=== PATIENT | male | born 1960 | race Two or more races ===

== ENCOUNTER 2017-10-28 15:16 | Inpatient (IN) | payer OTHER ==
[2017-10-28 15:50] VITALS: BMI 38.7
--- NOTE | 2017-10-28 20:39 | HP ---
COWS - Scale Resting Pulse: 2= RI 101-120 Sweatin=Flushed/Facial Moisture Restless Observation: 3= Extraneous Movement Pupil Size: 0= Normal to Room Light Bone or Joint Aches: 4=Acute Joint/Muscle Pain Runny Nose/ Eye Tearin= Nasal Congestion GI Upset > 30mins: 2= Nausea/Diarrhea Tremor Observation: 0= None Yawning Observation: 0= None Anxiety or Irritability: 2=Irritable/Anxious Goose Flesh Skin: 0=Smooth Skin COWS Score: 16 CIWA Score - CIWA Score Nausea/Vomitin-Mild Nausea/No Vomiting Muscle Tremors: None Anxiety: 4-Mod. Anxious/Guarded Agitation: 3 Paroxysmal Sweats: 3 Orientation: 1-Uncertain about Date Tacttile Disturbances: 0-None Auditory Disturbances: 0-None Visual Disturbances: 0-None Headache: 2-Mild CIWA-Ar Total Score: 14 Admission ROS S - HPI Chief Complaint: c/o of withdrawal sx's Allergies/Adverse Reactions: Allergies Allergy/AdvReac Type Severity Reaction Status Date / Time No Known Drug Allergies Allergy Verified 10/28/17 19:40 History of Present Illness: 57 Y.O. MALE WITH LONG HX/O ALCOHOLISM AND OPIOID DEPENDENCE HERE FOR DETOX. CLIENT IS KNOWN TO THIS PROGRAM. LAST HERE 3 YEARS AGO. REFERRED BY OUTREACH. REPORTS LONGEST CLEAN TIME 1 YEAR. DENIES HX/O DT'S, AVH, SEIZXURE D/O. UTOX + BZO AMD MTD. CLIENT STATES HE TAKE STREET METHADONE. REPORTS WAS RECENTLY O THE HOSPITAL A LITTLE OVER A MONTH AGO FOR ASTHMA AND WAS TREATED WITH BENZO'S FOR ALCOHOLISM. CLIENT IS A POOR HISTORIAN WITH HOME MEDICATION. INCONSISTENT REPORTS. CONFLICTING DOSAGES AND RX NOTED WHEN COMPARED TO OUTSIDE PHARMACY REVIEW Exam Limitations: No Limitations - Ebola screening Have you traveled outside of the country in the last 21 days: No (N) Have you had contact with anyone from an Ebola affected area: No Have you been sick,other than usual withdrawal symptoms: No Do you have a fever: No - Review of Systems Constitutional: Chills, Malaise, Night Sweats, Changes in sleep EENT: reports: No Symptoms Reported Respiratory: reports: Other (HX/O ASTHMA) Cardiac: reports: No Symptoms Reported GI: reports: Nausea, Poor Appetite, Abdominal cramping : reports: No Symptoms Reported Musculoskeletal: reports: Joint Pain Integumentary: reports: No Symptoms Reported Neuro: reports: No Symptoms reported Endocrine: reports: Other (HX/O DM) Hematology: reports: No Symptoms Reported Psychiatric: reports: No Sypmtoms Reported Other Systems: Reviewed and Negative Patient History - Patient Medical History Hx Anemia: No Hx Asthma: Yes Hx Chronic Obstructive Pulmonary Disease (COPD): No Hx Cancer: No Hx Cardiac Disorders: No Hx Congestive Heart Failure: No Hx Hypertension: Yes Hx Hypercholesterolemia: No Hx Pacemaker: No HX Cerebrovascular Accident: No Hx Seizures: No Hx Dementia: No Hx Diabetes: Yes Hx Gastrointestinal Disorders: Yes ("gastritis") Hx Liver Disease: No Hx Genitourinary Disorders: No Hx Sexually Transmitted Disorders: No Hx Renal Disease (ESRD): No Hx Thyroid Disease: No Hx Human Immunodeficiency Virus (HIV): No Hx Hepatitis C: No Hx Depression: No Hx Suicide Attempt: No Hx Bipolar Disorder: No Hx Schizophrenia: No Other Medical History: DENIES - Patient Surgical History Past Surgical History: No Hx Neurologic Surgery: No Hx Cataract Extraction: No Hx Cardiac Surgery: No Hx Lung Surgery: No Hx Breast Surgery: No Hx Breast Biopsy: No Hx Abdominal Surgery: No Hx Appendectomy: No Hx Cholecystectomy: No Hx Genitourinary Surgery: No Hx Section: No Hx Orthopedic Surgery: No Anesthesia Reaction: No - PPD History Previous Implant?: Yes Documented Results: Negative w/proof Date: 01/06/14 Results: 0 mm PPD to be Administered?: Yes - Smoking Cessation Smoking history: Never smoked Have you smoked in the past 12 months: No Cigars Per Day: 0 Hx Chewing Tobacco Use: No Initiated information on smoking cessation: No - Substance & Tx. History Hx Alcohol Use: Yes Hx Substance Use: Yes Substance Use Type: Alcohol, Cocaine, Opiates (MTD) Hx Substance Use Treatment: Yes ([facility]) - Substances Abused Alcohol Route: Oral Frequency: Daily Amount used: liquor- 2 pints, beer- 1 six pack Age of first use: 21 Date of Last Use: 10/27/17 Non-Rx Methadone Route: Oral Frequency: Daily Amount used: 40mg Age of first use: 41 Date of Last Use: 10/27/17 COCAINE Route: Inhalation Frequency: 1-2 times per week Amount used: 20 DOLLARS Age of first use: 31 Date of Last Use: 10/21/17 Family Disease History - Family Disease History Family Disease History: Diabetes: Father (ALCOHOLIC), Mother (HTN), Heart Disease: Mother, Other: Father Admission Physical Exam [facility] - Vital Signs Vital Signs: Vital Signs - 24 hr 10/28/17 15:48 Temperature 98.5 F Pulse Rate 101 H Respiratory 20 Rate Blood Pressure 147/78 Cleared for Admission [facility] - Detox or Rehab [facility] Level of Care: Medically Managed Detox Regimen/Protocol: Methadone/Librium Claeared for Rehab Admission: No BHS Breath Alcohol Content Breath Alcohol Content: 0 Urine Drug Screen - Results Drug Screen Negative: No Urine Drug Screen Results: KIMMIE-Cocaine, BZO-Benzodiazepines, MTD-Methadone
[2017-10-28] MEDS ORDERED: LOPERAMIDE HCL 2 MG CAPSULE PO PRN (20:51)
[2017-10-28] MEDS ORDERED: IBUPROFEN 400 MG TABLET (FP) PO PRN (20:51)
[2017-10-28] MEDS ORDERED: MENTHOL/PHENOL 1 EACH UD MM PRN (20:51)
[2017-10-28] MEDS ORDERED: P-EPHED 60MG/TRIPROLIDI 2.5MG TABLET PO PRN (20:51)
[2017-10-28] MEDS ORDERED: chlordiazePOXIDE HCL 25 MG CAPSULE PO PRN (20:51)
[2017-10-28] MEDS ORDERED: ACETAMINOPHEN 325 MG TABLET (FP) PO PRN (20:51)
[2017-10-28] MEDS ORDERED: MAGNESIUM CITRATE 300 ML BOTTLE PO PRN (20:51)
[2017-10-28] MEDS ORDERED: guaiFENesin/D-METHORPHAN HB 10 ML UNIT-DOSE CUPS PO PRN (20:51)
[2017-10-28] MEDS ORDERED: MAGNESIUM HYDROX 2400MG/30ML ORAL SUSPENSION 30 ML CUP PO PRN (20:51)
[2017-10-28] MEDS ORDERED: hydrOXYzine PAMOATE 50 MG CAPSULE (FP) PO PRN (20:51)
[2017-10-28] MEDS ORDERED: MAG HYDROX/AL HYDROX/SIMETH 30 ML UNIT-DOSE CUP PO PRN (20:51)
[2017-10-28] MEDS ORDERED: METHADONE HCL 10 MG TABLET (FOR DETOX USE ONLY) PO ONE ×2 (21:15→23:00)
[2017-10-28] MEDS ORDERED: MELATONIN 5 MG TABLETS PO PRN (22:00)
[2017-10-28] MEDS: chlordiazePOXIDE HCL 25 MG CAPSULE PO SCH (22:38)
[2017-10-28] MEDS: INSULIN (LEVEMIR) 100 UNITS/ML UNITS SQ SCH (22:57)
[2017-10-28] MEDS: THIAMINE HCL 100 MG TABLET (FP) PO SCH (22:57)
[2017-10-29] MEDS: chlordiazePOXIDE HCL 25 MG CAPSULE PO SCH ×4 (05:10→22:09)
[2017-10-29] MEDS ORDERED: ALBUTEROL SO4 8 GM HFA INHALER IH PRN (07:03)
[2017-10-29] MEDS ORDERED: INSULIN (NOVOLOG) ASPART 100 UNITS/ML 10ML VIAL SQ ONE (07:46)
[2017-10-29] MEDS ORDERED: INSULIN (NOVOLOG) ASPART 100 UNITS/ML 10ML VIAL ONE ×3 (07:56→20:53)
[2017-10-29] MEDS: hydrALAZINE HCL 25 MG TABLET (FP) PO SCH ×3 (08:46→22:09)
[2017-10-29 09:45] LABS: HEMATOCRIT 40.4 % (35.4-49); HEMOGLOBIN 13.6 GM/dL (11.7-16.9); MCH 24.9 pg (25.7-33.7); MCHC 33.6 g/dl (32.0-35.9); MEAN PLT VOLUME 9.9 fl (7.5-11.1); PLATELET COUNT 163 K/MM3 (134-434); RBC 5.46 M/mm3 (4.00-5.60); RDW 16.3 % (11.9-15.9); WHITE BLOOD COUNT 6.4 K/mm3 (4.0-10.0)
[2017-10-29 09:54] LABS: ALBUMIN 3.6 g/dl (3.4-5.0); ANION GAP 8 (8-16); BLOOD UREA NITROGEN 42 mg/dL (7-18); CALCIUM 8.2 mg/dL (8.5-10.1); CHLORIDE 99 mmol/L (98-107); CO2 31 mmol/L (21-32); CREATININE 2.4 mg/dL (0.7-1.3); GLUCOSE,RANDOM 175 mg/dL (74-106); POTASSIUM 4.1 mmol/L (3.5-5.1); SGOT/AST 10 U/L (15-37); SGPT/ALT 23 U/L (12-78); SODIUM 138 mmol/L (136-145)
[2017-10-29 09:56] LABS: ALK PHOS 51 U/L (45-117); BILIRUBIN,TOTAL 0.9 mg/dL (0.2-1.0); TOT PROT 7.1 g/dl (6.4-8.2)
[2017-10-29] MEDS ORDERED: NIFEdipine 10 MG CAPSULE (FP) PO SCH (10:00)
[2017-10-29] MEDS ORDERED: METHADONE HCL 10 MG TABLET (FOR DETOX USE ONLY) PO SCH (10:00)
[2017-10-29] MEDS: LISINOPRIL 10 MG TABLET (FP) PO SCH (10:19)
[2017-10-29] MEDS: PRENATAL VITAMINS W/ FOLIC ACID TABLET (FP) PO SCH (10:19)
[2017-10-29] MEDS: BUDESONIDE/FORMETEROL FUMARATE 160/4.5 mcg INHALER IH SCH ×2 (10:19→22:12)
[2017-10-29] MEDS: ASPIRIN 81 MG CHEWABLE TABLETS PO SCH (10:19)
[2017-10-29] MEDS: NIFEdipine E.R. 30 MG TABLET (FP) PO SCH (10:20)
[2017-10-29] MEDS: PANTOPRAZOLE 40 MG TABLET (FP) PO SCH (10:21)
[2017-10-29] MEDS ORDERED: TRIMETHOBENZAMIDE HCL 200MG/2ML INJ IM PRN (11:57)
[2017-10-29] MEDS: INSULIN SLIDING SCALE (NOVOLOG) 1 VIAL SQ SCH ×3 (12:17→22:10)
--- NOTE | 2017-10-29 13:03 | PN ---
S CIWA - CIWA Score Nausea/Vomitin Muscle Tremors: 3 Anxiety: 4-Mod. Anxious/Guarded Agitation: 2 Paroxysmal Sweats: 3 Orientation: 0-Oriented Tacttile Disturbances: 2-Mild Itch/Numbness/Burn Auditory Disturbances: 0-None Visual Disturbances: 0-None Headache: 0-None Present CIWA-Ar Total Score: 19 BHS COWS - Scale Resting Pulse: 1= [place] 81-100 Sweatin= Chills/Flushing Restless Observation: 1= Difficult to Sit Still Pupil Size: 0= Normal to Room Light Bone or Joint Aches: 2= Severe Diffuse Aches Runny Nose/ Eye Tearin= None GI Upset > 30mins: 3= Vomiting/Diarrhea Tremor Observation of Outstretched Hands: 2= Slight Tremor Visible Yawning Observation: 1= 1-2x During Session Anxiety or Irritability: 2=Irritable/Anxious Goose Flesh Skin: 3=Piloerection COWS Score: 16 S Progress Note (SOAP) Subjective: Tremors, Sweating, Interrupted Sleep, Body Aches, Anxious, Vomiting, Diarrhea. Objective: PATIENT A & O X 3, OBSERVED AMBULATING ON UNIT. NO ACUTE DISTRESS. 10/29/17 12:59 Vital Signs Temperature 97.2 F L 10/29/17 09:19 Pulse Rate 100 H 10/29/17 09:19 Respiratory Rate 20 10/29/17 09:19 Blood Pressure 146/86 10/29/17 09:19 O2 Sat by Pulse Oximetry (%) Laboratory Tests 10/28/17 10/28/17 10/29/17 19:36 22:52 05:09 WBC RBC Hgb Hct MCV MCH MCHC RDW Plt Count MPV Sodium Potassium Chloride Carbon Dioxide Anion Gap BUN Creatinine Creat Clearance w eGFR POC Glucometer 287 325 258 Random Glucose Calcium Total Bilirubin AST ALT Alkaline Phosphatase Total Protein Albumin RPR Titer 10/29/17 10/29/17 10/29/17 07:00 07:00 07:00 WBC 6.4 RBC 5.46 Hgb 13.6 Hct 40.4 MCV 74.0 L MCH 24.9 L MCHC 33.6 RDW 16.3 H Plt Count 163 MPV 9.9 Sodium 138 Potassium 4.1 Chloride 99 Carbon Dioxide 31 Anion Gap 8 BUN 42 H Creatinine 2.4 H Creat Clearance w eGFR 28.14 POC Glucometer Random Glucose 175 H D Calcium 8.2 L Total Bilirubin 0.9 AST 10 L D ALT 23 D Alkaline Phosphatase 51 Total Protein 7.1 Albumin 3.6 RPR Titer Nonreactive LABS NOTED. UA RESULTS PENDING. 10/29/17 13:03 Assessment: 10/29/17 12:59 WITHDRAWAL SYMPTOMS. Plan: CONTINUE DETOX. D/C IBUPROFEN AND MAGNESIUM-CONTAINING MEDS. FOR ABNORMAL ADMISSION RENAL LAB VALUES. BASIC METABOLIC PANEL ON 10/31/2017. PRN TIGAN IM FOR NAUSEA/VOMITING. PRN FLEXERIL FOR BODY ACHES/MUSCLE SPASMS.
[2017-10-29 15:09] LABS: URINE APPEARANCE CLEAR; URINE BILIRUBIN NEGATIVE (<2.0 mg/dL); URINE COLOR YELLOW; URINE GLUCOSE (UA) 1+ (NEGATIVE); URINE KETONE NEGATIVE (NEGATIVE); URINE LEUK ESTERASE NEGATIVE (NEGATIVE); URINE NITRITE NEGATIVE (NEGATIVE); URINE PROTEIN NEGATIVE (NEGATIVE); URINE UROBILINOGEN NEGATIVE mg/dL (0.2-1.0)
--- NOTE | 2017-10-29 16:31 | CONSULT ---
[facility] Psychiatric Consult - Data Date of interview: 10/29/17 Admission source: [facility] Identifying data: Patient is a 57 year old singe male, father of one, unemployed , homeless, and supported by public assistance. This is one of multiple admissions for patient. Pt. admitted to for alcohol and cocaine dependence. Substance Abuse History: - Smoking Cessation. Smoking history: Never smoked. Have you smoked in the past 12 months: No. Cigars Per Day: 0. Hx Chewing Tobacco Use: No. Initiated information on smoking cessation: No. - Substance & Tx. History. Hx Alcohol Use: Yes. Hx Substance Use: Yes. Substance Use Type : Alcohol, Cocaine, Opiates (MTD). Hx Substance Use Treatment: Yes ([facility] ). - Substances Abused. Alcohol. Route: Oral. Frequency: Daily. Amount used: liquor- 2 pints, beer- 1 six pack. Age of first use: 21. Date of Last Use: 10/27/17. Non-Rx Methadone. Route: Oral. Frequency: Daily. Amount used: 40mg. Age of first use: 41. Date of Last Use: 10/27/17. COCAINE. Route: Inhalation. Frequency: 1-2 times per week. Amount used: 20 DOLLARS. Age of first use: 31. Date of Last Use: 10/21/17 Medical History: Asthma, hypertension, gastritis, diabetes Psychiatric History: Patient denies h/o psychiatric hospitalization, outpatient care, and suicide attempt. Pt states he receives ambien from his medical doctor. Physical/Sexual Abuse/Trauma History: Denies. Mental Status Exam - Mental Status Exam Alert and Oriented to: Time, Place, Person Cognitive Function: Good Patient Appearance: Well Groomed Mood: Euthymic Affect: Mood Congruent Patient Behavior: Appropriate, Cooperative Speech Pattern: Appropriate Voice Loudness: Normal Thought Process: Intact Thought Disorder: Not Present Hallucinations: Denies Suicidal Ideation: Denies Homicidal Ideation: Denies Insight/Judgement: Poor Sleep: Poorly Appetite: Fair Muscle strength/Tone: Normal Gait/Station: Normal Psychiatric Findings - Problem List ([place] 1, 2,3) (1) Alcohol dependence with uncomplicated withdrawal Current Visit: Yes Status: Acute (2) Diabetes mellitus Current Visit: Yes Status: Acute (3) Opioid dependence with withdrawal Current Visit: Yes Status: Acute (4) Cocaine dependence, uncomplicated Current Visit: Yes Status: Chronic (5) Essential hypertension Current Visit: Yes Status: Chronic (6) Gastroesophageal reflux disease Current Visit: Yes Status: Chronic (7) Insomnia Current Visit: Yes Status: Acute (8) Drug-induced mood disorder Current Visit: Yes Status: Acute - Initial Treatment Plan Initial Treatment Plan: Psychoeducation provided. Detoxification in progress. Ambien 10mg qhs prn ordered. Pt. reports favorable effect from accepting ambien. Benefits and side effects discussed. Pt. made aware of the risk of parasomnia. Verbal consent given.
[2017-10-29] MEDS: ATORVASTATIN CA 80 MG TABLET (FP) PO SCH (22:09)
[2017-10-29] MEDS: THIAMINE HCL 100 MG TABLET (FP) PO SCH (22:09)
[2017-10-29] MEDS: ZOLPIDEM TARTRATE 10 MG TABLET (PARK CARE ONLY) PO PRN (22:09)
[2017-10-29] MEDS: MONTELUKAST NA 10 MG TABLET PO SCH (22:09)
[2017-10-29] MEDS: INSULIN (LEVEMIR) 100 UNITS/ML UNITS SQ SCH (22:09)
[2017-10-29] MEDS: CYCLOBENZAPRINE HCL 10 MG TABLET (FP) PO PRN (22:13)
[2017-10-30] MEDS: chlordiazePOXIDE HCL 25 MG CAPSULE PO SCH ×3 (05:10→17:30)
[2017-10-30] MEDS: hydrALAZINE HCL 25 MG TABLET (FP) PO SCH ×3 (05:10→22:10)
[2017-10-30] MEDS ORDERED: INSULIN (NOVOLOG) ASPART 100 UNITS/ML 10ML VIAL ONE ×3 (07:57→21:27)
[2017-10-30] MEDS: INSULIN SLIDING SCALE (NOVOLOG) 1 VIAL SQ SCH ×4 (08:13→21:28)
[2017-10-30] MEDS: LISINOPRIL 10 MG TABLET (FP) PO SCH (10:09)
[2017-10-30] MEDS: PRENATAL VITAMINS W/ FOLIC ACID TABLET (FP) PO SCH (10:09)
[2017-10-30] MEDS: PANTOPRAZOLE 40 MG TABLET (FP) PO SCH (10:09)
[2017-10-30] MEDS: METHADONE HCL 5 MG TABLET (FOR DETOX USE ONLY) PO SCH (10:10)
[2017-10-30] MEDS: NIFEdipine E.R. 30 MG TABLET (FP) PO SCH (10:10)
[2017-10-30] MEDS: ASPIRIN 81 MG CHEWABLE TABLETS PO SCH (10:10)
[2017-10-30] MEDS: BUDESONIDE/FORMETEROL FUMARATE 160/4.5 mcg INHALER IH SCH ×2 (10:10→22:13)
[2017-10-30] MEDS: CYCLOBENZAPRINE HCL 10 MG TABLET (FP) PO PRN ×2 (10:13→22:10)
[2017-10-30] MEDS: LIDOCAINE 5% TOPICAL PATCH TP SCH (11:55)
--- NOTE | 2017-10-30 12:49 | PN ---
S CIWA - CIWA Score Nausea/Vomitin Muscle Tremors: None Anxiety: 3 Agitation: 2 Paroxysmal Sweats: No Perspiration Orientation: 0-Oriented Tacttile Disturbances: 2-Mild Itch/Numbness/Burn Auditory Disturbances: 0-None Visual Disturbances: 2-Mild Sensitivity Headache: 0-None Present CIWA-Ar Total Score: 12 BHS COWS - Scale Resting Pulse: 4= MO > 121 Sweatin= Chills/Flushing Restless Observation: 1= Difficult to Sit Still Pupil Size: 0= Normal to Room Light Bone or Joint Aches: 2= Severe Diffuse Aches Runny Nose/ Eye Tearin= None GI Upset > 30mins: 2= Nausea/Diarrhea Tremor Observation of Outstretched Hands: 0= None Yawning Observation: 1= 1-2x During Session Anxiety or Irritability: 2=Irritable/Anxious Goose Flesh Skin: 0=Smooth Skin COWS Score: 13 BHS Progress Note (SOAP) Subjective: Interrupted Sleep, Stomach Cramping, Nausea, Body Aches, Constipation. Objective: PATIENT A & O X 3, OBSERVED AMBULATING ON UNIT. NO ACUTE DISTRESS. 10/30/17 12:46 Vital Signs Temperature 98.1 F 10/30/17 10:17 Pulse Rate 121 H 10/30/17 10:17 Respiratory Rate 18 10/30/17 10:17 Blood Pressure 162/92 10/30/17 10:17 O2 Sat by Pulse Oximetry (%) Laboratory Tests 10/28/17 10/28/17 10/29/17 19:36 22:52 05:09 WBC RBC Hgb Hct MCV MCH MCHC RDW Plt Count MPV Sodium Potassium Chloride Carbon Dioxide Anion Gap BUN Creatinine Creat Clearance w eGFR POC Glucometer 287 325 258 Random Glucose Calcium Total Bilirubin AST ALT Alkaline Phosphatase Total Protein Albumin Urine Color Urine Appearance Urine pH Ur Specific [place] Urine Protein Urine Glucose (UA) Urine Ketones Urine Blood Urine Nitrite Urine Bilirubin Urine Urobilinogen Ur Leukocyte Esterase RPR Titer 10/29/17 10/29/17 10/29/17 07:00 07:00 07:00 WBC 6.4 RBC 5.46 Hgb 13.6 Hct 40.4 MCV 74.0 L MCH 24.9 L MCHC 33.6 RDW 16.3 H Plt Count 163 MPV 9.9 Sodium 138 Potassium 4.1 Chloride 99 Carbon Dioxide 31 Anion Gap 8 BUN 42 H Creatinine 2.4 H Creat Clearance w eGFR 28.14 POC Glucometer Random Glucose 175 H D Calcium 8.2 L Total Bilirubin 0.9 AST 10 L D ALT 23 D Alkaline Phosphatase 51 Total Protein 7.1 Albumin 3.6 Urine Color Urine Appearance Urine pH Ur Specific [place] Urine Protein Urine Glucose (UA) Urine Ketones Urine Blood Urine Nitrite Urine Bilirubin Urine Urobilinogen Ur Leukocyte Esterase RPR Titer Nonreactive 10/29/17 10/29/17 10/29/17 09:00 16:13 20:47 WBC RBC Hgb Hct MCV MCH MCHC RDW Plt Count MPV Sodium Potassium Chloride Carbon Dioxide Anion Gap BUN Creatinine Creat Clearance w eGFR POC Glucometer 423 365 Random Glucose Calcium Total Bilirubin AST ALT Alkaline Phosphatase Total Protein Albumin Urine Color Yellow Urine Appearance Clear Urine pH 5.0 Ur Specific [place] 1.018 Urine Protein Negative Urine Glucose (UA) 1+ H Urine Ketones Negative Urine Blood Negative Urine Nitrite Negative Urine Bilirubin Negative Urine Urobilinogen Negative Ur Leukocyte Esterase Negative RPR Titer 10/30/17 10/30/17 05:07 10:48 WBC RBC Hgb Hct MCV MCH MCHC RDW Plt Count MPV Sodium Potassium Chloride Carbon Dioxide Anion Gap BUN Creatinine Creat Clearance w eGFR POC Glucometer 307 423 Random Glucose Calcium Total Bilirubin AST ALT Alkaline Phosphatase Total Protein Albumin Urine Color Urine Appearance Urine pH Ur Specific [place] Urine Protein Urine Glucose (UA) Urine Ketones Urine Blood Urine Nitrite Urine Bilirubin Urine Urobilinogen Ur Leukocyte Esterase RPR Titer LABS NOTED. Assessment: 10/30/17 12:46 WITHDRAWAL SYMPTOMS. Plan: CONTINUE DETOX. INCREASE DAILY PO FLUID INTAKE. PRN TIGAN IM FOR NAUSEA. PRN MOM FOR CONSTIPATION. PRN FLEXERIL FOR BODY ACHES / MUSCLE SPASMS. LIDODERM PATCH FOR LOWER BACK PAIN. BASIC METABOLIC PANEL FOR TOMORROW AM FOR ABNORMAL ADMISSION RENAL LAB VALUES.
--- NOTE | 2017-10-30 14:28 | EKG ---
Test Reason : Blood Pressure : / mmHG Vent. Rate : 100 BPM Atrial Rate : 100 BPM P-R Int : 156 ms QRS Dur : 092 ms QT Int : 376 ms P-R-T Axes : 063 014 055 degrees QTc Int : 485 ms SINUS RHYTHM WITH PREMATURE ATRIAL COMPLEXES POSSIBLE LEFT ATRIAL ENLARGEMENT INFERIOR INFARCT , AGE UNDETERMINED ABNORMAL ECG NO PREVIOUS ECGS AVAILABLE Confirmed by RUSSEL DAVENPORT MD ([id number]) on 10/30/2017 2:28:15 PM Referred By: Confirmed By:RUSSEL DAVENPORT MD
[2017-10-30] MEDS: INSULIN (LEVEMIR) 100 UNITS/ML UNITS SQ SCH (21:30)
[2017-10-30] MEDS: THIAMINE HCL 100 MG TABLET (FP) PO SCH (22:10)
[2017-10-30] MEDS: ATORVASTATIN CA 80 MG TABLET (FP) PO SCH (22:10)
[2017-10-30] MEDS: chlordiazePOXIDE 5 MG CAPSULE PO SCH (22:10)
[2017-10-30] MEDS: MONTELUKAST NA 10 MG TABLET PO SCH (22:10)
[2017-10-30] MEDS: ZOLPIDEM TARTRATE 10 MG TABLET (PARK CARE ONLY) PO PRN (22:10)
[2017-10-30] MEDS: LIDOCAINE PATCH REMOVAL MC SCH (22:11)
[2017-10-31] MEDS: chlordiazePOXIDE 5 MG CAPSULE PO SCH ×3 (05:10→17:05)
[2017-10-31] MEDS: hydrALAZINE HCL 25 MG TABLET (FP) PO SCH ×3 (05:10→22:09)
[2017-10-31] MEDS ORDERED: INSULIN (NOVOLOG) ASPART 100 UNITS/ML 10ML VIAL ONE ×4 (07:28→20:34)
[2017-10-31] MEDS: INSULIN SLIDING SCALE (NOVOLOG) 1 VIAL SQ SCH ×4 (07:50→21:30)
[2017-10-31] MEDS: PANTOPRAZOLE 40 MG TABLET (FP) PO SCH (10:05)
[2017-10-31] MEDS: BUDESONIDE/FORMETEROL FUMARATE 160/4.5 mcg INHALER IH SCH ×2 (10:05→22:10)
[2017-10-31] MEDS: PRENATAL VITAMINS W/ FOLIC ACID TABLET (FP) PO SCH (10:05)
[2017-10-31] MEDS: NIFEdipine E.R. 30 MG TABLET (FP) PO SCH (10:05)
[2017-10-31] MEDS: LISINOPRIL 10 MG TABLET (FP) PO SCH (10:05)
[2017-10-31] MEDS: ASPIRIN 81 MG CHEWABLE TABLETS PO SCH (10:05)
[2017-10-31] MEDS: METHADONE HCL 5 MG TABLET (FOR DETOX USE ONLY) PO SCH (10:06)
[2017-10-31] MEDS: LIDOCAINE 5% TOPICAL PATCH TP SCH (10:06)
[2017-10-31 10:15] LABS: ANION GAP 6 (8-16); BLOOD UREA NITROGEN 29 mg/dL (7-18); CALCIUM 8.4 mg/dL (8.5-10.1); CHLORIDE 104 mmol/L (98-107); CO2 30 mmol/L (21-32); POTASSIUM 4.3 mmol/L (3.5-5.1); SODIUM 140 mmol/L (136-145)
[2017-10-31 10:17] LABS: CREATININE 1.5 mg/dL (0.7-1.3)
[2017-10-31 10:36] LABS: GLUCOSE,RANDOM 326 mg/dL (74-106)
--- NOTE | 2017-10-31 12:40 | PN ---
BHS Progress Note (SOAP) Subjective: Tremors, Stomach Cramping, Nausea, Diarrhea, Sweating. Objective: PATIENT A & O X 3, OBSERVED AMBULATING ON UNIT. NO ACUTE DISTRESS. 10/31/17 12:40 Vital Signs Temperature 98.7 F 10/31/17 09:18 Pulse Rate 100 H 10/31/17 09:18 Respiratory Rate 18 10/31/17 09:18 Blood Pressure 146/87 10/31/17 09:18 O2 Sat by Pulse Oximetry (%) Laboratory Tests 10/28/17 10/28/17 10/29/17 19:36 22:52 05:09 WBC RBC Hgb Hct MCV MCH MCHC RDW Plt Count MPV Sodium Potassium Chloride Carbon Dioxide Anion Gap BUN Creatinine Creat Clearance w eGFR POC Glucometer 287 325 258 Random Glucose Calcium Total Bilirubin AST ALT Alkaline Phosphatase Total Protein Albumin Urine Color Urine Appearance Urine pH Ur Specific [place] Urine Protein Urine Glucose (UA) Urine Ketones Urine Blood Urine Nitrite Urine Bilirubin Urine Urobilinogen Ur Leukocyte Esterase RPR Titer 10/29/17 10/29/17 10/29/17 07:00 07:00 07:00 WBC 6.4 RBC 5.46 Hgb 13.6 Hct 40.4 MCV 74.0 L MCH 24.9 L MCHC 33.6 RDW 16.3 H Plt Count 163 MPV 9.9 Sodium 138 Potassium 4.1 Chloride 99 Carbon Dioxide 31 Anion Gap 8 BUN 42 H Creatinine 2.4 H Creat Clearance w eGFR 28.14 POC Glucometer Random Glucose 175 H D Calcium 8.2 L Total Bilirubin 0.9 AST 10 L D ALT 23 D Alkaline Phosphatase 51 Total Protein 7.1 Albumin 3.6 Urine Color Urine Appearance Urine pH Ur Specific [place] Urine Protein Urine Glucose (UA) Urine Ketones Urine Blood Urine Nitrite Urine Bilirubin Urine Urobilinogen Ur Leukocyte Esterase RPR Titer Nonreactive 10/29/17 10/29/17 10/29/17 09:00 16:13 20:47 WBC RBC Hgb Hct MCV MCH MCHC RDW Plt Count MPV Sodium Potassium Chloride Carbon Dioxide Anion Gap BUN Creatinine Creat Clearance w eGFR POC Glucometer 423 365 Random Glucose Calcium Total Bilirubin AST ALT Alkaline Phosphatase Total Protein Albumin Urine Color Yellow Urine Appearance Clear Urine pH 5.0 Ur Specific [place] 1.018 Urine Protein Negative Urine Glucose (UA) 1+ H Urine Ketones Negative Urine Blood Negative Urine Nitrite Negative Urine Bilirubin Negative Urine Urobilinogen Negative Ur Leukocyte Esterase Negative RPR Titer 10/30/17 10/30/17 10/30/17 05:07 10:48 16:13 WBC RBC Hgb Hct MCV MCH MCHC RDW Plt Count MPV Sodium Potassium Chloride Carbon Dioxide Anion Gap BUN Creatinine Creat Clearance w eGFR POC Glucometer 307 423 281 Random Glucose Calcium Total Bilirubin AST ALT Alkaline Phosphatase Total Protein Albumin Urine Color Urine Appearance Urine pH Ur Specific [place] Urine Protein Urine Glucose (UA) Urine Ketones Urine Blood Urine Nitrite Urine Bilirubin Urine Urobilinogen Ur Leukocyte Esterase RPR Titer 10/30/17 10/31/17 10/31/17 20:59 05:10 07:00 WBC RBC Hgb Hct MCV MCH MCHC RDW Plt Count MPV Sodium 140 Potassium 4.3 Chloride 104 Carbon Dioxide 30 Anion Gap 6 L BUN 29 H Creatinine 1.5 H Creat Clearance w eGFR 48.41 POC Glucometer 317 266 Random Glucose 326 H* D Calcium 8.4 L Total Bilirubin AST ALT Alkaline Phosphatase Total Protein Albumin Urine Color Urine Appearance Urine pH Ur Specific [place] Urine Protein Urine Glucose (UA) Urine Ketones Urine Blood Urine Nitrite Urine Bilirubin Urine Urobilinogen Ur Leukocyte Esterase RPR Titer 10/31/17 11:17 WBC RBC Hgb Hct MCV MCH MCHC RDW Plt Count MPV Sodium Potassium Chloride Carbon Dioxide Anion Gap BUN Creatinine Creat Clearance w eGFR POC Glucometer 480 Random Glucose Calcium Total Bilirubin AST ALT Alkaline Phosphatase Total Protein Albumin Urine Color Urine Appearance Urine pH Ur Specific [place] Urine Protein Urine Glucose (UA) Urine Ketones Urine Blood Urine Nitrite Urine Bilirubin Urine Urobilinogen Ur Leukocyte Esterase RPR Titer LABS NOTED. Assessment: 10/31/17 12:42 WITHDRAWAL SYMPTOMS. Plan: CONTINUE DETOX. INCREASE DAILY PO FLUID INTAKE. PRN FLEXERIL FOR BODY ACHES / MUSCLE SPASMS. PRN TIGAN IM FOR NAUSEA.
[2017-10-31] MEDS: INSULIN (LEVEMIR) 100 UNITS/ML UNITS SQ SCH (21:30)
[2017-10-31] MEDS: chlordiazePOXIDE HCL 10 MG CAPSULE PO SCH (22:09)
[2017-10-31] MEDS: THIAMINE HCL 100 MG TABLET (FP) PO SCH (22:09)
[2017-10-31] MEDS: CYCLOBENZAPRINE HCL 10 MG TABLET (FP) PO PRN (22:09)
[2017-10-31] MEDS: ATORVASTATIN CA 80 MG TABLET (FP) PO SCH (22:09)
[2017-10-31] MEDS: MONTELUKAST NA 10 MG TABLET PO SCH (22:09)
[2017-10-31] MEDS: ZOLPIDEM TARTRATE 10 MG TABLET (PARK CARE ONLY) PO PRN (22:09)
[2017-10-31] MEDS: LIDOCAINE PATCH REMOVAL MC SCH (22:11)
[2017-11-01] MEDS: chlordiazePOXIDE HCL 10 MG CAPSULE PO SCH ×3 (05:10→17:18)
[2017-11-01] MEDS: hydrALAZINE HCL 25 MG TABLET (FP) PO SCH ×3 (05:10→22:20)
[2017-11-01] MEDS ORDERED: INSULIN (NOVOLOG) ASPART 100 UNITS/ML 10ML VIAL ONE ×4 (06:31→21:42)
[2017-11-01] MEDS: INSULIN SLIDING SCALE (NOVOLOG) 1 VIAL SQ SCH ×4 (07:55→22:23)
[2017-11-01] MEDS ORDERED: METHADONE HCL 10 MG TABLET (FOR DETOX USE ONLY) PO SCH (10:00)
[2017-11-01] MEDS: BUDESONIDE/FORMETEROL FUMARATE 160/4.5 mcg INHALER IH SCH ×2 (10:10→22:20)
[2017-11-01] MEDS: ASPIRIN 81 MG CHEWABLE TABLETS PO SCH (10:11)
[2017-11-01] MEDS: NIFEdipine E.R. 30 MG TABLET (FP) PO SCH (10:11)
[2017-11-01] MEDS: PANTOPRAZOLE 40 MG TABLET (FP) PO SCH (10:11)
[2017-11-01] MEDS: LIDOCAINE 5% TOPICAL PATCH TP SCH (10:11)
[2017-11-01] MEDS: PRENATAL VITAMINS W/ FOLIC ACID TABLET (FP) PO SCH (10:11)
[2017-11-01] MEDS: LISINOPRIL 10 MG TABLET (FP) PO SCH (10:11)
[2017-11-01] MEDS: CYCLOBENZAPRINE HCL 10 MG TABLET (FP) PO PRN (11:09)
--- NOTE | 2017-11-01 13:37 | PN ---
BHS Progress Note (SOAP) Subjective: Tremors, Anxious, Body Aches. Objective: PATIENT A & O X 3, OBSERVED AMBULATING ON UNIT. NO ACUTE DISTRESS. 11/01/17 13:33 Vital Signs Temperature 98.4 F 11/01/17 10:45 Pulse Rate 120 H 11/01/17 10:45 Respiratory Rate 18 11/01/17 10:45 Blood Pressure 158/94 11/01/17 10:45 O2 Sat by Pulse Oximetry (%) Laboratory Tests 10/28/17 10/28/17 10/29/17 19:36 22:52 05:09 WBC RBC Hgb Hct MCV MCH MCHC RDW Plt Count MPV Sodium Potassium Chloride Carbon Dioxide Anion Gap BUN Creatinine Creat Clearance w eGFR POC Glucometer 287 325 258 Random Glucose Calcium Total Bilirubin AST ALT Alkaline Phosphatase Total Protein Albumin Urine Color Urine Appearance Urine pH Ur Specific [place] Urine Protein Urine Glucose (UA) Urine Ketones Urine Blood Urine Nitrite Urine Bilirubin Urine Urobilinogen Ur Leukocyte Esterase RPR Titer 10/29/17 10/29/17 10/29/17 07:00 07:00 07:00 WBC 6.4 RBC 5.46 Hgb 13.6 Hct 40.4 MCV 74.0 L MCH 24.9 L MCHC 33.6 RDW 16.3 H Plt Count 163 MPV 9.9 Sodium 138 Potassium 4.1 Chloride 99 Carbon Dioxide 31 Anion Gap 8 BUN 42 H Creatinine 2.4 H Creat Clearance w eGFR 28.14 POC Glucometer Random Glucose 175 H D Calcium 8.2 L Total Bilirubin 0.9 AST 10 L D ALT 23 D Alkaline Phosphatase 51 Total Protein 7.1 Albumin 3.6 Urine Color Urine Appearance Urine pH Ur Specific [place] Urine Protein Urine Glucose (UA) Urine Ketones Urine Blood Urine Nitrite Urine Bilirubin Urine Urobilinogen Ur Leukocyte Esterase RPR Titer Nonreactive 10/29/17 10/29/17 10/29/17 09:00 16:13 20:47 WBC RBC Hgb Hct MCV MCH MCHC RDW Plt Count MPV Sodium Potassium Chloride Carbon Dioxide Anion Gap BUN Creatinine Creat Clearance w eGFR POC Glucometer 423 365 Random Glucose Calcium Total Bilirubin AST ALT Alkaline Phosphatase Total Protein Albumin Urine Color Yellow Urine Appearance Clear Urine pH 5.0 Ur Specific [place] 1.018 Urine Protein Negative Urine Glucose (UA) 1+ H Urine Ketones Negative Urine Blood Negative Urine Nitrite Negative Urine Bilirubin Negative Urine Urobilinogen Negative Ur Leukocyte Esterase Negative RPR Titer 10/30/17 10/30/17 10/30/17 05:07 10:48 16:13 WBC RBC Hgb Hct MCV MCH MCHC RDW Plt Count MPV Sodium Potassium Chloride Carbon Dioxide Anion Gap BUN Creatinine Creat Clearance w eGFR POC Glucometer 307 423 281 Random Glucose Calcium Total Bilirubin AST ALT Alkaline Phosphatase Total Protein Albumin Urine Color Urine Appearance Urine pH Ur Specific [place] Urine Protein Urine Glucose (UA) Urine Ketones Urine Blood Urine Nitrite Urine Bilirubin Urine Urobilinogen Ur Leukocyte Esterase RPR Titer 10/30/17 10/31/17 10/31/17 20:59 05:10 07:00 WBC RBC Hgb Hct MCV MCH MCHC RDW Plt Count MPV Sodium 140 Potassium 4.3 Chloride 104 Carbon Dioxide 30 Anion Gap 6 L BUN 29 H Creatinine 1.5 H Creat Clearance w eGFR 48.41 POC Glucometer 317 266 Random Glucose 326 H* D Calcium 8.4 L Total Bilirubin AST ALT Alkaline Phosphatase Total Protein Albumin Urine Color Urine Appearance Urine pH Ur Specific [place] Urine Protein Urine Glucose (UA) Urine Ketones Urine Blood Urine Nitrite Urine Bilirubin Urine Urobilinogen Ur Leukocyte Esterase RPR Titer 10/31/17 10/31/17 11/01/17 11:17 16:23 05:09 WBC RBC Hgb Hct MCV MCH MCHC RDW Plt Count MPV Sodium Potassium Chloride Carbon Dioxide Anion Gap BUN Creatinine Creat Clearance w eGFR POC Glucometer 480 294 249 Random Glucose Calcium Total Bilirubin AST ALT Alkaline Phosphatase Total Protein Albumin Urine Color Urine Appearance Urine pH Ur Specific [place] Urine Protein Urine Glucose (UA) Urine Ketones Urine Blood Urine Nitrite Urine Bilirubin Urine Urobilinogen Ur Leukocyte Esterase RPR Titer 11/01/17 11:13 WBC RBC Hgb Hct MCV MCH MCHC RDW Plt Count MPV Sodium Potassium Chloride Carbon Dioxide Anion Gap BUN Creatinine Creat Clearance w eGFR POC Glucometer 411 Random Glucose Calcium Total Bilirubin AST ALT Alkaline Phosphatase Total Protein Albumin Urine Color Urine Appearance Urine pH Ur Specific [place] Urine Protein Urine Glucose (UA) Urine Ketones Urine Blood Urine Nitrite Urine Bilirubin Urine Urobilinogen Ur Leukocyte Esterase RPR Titer LABS NOTED. Assessment: 11/01/17 13:34 WITHDRAWAL SYMPTOMS. Plan: CONTINUE DETOX. PATIENT ADVISED TO FOLLOW-UP WITH [employer]INTER [employer] DR. TELLEZ ([place], [place] AFTER DISCHARGE FROM DETOX FOR HISTORY OF DM AND FOR ABNORMAL RENAL LAB VALUES NOTED WHILE ADMITTED FOR DETOX. COPIES OF RESULTS OF ALL LABS DRAWN WHILE ADMITTED FOR DETOX TO BE GIVEN TO PATIENT AT TIME OF DISCHARGE.
[2017-11-01] MEDS: THIAMINE HCL 100 MG TABLET (FP) PO SCH (22:19)
[2017-11-01] MEDS: MONTELUKAST NA 10 MG TABLET PO SCH (22:19)
[2017-11-01] MEDS: ATORVASTATIN CA 80 MG TABLET (FP) PO SCH (22:19)
[2017-11-01] MEDS: INSULIN (LEVEMIR) 100 UNITS/ML UNITS SQ SCH (22:22)
[2017-11-01] MEDS: LIDOCAINE PATCH REMOVAL MC SCH (22:23)
[2017-11-01] MEDS: ZOLPIDEM TARTRATE 10 MG TABLET (PARK CARE ONLY) PO PRN (23:36)
[2017-11-02] MEDS: hydrALAZINE HCL 25 MG TABLET (FP) PO SCH (05:52)
[2017-11-02] MEDS ORDERED: METHADONE HCL 5 MG TABLET (FOR DETOX USE ONLY) PO SCH (06:00)
[2017-11-02 06:33] VITALS: TEMP 98.6
[2017-11-02] MEDS ORDERED: INSULIN (NOVOLOG) ASPART 100 UNITS/ML 10ML VIAL ONE ×2 (07:01→11:32)
[2017-11-02] MEDS: INSULIN SLIDING SCALE (NOVOLOG) 1 VIAL SQ SCH ×2 (07:04→11:29)
[2017-11-02 09:58] VITALS: BP 150/95; PULSE 115
[2017-11-02] MEDS: LIDOCAINE 5% TOPICAL PATCH TP SCH (10:08)
[2017-11-02] MEDS: BUDESONIDE/FORMETEROL FUMARATE 160/4.5 mcg INHALER IH SCH (10:08)
[2017-11-02] MEDS: NIFEdipine E.R. 30 MG TABLET (FP) PO SCH (10:08)
[2017-11-02] MEDS: PANTOPRAZOLE 40 MG TABLET (FP) PO SCH (10:08)
[2017-11-02] MEDS: LISINOPRIL 10 MG TABLET (FP) PO SCH (10:08)
[2017-11-02] MEDS: ASPIRIN 81 MG CHEWABLE TABLETS PO SCH (10:08)
[2017-11-02] MEDS: PRENATAL VITAMINS W/ FOLIC ACID TABLET (FP) PO SCH (10:08)
--- NOTE | 2017-11-02 12:06 | PN ---
S Progress Note (SOAP) Subjective: pt going to rehab today, no complaints Objective: 11/02/17 12:03 Laboratory Tests 10/28/17 10/28/17 10/29/17 19:36 22:52 05:09 WBC RBC Hgb Hct MCV MCH MCHC RDW Plt Count MPV Sodium Potassium Chloride Carbon Dioxide Anion Gap BUN Creatinine Creat Clearance w eGFR POC Glucometer 287 325 258 Random Glucose Calcium Total Bilirubin AST ALT Alkaline Phosphatase Total Protein Albumin Urine Color Urine Appearance Urine pH Ur Specific [place] Urine Protein Urine Glucose (UA) Urine Ketones Urine Blood Urine Nitrite Urine Bilirubin Urine Urobilinogen Ur Leukocyte Esterase RPR Titer 10/29/17 10/29/17 10/29/17 07:00 07:00 07:00 WBC 6.4 RBC 5.46 Hgb 13.6 Hct 40.4 MCV 74.0 L MCH 24.9 L MCHC 33.6 RDW 16.3 H Plt Count 163 MPV 9.9 Sodium 138 Potassium 4.1 Chloride 99 Carbon Dioxide 31 Anion Gap 8 BUN 42 H Creatinine 2.4 H Creat Clearance w eGFR 28.14 POC Glucometer Random Glucose 175 H D Calcium 8.2 L Total Bilirubin 0.9 AST 10 L D ALT 23 D Alkaline Phosphatase 51 Total Protein 7.1 Albumin 3.6 Urine Color Urine Appearance Urine pH Ur Specific [place] Urine Protein Urine Glucose (UA) Urine Ketones Urine Blood Urine Nitrite Urine Bilirubin Urine Urobilinogen Ur Leukocyte Esterase RPR Titer Nonreactive 10/29/17 10/29/17 10/29/17 09:00 16:13 20:47 WBC RBC Hgb Hct MCV MCH MCHC RDW Plt Count MPV Sodium Potassium Chloride Carbon Dioxide Anion Gap BUN Creatinine Creat Clearance w eGFR POC Glucometer 423 365 Random Glucose Calcium Total Bilirubin AST ALT Alkaline Phosphatase Total Protein Albumin Urine Color Yellow Urine Appearance Clear Urine pH 5.0 Ur Specific [place] 1.018 Urine Protein Negative Urine Glucose (UA) 1+ H Urine Ketones Negative Urine Blood Negative Urine Nitrite Negative Urine Bilirubin Negative Urine Urobilinogen Negative Ur Leukocyte Esterase Negative RPR Titer 10/30/17 10/30/17 10/30/17 05:07 10:48 16:13 WBC RBC Hgb Hct MCV MCH MCHC RDW Plt Count MPV Sodium Potassium Chloride Carbon Dioxide Anion Gap BUN Creatinine Creat Clearance w eGFR POC Glucometer 307 423 281 Random Glucose Calcium Total Bilirubin AST ALT Alkaline Phosphatase Total Protein Albumin Urine Color Urine Appearance Urine pH Ur Specific [place] Urine Protein Urine Glucose (UA) Urine Ketones Urine Blood Urine Nitrite Urine Bilirubin Urine Urobilinogen Ur Leukocyte Esterase RPR Titer 10/30/17 10/31/17 10/31/17 20:59 05:10 07:00 WBC RBC Hgb Hct MCV MCH MCHC RDW Plt Count MPV Sodium 140 Potassium 4.3 Chloride 104 Carbon Dioxide 30 Anion Gap 6 L BUN 29 H Creatinine 1.5 H Creat Clearance w eGFR 48.41 POC Glucometer 317 266 Random Glucose 326 H* D Calcium 8.4 L Total Bilirubin AST ALT Alkaline Phosphatase Total Protein Albumin Urine Color Urine Appearance Urine pH Ur Specific [place] Urine Protein Urine Glucose (UA) Urine Ketones Urine Blood Urine Nitrite Urine Bilirubin Urine Urobilinogen Ur Leukocyte Esterase RPR Titer 10/31/17 10/31/17 11/01/17 11:17 16:23 05:09 WBC RBC Hgb Hct MCV MCH MCHC RDW Plt Count MPV Sodium Potassium Chloride Carbon Dioxide Anion Gap BUN Creatinine Creat Clearance w eGFR POC Glucometer 480 294 249 Random Glucose Calcium Total Bilirubin AST ALT Alkaline Phosphatase Total Protein Albumin Urine Color Urine Appearance Urine pH Ur Specific [place] Urine Protein Urine Glucose (UA) Urine Ketones Urine Blood Urine Nitrite Urine Bilirubin Urine Urobilinogen Ur Leukocyte Esterase RPR Titer 11/01/17 11/01/17 11/01/17 11:13 16:15 21:59 WBC RBC Hgb Hct MCV MCH MCHC RDW Plt Count MPV Sodium Potassium Chloride Carbon Dioxide Anion Gap BUN Creatinine Creat Clearance w eGFR POC Glucometer 411 358 338 Random Glucose Calcium Total Bilirubin AST ALT Alkaline Phosphatase Total Protein Albumin Urine Color Urine Appearance Urine pH Ur Specific [place] Urine Protein Urine Glucose (UA) Urine Ketones Urine Blood Urine Nitrite Urine Bilirubin Urine Urobilinogen Ur Leukocyte Esterase RPR Titer 11/02/17 11/02/17 05:51 11:28 WBC RBC Hgb Hct MCV MCH MCHC RDW Plt Count MPV Sodium Potassium Chloride Carbon Dioxide Anion Gap BUN Creatinine Creat Clearance w eGFR POC Glucometer 298 328 Random Glucose Calcium Total Bilirubin AST ALT Alkaline Phosphatase Total Protein Albumin Urine Color Urine Appearance Urine pH Ur Specific [place] Urine Protein Urine Glucose (UA) Urine Ketones Urine Blood Urine Nitrite Urine Bilirubin Urine Urobilinogen Ur Leukocyte Esterase RPR Titer Vital Signs - 24 hr 11/01/17 11/01/17 11/01/17 14:09 17:15 21:38 Temperature 96.2 F L 97.3 F L 98.3 F Pulse Rate 70 102 H 102 H Respiratory 18 20 20 Rate Blood Pressure 110/80 137/90 135/80 11/02/17 11/02/17 11/02/17 00:30 03:30 06:30 Temperature Pulse Rate Respiratory 18 18 18 Rate Blood Pressure 11/02/17 11/02/17 06:31 09:57 Temperature 98.6 F 98.6 F Pulse Rate 96 H 115 H Respiratory 18 18 Rate Blood Pressure 139/82 150/95 pt ambulatory and wishing to go to rehab Assessment: 11/02/17 12:05 Completed detox protocol DM CRI HTN Plan: Continue meds in rehab
--- NOTE | 2017-11-02 12:13 | DS ---
[facility] Detox Discharge Summary Admission Date: 10/28/17 Discharge Date: 11/02/17 - History Present History: Alcohol Dependence, Cocaine Dependence, Opioid Dependence Additional Comments: (1) Alcohol dependence with uncomplicated withdrawal Current Visit: Yes Status: Acute (2) Opioid dependence with withdrawal Current Visit: Yes Status: Acute (3) Asthma Current Visit: Yes Status: Chronic (4) Cocaine dependence, uncomplicated Current Visit: Yes Status: Chronic (5) Essential hypertension Current Visit: Yes Status: Chronic (6) Gastroesophageal reflux disease Current Visit: Yes Status: Chronic (7) DM Diabetes mellitus type 2 CRI - Physical Exam Results Vital Signs: Vital Signs Temperature 98.6 F 11/02/17 09:57 Pulse Rate 115 H 11/02/17 09:57 Respiratory Rate 18 11/02/17 09:57 Blood Pressure 150/95 11/02/17 09:57 O2 Sat by Pulse Oximetry (%) Pertinent Admission Physical Exam Findings: pt did well. no complaints today - Treatment Hospital Course: Detox Protocol Followed, Detoxed Safely, Responded well, Discharged Condition Good, Rehab Referral Accepted - Medication Discharge Medications: Ambulatory Orders Esomeprazole Mag Trihydrate [Nexium] 40 mg PO DAILY #30 capsule.ec 03/18/14 Zolpidem Tartrate [Ambien] 10 mg PO HS #30 tablet 06/08/14 Aspirin [ASA -] 81 mg PO DAILY #30 tab.chew 10/10/14 Lisinopril [Prinivil] 10 mg PO DAILY #30 tablet 10/10/14 Montelukast Na [Singulair -] 10 mg PO HS #30 tablet 10/10/14 Insulin Glargine,Hum.rec.anlog [Lantus Solostar PEN (NF)] 20 units SQ HS Insulin Lispro [Humalog] 30 unit SQ TID 11/11/14 cloNIDine HCL [Catapres -] 0.2 mg PO DAILY 11/11/14 Hydralazine HCl 25 mg PO TID 10/28/17 Mirtazapine [Remeron -] 30 mg PO HS 10/28/17 Nifedipine [Procardia Capsule -] 30 mg PO DAILY 10/28/17 Albuterol Sulfate [Proair Hfa] 1 - 2 puff IH Q4H PRN 10/29/17 Atorvastatin Ca [Lipitor] 80 mg PO HS 10/29/17 Fluticasone/Salmeterol [Advair 250-50 Diskus] 1 puff IH BID 10/29/17 Valsartan 1 tab PO DAILY 10/29/17 - Diagnosis (1) CRI (chronic renal insufficiency) Current Visit: Yes Status: Acute (2) Alcohol dependence with uncomplicated withdrawal Current Visit: Yes Status: Acute (3) Diabetes mellitus Current Visit: Yes Status: Acute (4) Drug-induced mood disorder Current Visit: Yes Status: Acute (5) Insomnia Current Visit: Yes Status: Acute (6) Asthma Current Visit: Yes Status: Chronic (7) Cocaine dependence, uncomplicated Current Visit: Yes Status: Chronic (8) DM Diabetes mellitus type 2 Current Visit: Yes Status: Chronic - AMA Did Patient Leave Against Medical Advice: No
== END 2017-11-02 12:31 | disposition other institution (70) | DRG 773 ==
LOC: YASAS 15:16 → Y3N 20:19
PROVIDERS: ADMIT Surgery; ATTEND Surgery
PROC: HZ2ZZZZ Detoxification Services for Substance Abuse Treatment (ICD-10-PCS; principal; 2017-10-28)
DX: F11.23 Opioid dependence with withdrawal (principal); F10.230 Alcohol dependence with withdrawal, uncomplicated; F14.20 Cocaine dependence, uncomplicated; F19.24 Other psychoactive substance dependence with psychoactive substance-induced mood disorder; G47.00 Insomnia, unspecified; I12.9 Hypertensive chronic kidney disease with stage 1 through stage 4 chronic kidney disease, or unspecified chronic kidney disease; E11.22 Type 2 diabetes mellitus with diabetic chronic kidney disease; N18.2 Chronic kidney disease, stage 2 (mild); Z79.4 Long term (current) use of insulin; K21.9 Gastro-esophageal reflux disease without esophagitis; J45.909 Unspecified asthma, uncomplicated; E66.9 Obesity, unspecified; Z68.36 Body mass index [BMI] 36.0-36.9, adult
CPT/HCPCS: 36415; 80048; 80053; 81003; 82962; 85027; 86593; 93005; 93010

== ENCOUNTER 2018-03-11 11:21 | Inpatient (IN) | payer OTHER ==
[2018-03-11 12:48] VITALS: BMI 38.7
--- NOTE | 2018-03-11 17:47 | HP ---
CIWA Score Nausea/Vomitin-Mild Nausea/No Vomiting Muscle Tremors: 4-Moderate,w/Arms Extend Anxiety: 1-Mildly Anxious Agitation: 1-Slight > Activity Paroxysmal Sweats: 2 Orientation: 2-Disoriented Date<2 days Tacttile Disturbances: 0-None Auditory Disturbances: 0-None Visual Disturbances: 0-None Headache: 2-Mild CIWA-Ar Total Score: 13 - Admission Criteria OASAS Guidelines: Admission for Medically Managed Detox: Requires at least one of the followin. CIWA greater than 12 2. Seizures within the past 24 hours 3. Delirium tremens within the past 24 hours 4. Hallucinations within the past 24 hours 5. Acute intervention needed for co occurring medical disorder 6. Acute intervention needed for co occurring psychiatric disorder 7. Severe withdrawal that cannot be handled at a lower level of care (continued vomiting, continued diarrhea, abnormal vital signs) requiring intravenous medication and/or fluids 8. Patient presents the following: CIWA greater than 12 Admission Criteria Met: Admission criteria met Admission ROS [facility] - [facility] Chief Complaint: Here with alcohol withdrawal. Allergies/Adverse Reactions: Allergies Allergy/AdvReac Type Severity Reaction Status Date / Time No Known Drug Allergies Allergy Verified 03/11/18 13:42 History of Present Illness: Alcohol use since age 22. [address] methadone use since age 55. Xanax use since age 41. Denies recent cocaine use. Denies seizures, blackouts, or overdose. Hx: asthma, HTN, Acid reflux. Hx BCG as a child. Longest length of sobriety 1 year - in 1999-. PDMP - no recent scripts. Exam Limitations: No Limitations - Ebola screening Have you traveled outside of the country in the last 21 days: No Have you had contact with anyone from an Ebola affected area: No Have you been sick,other than usual withdrawal symptoms: No - Review of Systems Constitutional: Diaphoresis, Changes in sleep (Disturbed by frequent urination) EENT: reports: Dental Problems (Missing teeth. No dental pain. Chews and swallows ok.) Respiratory: reports: No Symptoms reported, Other (SOB w/ asthma attacks.) Cardiac: reports: No Symptoms Reported GI: reports: Nausea, Indigestion (Acid reflux) : reports: Frequency (4-5 x / night nocturia. Denies burning, pain, blood) Musculoskeletal: reports: No Symptoms Reported, Back Pain (Chronic LBP - o pain at this time.) Integumentary: reports: No Symptoms Reported Neuro: reports: Headache Endocrine: reports: Increased Urine Hematology: reports: No Symptoms Reported Psychiatric: reports: Judgement Intact, Orientated x3 (Missed date by 2 days.), Agitated, Anxious (Denies thoughts of harming self or others), other Patient History - Patient Medical History Hx Anemia: No Hx Asthma: Yes (No recent exacerbation) Hx Chronic Obstructive Pulmonary Disease (COPD): No Hx Cancer: No Hx Cardiac Disorders: No Hx Congestive Heart Failure: No Hx Hypertension: Yes (On meds) Hx Hypercholesterolemia: No Hx Pacemaker: No HX Cerebrovascular Accident: No Hx Seizures: No Hx Dementia: No Hx Diabetes: Yes (IDDM) Hx Gastrointestinal Disorders: Yes (acid reflux) Hx Liver Disease: No Hx Genitourinary Disorders: No Hx Sexually Transmitted Disorders: No Hx Renal Disease (ESRD): No Hx Thyroid Disease: No Hx Human Immunodeficiency Virus (HIV): No (Neg) Hx Hepatitis C: No Hx Depression: No Hx Suicide Attempt: No Hx Bipolar Disorder: No Hx Schizophrenia: No - Patient Surgical History Past Surgical History: No Hx Neurologic Surgery: No Hx Cataract Extraction: No Hx Cardiac Surgery: No Hx Lung Surgery: No Hx Breast Surgery: No Hx Breast Biopsy: No Hx Abdominal Surgery: No Hx Appendectomy: No Hx Cholecystectomy: No Hx Genitourinary Surgery: No Hx Section: No Hx Orthopedic Surgery: No Anesthesia Reaction: No - PPD History Previous Implant?: Yes Documented Results: Positive w/proof Implanted On Prior [facility] Admission?: Yes Date: 10/30/17 (BCG vaccine as a child) Results: 15 mm PPD to be Administered?: No - Smoking Cessation Smoking history: Never smoked Have you smoked in the past 12 months: No Cigars Per Day: 0 Hx Chewing Tobacco Use: No Initiated information on smoking cessation: No - Substance & Tx. History Hx Alcohol Use: Yes Hx Substance Use: Yes Substance Use Type: Alcohol, Cocaine, Opiates, Tranquilizers Hx Substance Use Treatment: Yes (detox, rehab) - Substances Abused Alcohol-vodka/beer Route: Oral Frequency: Daily Amount used: 1 pt./1-6 pk. Age of first use: 22 Date of Last Use: 03/11/18 Street methadone Route: Oral Frequency: 1-3 times last 30 days Amount used: 20 mg. Age of first use: 55 Date of Last Use: 03/02/18 Alprazolam (Xanax) Route: Oral Frequency: Daily Amount used: 6 mg Age of first use: 41 Date of Last Use: 03/10/18 Family Disease History - Family Disease History Family Disease History: Diabetes: Father (ALCOHOLIC), Mother (HTN), Heart Disease: Mother, Other: Father Admission Physical Exam [facility] - Vital Signs Vital Signs: Vital Signs - 24 hr 03/11/18 12:45 Temperature 97.9 F Pulse Rate 103 H Respiratory 18 Rate Blood Pressure 161/113 H - Physical General Appearance: Yes: Appropriately Dressed, Mild Distress, Tremorous, Sweating, Anxious HEENTM: Yes: EOMI, Hearing grossly Normal, Normocephalic, Normal Voice, MIKE, Pharynx Normal Respiratory: Yes: Chest Non-Tender, Lungs Clear, Normal Breath Sounds, No Respiratory Distress Neck: Yes: No masses,lesions,Nodules, Supple Breast: Yes: Breast Exam Deferred Cardiology: Yes: Regular Rhythm, Regular Rate, S1, S2 Abdominal: Yes: Normal Bowel Sounds, Non Tender, Soft, Protuberent (Increased abdominal adiposity) Genitourinary: Yes: Frequency Back: Yes: Normal Inspection Musculoskeletal: Yes: full range of Motion, Gait Steady Extremities: Yes: Normal Capillary Refill, Normal Range of Motion, Tremors (of arms when arms extended), Other (Edema ankle to below calf - may be r/t tight socks. Pedal pulses (+)) 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: Yes: qa architect II-XII NML intact, Alert, Motor Strength 5/5, Normal Mood /Affect, Normal Response Integumentary: Yes: Normal Color, Dry, Warm, Other (whitish tissue and cracks between toes.) Lymphatic: Yes: Within Normal Limits - Diagnostic (1) Opioid use disorder, mild, in early remission Current Visit: No Status: Chronic (2) Tinea pedis Current Visit: Yes Status: Chronic Qualifiers: Laterality: bilateral Qualified Code(s): B35.3 - Tinea pedis (3) Alcohol dependence with uncomplicated withdrawal Current Visit: Yes Status: Acute (4) Asthma Current Visit: Yes Status: Chronic (5) DM Diabetes mellitus type 2 Current Visit: Yes Status: Chronic Comment: On insulin (6) Essential hypertension Current Visit: Yes Status: Chronic (7) Gastroesophageal reflux disease Current Visit: Yes Status: Chronic (8) LBP (low back pain) Current Visit: Yes Status: Chronic Qualifiers: Chronicity: chronic Back pain laterality: midline Sciatica presence: without sciatica Qualified Code(s): M54.5 - Low back pain; G89.29 - Other chronic pain (9) Obesity Current Visit: Yes Status: Chronic Qualifiers: Obesity type: due to excess calories Obesity classification: adult class 2 (BMI 35 - 39.9) Serious obesity comorbidity presence: unspecified whether serious comorbidity present Body mass index: BMI 38.0-38.9 Qualified Code(s) : E66.09 - Other obesity due to excess calories; Z68.38 - Body mass index (BMI) 38.0-38.9, adult (10) Anxiolytic withdrawal without complication Current Visit: Yes Status: Acute Cleared for Admission S - Detox or Rehab [facility] Level of Care: Medically Managed Detox Regimen/Protocol: Librium S Breath Alcohol Content Breath Alcohol Content: 0 Urine Drug Screen - Results Drug Screen Negative: No Urine Drug Screen Results: BZO-Benzodiazepines
[2018-03-11] MEDS ORDERED: MAGNESIUM CITRATE 300 ML BOTTLE PO PRN (18:18)
[2018-03-11] MEDS ORDERED: MENTHOL/PHENOL 1 EACH UD MM PRN (18:18)
[2018-03-11] MEDS ORDERED: ACETAMINOPHEN 325 MG TABLET (FP) PO PRN (18:18)
[2018-03-11] MEDS ORDERED: MAGNESIUM HYDROX 2400MG/30ML ORAL SUSPENSION 30 ML CUP PO PRN (18:18)
[2018-03-11] MEDS ORDERED: MAG HYDROX/AL HYDROX/SIMETH 30 ML UNIT-DOSE CUP PO PRN (18:18)
[2018-03-11] MEDS ORDERED: LOPERAMIDE HCL 2 MG CAPSULE PO PRN (18:18)
[2018-03-11] MEDS ORDERED: chlordiazePOXIDE HCL 25 MG CAPSULE PO PRN (18:18)
[2018-03-11] MEDS ORDERED: ALBUTEROL SO4 0.083% IH SOL 2.5 MG/3 ML VIAL.NEB. NEB PRN (18:29)
[2018-03-11] MEDS ORDERED: cloNIDine HCL 0.1 MG TABLET PO ONE (19:15)
[2018-03-11] MEDS ORDERED: chlordiazePOXIDE HCL 25 MG CAPSULE PO ONE (19:15)
[2018-03-11] MEDS: INSULIN (LEVEMIR) 100 UNITS/ML UNITS SQ SCH (21:46)
[2018-03-11] MEDS: ATORVASTATIN CA 80 MG TABLET (FP) PO SCH (21:46)
[2018-03-11] MEDS: THIAMINE HCL 100 MG TABLET (FP) PO SCH (21:46)
[2018-03-11] MEDS: MONTELUKAST NA 10 MG TABLET PO SCH (21:46)
[2018-03-11] MEDS: CLOTRIMAZOLE 1% CREAM 15 GM TUBE TP SCH (21:46)
[2018-03-11] MEDS: chlordiazePOXIDE HCL 25 MG CAPSULE PO SCH (22:10)
[2018-03-11 23:17] LABS: URINE APPEARANCE CLEAR; URINE BILIRUBIN NEGATIVE (<2.0 mg/dL); URINE COLOR LTYELLOW; URINE GLUCOSE (UA) 3+ (NEGATIVE); URINE KETONE NEGATIVE (NEGATIVE); URINE LEUK ESTERASE NEGATIVE (NEGATIVE); URINE NITRITE NEGATIVE (NEGATIVE); URINE PROTEIN NEGATIVE (NEGATIVE); URINE UROBILINOGEN NEGATIVE mg/dL (0.2-1.0)
[2018-03-12] MEDS: chlordiazePOXIDE HCL 25 MG CAPSULE PO SCH ×4 (05:39→22:29)
[2018-03-12] MEDS: INSULIN (NOVOLOG) ASPART 100 UNITS/ML 10ML VIAL SQ SCH ×3 (07:00→17:11)
[2018-03-12] MEDS ORDERED: INSULIN SLIDING SCALE (NOVOLOG) 1 VIAL SQ ONE ×3 (07:05→16:53)
[2018-03-12] MEDS: PANTOPRAZOLE 40 MG TABLET (FP) PO SCH (10:11)
[2018-03-12] MEDS: cloNIDine HCL 0.1 MG TABLET PO SCH (10:11)
[2018-03-12] MEDS: CLOTRIMAZOLE 1% CREAM 15 GM TUBE TP SCH ×2 (10:11→23:03)
[2018-03-12] MEDS: NIFEdipine E.R. 30 MG TABLET (FP) PO SCH (10:11)
[2018-03-12] MEDS: VALSARTAN 80 MG TABLET (UD) PO SCH (10:11)
[2018-03-12] MEDS: PRENATAL VITAMINS W/ FOLIC ACID TABLET (FP) PO SCH (10:11)
[2018-03-12] MEDS: ASPIRIN 81 MG CHEWABLE TABLETS PO SCH (10:11)
[2018-03-12 10:35] LABS: HEMATOCRIT 39.7 % (35.4-49); HEMOGLOBIN 12.6 GM/dL (11.7-16.9); MCH 23.9 pg (25.7-33.7); MCHC 31.6 g/dl (32.0-35.9); MEAN CELL VOLUME 75.7 fl (80-96); MEAN PLT VOLUME 10.5 fl (7.5-11.1); PLATELET COUNT 148 K/MM3 (134-434); RBC 5.25 M/mm3 (4.00-5.60); WHITE BLOOD COUNT 6.8 K/mm3 (4.0-10.0)
[2018-03-12] MEDS: IBUPROFEN 400 MG TABLET (FP) PO PRN ×2 (10:38→22:35)
[2018-03-12 11:16] LABS: ALBUMIN 3.1 g/dl (3.4-5.0); ALK PHOS 70 U/L (45-117); ANION GAP 9 MMOL/L (8-16); BILIRUBIN,TOTAL 0.6 mg/dL (0.2-1); BLOOD UREA NITROGEN 19 mg/dL (7-18); CALCIUM 8.4 mg/dL (8.5-10.1); CHLORIDE 102 mmol/L (98-107); CO2 27 mmol/L (21-32); CREATININE 1.6 mg/dL (0.55-1.3); SGOT/AST 7 U/L (15-37); SGPT/ALT 16 U/L (13-61); SODIUM 138 mmol/L (136-145); TOT PROT 6.2 g/dl (6.4-8.2)
[2018-03-12 11:27] LABS: GLUCOSE,RANDOM 317 mg/dL (74-106)
--- NOTE | 2018-03-12 12:10 | PN ---
S CIWA - CIWA Score Nausea/Vomitin Muscle Tremors: 4-Moderate,w/Arms Extend Anxiety: 4-Mod. Anxious/Guarded Agitation: 4-Moderately Restless Paroxysmal Sweats: 3 Orientation: 0-Oriented Tacttile Disturbances: 0-None Auditory Disturbances: 0-None Visual Disturbances: 0-None Headache: 0-None Present CIWA-Ar Total Score: 18 [facility] Progress Note (SOAP) Subjective: Tremor, chills, sweating, diarrhea, interrupted sleep Objective: 03/12/18 12:06 Last Vital Signs Temp Pulse Resp BP Pulse Ox 98.4 F 90 18 152/84 03/12/18 09:34 03/12/18 09:34 03/12/18 09:34 03/12/18 09:34 Elevated b/p noted (has htn) Laboratory Tests 03/11/18 03/11/18 03/11/18 14:10 21:44 22:00 WBC RBC Hgb Hct MCV MCH MCHC RDW Plt Count MPV Sodium Potassium Chloride Carbon Dioxide Anion Gap BUN Creatinine Creat Clearance w eGFR POC Glucometer 372 429 Random Glucose Calcium Total Bilirubin AST ALT Alkaline Phosphatase Total Protein Albumin Urine Color Ltyellow Urine Appearance Clear Urine pH 6.0 Ur Specific [place] 1.015 Urine Protein Negative Urine Glucose (UA) 3+ H Urine Ketones Negative Urine Blood Negative Urine Nitrite Negative Urine Bilirubin Negative Urine Urobilinogen Negative Ur Leukocyte Esterase Negative RPR Titer HIV 1&2 Antibody Screen HIV P24 Antigen 03/12/18 03/12/18 03/12/18 05:38 07:00 07:00 WBC 6.8 RBC 5.25 Hgb 12.6 Hct 39.7 MCV 75.7 L MCH 23.9 L MCHC 31.6 L RDW 17.0 H Plt Count 148 MPV 10.5 Sodium Potassium Chloride Carbon Dioxide Anion Gap BUN Creatinine Creat Clearance w eGFR POC Glucometer 380 Random Glucose Calcium Total Bilirubin AST ALT Alkaline Phosphatase Total Protein Albumin Urine Color Urine Appearance Urine pH Ur Specific [place] Urine Protein Urine Glucose (UA) Urine Ketones Urine Blood Urine Nitrite Urine Bilirubin Urine Urobilinogen Ur Leukocyte Esterase RPR Titer HIV 1&2 Antibody Screen Negative HIV P24 Antigen Negative 03/12/18 03/12/18 07:00 07:00 WBC RBC Hgb Hct MCV MCH MCHC RDW Plt Count MPV Sodium 138 Potassium 4.0 Chloride 102 Carbon Dioxide 27 Anion Gap 9 BUN 19 H Creatinine 1.6 H Creat Clearance w eGFR 44.78 POC Glucometer Random Glucose 317 H* Calcium 8.4 L Total Bilirubin 0.6 AST 7 L ALT 16 Alkaline Phosphatase 70 Total Protein 6.2 L Albumin 3.1 L Urine Color Urine Appearance Urine pH Ur Specific [place] Urine Protein Urine Glucose (UA) Urine Ketones Urine Blood Urine Nitrite Urine Bilirubin Urine Urobilinogen Ur Leukocyte Esterase RPR Titer Nonreactive HIV 1&2 Antibody Screen HIV P24 Antigen Labs reviewed: elevated glucose, serum creatinine 1.6, GFR 44.78, glycosuria Assessment: 03/12/18 12:09 Withdrawal symptoms Noted with DAHLIA, hyperglycemia, glycosuria and HTN Plan: Continue detox DAHLIA: encouraged PO water intake, repeat BMP Hyperglycemia secondary to DMT2: continue present regimen Glycosuria: encouraged to drink more water, repeat UA HTN: continue nifedipine and diovan
[2018-03-12] MEDS: THIAMINE HCL 100 MG TABLET (FP) PO SCH (22:29)
[2018-03-12] MEDS: ATORVASTATIN CA 80 MG TABLET (FP) PO SCH (22:30)
[2018-03-12] MEDS: INSULIN (LEVEMIR) 100 UNITS/ML UNITS SQ SCH (22:30)
[2018-03-12] MEDS ORDERED: cloNIDine HCL 0.1 MG TABLET PO ONE (22:30)
[2018-03-12] MEDS: MONTELUKAST NA 10 MG TABLET PO SCH (22:30)
--- NOTE | 2018-03-12 22:33 | PN ---
[facility] Progress Note Note: Patient's blood pressure was B/P 167 /98. Patient is asymptomatic Vital Signs Temperature 97.9 F 03/12/18 22:10 Pulse Rate 89 03/12/18 22:10 Respiratory Rate 18 03/12/18 22:10 Blood Pressure 167/98 03/12/18 22:10 O2 Sat by Pulse Oximetry (%) Action: Clonidine 0.1mg 1 tablet oral ordered
[2018-03-12] MEDS: MELATONIN 5 MG TABLETS PO PRN (22:34)
[2018-03-13] MEDS: chlordiazePOXIDE HCL 25 MG CAPSULE PO SCH ×3 (05:42→17:16)
[2018-03-13] MEDS ORDERED: INSULIN SLIDING SCALE (NOVOLOG) 1 VIAL SQ ONE ×3 (06:15→17:46)
[2018-03-13] MEDS: INSULIN (NOVOLOG) ASPART 100 UNITS/ML 10ML VIAL SQ SCH ×3 (07:37→17:17)
[2018-03-13] MEDS: CLOTRIMAZOLE 1% CREAM 15 GM TUBE TP SCH ×2 (10:17→22:13)
[2018-03-13] MEDS: PRENATAL VITAMINS W/ FOLIC ACID TABLET (FP) PO SCH (10:18)
[2018-03-13] MEDS: PANTOPRAZOLE 40 MG TABLET (FP) PO SCH (10:18)
[2018-03-13] MEDS: VALSARTAN 80 MG TABLET (UD) PO SCH (10:18)
[2018-03-13] MEDS: cloNIDine HCL 0.1 MG TABLET PO SCH (10:18)
[2018-03-13] MEDS: ASPIRIN 81 MG CHEWABLE TABLETS PO SCH (10:18)
[2018-03-13] MEDS: NIFEdipine E.R. 30 MG TABLET (FP) PO SCH (10:18)
[2018-03-13 11:42] LABS: ANION GAP 12 MMOL/L (8-16); BLOOD UREA NITROGEN 17 mg/dL (7-18); CALCIUM 8.6 mg/dL (8.5-10.1); CHLORIDE 100 mmol/L (98-107); CO2 26 mmol/L (21-32); CREATININE 1.4 mg/dL (0.55-1.3); POTASSIUM 4.1 mmol/L (3.5-5.1); SODIUM 138 mmol/L (136-145)
[2018-03-13 11:51] LABS: GLUCOSE,RANDOM 325 mg/dL (74-106)
--- NOTE | 2018-03-13 15:11 | PN ---
[facility] CIWA - CIWA Score Nausea/Vomitin-Mild Nausea/No Vomiting Muscle Tremors: 3 Anxiety: 3 Agitation: 3 Paroxysmal Sweats: 2 Orientation: 0-Oriented Tacttile Disturbances: 0-None Auditory Disturbances: 0-None Visual Disturbances: 0-None Headache: 0-None Present CIWA-Ar Total Score: 12 [facility] Progress Note (SOAP) Subjective: Tremor, sweating, diarrhea Objective: 03/13/18 15:09 Last Vital Signs Temp Pulse Resp BP Pulse Ox 98.4 F 94 H 20 171/101 H 03/13/18 10:57 03/13/18 10:57 03/13/18 10:57 03/13/18 10:57 Uncontrolled htn Laboratory Tests 03/11/18 03/11/18 03/11/18 14:10 21:44 22:00 WBC RBC Hgb Hct MCV MCH MCHC RDW Plt Count MPV Sodium Potassium Chloride Carbon Dioxide Anion Gap BUN Creatinine Creat Clearance w eGFR POC Glucometer 372 429 Random Glucose Calcium Total Bilirubin AST ALT Alkaline Phosphatase Total Protein Albumin Urine Color Ltyellow Urine Appearance Clear Urine pH 6.0 Ur Specific [place] 1.015 Urine Protein Negative Urine Glucose (UA) 3+ H Urine Ketones Negative Urine Blood Negative Urine Nitrite Negative Urine Bilirubin Negative Urine Urobilinogen Negative Ur Leukocyte Esterase Negative RPR Titer HIV 1&2 Antibody Screen HIV P24 Antigen 03/12/18 03/12/18 03/12/18 05:38 07:00 07:00 WBC 6.8 RBC 5.25 Hgb 12.6 Hct 39.7 MCV 75.7 L MCH 23.9 L MCHC 31.6 L RDW 17.0 H Plt Count 148 MPV 10.5 Sodium Potassium Chloride Carbon Dioxide Anion Gap BUN Creatinine Creat Clearance w eGFR POC Glucometer 380 Random Glucose Calcium Total Bilirubin AST ALT Alkaline Phosphatase Total Protein Albumin Urine Color Urine Appearance Urine pH Ur Specific [place] Urine Protein Urine Glucose (UA) Urine Ketones Urine Blood Urine Nitrite Urine Bilirubin Urine Urobilinogen Ur Leukocyte Esterase RPR Titer HIV 1&2 Antibody Screen Negative HIV P24 Antigen Negative 03/12/18 03/12/18 03/12/18 07:00 07:00 12:06 WBC RBC Hgb Hct MCV MCH MCHC RDW Plt Count MPV Sodium 138 Potassium 4.0 Chloride 102 Carbon Dioxide 27 Anion Gap 9 BUN 19 H Creatinine 1.6 H Creat Clearance w eGFR 44.78 POC Glucometer 380 Random Glucose 317 H* Calcium 8.4 L Total Bilirubin 0.6 AST 7 L ALT 16 Alkaline Phosphatase 70 Total Protein 6.2 L Albumin 3.1 L Urine Color Urine Appearance Urine pH Ur Specific [place] Urine Protein Urine Glucose (UA) Urine Ketones Urine Blood Urine Nitrite Urine Bilirubin Urine Urobilinogen Ur Leukocyte Esterase RPR Titer Nonreactive HIV 1&2 Antibody Screen HIV P24 Antigen 03/12/18 03/12/18 03/13/18 16:21 20:03 05:42 WBC RBC Hgb Hct MCV MCH MCHC RDW Plt Count MPV Sodium Potassium Chloride Carbon Dioxide Anion Gap BUN Creatinine Creat Clearance w eGFR POC Glucometer 300 277 382 Random Glucose Calcium Total Bilirubin AST ALT Alkaline Phosphatase Total Protein Albumin Urine Color Urine Appearance Urine pH Ur Specific [place] Urine Protein Urine Glucose (UA) Urine Ketones Urine Blood Urine Nitrite Urine Bilirubin Urine Urobilinogen Ur Leukocyte Esterase RPR Titer HIV 1&2 Antibody Screen HIV P24 Antigen 03/13/18 07:30 WBC RBC Hgb Hct MCV MCH MCHC RDW Plt Count MPV Sodium 138 Potassium 4.1 Chloride 100 Carbon Dioxide 26 Anion Gap 12 BUN 17 Creatinine 1.4 H Creat Clearance w eGFR 52.24 POC Glucometer Random Glucose 325 H* Calcium 8.6 Total Bilirubin AST ALT Alkaline Phosphatase Total Protein Albumin Urine Color Urine Appearance Urine pH Ur Specific [place] Urine Protein Urine Glucose (UA) Urine Ketones Urine Blood Urine Nitrite Urine Bilirubin Urine Urobilinogen Ur Leukocyte Esterase RPR Titer HIV 1&2 Antibody Screen HIV P24 Antigen Labs reviewed: DAHLIA, improving Assessment: 03/13/18 15:09 Withdrawal symptoms HTN, uncontrolled and DAHLIA noted Plan: Continue detox DAHLIA: improving, encouraged PO water intake HTN, uncontrolled: give diovan 40mg PO x 1 dose, continue present regimen, continue to monitor
[2018-03-13] MEDS ORDERED: VALSARTAN 40 MG TABLET (FP) PO ONE (15:30)
[2018-03-13] MEDS: IBUPROFEN 400 MG TABLET (FP) PO PRN (17:19)
[2018-03-13] MEDS ORDERED: cloNIDine HCL 0.1 MG TABLET PO ONE (21:36)
[2018-03-13] MEDS: INSULIN (LEVEMIR) 100 UNITS/ML UNITS SQ SCH (21:42)
[2018-03-13] MEDS: THIAMINE HCL 100 MG TABLET (FP) PO SCH (22:13)
[2018-03-13] MEDS: MONTELUKAST NA 10 MG TABLET PO SCH (22:13)
[2018-03-13] MEDS: chlordiazePOXIDE 5 MG CAPSULE PO SCH (22:13)
[2018-03-13] MEDS: ATORVASTATIN CA 80 MG TABLET (FP) PO SCH (22:13)
[2018-03-13] MEDS: MELATONIN 5 MG TABLETS PO PRN (22:14)
[2018-03-14] MEDS: chlordiazePOXIDE 5 MG CAPSULE PO SCH ×3 (05:13→17:13)
[2018-03-14] MEDS ORDERED: INSULIN SLIDING SCALE (NOVOLOG) 1 VIAL SQ ONE ×3 (07:35→16:18)
[2018-03-14] MEDS: INSULIN (NOVOLOG) ASPART 100 UNITS/ML 10ML VIAL SQ SCH ×3 (07:35→16:21)
[2018-03-14] MEDS: PANTOPRAZOLE 40 MG TABLET (FP) PO SCH (10:25)
[2018-03-14] MEDS: cloNIDine HCL 0.1 MG TABLET PO SCH (10:25)
[2018-03-14] MEDS: PRENATAL VITAMINS W/ FOLIC ACID TABLET (FP) PO SCH (10:25)
[2018-03-14] MEDS: NIFEdipine E.R. 30 MG TABLET (FP) PO SCH (10:25)
[2018-03-14] MEDS: ASPIRIN 81 MG CHEWABLE TABLETS PO SCH (10:25)
[2018-03-14] MEDS: VALSARTAN 80 MG TABLET (UD) PO SCH (10:26)
[2018-03-14] MEDS: CLOTRIMAZOLE 1% CREAM 15 GM TUBE TP SCH ×2 (10:26→23:05)
[2018-03-14] MEDS: IBUPROFEN 400 MG TABLET (FP) PO PRN ×2 (10:28→22:15)
--- NOTE | 2018-03-14 13:46 | PN ---
[facility] Progress Note (SOAP) Subjective: PT REPORTS DECREASED WITHDRAWAL SX. ALERT O X 3. NAD Objective: 03/14/18 13:45 Vital Signs 03/14/18 03/14/18 06:36 10:01 Temperature 97.0 F L 97.9 F Pulse Rate 80 79 Respiratory 18 18 Rate Blood Pressure 148/89 147/79 Laboratory Tests 03/11/18 03/11/18 03/11/18 14:10 21:44 22:00 WBC RBC Hgb Hct MCV MCH MCHC RDW Plt Count MPV Sodium Potassium Chloride Carbon Dioxide Anion Gap BUN Creatinine Creat Clearance w eGFR POC Glucometer 372 429 Random Glucose Calcium Total Bilirubin AST ALT Alkaline Phosphatase Total Protein Albumin Urine Color Ltyellow Urine Appearance Clear Urine pH 6.0 Ur Specific [place] 1.015 Urine Protein Negative Urine Glucose (UA) 3+ H Urine Ketones Negative Urine Blood Negative Urine Nitrite Negative Urine Bilirubin Negative Urine Urobilinogen Negative Ur Leukocyte Esterase Negative RPR Titer HIV 1&2 Antibody Screen HIV P24 Antigen 03/12/18 03/12/18 03/12/18 05:38 07:00 07:00 WBC 6.8 RBC 5.25 Hgb 12.6 Hct 39.7 MCV 75.7 L MCH 23.9 L MCHC 31.6 L RDW 17.0 H Plt Count 148 MPV 10.5 Sodium Potassium Chloride Carbon Dioxide Anion Gap BUN Creatinine Creat Clearance w eGFR POC Glucometer 380 Random Glucose Calcium Total Bilirubin AST ALT Alkaline Phosphatase Total Protein Albumin Urine Color Urine Appearance Urine pH Ur Specific [place] Urine Protein Urine Glucose (UA) Urine Ketones Urine Blood Urine Nitrite Urine Bilirubin Urine Urobilinogen Ur Leukocyte Esterase RPR Titer HIV 1&2 Antibody Screen Negative HIV P24 Antigen Negative 03/12/18 03/12/18 03/12/18 07:00 07:00 12:06 WBC RBC Hgb Hct MCV MCH MCHC RDW Plt Count MPV Sodium 138 Potassium 4.0 Chloride 102 Carbon Dioxide 27 Anion Gap 9 BUN 19 H Creatinine 1.6 H Creat Clearance w eGFR 44.78 POC Glucometer 380 Random Glucose 317 H* Calcium 8.4 L Total Bilirubin 0.6 AST 7 L ALT 16 Alkaline Phosphatase 70 Total Protein 6.2 L Albumin 3.1 L Urine Color Urine Appearance Urine pH Ur Specific [place] Urine Protein Urine Glucose (UA) Urine Ketones Urine Blood Urine Nitrite Urine Bilirubin Urine Urobilinogen Ur Leukocyte Esterase RPR Titer Nonreactive HIV 1&2 Antibody Screen HIV P24 Antigen 03/12/18 03/12/18 03/13/18 16:21 20:03 05:42 WBC RBC Hgb Hct MCV MCH MCHC RDW Plt Count MPV Sodium Potassium Chloride Carbon Dioxide Anion Gap BUN Creatinine Creat Clearance w eGFR POC Glucometer 300 277 382 Random Glucose Calcium Total Bilirubin AST ALT Alkaline Phosphatase Total Protein Albumin Urine Color Urine Appearance Urine pH Ur Specific [place] Urine Protein Urine Glucose (UA) Urine Ketones Urine Blood Urine Nitrite Urine Bilirubin Urine Urobilinogen Ur Leukocyte Esterase RPR Titer HIV 1&2 Antibody Screen HIV P24 Antigen 03/13/18 03/13/18 03/13/18 07:30 11:57 16:17 WBC RBC Hgb Hct MCV MCH MCHC RDW Plt Count MPV Sodium 138 Potassium 4.1 Chloride 100 Carbon Dioxide 26 Anion Gap 12 BUN 17 Creatinine 1.4 H Creat Clearance w eGFR 52.24 POC Glucometer 327 220 Random Glucose 325 H* Calcium 8.6 Total Bilirubin AST ALT Alkaline Phosphatase Total Protein Albumin Urine Color Urine Appearance Urine pH Ur Specific [place] Urine Protein Urine Glucose (UA) Urine Ketones Urine Blood Urine Nitrite Urine Bilirubin Urine Urobilinogen Ur Leukocyte Esterase RPR Titer HIV 1&2 Antibody Screen HIV P24 Antigen 03/13/18 03/14/18 03/14/18 20:40 05:12 12:04 WBC RBC Hgb Hct MCV MCH MCHC RDW Plt Count MPV Sodium Potassium Chloride Carbon Dioxide Anion Gap BUN Creatinine Creat Clearance w eGFR POC Glucometer 377 381 416 Random Glucose Calcium Total Bilirubin AST ALT Alkaline Phosphatase Total Protein Albumin Urine Color Urine Appearance Urine pH Ur Specific [place] Urine Protein Urine Glucose (UA) Urine Ketones Urine Blood Urine Nitrite Urine Bilirubin Urine Urobilinogen Ur Leukocyte Esterase RPR Titer HIV 1&2 Antibody Screen HIV P24 Antigen Assessment: 03/14/18 13:45 WITHDRAWAL SX Plan: CONTINUE DETOX
[2018-03-14 18:51] LABS: URINE APPEARANCE CLEAR; URINE BILIRUBIN NEGATIVE (<2.0 mg/dL); URINE COLOR LTYELLOW; URINE GLUCOSE (UA) 3+ (NEGATIVE); URINE KETONE NEGATIVE (NEGATIVE); URINE LEUK ESTERASE NEGATIVE (NEGATIVE); URINE NITRITE NEGATIVE (NEGATIVE); URINE PROTEIN NEGATIVE (NEGATIVE); URINE UROBILINOGEN NEGATIVE mg/dL (0.2-1.0)
[2018-03-14] MEDS ORDERED: cloNIDine HCL 0.1 MG TABLET PO ONE (19:54)
[2018-03-14] MEDS: INSULIN (LEVEMIR) 100 UNITS/ML UNITS SQ SCH (21:42)
[2018-03-14] MEDS: ATORVASTATIN CA 80 MG TABLET (FP) PO SCH (22:14)
[2018-03-14] MEDS: THIAMINE HCL 100 MG TABLET (FP) PO SCH (22:14)
[2018-03-14] MEDS: MONTELUKAST NA 10 MG TABLET PO SCH (22:14)
[2018-03-14] MEDS: chlordiazePOXIDE HCL 10 MG CAPSULE PO SCH (22:14)
[2018-03-14] MEDS: MELATONIN 5 MG TABLETS PO PRN (22:16)
[2018-03-15] MEDS: chlordiazePOXIDE HCL 10 MG CAPSULE PO SCH (05:11)
[2018-03-15] MEDS: INSULIN (NOVOLOG) ASPART 100 UNITS/ML 10ML VIAL SQ SCH (06:01)
[2018-03-15] MEDS ORDERED: INSULIN SLIDING SCALE (NOVOLOG) 1 VIAL SQ ONE (06:02)
[2018-03-15 09:28] VITALS: BP 146/89; PULSE 89; TEMP 97.5
[2018-03-15] MEDS: NIFEdipine E.R. 30 MG TABLET (FP) PO SCH (09:39)
[2018-03-15] MEDS: ASPIRIN 81 MG CHEWABLE TABLETS PO SCH (09:39)
[2018-03-15] MEDS: VALSARTAN 80 MG TABLET (UD) PO SCH (09:39)
[2018-03-15] MEDS: cloNIDine HCL 0.1 MG TABLET PO SCH (09:40)
[2018-03-15] MEDS: PANTOPRAZOLE 40 MG TABLET (FP) PO SCH (09:40)
[2018-03-15] MEDS: CLOTRIMAZOLE 1% CREAM 15 GM TUBE TP SCH (09:40)
[2018-03-15] MEDS: PRENATAL VITAMINS W/ FOLIC ACID TABLET (FP) PO SCH (09:41)
--- NOTE | 2018-03-15 11:49 | DS ---
[facility] Detox Discharge Summary Admission Date: 03/11/18 Discharge Date: 03/15/18 - History Present History: Alcohol Dependence, Opioid Dependence, Sedative Dependence Additional Comments: Patient discharged today after completing detox successfully. Patient is A, A, Ox3, in nad, vss, ambulatory. Patient instructed to follow up with his PCP within 1-2 weeks. eRx sent as per patient's request (see ambulatory orders) Pertinent Past History: Alcohol dependence Sedative dependence Asthma HTN GERD Seizure disorder DMT2 with hyperglycemia PPD positive Obesity HLD - Physical Exam Results Vital Signs: Vital Signs Temperature 97.5 F L 03/15/18 09:20 Pulse Rate 89 03/15/18 09:20 Respiratory Rate 18 03/15/18 09:20 Blood Pressure 146/89 03/15/18 09:20 O2 Sat by Pulse Oximetry (%) Pertinent Admission Physical Exam Findings: Withdrawal symptoms Laboratory Tests 03/11/18 03/11/18 03/11/18 14:10 21:44 22:00 WBC RBC Hgb Hct MCV MCH MCHC RDW Plt Count MPV Sodium Potassium Chloride Carbon Dioxide Anion Gap BUN Creatinine Creat Clearance w eGFR POC Glucometer 372 429 Random Glucose Calcium Total Bilirubin AST ALT Alkaline Phosphatase Total Protein Albumin Urine Color Ltyellow Urine Appearance Clear Urine pH 6.0 Ur Specific [place] 1.015 Urine Protein Negative Urine Glucose (UA) 3+ H Urine Ketones Negative Urine Blood Negative Urine Nitrite Negative Urine Bilirubin Negative Urine Urobilinogen Negative Ur Leukocyte Esterase Negative RPR Titer HIV 1&2 Antibody Screen HIV P24 Antigen 03/12/18 03/12/18 03/12/18 05:38 07:00 07:00 WBC 6.8 RBC 5.25 Hgb 12.6 Hct 39.7 MCV 75.7 L MCH 23.9 L MCHC 31.6 L RDW 17.0 H Plt Count 148 MPV 10.5 Sodium Potassium Chloride Carbon Dioxide Anion Gap BUN Creatinine Creat Clearance w eGFR POC Glucometer 380 Random Glucose Calcium Total Bilirubin AST ALT Alkaline Phosphatase Total Protein Albumin Urine Color Urine Appearance Urine pH Ur Specific [place] Urine Protein Urine Glucose (UA) Urine Ketones Urine Blood Urine Nitrite Urine Bilirubin Urine Urobilinogen Ur Leukocyte Esterase RPR Titer HIV 1&2 Antibody Screen Negative HIV P24 Antigen Negative 03/12/18 03/12/18 03/12/18 07:00 07:00 12:06 WBC RBC Hgb Hct MCV MCH MCHC RDW Plt Count MPV Sodium 138 Potassium 4.0 Chloride 102 Carbon Dioxide 27 Anion Gap 9 BUN 19 H Creatinine 1.6 H Creat Clearance w eGFR 44.78 POC Glucometer 380 Random Glucose 317 H* Calcium 8.4 L Total Bilirubin 0.6 AST 7 L ALT 16 Alkaline Phosphatase 70 Total Protein 6.2 L Albumin 3.1 L Urine Color Urine Appearance Urine pH Ur Specific [place] Urine Protein Urine Glucose (UA) Urine Ketones Urine Blood Urine Nitrite Urine Bilirubin Urine Urobilinogen Ur Leukocyte Esterase RPR Titer Nonreactive HIV 1&2 Antibody Screen HIV P24 Antigen 03/12/18 03/12/18 03/13/18 16:21 20:03 05:42 WBC RBC Hgb Hct MCV MCH MCHC RDW Plt Count MPV Sodium Potassium Chloride Carbon Dioxide Anion Gap BUN Creatinine Creat Clearance w eGFR POC Glucometer 300 277 382 Random Glucose Calcium Total Bilirubin AST ALT Alkaline Phosphatase Total Protein Albumin Urine Color Urine Appearance Urine pH Ur Specific [place] Urine Protein Urine Glucose (UA) Urine Ketones Urine Blood Urine Nitrite Urine Bilirubin Urine Urobilinogen Ur Leukocyte Esterase RPR Titer HIV 1&2 Antibody Screen HIV P24 Antigen 03/13/18 03/13/18 03/13/18 07:30 11:57 16:17 WBC RBC Hgb Hct MCV MCH MCHC RDW Plt Count MPV Sodium 138 Potassium 4.1 Chloride 100 Carbon Dioxide 26 Anion Gap 12 BUN 17 Creatinine 1.4 H Creat Clearance w eGFR 52.24 POC Glucometer 327 220 Random Glucose 325 H* Calcium 8.6 Total Bilirubin AST ALT Alkaline Phosphatase Total Protein Albumin Urine Color Urine Appearance Urine pH Ur Specific [place] Urine Protein Urine Glucose (UA) Urine Ketones Urine Blood Urine Nitrite Urine Bilirubin Urine Urobilinogen Ur Leukocyte Esterase RPR Titer HIV 1&2 Antibody Screen HIV P24 Antigen 03/13/18 03/14/18 03/14/18 20:40 05:12 09:37 WBC RBC Hgb Hct MCV MCH MCHC RDW Plt Count MPV Sodium Potassium Chloride Carbon Dioxide Anion Gap BUN Creatinine Creat Clearance w eGFR POC Glucometer 377 381 Random Glucose Calcium Total Bilirubin AST ALT Alkaline Phosphatase Total Protein Albumin Urine Color Ltyellow Urine Appearance Clear Urine pH 6.0 Ur Specific [place] 1.028 Urine Protein Negative Urine Glucose (UA) 3+ H Urine Ketones Negative Urine Blood Negative Urine Nitrite Negative Urine Bilirubin Negative Urine Urobilinogen Negative Ur Leukocyte Esterase Negative RPR Titer HIV 1&2 Antibody Screen HIV P24 Antigen 03/14/18 03/14/18 03/14/18 12:04 16:14 20:13 WBC RBC Hgb Hct MCV MCH MCHC RDW Plt Count MPV Sodium Potassium Chloride Carbon Dioxide Anion Gap BUN Creatinine Creat Clearance w eGFR POC Glucometer 416 332 379 Random Glucose Calcium Total Bilirubin AST ALT Alkaline Phosphatase Total Protein Albumin Urine Color Urine Appearance Urine pH Ur Specific [place] Urine Protein Urine Glucose (UA) Urine Ketones Urine Blood Urine Nitrite Urine Bilirubin Urine Urobilinogen Ur Leukocyte Esterase RPR Titer HIV 1&2 Antibody Screen HIV P24 Antigen 03/15/18 05:10 WBC RBC Hgb Hct MCV MCH MCHC RDW Plt Count MPV Sodium Potassium Chloride Carbon Dioxide Anion Gap BUN Creatinine Creat Clearance w eGFR POC Glucometer 410 Random Glucose Calcium Total Bilirubin AST ALT Alkaline Phosphatase Total Protein Albumin Urine Color Urine Appearance Urine pH Ur Specific [place] Urine Protein Urine Glucose (UA) Urine Ketones Urine Blood Urine Nitrite Urine Bilirubin Urine Urobilinogen Ur Leukocyte Esterase RPR Titer HIV 1&2 Antibody Screen HIV P24 Antigen Labs reviewed: DAHLIA (improved) and glycosuria noted; glycosuria and hyperglycemia due to DM. Encouraged to drink more water; to avoid or decrease sugary intake and to continue medication regimen and see his PCP within 1-2 weeks. - Treatment Hospital Course: Detox Protocol Followed, Detoxed Safely, Responded well, Discharged Condition Good - Medication Discharge Medications: Ambulatory Orders Esomeprazole Mag Trihydrate [Nexium] 40 mg PO DAILY #30 capsule.ec 03/18/14 Aspirin [ASA -] 81 mg PO DAILY #30 tab.chew 10/10/14 Montelukast Na [Singulair -] 10 mg PO HS #30 tablet 10/10/14 Insulin Glargine,Hum.rec.anlog [Lantus Solostar PEN (NF)] 20 units SQ HS Insulin Lispro [Humalog] 0 unit SQ TID PRN 11/11/14 cloNIDine HCL [Catapres -] 0.2 mg PO DAILY 11/11/14 Nifedipine [Procardia Capsule -] 30 mg PO DAILY 10/28/17 Albuterol Sulfate [Proair Hfa] 2 puff IH Q4H PRN 10/29/17 Atorvastatin Ca [Lipitor] 80 mg PO HS 10/29/17 Valsartan 80 mg PO DAILY 10/29/17 Albuterol Sulfate Inhaler - [Ventolin HFA Inhaler -] 2 inh PO Q4H #1 inh Aspirin [Aspirin EC] 81 mg PO DAILY 30 Days #30 tablet. 03/15/18 Atorvastatin Ca [Lipitor] 80 mg PO HS #30 tab 03/15/18 Clonidine HCl 0.2 mg PO DAILY #30 tablet 03/15/18 Insulin Aspart [Novolog] 10 unit SQ TID #1 vial 03/15/18 Insulin Glargine,Hum.rec.anlog [Lantus] 20 unit SQ HS #1 vial 03/15/18 Montelukast Na [Singulair -] 10 mg PO HS #30 tablet 03/15/18 Nifedipine ER [Procardia XL -] 30 mg PO DAILY #30 tab.er.24 03/15/18 Valsartan 80 mg PO DAILY #30 tablet 03/15/18 - Diagnosis (1) DAHLIA (acute kidney injury) Status: Acute (2) Glycosuria Status: Acute (3) Type 2 diabetes mellitus with hyperglycemia Status: Chronic (4) Seizure Status: Chronic (5) PPD positive Status: Chronic (6) HLD (hyperlipidemia) Status: Chronic (7) Alcohol dependence with uncomplicated withdrawal Status: Acute (8) Anxiolytic withdrawal without complication Status: Acute (9) Asthma Status: Chronic (10) Essential hypertension Status: Chronic (11) Gastroesophageal reflux disease Status: Chronic (12) Obesity Status: Chronic Qualifiers: Obesity type: due to excess calories Obesity classification: adult class 2 (BMI 35 - 39.9) Serious obesity comorbidity presence: unspecified whether serious comorbidity present Body mass index: BMI 38.0-38.9 Qualified Code(s) : E66.09 - Other obesity due to excess calories; Z68.38 - Body mass index (BMI) 38.0-38.9, adult (13) Opioid dependence with withdrawal Status: Acute - AMA Did Patient Leave Against Medical Advice: No (F/U with your PCP within 1-2 weeks )
== END 2018-03-15 09:39 | disposition home or self-care (01) | DRG 773 ==
LOC: YASAS 11:21 → Y3N 16:58
PROC: HZ2ZZZZ Detoxification Services for Substance Abuse Treatment (ICD-10-PCS; principal; 2018-03-11)
DX: F11.23 Opioid dependence with withdrawal (principal); F10.230 Alcohol dependence with withdrawal, uncomplicated; F13.230 Sedative, hypnotic or anxiolytic dependence with withdrawal, uncomplicated; I10 Essential (primary) hypertension; N17.9 Acute kidney failure, unspecified; E11.65 Type 2 diabetes mellitus with hyperglycemia; Z79.4 Long term (current) use of insulin; E78.5 Hyperlipidemia, unspecified; G40.909 Epilepsy, unspecified, not intractable, without status epilepticus; B35.3 Tinea pedis; J45.909 Unspecified asthma, uncomplicated; K21.9 Gastro-esophageal reflux disease without esophagitis; R81 Glycosuria; M54.5 Low back pain; G89.29 Other chronic pain; E66.9 Obesity, unspecified; Z68.38 Body mass index [BMI] 38.0-38.9, adult
CPT/HCPCS: 36415; 71046-TC-FY; 80048; 80053; 81003; 82962; 85027; 86593; 87389; J0735

== ENCOUNTER 2018-04-29 15:27 | Inpatient (IN) | payer OTHER ==
[2018-04-29 18:08] VITALS: BMI 33.9
--- NOTE | 2018-04-29 20:29 | HP ---
CIWA Score Nausea/Vomitin-No Nausea/No Vomiting Muscle Tremors: 1-None Visible, but [place] Anxiety: 1-Mildly Anxious Agitation: 3 Paroxysmal Sweats: 1-Minimal Palms Moist Orientation: 0-Oriented Tacttile Disturbances: 0-None Auditory Disturbances: 1-Very Mild Visual Disturbances: 1-Very Mild Sensitivity Headache: 2-Mild CIWA-Ar Total Score: 10 - Admission Criteria OAS Guidelines: Admission for Medically Managed Detox: Requires at least one of the followin. CIWA greater than 12 2. Seizures within the past 24 hours 3. Delirium tremens within the past 24 hours 4. Hallucinations within the past 24 hours 5. Acute intervention needed for co occurring medical disorder 6. Acute intervention needed for co occurring psychiatric disorder 7. Severe withdrawal that cannot be handled at a lower level of care (continued vomiting, continued diarrhea, abnormal vital signs) requiring intravenous medication and/or fluids 8. Patient presents the following: Acute intervention needed for co-occurring med or psych disorder Admission Criteria Met: Admission criteria met Admission ROS [facility] Chief Complaint: C/O WORSENING WITHDRAWAL SX'S. SEEKING DETOX FROM ALCOHOL. Allergies/Adverse Reactions: Allergies Allergy/AdvReac Type Severity Reaction Status Date / Time No Known Drug Allergies Allergy Verified 04/29/18 19:18 History of Present Illness: 58 Y.O. MALE WITH HX/O ALCOHOLISM HERE FOR DETOX. CLIENT IS KNOWN TO THIS PROGRAM, LAST HERE 02/2018. SELF REFERRED. REPORTS LONGEST CLEAN TIME 1 YEAR FROM [id number]. DENIES ANY CLEAN TIME IN THE PAST YEAR. ATTEMPTED SEVERAL DETOXES BUT IMMEDIATELY RELAPSING AFTER DC. DENIES INPATIENT SUBSTANCE TXMENT SINCE LAST ADMISSION HERE. DENIES SI/HI, AVH, SEIZURE D/O. LIVING WITH FAMILY, EMPLOYED, DENIES LEGALS. PMHX- DM, HTN, GERD ASTHMA PSYCH- DENIES MEDS- LEVEMIR, 20 U BID. CLONODINE .2MG BID Exam Limitations: No Limitations - Ebola screening Have you traveled outside of the country in the last 21 days: No Have you had contact with anyone from an Ebola affected area: No Have you been sick,other than usual withdrawal symptoms: No - Review of Systems Constitutional: Chills, Loss of Appetite, Night Sweats, Changes in sleep EENT: reports: Dental Problems (MISSING TEETH), Other (WATERY EYES AND RUNNY NOSE) Respiratory: reports: No Symptoms reported Cardiac: reports: No Symptoms Reported GI: reports: Poor Appetite, Poor Fluid Intake : reports: No Symptoms Reported Musculoskeletal: reports: Back Pain Integumentary: reports: No Symptoms Reported Neuro: reports: Tremors (R/T WITHDRAWAL) Endocrine: reports: Other (HX/O DM) Hematology: reports: No Symptoms Reported Psychiatric: reports: Anxious Other Systems: Reviewed and Negative Patient History - Patient Medical History Hx Anemia: No Hx Asthma: Yes (No recent exacerbation) Hx Chronic Obstructive Pulmonary Disease (COPD): No Hx Cancer: No Hx Cardiac Disorders: No Hx Congestive Heart Failure: No Hx Hypertension: Yes (On meds) Hx Hypercholesterolemia: No Hx Pacemaker: No HX Cerebrovascular Accident: No Hx Seizures: No Hx Dementia: No Hx Diabetes: Yes (IDDM) Hx Gastrointestinal Disorders: Yes (acid reflux) Hx Liver Disease: No Hx Genitourinary Disorders: No Hx Sexually Transmitted Disorders: No Hx Renal Disease (ESRD): No Hx Thyroid Disease: No Hx Human Immunodeficiency Virus (HIV): No (Neg) Hx Hepatitis C: No Hx Depression: No Hx Suicide Attempt: No Hx Bipolar Disorder: No Hx Schizophrenia: No - Patient Surgical History Past Surgical History: No Hx Neurologic Surgery: No Hx Cataract Extraction: No Hx Cardiac Surgery: No Hx Lung Surgery: No Hx Breast Surgery: No Hx Breast Biopsy: No Hx Abdominal Surgery: No Hx Appendectomy: No Hx Cholecystectomy: No Hx Genitourinary Surgery: No Hx Section: No Hx Orthopedic Surgery: No Anesthesia Reaction: No - PPD History Previous Implant?: Yes Documented Results: Positive w/proof Implanted On Prior R Admission?: Yes Date: 10/30/17 (NEG CXR 03/01) Results: 15 mm PPD to be Administered?: No - Smoking Cessation Smoking history: Never smoked Have you smoked in the past 12 months: No Cigars Per Day: 0 Hx Chewing Tobacco Use: No Initiated information on smoking cessation: No - Substances Abused Alcohol Route: Oral Frequency: Daily Amount used: LIQUOR- 2 PINTS, BEER- 1 SIX PACK Age of first use: 22 Date of Last Use: 04/29/18 Family Disease History - Family Disease History Family Disease History: Diabetes: Father (ALCOHOLIC), Mother (HTN), Heart Disease: Mother, Other: Father Admission Physical Exam BHS - Vital Signs Vital Signs: Vital Signs - 24 hr 04/29/18 18:05 Temperature 98.9 F Pulse Rate 89 Respiratory 18 Rate Blood Pressure 100/60 - Physical General Appearance: Yes: Appropriately Dressed, Mild Distress, Obese, Tremorous (FELT), Sweating (MOIST SKIN) HEENTM: Yes: EOMI, Normocephalic, Normal Voice, MIKE, Pharynx Normal, Other ( POOR DENTITION MISSING TEETH TOP DENTURES) Respiratory: Yes: Chest Non-Tender, Lungs Clear, Normal Breath Sounds, No Respiratory Distress, No Accessory Muscle Use Neck: Yes: No masses,lesions,Nodules, Trachea in good position Breast: Yes: Breast Exam Deferred Cardiology: Yes: Regular Rhythm, Regular Rate, S1, S2, Edema (BLE 3+ EDEMA) Abdominal: Yes: Non Tender, Increased Bowel Sounds, Protuberent Genitourinary: Yes: Other (NO C/O OFFERED) Musculoskeletal: Yes: Gait Steady Extremities: Yes: Normal Capillary Refill, Normal Range of Motion, Non-Tender, Tremors (FELT), Pedal Edema (BLE 3+ EDEMA), Swelling (BLE) 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: Yes: Fully Oriented, Alert, Motor Strength 5/5, Depressed Affect Integumentary: Yes: Warm, Moist Lymphatic: Yes: Within Normal Limits - Diagnostic (1) Alcohol dependence with uncomplicated withdrawal Current Visit: Yes Status: Acute (2) Asthma Current Visit: Yes Status: Chronic (3) Cocaine dependence, uncomplicated Current Visit: Yes Status: Chronic (4) DM Diabetes mellitus type 2 Current Visit: Yes Status: Chronic Comment: On insulin (5) Essential hypertension Current Visit: Yes Status: Chronic (6) Gastroesophageal reflux disease Current Visit: Yes Status: Chronic (7) HLD (hyperlipidemia) Current Visit: Yes Status: Chronic Qualifiers: Hyperlipidemia type: unspecified Qualified Code(s): E78.5 - Hyperlipidemia , unspecified (8) Obesity Current Visit: Yes Status: Chronic Qualifiers: Obesity type: due to excess calories Obesity classification: adult class 2 (BMI 35 - 39.9) Serious obesity comorbidity presence: unspecified whether serious comorbidity present Body mass index: BMI 38.0-38.9 Qualified Code(s) : E66.09 - Other obesity due to excess calories; Z68.38 - Body mass index (BMI) 38.0-38.9, adult (9) PPD positive Current Visit: Yes Status: Chronic Cleared for Admission BHS - Detox or Rehab BHS Level of Care: Medically Managed Detox Regimen/Protocol: Librium Claeared for Rehab Admission: No [facility] Breath Alcohol Content Breath Alcohol Content: 0 Urine Drug Screen - Results Drug Screen Negative: No Urine Drug Screen Results: KIMMIE-Cocaine, BZO-Benzodiazepines
[2018-04-29] MEDS ORDERED: chlordiazePOXIDE HCL 25 MG CAPSULE PO PRN (20:36)
[2018-04-29] MEDS ORDERED: LOPERAMIDE HCL 2 MG CAPSULE PO PRN (20:36)
[2018-04-29] MEDS ORDERED: MENTHOL/PHENOL 1 EACH UD MM PRN (20:36)
[2018-04-29] MEDS ORDERED: P-EPHED 60MG/TRIPROLIDI 2.5MG TABLET PO PRN (20:36)
[2018-04-29] MEDS ORDERED: IBUPROFEN 400 MG TABLET (FP) PO PRN (20:36)
[2018-04-29] MEDS ORDERED: MAGNESIUM HYDROX 2400MG/30ML ORAL SUSPENSION 30 ML CUP PO PRN (20:36)
[2018-04-29] MEDS ORDERED: MAGNESIUM CITRATE 300 ML BOTTLE PO PRN (20:36)
[2018-04-29] MEDS ORDERED: MAG HYDROX/AL HYDROX/SIMETH 30 ML UNIT-DOSE CUP PO PRN (20:36)
[2018-04-29] MEDS ORDERED: guaiFENesin/D-METHORPHAN HB 10 ML UNIT-DOSE CUPS PO PRN (20:36)
[2018-04-29] MEDS ORDERED: hydrOXYzine PAMOATE 50 MG CAPSULE (FP) PO PRN (20:36)
[2018-04-29] MEDS: MONTELUKAST NA 10 MG TABLET PO SCH (21:51)
[2018-04-29] MEDS: ATORVASTATIN CA 80 MG TABLET (FP) PO SCH (21:51)
[2018-04-29] MEDS: THIAMINE HCL 100 MG TABLET (FP) PO SCH (21:51)
[2018-04-29] MEDS: INSULIN (LEVEMIR) 100 UNITS/ML UNITS SQ SCH (21:52)
[2018-04-29] MEDS: ALBUTEROL SO4 8 GM HFA INHALER IH SCH (22:00)
[2018-04-29] MEDS: chlordiazePOXIDE HCL 25 MG CAPSULE PO SCH (22:01)
[2018-04-30] MEDS: ALBUTEROL SO4 8 GM HFA INHALER IH SCH ×6 (00:20→21:40)
[2018-04-30] MEDS: chlordiazePOXIDE HCL 25 MG CAPSULE PO SCH ×4 (05:21→22:15)
[2018-04-30] MEDS: ACETAMINOPHEN 325 MG TABLET (FP) PO PRN ×2 (05:24→10:26)
[2018-04-30] MEDS: INSULIN (LEVEMIR) 100 UNITS/ML UNITS SQ SCH ×2 (08:17→22:19)
[2018-04-30] MEDS: INSULIN SLIDING SCALE (NOVOLOG) 1 VIAL SQ SCH ×3 (08:18→17:04)
[2018-04-30 10:16] LABS: HEMATOCRIT 35.5 % (35.4-49); HEMOGLOBIN 12.3 GM/dL (11.7-16.9); MCH 25.7 pg (25.7-33.7); MCHC 34.8 g/dl (32.0-35.9); MEAN CELL VOLUME 73.9 fl (80-96); MEAN PLT VOLUME 9.8 fl (7.5-11.1); PLATELET COUNT 185 K/MM3 (134-434); RDW 16.8 % (11.9-15.9)
[2018-04-30] MEDS: ASPIRIN 81 MG CHEWABLE TABLETS PO SCH (10:19)
[2018-04-30] MEDS: PANTOPRAZOLE 40 MG TABLET (FP) PO SCH (10:19)
[2018-04-30] MEDS: PRENATAL VITAMINS W/ FOLIC ACID TABLET (FP) PO SCH (10:19)
[2018-04-30] MEDS: NIFEdipine E.R. 30 MG TABLET (FP) PO SCH (10:25)
[2018-04-30 10:49] LABS: ALBUMIN 3.1 g/dl (3.4-5.0); ALK PHOS 43 U/L (45-117); ANION GAP 9 MMOL/L (8-16); BILIRUBIN,TOTAL 0.7 mg/dL (0.2-1); BLOOD UREA NITROGEN 28 mg/dL (7-18); CHLORIDE 103 mmol/L (98-107); CO2 27 mmol/L (21-32); CREATININE 2.9 mg/dL (0.55-1.3); GLUCOSE,RANDOM 123 mg/dL (74-106); POTASSIUM 3.9 mmol/L (3.5-5.1); SGOT/AST 12 U/L (15-37); SGPT/ALT 21 U/L (13-61); SODIUM 140 mmol/L (136-145)
[2018-04-30] MEDS: LIDOCAINE 5% TOPICAL PATCH TP SCH (11:53)
[2018-04-30] MEDS: VALSARTAN 80 MG TABLET (UD) PO SCH (11:54)
--- NOTE | 2018-04-30 15:12 | PN ---
S CIWA - CIWA Score Nausea/Vomitin-No Nausea/No Vomiting Muscle Tremors: None Anxiety: 0-No Anxiety, at Ease Agitation: 0-Normal Activity Paroxysmal Sweats: 3 Orientation: 0-Oriented Tacttile Disturbances: 3-Moderate Itch/Numb/Burn Auditory Disturbances: 1-Very Mild Visual Disturbances: 3-Moderate Sensitivity Headache: 2-Mild CIWA-Ar Total Score: 12 [facility] Progress Note (SOAP) Subjective: Interrupted Sleep, Sweating, H/A, Constipation, Body Aches. Objective: PATIENT A & O X 3, OBSERVED AMBULATING ON UNIT. IN NO ACUTE DISTRESS. 04/30/18 15:10 Vital Signs Temperature 97.6 F 04/30/18 14:03 Pulse Rate 68 04/30/18 14:03 Respiratory Rate 18 04/30/18 14:03 Blood Pressure 130/70 04/30/18 14:03 O2 Sat by Pulse Oximetry (%) Laboratory Tests 04/30/18 04/30/18 04/30/18 07:00 07:00 07:00 WBC 8.0 RBC 4.80 Hgb 12.3 Hct 35.5 MCV 73.9 L MCH 25.7 MCHC 34.8 RDW 16.8 H Plt Count 185 D MPV 9.8 Sodium 140 Potassium 3.9 Chloride 103 Carbon Dioxide 27 Anion Gap 9 BUN 28 H Creatinine 2.9 H Creat Clearance w eGFR 22.54 Random Glucose 123 H Calcium 8.0 L Total Bilirubin 0.7 AST 12 L ALT 21 Alkaline Phosphatase 43 L Total Protein 6.0 L Albumin 3.1 L HIV 1&2 Antibody Screen Negative HIV P24 Antigen Negative LABS NOTED. RPR RESULT PENDING. 04/30/18 15:14 Assessment: 04/30/18 15:11 WITHDRAWAL SYMPTOMS. Plan: CONTINUE DETOX. BASIC METABOLIC PANEL ON 05/02/2018 FOR ABNORMAL ADMISSION RENAL LABS VALUES.
--- NOTE | 2018-04-30 16:40 | EKG ---
Test Reason : Blood Pressure : / mmHG Vent. Rate : 099 BPM Atrial Rate : 099 BPM P-R Int : 154 ms QRS Dur : 096 ms QT Int : 368 ms P-R-T Axes : 060 002 041 degrees QTc Int : 472 ms NORMAL SINUS RHYTHM INFERIOR INFARCT (CITED ON OR BEFORE 28-OCT-2017) ABNORMAL ECG WHEN COMPARED WITH ECG OF 28-OCT-2017 21:56, PREMATURE ATRIAL COMPLEXES ARE NO LONGER PRESENT Confirmed by ISSAC KIRKPATRICK, RUSSEL ([id number]) on 04/30/2018 4:40:09 PM Referred By: Confirmed By:RUSSEL DAVENPORT MD
[2018-04-30] MEDS: MONTELUKAST NA 10 MG TABLET PO SCH (22:15)
[2018-04-30] MEDS: CYCLOBENZAPRINE HCL 10 MG TABLET (FP) PO PRN (22:15)
[2018-04-30] MEDS: THIAMINE HCL 100 MG TABLET (FP) PO SCH (22:15)
[2018-04-30] MEDS: LIDOCAINE PATCH REMOVAL MC SCH (22:16)
[2018-04-30] MEDS: ATORVASTATIN CA 80 MG TABLET (FP) PO SCH (22:16)
[2018-04-30] MEDS: MELATONIN 5 MG TABLETS PO PRN (22:18)
[2018-05-01] MEDS: chlordiazePOXIDE HCL 25 MG CAPSULE PO SCH ×3 (05:37→17:06)
[2018-05-01] MEDS: ALBUTEROL SO4 8 GM HFA INHALER IH SCH ×6 (05:38→22:00)
[2018-05-01] MEDS: INSULIN SLIDING SCALE (NOVOLOG) 1 VIAL SQ SCH ×4 (07:36→17:08)
[2018-05-01] MEDS ORDERED: INSULIN SLIDING SCALE (NOVOLOG) 1 VIAL SQ ONE (07:47)
[2018-05-01] MEDS: INSULIN (LEVEMIR) 100 UNITS/ML UNITS SQ SCH ×2 (07:53→22:17)
[2018-05-01] MEDS: PANTOPRAZOLE 40 MG TABLET (FP) PO SCH (10:04)
[2018-05-01] MEDS: ASPIRIN 81 MG CHEWABLE TABLETS PO SCH (10:04)
[2018-05-01] MEDS: LIDOCAINE 5% TOPICAL PATCH TP SCH (10:04)
[2018-05-01] MEDS: PRENATAL VITAMINS W/ FOLIC ACID TABLET (FP) PO SCH (10:04)
[2018-05-01] MEDS: VALSARTAN 80 MG TABLET (UD) PO SCH (10:04)
[2018-05-01] MEDS: NIFEdipine E.R. 30 MG TABLET (FP) PO SCH (10:04)
[2018-05-01] MEDS: CYCLOBENZAPRINE HCL 10 MG TABLET (FP) PO PRN ×2 (10:07→22:17)
[2018-05-01] MEDS: ACETAMINOPHEN 325 MG TABLET (FP) PO PRN (13:07)
[2018-05-01] MEDS ORDERED: PATIENT'S OWN MEDICATION (NON-FORMULARY) (Clonidine Hcl [Clonidine Hcl] 0.2 MG) PO SCH (13:45)
--- NOTE | 2018-05-01 13:46 | PN ---
S CIWA - CIWA Score Nausea/Vomitin-No Nausea/No Vomiting Muscle Tremors: None Anxiety: 4-Mod. Anxious/Guarded Agitation: 2 Paroxysmal Sweats: 3 Orientation: 0-Oriented Tacttile Disturbances: 2-Mild Itch/Numbness/Burn Auditory Disturbances: 0-None Visual Disturbances: 1-Very Mild Sensitivity Headache: 0-None Present CIWA-Ar Total Score: 12 BHS Progress Note (SOAP) Subjective: Body Aches, Sweating, Interrupted Sleep. Objective: PATIENT A & O X 3, OBSERVED AMBULATING ON UNIT. IN NO ACUTE DISTRESS. 05/01/18 13:54 Vital Signs Temperature 99.6 F 05/01/18 13:30 Pulse Rate 110 H 05/01/18 13:30 Respiratory Rate 18 05/01/18 13:30 Blood Pressure 186/104 H 05/01/18 13:30 O2 Sat by Pulse Oximetry (%) Laboratory Tests 04/30/18 04/30/18 04/30/18 07:00 07:00 07:00 WBC 8.0 RBC 4.80 Hgb 12.3 Hct 35.5 MCV 73.9 L MCH 25.7 MCHC 34.8 RDW 16.8 H Plt Count 185 D MPV 9.8 Sodium 140 Potassium 3.9 Chloride 103 Carbon Dioxide 27 Anion Gap 9 BUN 28 H Creatinine 2.9 H Creat Clearance w eGFR 22.54 Random Glucose 123 H Calcium 8.0 L Total Bilirubin 0.7 AST 12 L ALT 21 Alkaline Phosphatase 43 L Total Protein 6.0 L Albumin 3.1 L RPR Titer HIV 1&2 Antibody Screen Negative HIV P24 Antigen Negative 04/30/18 07:00 WBC RBC Hgb Hct MCV MCH MCHC RDW Plt Count MPV Sodium Potassium Chloride Carbon Dioxide Anion Gap BUN Creatinine Creat Clearance w eGFR Random Glucose Calcium Total Bilirubin AST ALT Alkaline Phosphatase Total Protein Albumin RPR Titer Nonreactive HIV 1&2 Antibody Screen HIV P24 Antigen LABS NOTED. Assessment: 05/01/18 13:55 WITHDRAWAL SYMPTOMS. HYPERTENSION. Plan: CONTINUE DETOX. CLONIDINE, 0.2 MG PO BID FOR HYPERTENSION (PATIENT TAKES ON AN OUTPATIENT BASIS , CONFIRMED BY PHARMACIST AT PATIENT'S PHARMACY, [facility] ([place], [place]).
[2018-05-01] MEDS: chlordiazePOXIDE 5 MG CAPSULE PO SCH (22:17)
[2018-05-01] MEDS: cloNIDine HCL 0.1 MG TABLET PO SCH (22:17)
[2018-05-01] MEDS: MONTELUKAST NA 10 MG TABLET PO SCH (22:17)
[2018-05-01] MEDS: ATORVASTATIN CA 80 MG TABLET (FP) PO SCH (22:17)
[2018-05-01] MEDS: THIAMINE HCL 100 MG TABLET (FP) PO SCH (22:17)
[2018-05-01] MEDS: LIDOCAINE PATCH REMOVAL MC SCH (22:18)
[2018-05-01] MEDS: MELATONIN 5 MG TABLETS PO PRN (22:18)
[2018-05-02] MEDS: ALBUTEROL SO4 8 GM HFA INHALER IH SCH ×6 (00:52→22:29)
[2018-05-02] MEDS: chlordiazePOXIDE 5 MG CAPSULE PO SCH ×3 (05:23→16:56)
[2018-05-02] MEDS: INSULIN SLIDING SCALE (NOVOLOG) 1 VIAL SQ SCH ×3 (06:35→16:56)
[2018-05-02] MEDS: INSULIN (LEVEMIR) 100 UNITS/ML UNITS SQ SCH ×2 (06:35→22:29)
[2018-05-02] MEDS: cloNIDine HCL 0.1 MG TABLET PO SCH ×2 (10:07→22:29)
[2018-05-02] MEDS: ASPIRIN 81 MG CHEWABLE TABLETS PO SCH (10:07)
[2018-05-02] MEDS: PANTOPRAZOLE 40 MG TABLET (FP) PO SCH (10:07)
[2018-05-02] MEDS: NIFEdipine E.R. 30 MG TABLET (FP) PO SCH (10:07)
[2018-05-02] MEDS: PRENATAL VITAMINS W/ FOLIC ACID TABLET (FP) PO SCH (10:07)
[2018-05-02] MEDS: CYCLOBENZAPRINE HCL 10 MG TABLET (FP) PO PRN ×2 (10:09→22:28)
[2018-05-02 10:20] LABS: ANION GAP 8 MMOL/L (8-16); BLOOD UREA NITROGEN 14 mg/dL (7-18); CALCIUM 9.1 mg/dL (8.5-10.1); CHLORIDE 101 mmol/L (98-107); CO2 29 mmol/L (21-32); CREATININE 1.4 mg/dL (0.55-1.3); POTASSIUM 4.3 mmol/L (3.5-5.1); SODIUM 138 mmol/L (136-145)
[2018-05-02 10:27] LABS: GLUCOSE,RANDOM 334 mg/dL (74-106)
[2018-05-02] MEDS: LIDOCAINE 5% TOPICAL PATCH TP SCH (11:11)
[2018-05-02] MEDS: VALSARTAN 80 MG TABLET (UD) PO SCH (11:11)
--- NOTE | 2018-05-02 12:50 | PN ---
[facility] Progress Note Note: RECEIVED REPORT FROM Sarbjit JOSEPH OF [facility] DEPARTMENT OF [place] GLUCOSE LEVEL OF 334 NOTED BASIC METABOLIC PANEL DRAWN EARLIER TODAY. Ketty SAENZ RN MADE AWARE. Sarbjit MUNOZ NP
--- NOTE | 2018-05-02 13:43 | PN ---
[facility] Progress Note (SOAP) Subjective: Sweating, Constipation, Anxious, Body Aches, H/A, Tremors. Objective: PATIENT A & O X 3, OBSERVED AMBULATING ON UNIT. IN NO ACUTE DISTRESS. 05/02/18 13:36 Vital Signs Temperature 97.8 F 05/02/18 09:49 Pulse Rate 100 H 05/02/18 09:49 Respiratory Rate 18 05/02/18 09:49 Blood Pressure 157/99 05/02/18 09:49 O2 Sat by Pulse Oximetry (%) Laboratory Tests 04/29/18 04/30/18 04/30/18 21:50 06:39 07:00 WBC RBC Hgb Hct MCV MCH MCHC RDW Plt Count MPV Sodium Potassium Chloride Carbon Dioxide Anion Gap BUN Creatinine Creat Clearance w eGFR POC Glucometer 74 138 Random Glucose Calcium Total Bilirubin AST ALT Alkaline Phosphatase Total Protein Albumin RPR Titer HIV 1&2 Antibody Screen Negative HIV P24 Antigen Negative 04/30/18 04/30/18 04/30/18 07:00 07:00 07:00 WBC 8.0 RBC 4.80 Hgb 12.3 Hct 35.5 MCV 73.9 L MCH 25.7 MCHC 34.8 RDW 16.8 H Plt Count 185 D MPV 9.8 Sodium 140 Potassium 3.9 Chloride 103 Carbon Dioxide 27 Anion Gap 9 BUN 28 H Creatinine 2.9 H Creat Clearance w eGFR 22.54 POC Glucometer Random Glucose 123 H Calcium 8.0 L Total Bilirubin 0.7 AST 12 L ALT 21 Alkaline Phosphatase 43 L Total Protein 6.0 L Albumin 3.1 L RPR Titer Nonreactive HIV 1&2 Antibody Screen HIV P24 Antigen 04/30/18 04/30/18 04/30/18 11:47 15:45 20:25 WBC RBC Hgb Hct MCV MCH MCHC RDW Plt Count MPV Sodium Potassium Chloride Carbon Dioxide Anion Gap BUN Creatinine Creat Clearance w eGFR POC Glucometer 451 319 365 Random Glucose Calcium Total Bilirubin AST ALT Alkaline Phosphatase Total Protein Albumin RPR Titer HIV 1&2 Antibody Screen HIV P24 Antigen 05/01/18 05/01/18 05/01/18 05:36 12:10 16:31 WBC RBC Hgb Hct MCV MCH MCHC RDW Plt Count MPV Sodium Potassium Chloride Carbon Dioxide Anion Gap BUN Creatinine Creat Clearance w eGFR POC Glucometer 280 354 271 Random Glucose Calcium Total Bilirubin AST ALT Alkaline Phosphatase Total Protein Albumin RPR Titer HIV 1&2 Antibody Screen HIV P24 Antigen 05/01/18 05/02/18 05/02/18 20:40 05:21 07:15 WBC RBC Hgb Hct MCV MCH MCHC RDW Plt Count MPV Sodium 138 Potassium 4.3 Chloride 101 Carbon Dioxide 29 Anion Gap 8 BUN 14 Creatinine 1.4 H Creat Clearance w eGFR 52.24 POC Glucometer 242 272 Random Glucose 334 H* Calcium 9.1 Total Bilirubin AST ALT Alkaline Phosphatase Total Protein Albumin RPR Titer HIV 1&2 Antibody Screen HIV P24 Antigen 05/02/18 11:12 WBC RBC Hgb Hct MCV MCH MCHC RDW Plt Count MPV Sodium Potassium Chloride Carbon Dioxide Anion Gap BUN Creatinine Creat Clearance w eGFR POC Glucometer 570 Random Glucose Calcium Total Bilirubin AST ALT Alkaline Phosphatase Total Protein Albumin RPR Titer HIV 1&2 Antibody Screen HIV P24 Antigen LABS NOTED. IMPROVEMENT NOTED IN RENAL LABS FROM BASIC METABOLIC PANEL DRAWN EARLIER TODAY ( IN COMPARISON TO ADMISSION RENAL LAB VALUES). 05/02/18 13:38 Assessment: 05/02/18 13:39 WITHDRAWAL SYMPTOMS. HYPERTENSION. HYPERGLYCEMIA. Plan: CONTINUE DETOX. PATIENT ADVISED TO FOLLOW-UP WITH EMR ANALYST DR. HERBERT ([place], [place]) AFTER DISCHARGE FROM DETOX UNIT FOR FURTHER EVALUATION OF ELEVATED BGM'S WHILE ADMITTED FOR DETOX (HISTORY OF DM) AND FOR ABNORMAL RENAL LAB VALUES NOTED WHILE ADMITTED FOR DETOX. PATIENT VERBALIZED UNDERSTANDING OF RECOMMENDATIONS. COPIES OF ALL LABS DRAWN WHILE ADMITTED FOR DETOX (INCLUDING ADMISSION COMPLETE METABOLIC PANEL) AND LATER BASIC METABOLIC PANEL GIVEN TO PATIENT TO TAKE WITH HIM FOR FOLLOW-UP WITH DR. HERBERT AFTER DISCHARGE FROM DETOX UNIT.
[2018-05-02] MEDS: MONTELUKAST NA 10 MG TABLET PO SCH (22:28)
[2018-05-02] MEDS: chlordiazePOXIDE HCL 10 MG CAPSULE PO SCH (22:28)
[2018-05-02] MEDS: ATORVASTATIN CA 80 MG TABLET (FP) PO SCH (22:29)
[2018-05-02] MEDS: THIAMINE HCL 100 MG TABLET (FP) PO SCH (22:29)
[2018-05-02] MEDS: MELATONIN 5 MG TABLETS PO PRN (22:31)
[2018-05-02] MEDS: LIDOCAINE PATCH REMOVAL MC SCH (22:33)
[2018-05-03] MEDS: ALBUTEROL SO4 8 GM HFA INHALER IH SCH ×2 (01:13→05:14)
[2018-05-03] MEDS: chlordiazePOXIDE HCL 10 MG CAPSULE PO SCH (05:13)
[2018-05-03 06:05] VITALS: BP 150/90; PULSE 78; TEMP 97.8
[2018-05-03] MEDS: INSULIN (LEVEMIR) 100 UNITS/ML UNITS SQ SCH (06:23)
[2018-05-03] MEDS: INSULIN SLIDING SCALE (NOVOLOG) 1 VIAL SQ SCH (06:24)
--- NOTE | 2018-05-03 13:07 | DS ---
[facility] Detox Discharge Summary Admission Date: 04/29/18 Discharge Date: 05/03/18 - History Present History: Alcohol Dependence Additional Comments: Patient is A/A/Ox3, in nad, ambulatory. Patient instructed to follow up with his PCP within 1 week. Pertinent Past History: DM Asthma HTN HLD GERD - Physical Exam Results Vital Signs: Vital Signs Temperature 97.8 F 05/03/18 06:05 Pulse Rate 78 05/03/18 06:05 Respiratory Rate 18 05/03/18 06:05 Blood Pressure 150/90 05/03/18 06:05 O2 Sat by Pulse Oximetry (%) Pertinent Admission Physical Exam Findings: Withdrawal symptoms Laboratory Tests 04/29/18 04/30/18 04/30/18 21:50 06:39 07:00 WBC RBC Hgb Hct MCV MCH MCHC RDW Plt Count MPV Sodium Potassium Chloride Carbon Dioxide Anion Gap BUN Creatinine Creat Clearance w eGFR POC Glucometer 74 138 Random Glucose Calcium Total Bilirubin AST ALT Alkaline Phosphatase Total Protein Albumin RPR Titer HIV 1&2 Antibody Screen Negative HIV P24 Antigen Negative 04/30/18 04/30/18 04/30/18 07:00 07:00 07:00 WBC 8.0 RBC 4.80 Hgb 12.3 Hct 35.5 MCV 73.9 L MCH 25.7 MCHC 34.8 RDW 16.8 H Plt Count 185 D MPV 9.8 Sodium 140 Potassium 3.9 Chloride 103 Carbon Dioxide 27 Anion Gap 9 BUN 28 H Creatinine 2.9 H Creat Clearance w eGFR 22.54 POC Glucometer Random Glucose 123 H Calcium 8.0 L Total Bilirubin 0.7 AST 12 L ALT 21 Alkaline Phosphatase 43 L Total Protein 6.0 L Albumin 3.1 L RPR Titer Nonreactive HIV 1&2 Antibody Screen HIV P24 Antigen 04/30/18 04/30/18 04/30/18 11:47 15:45 20:25 WBC RBC Hgb Hct MCV MCH MCHC RDW Plt Count MPV Sodium Potassium Chloride Carbon Dioxide Anion Gap BUN Creatinine Creat Clearance w eGFR POC Glucometer 451 319 365 Random Glucose Calcium Total Bilirubin AST ALT Alkaline Phosphatase Total Protein Albumin RPR Titer HIV 1&2 Antibody Screen HIV P24 Antigen 05/01/18 05/01/18 05/01/18 05:36 12:10 16:31 WBC RBC Hgb Hct MCV MCH MCHC RDW Plt Count MPV Sodium Potassium Chloride Carbon Dioxide Anion Gap BUN Creatinine Creat Clearance w eGFR POC Glucometer 280 354 271 Random Glucose Calcium Total Bilirubin AST ALT Alkaline Phosphatase Total Protein Albumin RPR Titer HIV 1&2 Antibody Screen HIV P24 Antigen 05/01/18 05/02/18 05/02/18 20:40 05:21 07:15 WBC RBC Hgb Hct MCV MCH MCHC RDW Plt Count MPV Sodium 138 Potassium 4.3 Chloride 101 Carbon Dioxide 29 Anion Gap 8 BUN 14 Creatinine 1.4 H Creat Clearance w eGFR 52.24 POC Glucometer 242 272 Random Glucose 334 H* Calcium 9.1 Total Bilirubin AST ALT Alkaline Phosphatase Total Protein Albumin RPR Titer HIV 1&2 Antibody Screen HIV P24 Antigen 05/02/18 05/02/18 05/02/18 11:12 16:21 20:19 WBC RBC Hgb Hct MCV MCH MCHC RDW Plt Count MPV Sodium Potassium Chloride Carbon Dioxide Anion Gap BUN Creatinine Creat Clearance w eGFR POC Glucometer 570 365 272 Random Glucose Calcium Total Bilirubin AST ALT Alkaline Phosphatase Total Protein Albumin RPR Titer HIV 1&2 Antibody Screen HIV P24 Antigen 05/03/18 05:12 WBC RBC Hgb Hct MCV MCH MCHC RDW Plt Count MPV Sodium Potassium Chloride Carbon Dioxide Anion Gap BUN Creatinine Creat Clearance w eGFR POC Glucometer 336 Random Glucose Calcium Total Bilirubin AST ALT Alkaline Phosphatase Total Protein Albumin RPR Titer HIV 1&2 Antibody Screen HIV P24 Antigen Labs reviewed: hyperglycemia secondary to DM; DAHLIA (encouraged PO water hydration ). Patient instructed to see PCP within 1 week. - Treatment Hospital Course: Detox Protocol Followed, Detoxed Safely, Responded well, Discharged Condition Good - Medication Discharge Medications: Ambulatory Orders Esomeprazole Mag Trihydrate [Nexium] 40 mg PO DAILY #30 capsule.ec 03/18/14 Aspirin [ASA -] 81 mg PO DAILY #30 tab.chew 10/10/14 Montelukast Na [Singulair -] 10 mg PO HS #30 tablet 10/10/14 Insulin Lispro [Humalog] 0 unit SQ TID PRN 11/11/14 cloNIDine HCL [Catapres -] 0.2 mg PO DAILY 11/11/14 Albuterol Sulfate [Proair Hfa] 2 puff IH Q4H PRN 10/29/17 Valsartan 80 mg PO DAILY 10/29/17 Albuterol Sulfate Inhaler - [Ventolin HFA Inhaler -] 2 inh PO Q4H #1 inh Atorvastatin Ca [Lipitor] 80 mg PO HS #30 tab 03/15/18 Insulin Aspart [Novolog] 10 unit SQ TID #1 vial 03/15/18 Insulin Glargine,Hum.rec.anlog [Lantus] 20 unit SQ HS #1 vial 03/15/18 Nifedipine ER [Procardia XL -] 30 mg PO DAILY #30 tab.er.24 03/15/18 Clonidine HCl 0.2 mg PO BID 05/01/18 - Diagnosis (1) Asthma Status: Chronic Qualifiers: Asthma severity: moderate (2) DAHLIA (acute kidney injury) Status: Acute (3) Alcohol dependence with uncomplicated withdrawal Status: Acute (4) Essential hypertension Status: Chronic (5) Gastroesophageal reflux disease Status: Chronic (6) HLD (hyperlipidemia) Status: Chronic Qualifiers: Hyperlipidemia type: unspecified Qualified Code(s): E78.5 - Hyperlipidemia , unspecified (7) Obesity Status: Chronic Qualifiers: Obesity type: unspecified obesity type Serious obesity comorbidity presence : unspecified whether serious comorbidity present Body mass index: BMI 33.0- 33.9 (8) Type 2 diabetes mellitus with hyperglycemia Status: Chronic - AMA Did Patient Leave Against Medical Advice: No (F/U with your PCP within 1 week)
== END 2018-05-03 09:00 | disposition home or self-care (01) | DRG 775 ==
LOC: YASAS 15:27 → Y3N 21:06
PROVIDERS: ADMIT Neuromusculoskeletal Medicine & OMM; ATTEND Neuromusculoskeletal Medicine & OMM
PROC: HZ2ZZZZ Detoxification Services for Substance Abuse Treatment (ICD-10-PCS; principal; 2018-04-29)
DX: F10.230 Alcohol dependence with withdrawal, uncomplicated (principal); I10 Essential (primary) hypertension; E11.65 Type 2 diabetes mellitus with hyperglycemia; N17.9 Acute kidney failure, unspecified; K21.9 Gastro-esophageal reflux disease without esophagitis; E78.5 Hyperlipidemia, unspecified; J45.909 Unspecified asthma, uncomplicated; R76.11 Nonspecific reaction to tuberculin skin test without active tuberculosis; E66.9 Obesity, unspecified; Z68.33 Body mass index [BMI] 33.0-33.9, adult; Z79.4 Long term (current) use of insulin
CPT/HCPCS: 36415; 80048; 80053; 82962; 85027; 86593; 87389; 93005; 93010; J0735

== ENCOUNTER 2018-06-21 10:31 | Inpatient (IN) | payer OTHER ==
[2018-06-21 12:09] VITALS: BMI 39.4
--- NOTE | 2018-06-21 15:56 | HP ---
CIWA Score Nausea/Vomitin-Mild Nausea/No Vomiting Muscle Tremors: 2 Anxiety: 3 Agitation: 0-Normal Activity Paroxysmal Sweats: 2 Orientation: 1-Uncertain about Date Tacttile Disturbances: 0-None Auditory Disturbances: 0-None Visual Disturbances: 0-None Headache: 3-Moderate CIWA-Ar Total Score: 12 - Admission Criteria OASAS Guidelines: Admission for Medically Managed Detox: Requires at least one of the followin. CIWA greater than 12 2. Seizures within the past 24 hours 3. Delirium tremens within the past 24 hours 4. Hallucinations within the past 24 hours 5. Acute intervention needed for co occurring medical disorder 6. Acute intervention needed for co occurring psychiatric disorder 7. Severe withdrawal that cannot be handled at a lower level of care (continued vomiting, continued diarrhea, abnormal vital signs) requiring intravenous medication and/or fluids 8. Admission ROS [facility] - [facility] Chief Complaint: PATIENT PRESENTS WITH ETOH WITHDRAWAL SX Allergies/Adverse Reactions: Allergies Allergy/AdvReac Type Severity Reaction Status Date / Time No Known Drug Allergies Allergy Verified 06/21/18 15:05 History of Present Illness: PATIENT IS KNOWN TO [facility] DUE TO MULTIPLE ADMISSIONS TO FACILITY. PATIENT PRESENTS WITH ETOH WITHDRAWAL SX. UDS +KIMMIE, BZO. PATIENT STATES BZO IS FROM BUYING XANAX [place] THE STREET. PATIENT TAKES 4-6MG DAILY. LAST TIME HE TOOK MEDICATION WAS THIS MORNING. PATIENT ALSO DRINKS 2 PINTS OF VODKA AND 6 BEERS DAILY SINCE AGE 22. LAST DRINK WAS 3 HOURS AGO. PATIENT DENIES HX OF SEIZURES, BLACKOUT AND FALLS. 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 + COCAINE USE, AMOUNT VARIES DUE TO INCOME, LAST USE LAST NIGHT. PMH INCLUDES HTN, DM, ASTHMA AND ANXIETY. DENIES SI/HI AND SUICIDE ATTEMPTS. Exam Limitations: No Limitations - Ebola screening Have you traveled outside of the country in the last 21 days: No (N) Have you had contact with anyone from an Ebola affected area: No Have you been sick,other than usual withdrawal symptoms: No Do you have a fever: No - Review of Systems Constitutional: Night Sweats, Changes in sleep EENT: reports: No Symptoms Reported Respiratory: reports: No Symptoms reported Cardiac: reports: No Symptoms Reported GI: reports: Nausea, Poor Fluid Intake : reports: Frequency (DUE TO ETOH INTAKE) Musculoskeletal: reports: Back Pain, Muscle Pain Integumentary: reports: Sweating Neuro: reports: Headache, Tremors Endocrine: reports: No Symptoms Reported Hematology: reports: No Symptoms Reported Psychiatric: reports: Anxious, other (DISORIENTED TO DATE) Patient History - Patient Medical History Hx Anemia: No Hx Asthma: Yes Hx Chronic Obstructive Pulmonary Disease (COPD): No Hx Cancer: No Hx Cardiac Disorders: No Hx Congestive Heart Failure: No Hx Hypertension: Yes Hx Hypercholesterolemia: No Hx Pacemaker: No HX Cerebrovascular Accident: No Hx Seizures: No Hx Dementia: No Hx Diabetes: Yes Hx Gastrointestinal Disorders: No Hx Liver Disease: No Hx Genitourinary Disorders: No Hx Sexually Transmitted Disorders: No Hx Renal Disease (ESRD): No Hx Thyroid Disease: No Hx Human Immunodeficiency Virus (HIV): No (Neg) Hx Hepatitis C: No Hx Depression: No Hx Suicide Attempt: No Hx Bipolar Disorder: No Hx Schizophrenia: No Other Medical History: ANXIETY - Patient Surgical History Past Surgical History: No Hx Neurologic Surgery: No Hx Cataract Extraction: No Hx Cardiac Surgery: No Hx Lung Surgery: No Hx Breast Surgery: No Hx Breast Biopsy: No Hx Abdominal Surgery: No Hx Appendectomy: No Hx Cholecystectomy: No Hx Genitourinary Surgery: No Hx Orthopedic Surgery: No Anesthesia Reaction: No - PPD History Documented Results: Negative w/proof Date: 10/30/17 Results: 15 mm PPD to be Administered?: No - Reproductive History Patient is a Female of Child Bearing Age (11 -55 yrs old): No Patient : No - Smoking Cessation Smoking history: Never smoked Have you smoked in the past 12 months: No Aproximately how many cigarettes per day: 6 If you are a former smoker, when did you quit?: july 2014 Cigars Per Day: 0 Hx Chewing Tobacco Use: No Initiated information on smoking cessation: No - Substance & Tx. History Hx Alcohol Use: Yes Hx Substance Use: Yes Substance Use Type: Alcohol, Cocaine Hx Substance Use Treatment: Yes - Substances Abused Alcohol Route: Oral Frequency: Daily Amount used: 3 pt. vodka, 1 six beer ( 16 oz cans) Age of first use: 22 Date of Last Use: 06/21/18 Cocaine Route: Inhalation Frequency: Daily Amount used: $30 Age of first use: 41 Date of Last Use: 06/21/18 Family Disease History - Family Disease History Family Disease History: Diabetes: Father (ALCOHOLIC), Mother (HTN), Heart Disease: Mother, Other: Father Admission Physical Exam [facility] - Vital Signs Vital Signs: Vital Signs - 24 hr 06/21/18 12:08 Temperature 97.4 F L Pulse Rate 92 H Respiratory 20 Rate Blood Pressure 180/120 H - Physical General Appearance: Yes: Nourished, Appropriately Dressed, Tremorous, Sweating, Anxious HEENTM: Yes: EOMI, Hearing grossly Normal, Normal ENT Inspection, Normocephalic , Normal Voice, MIKE, Pharynx Normal Respiratory: Yes: Chest Non-Tender, Lungs Clear, Normal Breath Sounds, No Respiratory Distress, No Accessory Muscle Use Neck: Yes: No masses,lesions,Nodules, Supple, Trachea in good position Breast: Yes: Breast Exam Deferred Cardiology: Yes: Regular Rhythm, Regular Rate, S1, S2 Abdominal: Yes: Normal Bowel Sounds, Non Tender, Soft Genitourinary: Yes: Frequency (ETOH INTAKE) Back: Yes: Normal Inspection, Muscle Spasm Musculoskeletal: Yes: full range of Motion, Gait Steady, Back pain, Muscle Pain Extremities: Yes: Normal Range of Motion, Non-Tender, Tremors, Swelling 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: Yes: graduate rn II-XII NML intact, Alert, Motor Strength 5/5, Normal Response, Other (ANXIETY, FORGETFUL WITH DATE) Integumentary: Yes: Normal Color, Warm, Moist, Other (BLE EDEMA) Lymphatic: Yes: Within Normal Limits Cleared for Admission [facility] - Detox or Rehab [facility] Level of Care: Medically Managed Detox Regimen/Protocol: Librium [facility] Breath Alcohol Content Breath Alcohol Content: 0 Urine Drug Screen - Results Drug Screen Negative: No Urine Drug Screen Results: KIMMIE-Cocaine, BZO-Benzodiazepines Inpatient Rehab Admission - Rehab Decision to Admit Inpatient rehab admission?: No
[2018-06-21] MEDS ORDERED: ALBUTEROL SO4 8 GM HFA INHALER IH PRN (16:07)
[2018-06-21] MEDS ORDERED: MAG HYDROX/AL HYDROX/SIMETH 30 ML UNIT-DOSE CUP PO PRN (16:08)
[2018-06-21] MEDS ORDERED: MAGNESIUM HYDROX 2400MG/30ML ORAL SUSPENSION 30 ML CUP PO PRN (16:08)
[2018-06-21] MEDS ORDERED: IBUPROFEN 400 MG TABLET (FP) PO PRN (16:08)
[2018-06-21] MEDS ORDERED: ACETAMINOPHEN 325 MG TABLET (FP) PO PRN (16:08)
[2018-06-21] MEDS ORDERED: BISMUTH SUBSALICYLATE 524 MG/30 ML UD PO PRN (16:08)
[2018-06-21] MEDS ORDERED: MAGNESIUM CITRATE 300 ML BOTTLE PO PRN (16:08)
[2018-06-21] MEDS ORDERED: MENTHOL/PHENOL 1 EACH UD MM PRN (16:08)
[2018-06-21] MEDS ORDERED: INSULIN SLIDING SCALE (NOVOLOG) 1 VIAL SQ SCH (16:30)
[2018-06-21] MEDS ORDERED: chlordiazePOXIDE HCL 25 MG CAPSULE PO ONE (16:30)
[2018-06-21] MEDS: cloNIDine HCL 0.1 MG TABLET PO SCH (17:56)
[2018-06-21] MEDS ORDERED: cloNIDine HCL 0.1 MG TABLET PO ONE (21:58)
[2018-06-21] MEDS: chlordiazePOXIDE HCL 25 MG CAPSULE PO SCH (22:00)
[2018-06-21] MEDS: ATORVASTATIN CA 80 MG TABLET (FP) PO SCH (22:00)
[2018-06-21] MEDS: MONTELUKAST NA 10 MG TABLET PO SCH (22:00)
[2018-06-21] MEDS: hydrOXYzine PAMOATE 25 MG CAPSULE (FP) PO PRN (22:00)
--- NOTE | 2018-06-21 22:00 | PN ---
S Progress Note Note: Patient's blood pressure is B/P 186/111. Patient is asymptomatic Vital Signs Temperature 96.1 F L 06/21/18 21:56 Pulse Rate 63 06/21/18 21:56 Respiratory Rate 16 06/21/18 21:56 Blood Pressure 187/111 H 06/21/18 21:56 O2 Sat by Pulse Oximetry (%) Action: Clonidine 0.1mg tablet oral ordered
[2018-06-21] MEDS: THIAMINE HCL 100 MG TABLET (FP) PO SCH (22:01)
[2018-06-21] MEDS: MELATONIN 5 MG TABLETS PO PRN (22:01)
[2018-06-21] MEDS: INSULIN (LEVEMIR) 100 UNITS/ML UNITS SQ SCH (22:01)
[2018-06-21] MEDS: IBUPROFEN 400 MG TABLET (FP) PO PRN (22:06)
[2018-06-21 22:45] LABS: URINE APPEARANCE CLEAR; URINE BILIRUBIN NEGATIVE (<2.0 mg/dL); URINE COLOR LTYELLOW; URINE GLUCOSE (UA) 3+ (NEGATIVE); URINE KETONE NEGATIVE (NEGATIVE); URINE LEUK ESTERASE NEGATIVE (NEGATIVE); URINE NITRITE NEGATIVE (NEGATIVE); URINE PROTEIN NEGATIVE (NEGATIVE); URINE UROBILINOGEN NEGATIVE mg/dL (0.2-1.0)
[2018-06-22] MEDS: chlordiazePOXIDE HCL 25 MG CAPSULE PO SCH ×2 (05:50→12:09)
[2018-06-22] MEDS: INSULIN (NOVOLOG) ASPART 100 UNITS/ML 10ML VIAL SQ SCH ×3 (07:51→17:02)
[2018-06-22] MEDS ORDERED: INSULIN SLIDING SCALE (NOVOLOG) 1 VIAL SQ ONE ×3 (07:52→16:27)
[2018-06-22 10:14] LABS: HEMOGLOBIN 13.8 GM/dL (11.7-16.9); MCH 25.7 pg (25.7-33.7); MCHC 33.6 g/dl (32.0-35.9); MEAN CELL VOLUME 76.6 fl (80-96); MEAN PLT VOLUME 10.4 fl (7.5-11.1); PLATELET COUNT 197 K/MM3 (134-434); RBC 5.35 M/mm3 (4.00-5.60); WHITE BLOOD COUNT 6.4 K/mm3 (4.0-10.0)
[2018-06-22] MEDS: ASPIRIN 81 MG CHEWABLE TABLETS PO SCH (10:31)
[2018-06-22] MEDS: cloNIDine HCL 0.1 MG TABLET PO SCH (10:31)
[2018-06-22] MEDS: VALSARTAN 80 MG TABLET (UD) PO SCH (10:31)
[2018-06-22] MEDS: NIFEdipine E.R. 30 MG TABLET (FP) PO SCH (10:31)
[2018-06-22] MEDS: chlordiazePOXIDE HCL 10 MG CAPSULE PO PRN (10:32)
[2018-06-22] MEDS: PRENATAL VITAMINS W/ FOLIC ACID TABLET (FP) PO SCH (10:32)
[2018-06-22 11:14] LABS: ALBUMIN 3.5 g/dl (3.4-5.0); ALK PHOS 81 U/L (45-117); ANION GAP 7 MMOL/L (8-16); BILIRUBIN,TOTAL 0.9 mg/dL (0.2-1); BLOOD UREA NITROGEN 14 mg/dL (7-18); CALCIUM 8.6 mg/dL (8.5-10.1); CHLORIDE 102 mmol/L (98-107); CO2 28 mmol/L (21-32); CREATININE 1.5 mg/dL (0.55-1.3); POTASSIUM 4.3 mmol/L (3.5-5.1); SGOT/AST 8 U/L (15-37); SGPT/ALT 21 U/L (13-61); SODIUM 136 mmol/L (136-145); TOT PROT 7.1 g/dl (6.4-8.2)
[2018-06-22] MEDS: ACETAMINOPHEN 325 MG TABLET (FP) PO PRN ×2 (11:24→19:02)
[2018-06-22 11:27] LABS: GLUCOSE,RANDOM 329 mg/dL (74-106)
[2018-06-22] MEDS ORDERED: FLU VACCINE QUAD 60 MCG/0.5 ML (MDV 18-19) IM ONE (12:00)
[2018-06-22] MEDS: INSULIN (LEVEMIR) 100 UNITS/ML UNITS SQ SCH (21:58)
[2018-06-22] MEDS: chlordiazePOXIDE 5 MG CAPSULE PO SCH (22:00)
[2018-06-22] MEDS: THIAMINE HCL 100 MG TABLET (FP) PO SCH (22:00)
[2018-06-22] MEDS: ATORVASTATIN CA 80 MG TABLET (FP) PO SCH (22:00)
[2018-06-22] MEDS: MONTELUKAST NA 10 MG TABLET PO SCH (22:00)
[2018-06-22] MEDS: hydrOXYzine PAMOATE 25 MG CAPSULE (FP) PO PRN (22:02)
[2018-06-22] MEDS: MELATONIN 5 MG TABLETS PO PRN (22:02)
[2018-06-22] MEDS ORDERED: cloNIDine HCL 0.1 MG TABLET PO ONE (22:43)
--- NOTE | 2018-06-22 22:53 | PN ---
S Progress Note Note: Blood pressure was B/P 166/96. Patient is asymptomatic Vital Signs Temperature 98.6 F 06/22/18 21:55 Pulse Rate 89 06/22/18 21:55 Respiratory Rate 18 06/22/18 21:57 Blood Pressure 166/96 06/22/18 21:57 O2 Sat by Pulse Oximetry (%) Action: Clonidine 0.2mg 1 tablet oral ordered
[2018-06-23] MEDS: chlordiazePOXIDE 5 MG CAPSULE PO SCH ×2 (05:47→13:52)
[2018-06-23] MEDS: IBUPROFEN 400 MG TABLET (FP) PO PRN ×2 (05:49→15:33)
[2018-06-23] MEDS ORDERED: INSULIN SLIDING SCALE (NOVOLOG) 1 VIAL SQ ONE ×2 (07:44→11:49)
[2018-06-23] MEDS: INSULIN (NOVOLOG) ASPART 100 UNITS/ML 10ML VIAL SQ SCH ×3 (07:55→16:56)
--- NOTE | 2018-06-23 08:39 | PN ---
[facility] CIWA - CIWA Score Nausea/Vomitin-No Nausea/No Vomiting Muscle Tremors: 3 Anxiety: 3 Agitation: 1-Slight > Activity Paroxysmal Sweats: 1-Minimal Palms Moist Orientation: 1-Uncertain about Date Tacttile Disturbances: 0-None Auditory Disturbances: 0-None Visual Disturbances: 0-None Headache: 1-Very Mild CIWA-Ar Total Score: 10 S Progress Note (SOAP) Subjective: headaches, tremor, sweating, anxiousness Objective: 06/22/18 08:38 Vital Signs Temperature 98.5 F 06/23/18 06:43 Pulse Rate 73 06/23/18 06:43 Respiratory Rate 18 06/23/18 06:43 Blood Pressure 173/97 H 06/23/18 06:43 O2 Sat by Pulse Oximetry (%) Laboratory Last Values WBC 6.4 K/mm3 (4.0-10.0) 06/22/18 08:00 RBC 5.35 M/mm3 (4.00-5.60) 06/22/18 08:00 Hgb 13.8 GM/dL (11.7-16.9) 06/22/18 08:00 Hct 41.0 % (35.4-49) D 06/22/18 08:00 MCV 76.6 fl (80-96) L 06/22/18 08:00 MCH 25.7 pg (25.7-33.7) 06/22/18 08:00 MCHC 33.6 g/dl (32.0-35.9) 06/22/18 08:00 RDW 16.0 % (11.9-15.9) H 06/22/18 08:00 Plt Count 197 K/MM3 (134-434) 06/22/18 08:00 MPV 10.4 fl (7.5-11.1) 06/22/18 08:00 Sodium 136 mmol/L (136-145) 06/22/18 08:00 Potassium 4.3 mmol/L (3.5-5.1) 06/22/18 08:00 Chloride 102 mmol/L (98-107) 06/22/18 08:00 Carbon Dioxide 28 mmol/L (21-32) 06/22/18 08:00 Anion Gap 7 MMOL/L (8-16) L 06/22/18 08:00 BUN 14 mg/dL (7-18) 06/22/18 08:00 Creatinine 1.5 mg/dL (0.55-1.3) H 06/22/18 08:00 Creat Clearance w eGFR 48.24 (>60) 06/22/18 08:00 POC Glucometer 322 UNITS (80-120) 06/23/18 05:50 Random Glucose 329 mg/dL (74-106) H* 06/22/18 08:00 Calcium 8.6 mg/dL (8.5-10.1) 06/22/18 08:00 Total Bilirubin 0.9 mg/dL (0.2-1) 06/22/18 08:00 AST 8 U/L (15-37) L 06/22/18 08:00 ALT 21 U/L (13-61) 06/22/18 08:00 Alkaline Phosphatase 81 U/L (45-117) 06/22/18 08:00 Total Protein 7.1 g/dl (6.4-8.2) 06/22/18 08:00 Albumin 3.5 g/dl (3.4-5.0) 06/22/18 08:00 Urine Color Ltyellow 06/21/18 21:37 Urine Appearance Clear 06/21/18 21:37 Urine pH 7.0 (5.0-8.0) 06/21/18 21:37 Ur Specific [place] 1.013 (1.010-1.035) 06/21/18 21:37 Urine Protein Negative (NEGATIVE) 06/21/18 21:37 Urine Glucose (UA) 3+ (NEGATIVE) H 06/21/18 21:37 Urine Ketones Negative (NEGATIVE) 06/21/18 21:37 Urine Blood Negative (NEGATIVE) 06/21/18 21:37 Urine Nitrite Negative (NEGATIVE) 06/21/18 21:37 Urine Bilirubin Negative (<2.0 mg/dL) 06/21/18 21:37 Urine Urobilinogen Negative mg/dL (0.2-1.0) 06/21/18 21:37 Ur Leukocyte Esterase Negative (NEGATIVE) 06/21/18 21:37 RPR Titer Nonreactive (NONREACTIVE) 06/22/18 08:00 HIV 1&2 Antibody Screen Negative 06/22/18 08:00 HIV P24 Antigen Negative 06/22/18 08:00 lab noted 06/22/18 08:44 patient is taking clonidine 0.2 mg po bid Assessment: 06/22/18 08:38 alcohol withdrawal sx hypertension diabetes 06/22/18 08:45 Plan: continue detox increase clonidine 0.2 mg bid
[2018-06-23] MEDS: NIFEdipine E.R. 30 MG TABLET (FP) PO SCH (09:29)
[2018-06-23] MEDS: chlordiazePOXIDE HCL 10 MG CAPSULE PO PRN (09:29)
[2018-06-23] MEDS: PRENATAL VITAMINS W/ FOLIC ACID TABLET (FP) PO SCH (09:29)
[2018-06-23] MEDS: LISINOPRIL 10 MG TABLET (FP) PO SCH ×2 (09:29→22:10)
[2018-06-23] MEDS: cloNIDine HCL 0.1 MG TABLET PO SCH ×2 (09:29→22:10)
[2018-06-23] MEDS: ASPIRIN 81 MG CHEWABLE TABLETS PO SCH (09:29)
[2018-06-23] MEDS: VALSARTAN 80 MG TABLET (UD) PO SCH (09:30)
[2018-06-23] MEDS ORDERED: cloNIDine HCL 0.1 MG TABLET PO ONE (15:22)
[2018-06-23] MEDS: ACETAMINOPHEN 325 MG TABLET (FP) PO PRN (19:48)
[2018-06-23] MEDS ORDERED: chlordiazePOXIDE HCL 10 MG CAPSULE PO PRN (21:00)
[2018-06-23] MEDS: INSULIN (LEVEMIR) 100 UNITS/ML UNITS SQ SCH (22:09)
[2018-06-23] MEDS: chlordiazePOXIDE HCL 10 MG CAPSULE PO SCH (22:10)
[2018-06-23] MEDS: ATORVASTATIN CA 80 MG TABLET (FP) PO SCH (22:10)
[2018-06-23] MEDS: MONTELUKAST NA 10 MG TABLET PO SCH (22:10)
[2018-06-23] MEDS: THIAMINE HCL 100 MG TABLET (FP) PO SCH (22:11)
[2018-06-23] MEDS: MELATONIN 5 MG TABLETS PO PRN (22:12)
[2018-06-24] MEDS: IBUPROFEN 400 MG TABLET (FP) PO PRN (05:36)
[2018-06-24] MEDS: chlordiazePOXIDE HCL 10 MG CAPSULE PO SCH (05:36)
[2018-06-24] MEDS ORDERED: INSULIN SLIDING SCALE (NOVOLOG) 1 VIAL SQ ONE ×2 (06:17→11:48)
[2018-06-24] MEDS: INSULIN (NOVOLOG) ASPART 100 UNITS/ML 10ML VIAL SQ SCH ×2 (07:21→11:47)
[2018-06-24] MEDS: cloNIDine HCL 0.1 MG TABLET PO SCH (10:10)
[2018-06-24] MEDS: LISINOPRIL 10 MG TABLET (FP) PO SCH (10:10)
[2018-06-24] MEDS: PRENATAL VITAMINS W/ FOLIC ACID TABLET (FP) PO SCH (10:10)
[2018-06-24] MEDS: ASPIRIN 81 MG CHEWABLE TABLETS PO SCH (10:10)
[2018-06-24] MEDS: VALSARTAN 80 MG TABLET (UD) PO SCH (10:10)
[2018-06-24] MEDS: NIFEdipine E.R. 30 MG TABLET (FP) PO SCH (10:10)
[2018-06-24 13:19] VITALS: BP 144/89; PULSE 93; TEMP 98.5
--- NOTE | 2018-06-24 15:38 | DS ---
[facility] Detox Discharge Summary Admission Date: 06/21/18 Discharge Date: 06/24/18 - History Present History: Alcohol Dependence Additional Comments: 58 years old male admitted on 06/21/18 for alcohol withdrawal stabilization feeling better preferring alcohol rehab today [facility] - Physical Exam Results Vital Signs: Vital Signs Temperature 98.5 F 06/24/18 13:18 Pulse Rate 93 H 06/24/18 13:18 Respiratory Rate 20 06/24/18 13:18 Blood Pressure 144/89 06/24/18 13:18 O2 Sat by Pulse Oximetry (%) Pertinent Admission Physical Exam Findings: alcohol withdrawal sx Laboratory Last Values WBC 6.4 K/mm3 (4.0-10.0) 06/22/18 08:00 RBC 5.35 M/mm3 (4.00-5.60) 06/22/18 08:00 Hgb 13.8 GM/dL (11.7-16.9) 06/22/18 08:00 Hct 41.0 % (35.4-49) D 06/22/18 08:00 MCV 76.6 fl (80-96) L 06/22/18 08:00 MCH 25.7 pg (25.7-33.7) 06/22/18 08:00 MCHC 33.6 g/dl (32.0-35.9) 06/22/18 08:00 RDW 16.0 % (11.9-15.9) H 06/22/18 08:00 Plt Count 197 K/MM3 (134-434) 06/22/18 08:00 MPV 10.4 fl (7.5-11.1) 06/22/18 08:00 Sodium 136 mmol/L (136-145) 06/22/18 08:00 Potassium 4.3 mmol/L (3.5-5.1) 06/22/18 08:00 Chloride 102 mmol/L (98-107) 06/22/18 08:00 Carbon Dioxide 28 mmol/L (21-32) 06/22/18 08:00 Anion Gap 7 MMOL/L (8-16) L 06/22/18 08:00 BUN 14 mg/dL (7-18) 06/22/18 08:00 Creatinine 1.5 mg/dL (0.55-1.3) H 06/22/18 08:00 Creat Clearance w eGFR 48.24 (>60) 06/22/18 08:00 POC Glucometer 341 UNITS (80-120) 06/24/18 11:44 Random Glucose 329 mg/dL (74-106) H* 06/22/18 08:00 Hemoglobin A1c % 9.6 % (4.2-6.3) H 06/24/18 07:00 Calcium 8.6 mg/dL (8.5-10.1) 06/22/18 08:00 Total Bilirubin 0.9 mg/dL (0.2-1) 06/22/18 08:00 AST 8 U/L (15-37) L 06/22/18 08:00 ALT 21 U/L (13-61) 06/22/18 08:00 Alkaline Phosphatase 81 U/L (45-117) 06/22/18 08:00 Total Protein 7.1 g/dl (6.4-8.2) 06/22/18 08:00 Albumin 3.5 g/dl (3.4-5.0) 06/22/18 08:00 Urine Color Ltyellow 06/21/18 21:37 Urine Appearance Clear 06/21/18 21:37 Urine pH 7.0 (5.0-8.0) 06/21/18 21:37 Ur Specific [place] 1.013 (1.010-1.035) 06/21/18 21:37 Urine Protein Negative (NEGATIVE) 06/21/18 21:37 Urine Glucose (UA) 3+ (NEGATIVE) H 06/21/18 21:37 Urine Ketones Negative (NEGATIVE) 06/21/18 21:37 Urine Blood Negative (NEGATIVE) 06/21/18 21:37 Urine Nitrite Negative (NEGATIVE) 06/21/18 21:37 Urine Bilirubin Negative (<2.0 mg/dL) 06/21/18 21:37 Urine Urobilinogen Negative mg/dL (0.2-1.0) 06/21/18 21:37 Ur Leukocyte Esterase Negative (NEGATIVE) 06/21/18 21:37 RPR Titer Nonreactive (NONREACTIVE) 06/22/18 08:00 HIV 1&2 Antibody Screen Negative 06/22/18 08:00 HIV P24 Antigen Negative 06/22/18 08:00 lab noted - Treatment Hospital Course: Detox Protocol Followed, Detoxed Safely, Responded well, Discharged Condition Good, Rehab Referral Accepted Patient has Accepted [facility] Referral [facility]: [facility] - Medication Discharge Medications: Ambulatory Orders Esomeprazole Mag Trihydrate [Nexium] 40 mg PO DAILY #30 capsule.ec 03/18/14 Aspirin [ASA -] 81 mg PO DAILY #30 tab.chew 10/10/14 Montelukast Na [Singulair -] 10 mg PO HS #30 tablet 10/10/14 Insulin Lispro [Humalog] 0 unit SQ TID PRN 11/11/14 cloNIDine HCL [Catapres -] 0.2 mg PO DAILY 11/11/14 Albuterol Sulfate [Proair Hfa] 2 puff IH Q4H PRN 10/29/17 Valsartan 80 mg PO DAILY 10/29/17 Atorvastatin Ca [Lipitor] 80 mg PO HS #30 tab 03/15/18 Insulin Aspart [Novolog] 10 unit SQ TID #1 vial 03/15/18 Insulin Glargine,Hum.rec.anlog [Lantus] 20 unit SQ HS #1 vial 03/15/18 Nifedipine ER [Procardia XL -] 30 mg PO DAILY #30 tab.er.24 03/15/18 - Diagnosis (1) Alcohol dependence with uncomplicated withdrawal Status: Acute (2) Substance induced mood disorder Status: Suspected (3) Asthma Status: Chronic (4) DM Diabetes mellitus type 2 Status: Chronic (5) Essential hypertension Status: Chronic (6) Gastroesophageal reflux disease Status: Chronic (7) HLD (hyperlipidemia) Status: Chronic Qualifiers: Hyperlipidemia type: unspecified Qualified Code(s): E78.5 - Hyperlipidemia , unspecified (8) Nicotine dependence Status: Acute Qualifiers: Nicotine product type: cigarettes Substance use status: in withdrawal Qualified Code(s): F17.213 - Nicotine dependence, cigarettes, with withdrawal (9) PPD positive Status: Resolved (10) Seizure Status: Chronic - AMA Did Patient Leave Against Medical Advice: No
== END 2018-06-24 13:32 | disposition other institution (70) | DRG 774 ==
LOC: YASAS 10:31 → Y3N 15:55
PROVIDERS: ADMIT Surgery; ATTEND Surgery
PROC: HZ2ZZZZ Detoxification Services for Substance Abuse Treatment (ICD-10-PCS; principal; 2018-06-21)
DX: F10.230 Alcohol dependence with withdrawal, uncomplicated (principal); F13.20 Sedative, hypnotic or anxiolytic dependence, uncomplicated; F14.20 Cocaine dependence, uncomplicated; F19.24 Other psychoactive substance dependence with psychoactive substance-induced mood disorder; I10 Essential (primary) hypertension; J45.909 Unspecified asthma, uncomplicated; E11.9 Type 2 diabetes mellitus without complications; K21.9 Gastro-esophageal reflux disease without esophagitis; E78.5 Hyperlipidemia, unspecified; R76.11 Nonspecific reaction to tuberculin skin test without active tuberculosis; E66.9 Obesity, unspecified; Z68.29 Body mass index [BMI] 29.0-29.9, adult; Z79.4 Long term (current) use of insulin; Z87.891 Personal history of nicotine dependence
CPT/HCPCS: 36415; 80053; 81003; 82962; 83036; 85027; 86593; 87389; J0735

== ENCOUNTER 2018-06-24 13:41 | Inpatient (IN) | payer OTHER ==
[2018-06-24] MEDS ORDERED: MAGNESIUM HYDROX 2400MG/30ML ORAL SUSPENSION 30 ML CUP PO PRN (15:39)
[2018-06-24] MEDS ORDERED: NICOTINE 14 MG/24 HOURS TOPICAL PATCH TD PRN (15:39)
[2018-06-24] MEDS ORDERED: guaiFENesin 200 MG/10 ML 10 ML UNIT-DOSE CUPS PO PRN (15:39)
[2018-06-24] MEDS ORDERED: LOPERAMIDE HCL 2 MG CAPSULE PO PRN (15:39)
[2018-06-24] MEDS ORDERED: MENTHOL/PHENOL 1 EACH UD MM PRN (15:39)
[2018-06-24] MEDS ORDERED: P-EPHED 60MG/TRIPROLIDI 2.5MG TABLET PO PRN (15:39)
[2018-06-24] MEDS ORDERED: MAGNESIUM CITRATE 300 ML BOTTLE PO PRN (15:39)
[2018-06-24] MEDS ORDERED: MAG HYDROX/AL HYDROX/SIMETH 30 ML UNIT-DOSE CUP PO PRN (15:39)
[2018-06-24] MEDS ORDERED: NICOTINE POLACRILEX 2 MG GUM BC PRN (15:39)
--- NOTE | 2018-06-24 15:39 | HP ---
[facility] Rehab Assess/Revision - Admission History Admitted to Rehab from: [facility] Date of Admission to Rehab: 06/24/18 - Vital signs Vital Signs: Vital Signs Period Temp Pulse Resp BP Sys/Palafox Pulse Ox Last 24 Hr 98.7 F 81 18 149/97 - Findings Detox History & Physical reviewed: Yes Concur with findings: Yes Comments/Additional Findings: transferred from detox to rehab admission as per protocol Inpatient Rehab Admission - Rehab Decision to Admit Inpatient rehab admission?: Yes - Initial Determination Are CD services needed?: Yes Free of communicable disease: Yes Not in need of hospitalization: Yes - Rehab Admission Criteria Previous failed treatment: Yes Poor recovery environment: Yes Comorbidities: Yes Lacks judgement: No Patient is meeting Inpatient Rehab admission criteria:: Yes
[2018-06-24] MEDS: INSULIN (LEVEMIR) 100 UNITS/ML UNITS SQ SCH (17:01)
[2018-06-24] MEDS: INSULIN (NOVOLOG) ASPART 100 UNITS/ML 10ML VIAL SQ SCH (17:03)
[2018-06-24] MEDS: INSULIN SLIDING SCALE (NOVOLOG) 1 VIAL SQ SCH ×2 (17:05→21:37)
[2018-06-24] MEDS ORDERED: INSULIN (NOVOLOG) ASPART 100 UNITS/ML 10ML VIAL ONE ×2 (17:13→20:59)
[2018-06-24] MEDS: ACETAMINOPHEN 325 MG TABLET (FP) PO PRN (19:01)
[2018-06-24] MEDS: ATORVASTATIN CA 80 MG TABLET (FP) PO SCH (21:36)
[2018-06-24] MEDS: cloNIDine HCL 0.1 MG TABLET PO SCH (21:36)
[2018-06-24] MEDS: MONTELUKAST NA 10 MG TABLET PO SCH (21:36)
[2018-06-24] MEDS: THIAMINE HCL 100 MG TABLET (FP) PO SCH (21:36)
[2018-06-24] MEDS: MELATONIN 5 MG TABLETS PO PRN (21:37)
[2018-06-24] MEDS ORDERED: PATIENT'S OWN MEDICATION (NON-FORMULARY) (Insulin Glargine,Hum.Rec.Anlog [Lantus] 20 UNIT) SQ SCH (22:00)
[2018-06-25] MEDS ORDERED: INSULIN (NOVOLOG) ASPART 100 UNITS/ML 10ML VIAL ONE ×5 (06:34→20:32)
[2018-06-25] MEDS: ACETAMINOPHEN 325 MG TABLET (FP) PO PRN ×2 (06:39→18:49)
[2018-06-25] MEDS: INSULIN (LEVEMIR) 100 UNITS/ML UNITS SQ SCH ×2 (07:37→16:37)
[2018-06-25] MEDS: INSULIN SLIDING SCALE (NOVOLOG) 1 VIAL SQ SCH ×4 (07:38→21:11)
[2018-06-25] MEDS: INSULIN (NOVOLOG) ASPART 100 UNITS/ML 10ML VIAL SQ SCH ×3 (07:38→16:37)
[2018-06-25] MEDS: NIFEdipine E.R. 30 MG TABLET (FP) PO SCH (09:19)
[2018-06-25] MEDS: ASPIRIN 81 MG CHEWABLE TABLETS PO SCH (09:19)
[2018-06-25] MEDS: cloNIDine HCL 0.1 MG TABLET PO SCH ×2 (09:19→21:09)
[2018-06-25] MEDS: PRENATAL VITAMINS W/ FOLIC ACID TABLET (FP) PO SCH (09:19)
[2018-06-25] MEDS: VALSARTAN 80 MG TABLET (UD) PO SCH (09:20)
--- NOTE | 2018-06-25 11:24 | PN ---
[facility] Progress Note Note: PT IS A 58 Y/O MALE REFERRED TO REHAB YESTERDAY 06/24/18 FROM [facility]. C/O "SHOOTING' PAIN FROM RIGHT HIP THROUGH THIGH TO LOWER LEG X 4 DAYS ALSO WHILE IN DETOX. "I COULDN'T EVEN SLEEP LAST NIGHT. I CANNOT EVEN MOVE MY LEG SOMETIMES ". PT'S BP APPEARS UNCONTROLLED. DENIES HEADACHE, DIZZINESS OR C/P. PT REPORTS WAS STARTED ON ANOTHER MEDICATION. PT'S OUTSIDE LISTS HYDRALAZINE POSTED ON . WILL CALL PMD TO VERIFY MEDS. CURRENTLY ON OTHER MEDS FOR HTN. CALL WAS PLACED TO PT'S PMD DR. DIVYA MARINO AT [phone] AT [facility] ON [address], [place] BUT UNAVAILABLE TILL FRIDAY PER JANICE. INSTRUCTED TO CALL BACK TOMORROW TO SPEAK TO THE SEASONAL PACKAGE HANDLER TO THE DOCTOR RE:PT'S CURRENT HTN MEDICATION. Home Medications Medication Instructions Recorded Esomeprazole Mag Trihydrate 40 mg PO DAILY #30 capsule.ec 03/18/14 [Nexium] Aspirin [ASA -] 81 mg PO DAILY #30 tab.chew 10/10/14 Montelukast Na [Singulair -] 10 mg PO HS #30 tablet 10/10/14 Insulin Lispro [Humalog] 0 unit SQ TID PRN 11/11/14 cloNIDine HCL [Catapres -] 0.2 mg PO DAILY 11/11/14 Albuterol Sulfate [Proair Hfa] 2 puff IH Q4H PRN 10/29/17 Valsartan 80 mg PO DAILY 10/29/17 Atorvastatin Ca [Lipitor] 80 mg PO HS #30 tab 03/15/18 Insulin Aspart [Novolog] 10 unit SQ TID #1 vial 03/15/18 Insulin Glargine,Hum.rec.anlog 20 unit SQ HS #1 vial 03/15/18 [Lantus] Nifedipine ER [Procardia XL -] 30 mg PO DAILY #30 tab.er.24 03/15/18 Naproxen 1 tab PO BID PRN 06/25/18 Vital Signs (72 hours) 06/24/18 06/24/18 06/24/18 13:58 21:00 22:50 Temperature 98.7 F Pulse Rate 81 90 94 H Respiratory 18 18 18 Rate Blood Pressure 149/97 157/101 H 157/96 06/25/18 06/25/18 06/25/18 00:30 03:30 06:52 Temperature 99.2 F Pulse Rate 96 H Respiratory 18 18 18 Rate Blood Pressure 168/98 EXTREMITIES: LEFT LEG ACTIVE ; +1 EDEMA ANKLE AREA AND ABOVE/SLIGHT REDNESS. RIGHT EXT:TENDERNESS ON PALPATION, NO EDEMA, WARMTH OR REDNESS; ACTIVE ROM. PEDAL PULSES PRESENT;3+ UNCONTROLLED HTN HX DM PLAN:CONTINUE ANTIHYPERTENSIVES DIRECTED PT TO REPORTS HEADACHES, DIZZINESS, N/V/D OR NUMBNESS/CHEST PAIN.
[2018-06-25] MEDS: LIDOCAINE 5% TOPICAL PATCH TP SCH (14:16)
[2018-06-25] MEDS: NAPROXEN 500 MG TABLET (FP) PO PRN (14:17)
[2018-06-25] MEDS ORDERED: INSULIN (LEVEMIR) 100 UNITS/ML UNITS SQ ONE (20:32)
[2018-06-25] MEDS: THIAMINE HCL 100 MG TABLET (FP) PO SCH (21:09)
[2018-06-25] MEDS: ATORVASTATIN CA 80 MG TABLET (FP) PO SCH (21:09)
[2018-06-25] MEDS: MELATONIN 5 MG TABLETS PO PRN (21:10)
[2018-06-25] MEDS: METHYL SALICYLATE/MENTHOL OINT 30 GM TUBE TP SCH (21:13)
[2018-06-25] MEDS: LIDOCAINE PATCH REMOVAL MC SCH (21:13)
[2018-06-25] MEDS: MONTELUKAST NA 10 MG TABLET PO SCH (21:13)
[2018-06-26] MEDS: NAPROXEN 500 MG TABLET (FP) PO PRN (05:59)
[2018-06-26] MEDS: INSULIN (LEVEMIR) 100 UNITS/ML UNITS SQ SCH ×2 (06:26→17:55)
[2018-06-26] MEDS: INSULIN (NOVOLOG) ASPART 100 UNITS/ML 10ML VIAL SQ SCH ×3 (06:26→17:56)
[2018-06-26] MEDS: INSULIN SLIDING SCALE (NOVOLOG) 1 VIAL SQ SCH ×4 (06:29→21:50)
[2018-06-26] MEDS ORDERED: INSULIN (NOVOLOG) ASPART 100 UNITS/ML 10ML VIAL ONE (06:44)
[2018-06-26] MEDS ORDERED: cloNIDine HCL 0.1 MG TABLET PO ONE ×2 (07:51→21:55)
--- NOTE | 2018-06-26 07:51 | PN ---
S Progress Note Note: bp 163/103,history of hypertension,no complaint to give clonidine 0.2 mg po now,bp monitoring,continue medications for hypertension close monitoring
[2018-06-26] MEDS: ASPIRIN 81 MG CHEWABLE TABLETS PO SCH (10:22)
[2018-06-26] MEDS: PRENATAL VITAMINS W/ FOLIC ACID TABLET (FP) PO SCH (10:22)
[2018-06-26] MEDS: VALSARTAN 80 MG TABLET (UD) PO SCH (10:22)
[2018-06-26] MEDS: LIDOCAINE 5% TOPICAL PATCH TP SCH (10:23)
[2018-06-26] MEDS: NIFEdipine E.R. 30 MG TABLET (FP) PO SCH (10:49)
--- NOTE | 2018-06-26 11:28 | PN ---
[facility] Progress Note Note: PT C/O DRY ITCHY SKIN ESPECIALLY ON RIGHT LEG. Vital Signs (72 hours) 06/24/18 06/24/18 06/24/18 13:58 21:00 22:50 Temperature 98.7 F Pulse Rate 81 90 94 H Respiratory 18 18 18 Rate Blood Pressure 149/97 157/101 H 157/96 06/25/18 06/25/18 06/25/18 00:30 03:30 06:52 Temperature 99.2 F Pulse Rate 96 H Respiratory 18 18 18 Rate Blood Pressure 168/98 06/25/18 06/25/18 06/26/18 10:00 12:13 00:30 Temperature Pulse Rate 102 H 84 Respiratory 20 Rate Blood Pressure 177/104 H 157/91 06/26/18 06/26/18 03:30 06:55 Temperature 99.0 F Pulse Rate 101 H Respiratory 20 18 Rate Blood Pressure 163/103 H Laboratory Tests 06/24/18 06/24/18 06/25/18 17:00 20:51 06:30 POC Glucometer 324 324 351 06/25/18 06/25/18 06/25/18 12:10 16:32 21:01 POC Glucometer 288 351 431 06/26/18 05:56 POC Glucometer 308 SKIN:DRY WITH NO RASH NOTED. A:DRY SKIN PLAN:LAC HYDRIN LOTION DIRECTED FOR DRY SKIN.
[2018-06-26] MEDS ORDERED: HYDROCORTISONE 1% TOPICAL CREAM 30 GM TUBE TP SCH (11:30)
[2018-06-26] MEDS: AMMONIUM LACTATE 12% LOTION 225 GM BOTTLE TP SCH (14:00)
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
[2018-06-26] MEDS: THIAMINE HCL 100 MG TABLET (FP) PO SCH (21:43)
[2018-06-26] MEDS: MONTELUKAST NA 10 MG TABLET PO SCH (21:43)
[2018-06-26] MEDS: ATORVASTATIN CA 80 MG TABLET (FP) PO SCH (21:43)
[2018-06-26] MEDS: MELATONIN 5 MG TABLETS PO PRN (21:44)
[2018-06-26] MEDS: ACETAMINOPHEN 325 MG TABLET (FP) PO PRN (21:47)
[2018-06-26] MEDS: METHYL SALICYLATE/MENTHOL OINT 30 GM TUBE TP SCH (22:05)
[2018-06-26] MEDS: MIRTAZAPINE 15 MG TABLET (FP) PO SCH (22:06)
[2018-06-26] MEDS: LIDOCAINE PATCH REMOVAL MC SCH (22:06)
[2018-06-26] MEDS: cloNIDine HCL 0.1 MG TABLET PO SCH (22:12)
[2018-06-27] MEDS ORDERED: INSULIN (NOVOLOG) ASPART 100 UNITS/ML 10ML VIAL ONE ×5 (06:47→20:15)
[2018-06-27] MEDS: NAPROXEN 500 MG TABLET (FP) PO PRN (06:50)
[2018-06-27] MEDS: INSULIN (LEVEMIR) 100 UNITS/ML UNITS SQ SCH ×2 (07:41→16:50)
[2018-06-27] MEDS: INSULIN (NOVOLOG) ASPART 100 UNITS/ML 10ML VIAL SQ SCH ×3 (07:50→16:50)
[2018-06-27] MEDS: INSULIN SLIDING SCALE (NOVOLOG) 1 VIAL SQ SCH ×4 (07:50→21:44)
[2018-06-27] MEDS: cloNIDine HCL 0.1 MG TABLET PO SCH ×3 (10:16→21:42)
[2018-06-27] MEDS: PRENATAL VITAMINS W/ FOLIC ACID TABLET (FP) PO SCH (10:16)
[2018-06-27] MEDS: ASPIRIN 81 MG CHEWABLE TABLETS PO SCH (10:16)
[2018-06-27] MEDS: VALSARTAN 80 MG TABLET (UD) PO SCH (10:16)
[2018-06-27] MEDS: LIDOCAINE 5% TOPICAL PATCH TP SCH (10:16)
[2018-06-27] MEDS: NIFEdipine E.R. 30 MG TABLET (FP) PO SCH (10:16)
[2018-06-27] MEDS: AMMONIUM LACTATE 12% LOTION 225 GM BOTTLE TP SCH (10:18)
[2018-06-27] MEDS: ACETAMINOPHEN 325 MG TABLET (FP) PO PRN ×2 (14:52→21:43)
[2018-06-27] MEDS: ALBUTEROL SO4 8 GM HFA INHALER IH PRN ×2 (15:04→21:44)
[2018-06-27] MEDS: MIRTAZAPINE 15 MG TABLET (FP) PO SCH (21:42)
[2018-06-27] MEDS: THIAMINE HCL 100 MG TABLET (FP) PO SCH (21:42)
[2018-06-27] MEDS: MONTELUKAST NA 10 MG TABLET PO SCH (21:42)
[2018-06-27] MEDS: LIDOCAINE PATCH REMOVAL MC SCH (21:45)
[2018-06-27] MEDS: ATORVASTATIN CA 80 MG TABLET (FP) PO SCH (21:45)
[2018-06-27] MEDS: METHYL SALICYLATE/MENTHOL OINT 30 GM TUBE TP SCH (21:46)
[2018-06-28] MEDS: NAPROXEN 500 MG TABLET (FP) PO PRN (06:23)
[2018-06-28] MEDS: INSULIN (LEVEMIR) 100 UNITS/ML UNITS SQ SCH ×2 (06:53→16:35)
[2018-06-28] MEDS ORDERED: INSULIN (NOVOLOG) ASPART 100 UNITS/ML 10ML VIAL ONE ×3 (07:06→20:23)
[2018-06-28] MEDS: INSULIN (NOVOLOG) ASPART 100 UNITS/ML 10ML VIAL SQ SCH ×3 (07:23→16:39)
[2018-06-28] MEDS: INSULIN SLIDING SCALE (NOVOLOG) 1 VIAL SQ SCH ×4 (07:24→21:26)
[2018-06-28] MEDS: PRENATAL VITAMINS W/ FOLIC ACID TABLET (FP) PO SCH (10:41)
[2018-06-28] MEDS: VALSARTAN 80 MG TABLET (UD) PO SCH (10:41)
[2018-06-28] MEDS: NIFEdipine E.R. 30 MG TABLET (FP) PO SCH (10:41)
[2018-06-28] MEDS: ASPIRIN 81 MG CHEWABLE TABLETS PO SCH (10:41)
[2018-06-28] MEDS: AMMONIUM LACTATE 12% LOTION 225 GM BOTTLE TP SCH (10:42)
[2018-06-28] MEDS: LIDOCAINE 5% TOPICAL PATCH TP SCH (10:42)
[2018-06-28] MEDS: cloNIDine HCL 0.1 MG TABLET PO SCH ×3 (10:42→21:23)
[2018-06-28] MEDS: ACETAMINOPHEN 325 MG TABLET (FP) PO PRN ×2 (10:43→21:24)
[2018-06-28] MEDS: ALBUTEROL SO4 8 GM HFA INHALER IH PRN (10:45)
[2018-06-28] MEDS: MONTELUKAST NA 10 MG TABLET PO SCH (21:23)
[2018-06-28] MEDS: THIAMINE HCL 100 MG TABLET (FP) PO SCH (21:23)
[2018-06-28] MEDS: ATORVASTATIN CA 80 MG TABLET (FP) PO SCH (21:23)
[2018-06-28] MEDS: MIRTAZAPINE 15 MG TABLET (FP) PO SCH (21:23)
[2018-06-28] MEDS: MELATONIN 5 MG TABLETS PO PRN (21:25)
[2018-06-28] MEDS: LIDOCAINE PATCH REMOVAL MC SCH (21:26)
[2018-06-28] MEDS: METHYL SALICYLATE/MENTHOL OINT 30 GM TUBE TP SCH (21:27)
[2018-06-29] MEDS: NAPROXEN 500 MG TABLET (FP) PO PRN (06:12)
[2018-06-29] MEDS: INSULIN (LEVEMIR) 100 UNITS/ML UNITS SQ SCH ×2 (06:14→16:47)
[2018-06-29] MEDS ORDERED: INSULIN (NOVOLOG) ASPART 100 UNITS/ML 10ML VIAL ONE ×2 (07:28→12:09)
[2018-06-29] MEDS: INSULIN (NOVOLOG) ASPART 100 UNITS/ML 10ML VIAL SQ SCH ×3 (07:48→16:51)
[2018-06-29] MEDS: INSULIN SLIDING SCALE (NOVOLOG) 1 VIAL SQ SCH ×4 (07:49→21:37)
[2018-06-29] MEDS: PRENATAL VITAMINS W/ FOLIC ACID TABLET (FP) PO SCH (10:32)
[2018-06-29] MEDS: VALSARTAN 80 MG TABLET (UD) PO SCH (10:32)
[2018-06-29] MEDS: NIFEdipine E.R. 30 MG TABLET (FP) PO SCH (10:32)
[2018-06-29] MEDS: ASPIRIN 81 MG CHEWABLE TABLETS PO SCH (10:32)
[2018-06-29] MEDS: AMMONIUM LACTATE 12% LOTION 225 GM BOTTLE TP SCH (10:33)
[2018-06-29] MEDS: LIDOCAINE 5% TOPICAL PATCH TP SCH (10:33)
[2018-06-29] MEDS: cloNIDine HCL 0.1 MG TABLET PO SCH ×3 (10:34→21:33)
[2018-06-29] MEDS: ACETAMINOPHEN 325 MG TABLET (FP) PO PRN ×2 (10:34→21:36)
[2018-06-29] MEDS ORDERED: HYDROCHLOROTHIAZIDE 25 MG TABLET (FP) PO ONE (15:12)
--- NOTE | 2018-06-29 15:17 | PN ---
[facility] Progress Note Note: Elevated BP:Denies Headache, Dizziness, C/P or any discomfort. Vital Signs (72 hours) 06/27/18 06/27/18 06/27/18 00:30 03:30 06:57 Temperature 99.2 F Pulse Rate 96 H Respiratory 18 18 20 Rate Blood Pressure 161/96 06/27/18 06/27/18 06/28/18 09:15 22:00 00:30 Temperature Pulse Rate 99 H 96 H Respiratory 18 Rate Blood Pressure 161/93 159/98 06/28/18 06/28/18 06/28/18 03:30 06:55 09:17 Temperature 97.9 F Pulse Rate 86 99 H Respiratory 18 20 18 Rate Blood Pressure 170/88 166/86 06/28/18 06/28/18 06/29/18 09:18 22:20 00:30 Temperature Pulse Rate 102 H 95 H Respiratory 18 18 18 Rate Blood Pressure 166/96 171/101 H 06/29/18 06/29/18 06/29/18 03:30 07:17 13:42 Temperature 98.2 F Pulse Rate 90 97 H Respiratory 18 18 Rate Blood Pressure 167/96 162/97 06/29/18 14:50 Temperature Pulse Rate 87 Respiratory 18 Rate Blood Pressure 152/87 NAD Medically stable A;Uncontrolled Hypertension Re: pt's HTN medications: Call placed to patient's doctor again today this morning about 11:30 a.m and spoke to a biomedical manager who states will fax the current meds and my call back number given to biomedical manager for Dr. bermudez to return call to me. Meanwhile, still awaiting the doctor's call back. Plan:Hydrochlorothiazide 25 mg po now and daily at 6:00 a.m Discussed with patient the POC and he agrees(see addendum) Addendum:Pt now states he has hydrochlorothiazide at home too. pt appears to be a poor historian. All the more reason my effort to get intouch with his PMD.
[2018-06-29] MEDS: MONTELUKAST NA 10 MG TABLET PO SCH (21:34)
[2018-06-29] MEDS: ATORVASTATIN CA 80 MG TABLET (FP) PO SCH (21:34)
[2018-06-29] MEDS: MELATONIN 5 MG TABLETS PO PRN (21:34)
[2018-06-29] MEDS: MIRTAZAPINE 15 MG TABLET (FP) PO SCH (21:34)
[2018-06-29] MEDS: THIAMINE HCL 100 MG TABLET (FP) PO SCH (21:36)
[2018-06-29] MEDS: METHYL SALICYLATE/MENTHOL OINT 30 GM TUBE TP SCH (21:38)
[2018-06-29] MEDS: LIDOCAINE PATCH REMOVAL MC SCH (21:38)
[2018-06-30] MEDS ORDERED: HYDROCHLOROTHIAZIDE 25 MG TABLET (FP) PO SCH (06:00)
[2018-06-30] MEDS: NAPROXEN 500 MG TABLET (FP) PO PRN (06:08)
[2018-06-30] MEDS: INSULIN (LEVEMIR) 100 UNITS/ML UNITS SQ SCH (06:47)
[2018-06-30 06:50] VITALS: BP 164/93; PULSE 90; TEMP 98.8
[2018-06-30] MEDS ORDERED: INSULIN (NOVOLOG) ASPART 100 UNITS/ML 10ML VIAL ONE (07:46)
[2018-06-30] MEDS: INSULIN (NOVOLOG) ASPART 100 UNITS/ML 10ML VIAL SQ SCH (07:48)
[2018-06-30] MEDS: INSULIN SLIDING SCALE (NOVOLOG) 1 VIAL SQ SCH (07:49)
--- NOTE | 2018-06-30 12:24 | PN ---
[facility] Progress Note Note: MR MUNOZ DECLINED TO CONTINUE WITH REHAB STATING "I NEED TO LEAVE, I GOT THINGS TO DO". ALL EFFORTS TO ENCOURAGE PT TO COMPLETE TREATMENT WAS UNSUCCESSFUL. PT MET WITH COUNSELOR AND WAS REFERRED TO [facility] ON [address] [place], [place] FOR CD AFTERCARE. PT HAS A PRIMARY CARE WITH DR DIVYA MARINO AT [address] PH: . THIS PERIPHERAL EQUIPMENT OPERATOR WAS STILL UNABLE TO SPEAK WITH THIS DOCTOR TILL DATE. THE RECOATER LUIS CALLED LATE YESTERDAY EVENING STATING SHE WILL INFORM ME WHEN THE DOCTOR CAN CALL TODAY. NO MED LIST WAS RECEIVED ON THE UNIT TILL DATE. WHILE PT WAS BEING ATTENDED TO BY THE NURSE PROCESSING D/C PAPERS, PT BECAME INPATIENT AND REFUSE TO SIGN HIS PAPERS STATING HE IS WALKING OFF THE UNIT AND WALKED OFF. ALERT O X 3.DENIES S/H/I. PER PATIENT, HE STATES HE HAS ALL HIS MEDS AT HOME. Home Medications Medication Instructions Recorded Esomeprazole Mag Trihydrate 40 mg PO DAILY #30 capsule.ec 03/18/14 [Nexium] Aspirin [ASA -] 81 mg PO DAILY #30 tab.chew 10/10/14 Montelukast Na [Singulair -] 10 mg PO HS #30 tablet 10/10/14 Insulin Lispro [Humalog] 0 unit SQ TID PRN 11/11/14 cloNIDine HCL [Catapres -] 0.2 mg PO BID 11/11/14 Albuterol Sulfate [Proair Hfa] 2 puff IH Q4H PRN 10/29/17 Valsartan 80 mg PO DAILY 10/29/17 Atorvastatin Ca [Lipitor] 80 mg PO HS #30 tab 03/15/18 Insulin Aspart [Novolog] 10 unit SQ TID #1 vial 03/15/18 Insulin Glargine,Hum.rec.anlog 20 unit SQ HS #1 vial 03/15/18 [Lantus] Nifedipine ER [Procardia XL -] 30 mg PO DAILY #30 tab.er.24 03/15/18 Naproxen 1 tab PO BID PRN 06/25/18 Vital Signs (72 hours) 06/27/18 06/28/18 06/28/18 22:00 00:30 03:30 Temperature Pulse Rate 96 H Respiratory 18 18 Rate Blood Pressure 159/98 06/28/18 06/28/18 06/28/18 06:55 09:17 09:18 Temperature 97.9 F Pulse Rate 86 99 H 102 H Respiratory 20 18 18 Rate Blood Pressure 170/88 166/86 166/96 06/28/18 06/29/18 06/29/18 22:20 00:30 03:30 Temperature Pulse Rate 95 H Respiratory 18 18 18 Rate Blood Pressure 171/101 H 06/29/18 06/29/18 06/29/18 07:17 13:42 14:50 Temperature 98.2 F Pulse Rate 90 97 H 87 Respiratory 18 18 Rate Blood Pressure 167/96 162/97 152/87 06/29/18 06/29/18 06/30/18 20:40 22:00 00:30 Temperature Pulse Rate 82 82 Respiratory 18 18 18 Rate Blood Pressure 149/88 149/88 06/30/18 06/30/18 03:30 06:49 Temperature 98.8 F Pulse Rate 90 Respiratory 18 18 Rate Blood Pressure 164/93 Laboratory Tests 06/24/18 06/24/18 06/25/18 17:00 20:51 06:30 POC Glucometer 324 324 351 06/25/18 06/25/18 06/25/18 12:10 16:32 21:01 POC Glucometer 288 351 431 06/26/18 06/26/18 06/26/18 05:56 11:55 16:40 POC Glucometer 308 332 236 06/26/18 06/27/18 06/27/18 21:49 06:44 12:03 POC Glucometer 141 276 364 06/27/18 06/27/18 06/28/18 16:47 20:45 06:21 POC Glucometer 213 404 336 06/28/18 06/28/18 06/28/18 11:52 16:34 20:53 POC Glucometer 328 261 323 06/29/18 06/29/18 06/29/18 06:10 12:02 16:46 POC Glucometer 286 306 265 06/29/18 06/30/18 21:33 06:10 POC Glucometer 276 300 NAD PLAN:PT WALKED OFF THE UNIT AMA FOLLOW UP WITH CD AFTERCARE RECOMMENDATION DIRECTED. FOLLOW UP WITH PMD ABOVE TODAY AFTER DISCHARGE.
== END 2018-06-30 08:50 | disposition left against medical advice (07) | DRG 770 ==
LOC: YASAS 13:41 → Y5N 13:42
PROVIDERS: ADMIT Neuromusculoskeletal Medicine & OMM; ATTEND Neuromusculoskeletal Medicine & OMM
PROC: HZ42ZZZ Group Counseling for Substance Abuse Treatment, Cognitive-Behavioral (ICD-10-PCS; principal; 2018-06-24)
DX: F10.20 Alcohol dependence, uncomplicated (principal); F13.20 Sedative, hypnotic or anxiolytic dependence, uncomplicated; F14.20 Cocaine dependence, uncomplicated; F19.24 Other psychoactive substance dependence with psychoactive substance-induced mood disorder; G47.00 Insomnia, unspecified; I10 Essential (primary) hypertension; E11.9 Type 2 diabetes mellitus without complications; L85.3 Xerosis cutis; R60.0 Localized edema; R76.11 Nonspecific reaction to tuberculin skin test without active tuberculosis; E66.9 Obesity, unspecified; Z68.37 Body mass index [BMI] 37.0-37.9, adult
CPT/HCPCS: 82962; J0735

== ENCOUNTER 2018-08-29 12:00 | Inpatient (IN) | payer OTHER ==
[2018-08-29 12:40] VITALS: BMI 39.9
--- NOTE | 2018-08-29 13:21 | HP ---
CIWA Score Nausea/Vomitin Muscle Tremors: 4-Moderate,w/Arms Extend Anxiety: 4-Mod. Anxious/Guarded Agitation: 0-Normal Activity Paroxysmal Sweats: 1-Minimal Palms Moist Orientation: 1-Uncertain about Date Tacttile Disturbances: 0-None Auditory Disturbances: 1-Very Mild Visual Disturbances: 1-Very Mild Sensitivity Headache: 2-Mild CIWA-Ar Total Score: 16 - Admission Criteria [facility] Guidelines: Admission for Medically Managed Detox: Requires at least one of the followin. CIWA greater than 12 2. Seizures within the past 24 hours 3. Delirium tremens within the past 24 hours 4. Hallucinations within the past 24 hours 5. Acute intervention needed for co occurring medical disorder 6. Acute intervention needed for co occurring psychiatric disorder 7. Severe withdrawal that cannot be handled at a lower level of care (continued vomiting, continued diarrhea, abnormal vital signs) requiring intravenous medication and/or fluids 8. Patient presents the following: CIWA greater than 12 Admission Criteria Met: Admission criteria met Admission ROS [facility] - HPI Chief Complaint: I can't control my drinking - my family has noticed and told me to get help Allergies/Adverse Reactions: Allergies Allergy/AdvReac Type Severity Reaction Status Date / Time No Known Drug Allergies Allergy Verified 06/24/18 14:08 History of Present Illness: 58 yo gentleman here for detox from alcohol and alprazolam - this is one of many admissions for treatment, last here 06/21/18. No seizures but does have black outs - memory of poor. Lives with his parents. Exam Limitations: No Limitations - Ebola screening Have you traveled outside of the country in the last 21 days: No (N) Have you had contact with anyone from an Ebola affected area: No Do you have a fever: No - Review of Systems Constitutional: Loss of Appetite, Malaise, Changes in sleep EENT: reports: Blurred Vision Respiratory: reports: No Symptoms reported Cardiac: reports: No Symptoms Reported GI: reports: Nausea, Poor Fluid Intake, Indigestion, Abdominal cramping : reports: Frequency Musculoskeletal: reports: Back Pain Integumentary: reports: Dryness Neuro: reports: Headache, Tremors, Weakness Endocrine: reports: No Symptoms Reported Hematology: reports: No Symptoms Reported Psychiatric: reports: Judgement Intact, Mood/Affect Appropiate, Anxious Other Systems: Reviewed and Negative Patient History - Patient Medical History Hx Anemia: No Hx Asthma: Yes (on meds) Hx Chronic Obstructive Pulmonary Disease (COPD): No Hx Cancer: No Hx Cardiac Disorders: No Hx Congestive Heart Failure: No Hx Hypertension: Yes (on meds) Hx Hypercholesterolemia: No Hx Pacemaker: No HX Cerebrovascular Accident: No Hx Seizures: No Hx Dementia: No Hx Diabetes: Yes (on insulin) Hx Gastrointestinal Disorders: Yes (GERD) Hx Liver Disease: No Hx Genitourinary Disorders: No Hx Sexually Transmitted Disorders: No Hx Renal Disease (ESRD): No Hx Thyroid Disease: No Hx Human Immunodeficiency Virus (HIV): No (Neg) Hx Hepatitis C: No Hx Depression: No Hx Suicide Attempt: No (denies) Hx Bipolar Disorder: No Hx Schizophrenia: No Other Medical History: back pain - Patient Surgical History Past Surgical History: No Hx Neurologic Surgery: No Hx Cataract Extraction: No Hx Cardiac Surgery: No Hx Lung Surgery: No Hx Breast Surgery: No Hx Breast Biopsy: No Hx Abdominal Surgery: No Hx Appendectomy: No Hx Cholecystectomy: No Hx Genitourinary Surgery: No Hx Section: No Hx Orthopedic Surgery: No Anesthesia Reaction: No - PPD History Previous Implant?: Yes Documented Results: Positive w/proof Implanted On Prior [facility] Admission?: Yes Date: 10/30/17 (CXR 03/12/18 negative) Results: 15 mm PPD to be Administered?: No - Reproductive History Patient is a Female of Child Bearing Age (11 -55 yrs old): No - Smoking Cessation Smoking history: Never smoked Have you smoked in the past 12 months: No Cigars Per Day: 0 Hx Chewing Tobacco Use: No Initiated information on smoking cessation: No - Substance & Tx. History Hx Alcohol Use: Yes Hx Substance Use: Yes Substance Use Type: Alcohol, Cocaine, Tranquilizers Hx Substance Use Treatment: Yes (detox, rehab) - Substances abused Alcohol Substance route: Oral Frequency: Daily Amount used: 3 Pints vodka, 6 pck beer-16oz Age of first use: 22 Date of last use: 08/29/18 Alprazolam (Xanax) Substance route: Oral Frequency: 3-6 times per week Amount used: two 4mg sticks Age of first use: 47 Date of last use: 08/28/18 Cocaine Substance route: Inhalation Frequency: 3-6 times per week Amount used: $20 Age of first use: 48 Date of last use: 08/28/18 Family Disease History - Family Disease History Family Disease History: Diabetes: Father (ALCOHOLIC), Mother (HTN), Brother ( three ), Sister (four ), Heart Disease: Mother, Sister, Other: Father, Brother, Sister, Son (one age 21) Admission Physical Exam [facility] - Vital Signs Vital Signs: Vital Signs - 24 hr 08/29/18 12:25 Temperature 9.6 F L Pulse Rate 96 H Respiratory 19 Rate Blood Pressure 135/84 - Physical General Appearance: Yes: Nourished, Appropriately Dressed, Moderate Distress, Tremorous, Anxious HEENTM: Yes: EOMI, Hearing grossly Normal, Normal ENT Inspection, Normocephalic , Normal Voice, Other (poor dentition) Respiratory: Yes: Normal Breath Sounds, No Respiratory Distress Neck: Yes: No masses,lesions,Nodules Breast: Yes: Breast Exam Deferred Cardiology: Yes: Regular Rhythm, Regular Rate Abdominal: Yes: Soft, Protuberent, Distended Genitourinary: Yes: Frequency Back: Yes: Normal Inspection Musculoskeletal: Yes: full range of Motion, Gait Steady, Back pain Extremities: Yes: Normal Inspection, Non-Tender, Pedal Edema (bilateral 1+ lower extremity edema) 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: Yes: Fully Oriented, Alert, Normal Mood/Affect, Normal Response Integumentary: Yes: Normal Color, Warm Lymphatic: Yes: Within Normal Limits - Diagnostic (1) Alcohol dependence with uncomplicated withdrawal Current Visit: Yes Status: Acute (2) Sedative, hypnotic or anxiolytic dependence with withdrawal, uncomplicated Current Visit: Yes Status: Chronic (3) Cocaine dependence Current Visit: Yes Status: Chronic Qualifiers: Substance use status: uncomplicated Qualified Code(s): F14.20 - Cocaine dependence, uncomplicated (4) Essential hypertension Current Visit: Yes Status: Chronic (5) Gastroesophageal reflux disease Current Visit: Yes Status: Chronic (6) Type 2 diabetes mellitus with hyperglycemia Current Visit: Yes Status: Chronic Qualifiers: 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: with laborer marine terminal use Qualified Code( s): E11.65 - Type 2 diabetes mellitus with hyperglycemia; Z79.4 - exterminator helper 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
[2018-08-29] MEDS ORDERED: chlordiazePOXIDE HCL 25 MG CAPSULE PO PRN (13:35)
[2018-08-29] MEDS ORDERED: MAGNESIUM CITRATE 300 ML BOTTLE PO PRN (13:35)
[2018-08-29] MEDS ORDERED: IBUPROFEN 400 MG TABLET (FP) PO PRN (13:35)
[2018-08-29] MEDS ORDERED: MAG HYDROX/AL HYDROX/SIMETH 30 ML UNIT-DOSE CUP PO PRN (13:35)
[2018-08-29] MEDS ORDERED: BISMUTH SUBSALICYLATE 524 MG/30 ML UD PO PRN (13:35)
[2018-08-29] MEDS ORDERED: MAGNESIUM HYDROX 2400MG/30ML ORAL SUSPENSION 30 ML CUP PO PRN (13:35)
[2018-08-29] MEDS ORDERED: hydrOXYzine PAMOATE 25 MG CAPSULE (FP) PO PRN (13:35)
[2018-08-29] MEDS ORDERED: MENTHOL/PHENOL 1 EACH UD MM PRN (13:35)
[2018-08-29] MEDS ORDERED: ALBUTEROL SO4 8 GM HFA INHALER IH PRN (13:44)
[2018-08-29] MEDS ORDERED: chlordiazePOXIDE HCL 25 MG CAPSULE PO ONE (14:15)
[2018-08-29] MEDS: INSULIN SLIDING SCALE (NOVOLOG) 1 VIAL SQ SCH ×2 (17:13→22:35)
[2018-08-29] MEDS: chlordiazePOXIDE HCL 25 MG CAPSULE PO SCH ×2 (17:57→22:30)
[2018-08-29] MEDS: METHOCARBAMOL 500 MG TABLET PO PRN (18:19)
[2018-08-29] MEDS ORDERED: VALSARTAN 80 MG TABLET (UD) PO SCH (22:00)
[2018-08-29] MEDS ORDERED: INSULIN (LEVEMIR) 100 UNITS/ML UNITS SQ SCH (22:00)
[2018-08-29] MEDS: THIAMINE HCL 100 MG TABLET (FP) PO SCH (22:30)
[2018-08-29] MEDS: ATORVASTATIN CA 10 MG TABLET (FP) PO SCH (22:30)
[2018-08-29] MEDS: MONTELUKAST NA 10 MG TABLET PO SCH (22:31)
[2018-08-29] MEDS: MELATONIN 5 MG TABLETS PO PRN (22:34)
[2018-08-30] MEDS: chlordiazePOXIDE HCL 25 MG CAPSULE PO SCH ×4 (05:28→22:16)
[2018-08-30] MEDS: METHOCARBAMOL 500 MG TABLET PO PRN ×3 (05:29→22:17)
[2018-08-30] MEDS: ACETAMINOPHEN 325 MG TABLET (FP) PO PRN ×2 (07:51→15:31)
[2018-08-30] MEDS: INSULIN SLIDING SCALE (NOVOLOG) 1 VIAL SQ SCH ×4 (08:12→22:18)
[2018-08-30] MEDS: ASPIRIN 81 MG CHEWABLE TABLETS PO SCH (09:05)
[2018-08-30] MEDS: VALSARTAN 80 MG TABLET (UD) PO SCH (09:06)
[2018-08-30] MEDS: NIFEdipine E.R. 30 MG TABLET (FP) PO SCH (09:06)
[2018-08-30] MEDS: PRENATAL VITAMINS W/ FOLIC ACID TABLET (FP) PO SCH (09:06)
[2018-08-30] MEDS ORDERED: cloNIDine HCL 0.1 MG TABLET PO SCH (10:00)
--- NOTE | 2018-08-30 10:23 | PN ---
S CIWA - CIWA Score Nausea/Vomitin-Mild Nausea/No Vomiting Muscle Tremors: 3 Anxiety: 1-Mildly Anxious Agitation: 2 Paroxysmal Sweats: 1-Minimal Palms Moist Orientation: 2-Disoriented Date<2 days Tacttile Disturbances: 0-None Auditory Disturbances: 0-None Visual Disturbances: 0-None Headache: 2-Mild CIWA-Ar Total Score: 12 [facility] Progress Note (SOAP) Subjective: doing ok with librium detox protocol long history of hypertension bp elevation early today received medication around 9 am continue monitoring bp Objective: 08/30/18 10:25 Vital Signs Temperature 98.2 F 08/30/18 09:31 Pulse Rate 97 H 08/30/18 09:31 Respiratory Rate 20 08/30/18 09:31 Blood Pressure 172/97 H 08/30/18 09:31 O2 Sat by Pulse Oximetry (%) Laboratory Last Values Sodium 139 mmol/L (136-145) 08/30/18 07:50 Potassium 3.9 mmol/L (3.5-5.1) 08/30/18 07:50 Chloride 105 mmol/L (98-107) 08/30/18 07:50 Carbon Dioxide 29 mmol/L (21-32) 08/30/18 07:50 Anion Gap 6 MMOL/L (8-16) L 08/30/18 07:50 BUN 23 mg/dL (7-18) H 08/30/18 07:50 Creatinine 1.4 mg/dL (0.55-1.3) H 08/30/18 07:50 Est GFR (CKD-EPI)AfAm 64.18 08/30/18 07:50 Est GFR (CKD-EPI)NonAf 55.38 08/30/18 07:50 POC Glucometer 163 UNITS (80-120) 08/30/18 05:57 Random Glucose 190 mg/dL (74-106) H 08/30/18 07:50 Calcium 8.7 mg/dL (8.5-10.1) 08/30/18 07:50 Total Bilirubin 0.8 mg/dL (0.2-1) 08/30/18 07:50 AST 12 U/L (15-37) L 08/30/18 07:50 ALT 22 U/L (13-61) 08/30/18 07:50 Alkaline Phosphatase 55 U/L (45-117) 08/30/18 07:50 Total Protein 6.7 g/dl (6.4-8.2) 08/30/18 07:50 Albumin 3.5 g/dl (3.4-5.0) 08/30/18 07:50 lab noted reported lantus 20 units bid currently bgm well managed by insulin coverage Assessment: 08/30/18 10:26 alcohol and benzo withdrawal sx Plan: continue detox
[2018-08-30 10:24] LABS: ALBUMIN 3.5 g/dl (3.4-5.0); BILIRUBIN,TOTAL 0.8 mg/dL (0.2-1); CALCIUM 8.7 mg/dL (8.5-10.1); CREATININE 1.4 mg/dL (0.55-1.3); POTASSIUM 3.9 mmol/L (3.5-5.1); TOT PROT 6.7 g/dl (6.4-8.2)
[2018-08-30 10:26] LABS: HEMATOCRIT 40.2 % (35.4-49); HEMOGLOBIN 13.3 GM/dL (11.7-16.9); MCH 24.5 pg (25.7-33.7); MEAN PLT VOLUME 9.9 fl (7.5-11.1); PLATELET COUNT 192 K/MM3 (134-434); RBC 5.43 M/mm3 (4.00-5.60); RDW 16.5 % (11.9-15.9)
[2018-08-30] MEDS ORDERED: INSULIN (LEVEMIR) 100 UNITS/ML UNITS SQ SCH (11:00)
[2018-08-30] MEDS: MONTELUKAST NA 10 MG TABLET PO SCH (22:16)
[2018-08-30] MEDS: ATORVASTATIN CA 10 MG TABLET (FP) PO SCH (22:16)
[2018-08-30] MEDS: THIAMINE HCL 100 MG TABLET (FP) PO SCH (22:16)
[2018-08-30] MEDS: INSULIN (LEVEMIR) 100 UNITS/ML UNITS SQ SCH (22:17)
[2018-08-30] MEDS: MELATONIN 5 MG TABLETS PO PRN (22:19)
[2018-08-31] MEDS: chlordiazePOXIDE HCL 25 MG CAPSULE PO SCH ×2 (05:05→10:48)
[2018-08-31] MEDS: HYDROCHLOROTHIAZIDE 25 MG TABLET (FP) PO SCH (05:05)
[2018-08-31] MEDS: METHOCARBAMOL 500 MG TABLET PO PRN ×2 (05:06→16:56)
[2018-08-31] MEDS ORDERED: INSULIN (LEVEMIR) 100 UNITS/ML UNITS SQ ONE (06:33)
[2018-08-31] MEDS: cloNIDine HCL 0.1 MG TABLET PO SCH (07:47)
[2018-08-31] MEDS: INSULIN (LEVEMIR) 100 UNITS/ML UNITS SQ SCH ×2 (07:51→21:40)
[2018-08-31] MEDS: INSULIN SLIDING SCALE (NOVOLOG) 1 VIAL SQ SCH ×4 (07:56→21:41)
[2018-08-31] MEDS ORDERED: ALBUTEROL SO4 0.083% IH SOL 2.5 MG/3 ML VIAL.NEB. NEB PRN (10:40)
[2018-08-31] MEDS ORDERED: ALBUTEROL SO4 8 GM HFA INHALER IH PRN (10:40)
--- NOTE | 2018-08-31 10:43 | PN ---
[facility] CIWA - CIWA Score Nausea/Vomitin-Mild Nausea/No Vomiting Muscle Tremors: 3 Anxiety: 2 Agitation: 2 Paroxysmal Sweats: 1-Minimal Palms Moist Orientation: 1-Uncertain about Date Tacttile Disturbances: 0-None Auditory Disturbances: 0-None Visual Disturbances: 0-None Headache: 1-Very Mild CIWA-Ar Total Score: 11 [facility] Progress Note (SOAP) Subjective: doing well with librium detox regimen ambulate on hallway discuss aftercare with staff Objective: 08/31/18 10:46 Vital Signs Temperature 98.6 F 08/31/18 09:06 Pulse Rate 91 H 08/31/18 09:06 Respiratory Rate 20 08/31/18 09:06 Blood Pressure 171/99 H 08/31/18 09:06 O2 Sat by Pulse Oximetry (%) Laboratory Last Values WBC 7.0 K/mm3 (4.0-10.0) 08/30/18 07:50 RBC 5.43 M/mm3 (4.00-5.60) 08/30/18 07:50 Hgb 13.3 GM/dL (11.7-16.9) 08/30/18 07:50 Hct 40.2 % (35.4-49) 08/30/18 07:50 MCV 74.0 fl (80-96) L 08/30/18 07:50 MCH 24.5 pg (25.7-33.7) L 08/30/18 07:50 MCHC 33.0 g/dl (32.0-35.9) 08/30/18 07:50 RDW 16.5 % (11.9-15.9) H 08/30/18 07:50 Plt Count 192 K/MM3 (134-434) 08/30/18 07:50 MPV 9.9 fl (7.5-11.1) 08/30/18 07:50 Sodium 139 mmol/L (136-145) 08/30/18 07:50 Potassium 3.9 mmol/L (3.5-5.1) 08/30/18 07:50 Chloride 105 mmol/L (98-107) 08/30/18 07:50 Carbon Dioxide 29 mmol/L (21-32) 08/30/18 07:50 Anion Gap 6 MMOL/L (8-16) L 08/30/18 07:50 BUN 23 mg/dL (7-18) H 08/30/18 07:50 Creatinine 1.4 mg/dL (0.55-1.3) H 08/30/18 07:50 Est GFR (CKD-EPI)AfAm 64.18 08/30/18 07:50 Est GFR (CKD-EPI)NonAf 55.38 08/30/18 07:50 POC Glucometer 214 UNITS (80-120) 08/31/18 05:04 Random Glucose 190 mg/dL (74-106) H 08/30/18 07:50 Calcium 8.7 mg/dL (8.5-10.1) 08/30/18 07:50 Total Bilirubin 0.8 mg/dL (0.2-1) 08/30/18 07:50 AST 12 U/L (15-37) L 08/30/18 07:50 ALT 22 U/L (13-61) 08/30/18 07:50 Alkaline Phosphatase 55 U/L (45-117) 08/30/18 07:50 Total Protein 6.7 g/dl (6.4-8.2) 08/30/18 07:50 Albumin 3.5 g/dl (3.4-5.0) 08/30/18 07:50 RPR Titer Nonreactive (NONREACTIVE) 08/30/18 07:50 lab noted 08/31/18 10:53 increase nifedipine to 60 mg po daily Assessment: 08/31/18 10:54 alcohol and banze withdrawal sx Plan: continue detox
[2018-08-31] MEDS: ASPIRIN 81 MG CHEWABLE TABLETS PO SCH (10:48)
[2018-08-31] MEDS: VALSARTAN 80 MG TABLET (UD) PO SCH (10:48)
[2018-08-31] MEDS: PRENATAL VITAMINS W/ FOLIC ACID TABLET (FP) PO SCH (10:48)
[2018-08-31] MEDS: NIFEdipine E.R. 30 MG TABLET (FP) PO SCH (10:49)
[2018-08-31] MEDS: chlordiazePOXIDE HCL 10 MG CAPSULE PO SCH ×2 (16:53→22:31)
[2018-08-31] MEDS ORDERED: chlordiazePOXIDE HCL 10 MG CAPSULE PO PRN (17:00)
[2018-08-31] MEDS ORDERED: NIFEdipine E.R. 30 MG TABLET (FP) PO ONE (18:00)
[2018-08-31] MEDS: ATORVASTATIN CA 10 MG TABLET (FP) PO SCH (21:38)
[2018-08-31] MEDS: THIAMINE HCL 100 MG TABLET (FP) PO SCH (21:39)
[2018-08-31] MEDS: MONTELUKAST NA 10 MG TABLET PO SCH (21:39)
[2018-08-31] MEDS: MELATONIN 5 MG TABLETS PO PRN (21:39)
[2018-08-31] MEDS: ACETAMINOPHEN 325 MG TABLET (FP) PO PRN (21:39)
[2018-09-01] MEDS: chlordiazePOXIDE HCL 10 MG CAPSULE PO SCH ×3 (05:57→16:55)
[2018-09-01] MEDS: HYDROCHLOROTHIAZIDE 25 MG TABLET (FP) PO SCH (05:58)
[2018-09-01] MEDS: cloNIDine HCL 0.1 MG TABLET PO SCH (05:58)
[2018-09-01] MEDS: METHOCARBAMOL 500 MG TABLET PO PRN ×2 (06:01→21:33)
[2018-09-01] MEDS: INSULIN (LEVEMIR) 100 UNITS/ML UNITS SQ SCH ×2 (07:08→21:33)
[2018-09-01] MEDS: INSULIN SLIDING SCALE (NOVOLOG) 1 VIAL SQ SCH ×4 (07:08→21:33)
[2018-09-01] MEDS: ASPIRIN 81 MG CHEWABLE TABLETS PO SCH (10:30)
[2018-09-01] MEDS: NIFEdipine E.R 60 MG TABLET (UD) PO SCH (10:30)
[2018-09-01] MEDS: VALSARTAN 80 MG TABLET (UD) PO SCH (10:30)
[2018-09-01] MEDS: PRENATAL VITAMINS W/ FOLIC ACID TABLET (FP) PO SCH (10:30)
--- NOTE | 2018-09-01 14:10 | PN ---
[facility] CIWA - CIWA Score Nausea/Vomitin-Mild Nausea/No Vomiting Muscle Tremors: 2 Anxiety: 2 Agitation: 2 Paroxysmal Sweats: No Perspiration Orientation: 0-Oriented Tacttile Disturbances: 0-None Auditory Disturbances: 0-None Visual Disturbances: 0-None Headache: 0-None Present CIWA-Ar Total Score: 7 S Progress Note (SOAP) Subjective: long history of hypertension and diabetes II increase nifedipine to 60 mg po daily add lisinopril 20 mg po daily Objective: 09/01/18 14:15 Vital Signs Temperature 98.3 F 09/01/18 09:26 Pulse Rate 92 H 09/01/18 09:26 Respiratory Rate 18 09/01/18 09:26 Blood Pressure 164/92 09/01/18 09:26 O2 Sat by Pulse Oximetry (%) Laboratory Last Values WBC 7.0 K/mm3 (4.0-10.0) 08/30/18 07:50 RBC 5.43 M/mm3 (4.00-5.60) 08/30/18 07:50 Hgb 13.3 GM/dL (11.7-16.9) 08/30/18 07:50 Hct 40.2 % (35.4-49) 08/30/18 07:50 MCV 74.0 fl (80-96) L 08/30/18 07:50 MCH 24.5 pg (25.7-33.7) L 08/30/18 07:50 MCHC 33.0 g/dl (32.0-35.9) 08/30/18 07:50 RDW 16.5 % (11.9-15.9) H 08/30/18 07:50 Plt Count 192 K/MM3 (134-434) 08/30/18 07:50 MPV 9.9 fl (7.5-11.1) 08/30/18 07:50 Sodium 139 mmol/L (136-145) 08/30/18 07:50 Potassium 3.9 mmol/L (3.5-5.1) 08/30/18 07:50 Chloride 105 mmol/L (98-107) 08/30/18 07:50 Carbon Dioxide 29 mmol/L (21-32) 08/30/18 07:50 Anion Gap 6 MMOL/L (8-16) L 08/30/18 07:50 BUN 23 mg/dL (7-18) H 08/30/18 07:50 Creatinine 1.4 mg/dL (0.55-1.3) H 08/30/18 07:50 Est GFR (CKD-EPI)AfAm 64.18 08/30/18 07:50 Est GFR (CKD-EPI)NonAf 55.38 08/30/18 07:50 POC Glucometer 422 UNITS (80-120) 09/01/18 11:52 Random Glucose 190 mg/dL (74-106) H 08/30/18 07:50 Calcium 8.7 mg/dL (8.5-10.1) 08/30/18 07:50 Total Bilirubin 0.8 mg/dL (0.2-1) 08/30/18 07:50 AST 12 U/L (15-37) L 08/30/18 07:50 ALT 22 U/L (13-61) 08/30/18 07:50 Alkaline Phosphatase 55 U/L (45-117) 08/30/18 07:50 Total Protein 6.7 g/dl (6.4-8.2) 08/30/18 07:50 Albumin 3.5 g/dl (3.4-5.0) 08/30/18 07:50 RPR Titer Nonreactive (NONREACTIVE) 08/30/18 07:50 lab noted adds lantus bid Assessment: 09/01/18 14:16 withdrawal sx hypertension diabetes Plan: continue detox
[2018-09-01] MEDS: LISINOPRIL 20 MG TABLET (FP) PO SCH (15:09)
[2018-09-01] MEDS: ACETAMINOPHEN 325 MG TABLET (FP) PO PRN (18:05)
[2018-09-01] MEDS ORDERED: cloNIDine HCL 0.1 MG TABLET PO ONE (20:34)
[2018-09-01] MEDS: MONTELUKAST NA 10 MG TABLET PO SCH (21:32)
[2018-09-01] MEDS: THIAMINE HCL 100 MG TABLET (FP) PO SCH (21:32)
[2018-09-01] MEDS: ATORVASTATIN CA 10 MG TABLET (FP) PO SCH (21:32)
[2018-09-02] MEDS: cloNIDine HCL 0.1 MG TABLET PO SCH (05:47)
[2018-09-02] MEDS: chlordiazePOXIDE HCL 10 MG CAPSULE PO SCH (05:47)
[2018-09-02] MEDS: HYDROCHLOROTHIAZIDE 25 MG TABLET (FP) PO SCH (05:47)
[2018-09-02] MEDS: METHOCARBAMOL 500 MG TABLET PO PRN (05:50)
[2018-09-02] MEDS: INSULIN SLIDING SCALE (NOVOLOG) 1 VIAL SQ SCH (07:12)
[2018-09-02] MEDS: INSULIN (LEVEMIR) 100 UNITS/ML UNITS SQ SCH (07:14)
[2018-09-02 09:23] VITALS: BP 154/102; PULSE 112; TEMP 98
[2018-09-02] MEDS: ASPIRIN 81 MG CHEWABLE TABLETS PO SCH (09:55)
[2018-09-02] MEDS: VALSARTAN 80 MG TABLET (UD) PO SCH (09:55)
[2018-09-02] MEDS: PRENATAL VITAMINS W/ FOLIC ACID TABLET (FP) PO SCH (09:55)
[2018-09-02] MEDS: LISINOPRIL 20 MG TABLET (FP) PO SCH (09:55)
[2018-09-02] MEDS: NIFEdipine E.R 60 MG TABLET (UD) PO SCH (09:57)
[2018-09-02] MEDS: ACETAMINOPHEN 325 MG TABLET (FP) PO PRN (09:57)
--- NOTE | 2018-09-02 13:33 | DS ---
[facility] Detox Discharge Summary Admission Date: 08/29/18 Discharge Date: 09/02/18 - History Present History: Alcohol Dependence, Sedative Dependence Additional Comments: 58 years old male admitted on 08/29/18 for alcohol and benzo withdrawal stablization completed detox regimen aftercare medication assisted maintenance treatment program Pertinent Past History: bring in medication list and lab report to aftercare appointment patient acknowledged the medication adherence as well as follow up with endocranologist and medical insurance verifier for glycemia and bp monitoring - Physical Exam Results Vital Signs: Vital Signs Temperature 98.0 F 09/02/18 09:22 Pulse Rate 112 H 09/02/18 09:22 Respiratory Rate 18 09/02/18 09:22 Blood Pressure 154/102 H 09/02/18 09:22 O2 Sat by Pulse Oximetry (%) Pertinent Admission Physical Exam Findings: alcohol and benzo withdrawal sx Laboratory Last Values WBC 7.0 K/mm3 (4.0-10.0) 08/30/18 07:50 RBC 5.43 M/mm3 (4.00-5.60) 08/30/18 07:50 Hgb 13.3 GM/dL (11.7-16.9) 08/30/18 07:50 Hct 40.2 % (35.4-49) 08/30/18 07:50 MCV 74.0 fl (80-96) L 08/30/18 07:50 MCH 24.5 pg (25.7-33.7) L 08/30/18 07:50 MCHC 33.0 g/dl (32.0-35.9) 08/30/18 07:50 RDW 16.5 % (11.9-15.9) H 08/30/18 07:50 Plt Count 192 K/MM3 (134-434) 08/30/18 07:50 MPV 9.9 fl (7.5-11.1) 08/30/18 07:50 Sodium 139 mmol/L (136-145) 08/30/18 07:50 Potassium 3.9 mmol/L (3.5-5.1) 08/30/18 07:50 Chloride 105 mmol/L (98-107) 08/30/18 07:50 Carbon Dioxide 29 mmol/L (21-32) 08/30/18 07:50 Anion Gap 6 MMOL/L (8-16) L 08/30/18 07:50 BUN 23 mg/dL (7-18) H 08/30/18 07:50 Creatinine 1.4 mg/dL (0.55-1.3) H 08/30/18 07:50 Est GFR (CKD-EPI)AfAm 64.18 08/30/18 07:50 Est GFR (CKD-EPI)NonAf 55.38 08/30/18 07:50 POC Glucometer 337 UNITS (80-120) 09/02/18 05:43 Random Glucose 190 mg/dL (74-106) H 08/30/18 07:50 Calcium 8.7 mg/dL (8.5-10.1) 08/30/18 07:50 Total Bilirubin 0.8 mg/dL (0.2-1) 08/30/18 07:50 AST 12 U/L (15-37) L 08/30/18 07:50 ALT 22 U/L (13-61) 08/30/18 07:50 Alkaline Phosphatase 55 U/L (45-117) 08/30/18 07:50 Total Protein 6.7 g/dl (6.4-8.2) 08/30/18 07:50 Albumin 3.5 g/dl (3.4-5.0) 08/30/18 07:50 RPR Titer Nonreactive (NONREACTIVE) 08/30/18 07:50 lab noted - Treatment Hospital Course: Detox Protocol Followed, Detoxed Safely, Responded well, Discharged Condition Good, Rehab Referral Accepted Patient has Accepted a Rehab Referral to: medication assisted maintenance treatment program - Medication Discharge Medications: Ambulatory Orders Aspirin [ASA -] 81 mg PO DAILY #30 tab.chew 10/10/14 Montelukast Na [Singulair -] 10 mg PO HS #30 tablet 10/10/14 cloNIDine HCL [Catapres -] 0.2 mg PO DAILY 11/11/14 Albuterol Sulfate [Proair Hfa] 2 puff IH Q4H PRN 10/29/17 Insulin Glargine,Hum.rec.anlog [Lantus] 20 unit SQ HS #1 vial 03/15/18 Nifedipine ER [Procardia XL -] 30 mg PO DAILY #30 tab.er.24 03/15/18 Naproxen 1 tab PO BID PRN 06/25/18 Atorvastatin Ca [Lipitor] 10 mg PO HS 08/29/18 Esomeprazole Mag Trihydrate [Nexium] 20 mg PO DAILY 08/29/18 Insulin Aspart [Novolog] 6 unit SQ PRN 08/29/18 Valsartan [Diovan] 80 mg PO DAILY 08/29/18 - Diagnosis (1) Alcohol dependence with uncomplicated withdrawal Status: Acute (2) Nicotine dependence Status: Acute Qualifiers: Nicotine product type: cigarettes Substance use status: in withdrawal Qualified Code(s): F17.213 - Nicotine dependence, cigarettes, with withdrawal (3) Opioid dependence with withdrawal Status: Acute (4) Asthma Status: Chronic (5) DM Diabetes mellitus type 2 Status: Chronic (6) Essential hypertension Status: Chronic (7) Gastroesophageal reflux disease Status: Chronic (8) Obesity Status: Chronic Qualifiers: Obesity type: unspecified obesity type Serious obesity comorbidity presence : unspecified whether serious comorbidity present Body mass index: unspecified BMI (9) Sedative, hypnotic or anxiolytic dependence with withdrawal, uncomplicated Status: Acute (10) Substance induced mood disorder Status: Suspected (11) PPD positive Status: Resolved - AMA Did Patient Leave Against Medical Advice: No
== END 2018-09-02 09:55 | disposition home or self-care (01) | DRG 773 ==
LOC: YASAS 12:00 → Y3N 13:25
PROVIDERS: ADMIT Surgery; ATTEND Surgery
PROC: HZ2ZZZZ Detoxification Services for Substance Abuse Treatment (ICD-10-PCS; principal; 2018-08-29)
DX: F10.230 Alcohol dependence with withdrawal, uncomplicated (principal); F11.23 Opioid dependence with withdrawal; F13.230 Sedative, hypnotic or anxiolytic dependence with withdrawal, uncomplicated; F14.20 Cocaine dependence, uncomplicated; F17.213 Nicotine dependence, cigarettes, with withdrawal; F19.24 Other psychoactive substance dependence with psychoactive substance-induced mood disorder; I10 Essential (primary) hypertension; K21.9 Gastro-esophageal reflux disease without esophagitis; E11.9 Type 2 diabetes mellitus without complications; Z79.4 Long term (current) use of insulin; J45.909 Unspecified asthma, uncomplicated; E66.9 Obesity, unspecified; Z68.39 Body mass index [BMI] 39.0-39.9, adult; R76.11 Nonspecific reaction to tuberculin skin test without active tuberculosis
CPT/HCPCS: 36415; 80053; 82962; 85027; 86593; J0735

== ENCOUNTER 2018-09-11 13:27 | Inpatient (IN) | payer OTHER ==
[2018-09-11 14:06] VITALS: BMI 41.8
[2018-09-11] MEDS ORDERED: ALBUTEROL SO4 0.083% IH SOL 2.5 MG/3 ML VIAL.NEB. NEB PRN (15:37)
[2018-09-11] MEDS ORDERED: KETOTIFEN FUMARATE OU PRN (15:45)
--- NOTE | 2018-09-11 15:51 | HP ---
CIWA Score - Admission Criteria OASAS Guidelines: Admission for Medically Managed Detox: Requires at least one of the followin. CIWA greater than 12 2. Seizures within the past 24 hours 3. Delirium tremens within the past 24 hours 4. Hallucinations within the past 24 hours 5. Acute intervention needed for co occurring medical disorder 6. Acute intervention needed for co occurring psychiatric disorder 7. Severe withdrawal that cannot be handled at a lower level of care (continued vomiting, continued diarrhea, abnormal vital signs) requiring intravenous medication and/or fluids 8. Admission ROS S - HPI Allergies/Adverse Reactions: Allergies Allergy/AdvReac Type Severity Reaction Status Date / Time No Known Drug Allergies Allergy Verified 09/11/18 13:37 History of Present Illness: pt here requesting rehab for etoh and benzo use , reports prior use 2-3 pints/day x 6 years , xanax 2-3 sticks /day x 3 years , denies seizure h/o , denies blackouts , intermittent occasional heroin use 1-2 bags , cocaine once a month denies other illicits , s/p detox @ [facility] . Denies driving while intoxicated . tobacco : denies pmhx : DM dx 5 years ago , asthma since ( [place]/ [place] ) , HLD , HTN , has own PCP Dr[address] PSHX : denies PSYCH : denies , denies current SI / HI meds - see list SHX : lives w/ parents , employed in [employer] . denies legal issues Exam Limitations: No Limitations - Ebola screening Have you traveled outside of the country in the last 21 days: No (N) Have you had contact with anyone from an Ebola affected area: No Do you have a fever: No - Review of Systems Constitutional: No Symptoms Reported EENT: reports: Other (dry eyes) Respiratory: reports: See HPI Cardiac: reports: No Symptoms Reported GI: reports: No Symptoms Reported : reports: No Symptoms Reported Musculoskeletal: reports: Joint Pain (carli knees intermittently) Integumentary: reports: No Symptoms Reported Neuro: reports: No Symptoms reported Endocrine: reports: See HPI Psychiatric: reports: Orientated x3 Patient History - Patient Medical History Hx Anemia: No Hx Asthma: Yes (on meds) Hx Chronic Obstructive Pulmonary Disease (COPD): No Hx Cancer: No Hx Cardiac Disorders: No Hx Congestive Heart Failure: No Hx Hypertension: Yes (on meds) Hx Hypercholesterolemia: No Hx Pacemaker: No HX Cerebrovascular Accident: No Hx Seizures: No Hx Dementia: No Hx Diabetes: Yes (on insulin) Hx Gastrointestinal Disorders: Yes (GERD) Hx Liver Disease: No Hx Genitourinary Disorders: No Hx Sexually Transmitted Disorders: No Hx Renal Disease (ESRD): No Hx Thyroid Disease: No Hx Human Immunodeficiency Virus (HIV): No (Neg) Hx Hepatitis C: No Hx Depression: No Hx Suicide Attempt: No (denies) Hx Bipolar Disorder: No Hx Schizophrenia: No - Patient Surgical History Past Surgical History: No Hx Neurologic Surgery: No Hx Cataract Extraction: No Hx Cardiac Surgery: No Hx Lung Surgery: No Hx Breast Surgery: No Hx Breast Biopsy: No Hx Abdominal Surgery: No Hx Appendectomy: No Hx Cholecystectomy: No Hx Genitourinary Surgery: No Hx Section: No Hx Orthopedic Surgery: No Anesthesia Reaction: No - PPD History Date: 10/30/17 Results: 15 mm - Smoking Cessation Smoking history: Never smoked Have you smoked in the past 12 months: No Aproximately how many cigarettes per day: 6 If you are a former smoker, when did you quit?: july 2014 Cigars Per Day: 0 Hx Chewing Tobacco Use: No - Substances abused Alcohol Substance route: Oral Frequency: Daily Amount used: 3 Pints vodka, 6 pck beer-16oz Age of first use: 22 Date of last use: 09/04/18 Alprazolam (Xanax) Substance route: Oral Frequency: 3-6 times per week Amount used: two 4mg sticks Age of first use: 47 Date of last use: 09/04/18 Cocaine Substance route: Inhalation Frequency: 3-6 times per week Amount used: $20 Age of first use: 48 Date of last use: 09/04/18 Family Disease History - Family Disease History Family Disease History: Diabetes: Father (ALCOHOLIC), Mother (HTN), Brother ( three ), Sister (four ), Heart Disease: Mother, Sister, Other: Father, Brother, Sister, Son (one age 21) Admission Physical Exam [facility] - Vital Signs Vital Signs: Vital Signs - 24 hr 09/11/18 09/11/18 13:33 15:18 Temperature 98.6 F 98.6 F Pulse Rate 99 H 99 H Respiratory 18 18 Rate Blood Pressure 115/67 115/67 - Physical General Appearance: Yes: Mild Distress HEENTM: Yes: EOMI, Hearing grossly Normal, Normocephalic, Normal Voice Respiratory: Yes: Chest Non-Tender, Lungs Clear, Decreased Breath Sounds, No Respiratory Distress, No Accessory Muscle Use Neck: Yes: No masses,lesions,Nodules, Trachea in good position Cardiology: Yes: Regular Rhythm, Regular Rate, S1, S2, Tachycardia Abdominal: Yes: Soft, Protuberent Back: Yes: Normal Inspection Musculoskeletal: Yes: Gait Steady Extremities: Yes: Normal Range of Motion, Non-Tender, Pedal Edema 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: Yes: Fully Oriented, Motor Strength 5/5 Integumentary: Yes: Warm - Diagnostic (1) Alcohol dependence Current Visit: Yes Status: Acute Qualifiers: Substance use status: in remission Qualified Code(s): F10.21 - Alcohol dependence, in remission (2) Benzodiazepine dependence Current Visit: Yes Status: Chronic Breathalyzer - Breathalyzer Breathalyzer: 0 Urine Drug Screen - Test Device Lot number: [id number] Expiration date: 06/11/20 - Control Is test valid?: Yes - Results Drug screen NEGATIVE: No Urine drug screen results: KIMMIE-Cocaine, MTD-Methadone, BZO-Benzodiazepines Inpatient Rehab Admission - Rehab Decision to Admit Inpatient rehab admission?: Yes - Initial Determination Are CD services needed?: Yes Free of communicable disease: Yes Not in need of hospitalization: Yes - Rehab Admission Criteria Previous failed treatment: No Poor recovery environment: No Comorbidities: No Lacks judgement: Yes Patient is meeting Inpatient Rehab admission criteria:: Yes
[2018-09-11] MEDS ORDERED: IBUPROFEN 400 MG TABLET (FP) PO PRN (16:02)
[2018-09-11] MEDS ORDERED: MENTHOL/PHENOL 1 EACH UD MM PRN (16:02)
[2018-09-11] MEDS ORDERED: ACETAMINOPHEN 325 MG TABLET (FP) PO PRN (16:02)
[2018-09-11] MEDS ORDERED: MAGNESIUM HYDROX 2400MG/30ML ORAL SUSPENSION 30 ML CUP PO PRN (16:02)
[2018-09-11] MEDS ORDERED: MAG HYDROX/AL HYDROX/SIMETH 30 ML UNIT-DOSE CUP PO PRN (16:02)
[2018-09-11] MEDS ORDERED: P-EPHED 60MG/TRIPROLIDI 2.5MG TABLET PO PRN (16:02)
[2018-09-11] MEDS ORDERED: guaiFENesin 200 MG/10 ML 10 ML UNIT-DOSE CUPS PO PRN (16:02)
[2018-09-11] MEDS ORDERED: MAGNESIUM CITRATE 300 ML BOTTLE PO PRN (16:02)
[2018-09-11] MEDS: INSULIN SLIDING SCALE (NOVOLOG) 1 VIAL SQ SCH ×2 (18:39→23:25)
[2018-09-11] MEDS: GABAPENTIN 300 MG CAPSULE (FP) PO SCH (21:16)
[2018-09-11] MEDS: MONTELUKAST NA 10 MG TABLET PO SCH (21:16)
[2018-09-11] MEDS: hydrALAZINE HCL 50 MG TABLET (FP) PO SCH (21:16)
[2018-09-11] MEDS: THIAMINE HCL 100 MG TABLET (FP) PO SCH (21:16)
[2018-09-11] MEDS: MIRTAZAPINE 15 MG TABLET (FP) PO SCH (21:16)
[2018-09-11] MEDS: ATORVASTATIN CA 10 MG TABLET (FP) PO SCH (21:16)
[2018-09-11] MEDS: BUDESONIDE/FORMETEROL FUMARATE 160/4.5 mcg INHALER IH SCH (21:17)
[2018-09-11] MEDS ORDERED: [UNRECOGNIZED DRUG - OTHER] SQ SCH (22:00)
[2018-09-11] MEDS ORDERED: INSULIN GLARGINE SQ SCH (22:00)
[2018-09-11] MEDS ORDERED: INSULIN (NOVOLOG) ASPART 100 UNITS/ML 10ML VIAL ONE (23:23)
[2018-09-11] MEDS: INSULIN (LEVEMIR) 100 UNITS/ML UNITS SQ SCH (23:25)
[2018-09-12] MEDS: GABAPENTIN 300 MG CAPSULE (FP) PO SCH ×3 (06:17→21:06)
[2018-09-12] MEDS: hydrALAZINE HCL 50 MG TABLET (FP) PO SCH ×3 (06:17→21:07)
[2018-09-12] MEDS ORDERED: INSULIN (NOVOLOG) ASPART 100 UNITS/ML 10ML VIAL ONE ×2 (06:18→11:42)
[2018-09-12] MEDS: INSULIN SLIDING SCALE (NOVOLOG) 1 VIAL SQ SCH ×4 (06:18→21:11)
[2018-09-12] MEDS: BUDESONIDE/FORMETEROL FUMARATE 160/4.5 mcg INHALER IH SCH ×2 (09:04→21:44)
[2018-09-12] MEDS: ASPIRIN 81 MG CHEWABLE TABLETS PO SCH (09:04)
[2018-09-12] MEDS: NIFEdipine E.R 60 MG TABLET (UD) PO SCH (09:04)
[2018-09-12] MEDS: PRENATAL VITAMINS W/ FOLIC ACID TABLET (FP) PO SCH (09:04)
--- NOTE | 2018-09-12 09:22 | PN ---
[facility] Progress Note Note: Patient was admitted to rehab on 09/11, he has chronic hypertension and as per records and patient, he was on combination therapy for management. He is currently receiving nifedipine 60mg QD & hydralazine 50 mg PO TID, blood pressure remains high, current level 183/111. Clonidine 0.1mg PO BID has been added to his regimen. Last Vital Signs Temp Pulse Resp BP Pulse Ox 98.1 F 109 H 20 152/106 H 09/12/18 06:44 09/12/18 06:44 09/12/18 06:44 09/12/18 06:44 Other anti-hypertensives will be added based on BP readings. He is asymptomatic.
[2018-09-12] MEDS: cloNIDine HCL 0.1 MG TABLET PO SCH ×2 (09:55→21:06)
[2018-09-12 10:34] LABS: ALBUMIN 3.3 g/dl (3.4-5.0); BILIRUBIN,TOTAL 0.4 mg/dL (0.2-1); CALCIUM 9.4 mg/dL (8.5-10.1); CREATININE 1.4 mg/dL (0.55-1.3); POTASSIUM 4.2 mmol/L (3.5-5.1); TOT PROT 6.8 g/dl (6.4-8.2)
[2018-09-12 10:43] LABS: HEMATOCRIT 39.3 % (35.4-49); HEMOGLOBIN 12.8 GM/dL (11.7-16.9); MCH 24.8 pg (25.7-33.7); MCHC 32.5 g/dl (32.0-35.9); MEAN CELL VOLUME 76.3 fl (80-96); MEAN PLT VOLUME 10.3 fl (7.5-11.1); PLATELET COUNT 201 K/MM3 (134-434); RBC 5.14 M/mm3 (4.00-5.60); RDW 16.3 % (11.9-15.9); WHITE BLOOD COUNT 7.6 K/mm3 (4.0-10.0)
[2018-09-12] MEDS: THIAMINE HCL 100 MG TABLET (FP) PO SCH (21:06)
[2018-09-12] MEDS: MIRTAZAPINE 15 MG TABLET (FP) PO SCH (21:06)
[2018-09-12] MEDS: MELATONIN 5 MG TABLETS PO PRN (21:06)
[2018-09-12] MEDS: ATORVASTATIN CA 10 MG TABLET (FP) PO SCH (21:07)
[2018-09-12] MEDS: MONTELUKAST NA 10 MG TABLET PO SCH (21:07)
[2018-09-12] MEDS: INSULIN (LEVEMIR) 100 UNITS/ML UNITS SQ SCH (21:10)
[2018-09-13] MEDS: GABAPENTIN 300 MG CAPSULE (FP) PO SCH ×3 (06:11→21:15)
[2018-09-13] MEDS: hydrALAZINE HCL 50 MG TABLET (FP) PO SCH ×3 (06:11→21:15)
[2018-09-13] MEDS ORDERED: INSULIN (NOVOLOG) ASPART 100 UNITS/ML 10ML VIAL ONE ×3 (06:12→16:31)
[2018-09-13] MEDS: INSULIN SLIDING SCALE (NOVOLOG) 1 VIAL SQ SCH ×4 (06:13→21:21)
[2018-09-13] MEDS: NIFEdipine E.R 60 MG TABLET (UD) PO SCH (09:36)
[2018-09-13] MEDS: cloNIDine HCL 0.1 MG TABLET PO SCH ×2 (09:36→21:16)
[2018-09-13] MEDS: ASPIRIN 81 MG CHEWABLE TABLETS PO SCH (09:36)
[2018-09-13] MEDS: PRENATAL VITAMINS W/ FOLIC ACID TABLET (FP) PO SCH (09:36)
[2018-09-13] MEDS: BUDESONIDE/FORMETEROL FUMARATE 160/4.5 mcg INHALER IH SCH ×2 (09:36→21:25)
[2018-09-13] MEDS: MIRTAZAPINE 15 MG TABLET (FP) PO SCH (21:15)
[2018-09-13] MEDS: THIAMINE HCL 100 MG TABLET (FP) PO SCH (21:15)
[2018-09-13] MEDS: ATORVASTATIN CA 10 MG TABLET (FP) PO SCH (21:15)
[2018-09-13] MEDS: MONTELUKAST NA 10 MG TABLET PO SCH (21:16)
[2018-09-13] MEDS: INSULIN (LEVEMIR) 100 UNITS/ML UNITS SQ SCH (21:20)
[2018-09-14 02:08] LABS: PH,URINE 7.5 (5.0-8.0); URINE APPEARANCE CLEAR; URINE BILIRUBIN NEGATIVE (NEGATIVE); URINE COLOR YELLOW; URINE GLUCOSE (UA) 3+ (NEGATIVE); URINE KETONE NEGATIVE (NEGATIVE); URINE LEUK ESTERASE NEGATIVE (NEGATIVE); URINE NITRITE NEGATIVE (NEGATIVE); URINE PROTEIN NEGATIVE (NEGATIVE); URINE UROBILINOGEN 0.2 mg/dL (0.2-1.0)
[2018-09-14] MEDS: GABAPENTIN 300 MG CAPSULE (FP) PO SCH ×3 (06:06→21:23)
[2018-09-14] MEDS: hydrALAZINE HCL 50 MG TABLET (FP) PO SCH ×3 (06:06→21:24)
[2018-09-14] MEDS ORDERED: INSULIN (NOVOLOG) ASPART 100 UNITS/ML 10ML VIAL ONE ×4 (07:38→20:00)
[2018-09-14] MEDS: INSULIN SLIDING SCALE (NOVOLOG) 1 VIAL SQ SCH ×4 (07:39→21:21)
[2018-09-14] MEDS: NIFEdipine E.R 60 MG TABLET (UD) PO SCH (09:31)
[2018-09-14] MEDS: ASPIRIN 81 MG CHEWABLE TABLETS PO SCH (09:31)
[2018-09-14] MEDS: PRENATAL VITAMINS W/ FOLIC ACID TABLET (FP) PO SCH (09:32)
[2018-09-14] MEDS: cloNIDine HCL 0.1 MG TABLET PO SCH ×3 (09:32→21:23)
[2018-09-14] MEDS: BUDESONIDE/FORMETEROL FUMARATE 160/4.5 mcg INHALER IH SCH ×2 (09:32→21:24)
[2018-09-14] MEDS: METHYL SALICYLATE/MENTHOL OINT 30 GM TUBE TP SCH ×2 (11:48→21:24)
--- NOTE | 2018-09-14 12:31 | PN ---
[facility] Progress Note Note: PT WITH A LONG STANDING HX OF UNCONTROLLED HTN. DENIES DIZZINESS.N/V, HEADACHE OR NUMBNESS. Vital Signs (72 hours) 09/11/18 09/11/18 09/11/18 13:33 15:18 18:24 Temperature 98.6 F 98.6 F 98.6 F Pulse Rate 99 H 99 H 96 H Respiratory 18 18 18 Rate Blood Pressure 115/67 115/67 152/91 09/12/18 09/12/18 09/12/18 00:30 03:30 06:44 Temperature 98.1 F Pulse Rate 109 H Respiratory 18 18 20 Rate Blood Pressure 152/106 H 09/12/18 09/12/18 09/12/18 09:30 14:33 20:56 Temperature Pulse Rate 121 H 107 H 102 H Respiratory 18 18 20 Rate Blood Pressure 183/111 H 172/96 H 162/105 H 09/13/18 09/13/18 09/13/18 03:30 07:00 09:30 Temperature 98.2 F Pulse Rate 95 H 111 H Respiratory 18 18 18 Rate Blood Pressure 156/99 183/97 H 09/13/18 09/14/18 09/14/18 20:22 00:30 03:30 Temperature Pulse Rate 112 H Respiratory 18 20 20 Rate Blood Pressure 153/95 09/14/18 09/14/18 06:50 09:30 Temperature 98.7 F Pulse Rate 103 H 109 H Respiratory 20 18 Rate Blood Pressure 158/95 161/101 H
[2018-09-14] MEDS ORDERED: cloNIDine HCL 0.1 MG TABLET PO SCH (14:00)
[2018-09-14] MEDS: INSULIN (LEVEMIR) 100 UNITS/ML UNITS SQ SCH (21:21)
[2018-09-14] MEDS: MONTELUKAST NA 10 MG TABLET PO SCH (21:23)
[2018-09-14] MEDS: ATORVASTATIN CA 10 MG TABLET (FP) PO SCH (21:23)
[2018-09-14] MEDS: THIAMINE HCL 100 MG TABLET (FP) PO SCH (21:23)
[2018-09-14] MEDS: MIRTAZAPINE 15 MG TABLET (FP) PO SCH (21:23)
[2018-09-14] MEDS: MELATONIN 5 MG TABLETS PO PRN (21:24)
[2018-09-14 22:27] VITALS: BP 151/98
[2018-09-15] MEDS: hydrALAZINE HCL 50 MG TABLET (FP) PO SCH (05:45)
[2018-09-15] MEDS: cloNIDine HCL 0.1 MG TABLET PO SCH (05:45)
[2018-09-15] MEDS: GABAPENTIN 300 MG CAPSULE (FP) PO SCH (05:45)
--- NOTE | 2018-09-15 06:19 | PN ---
[facility] Progress Note Note: 'S NOTE: INFORMED AT ABOUT 6:00AM THAT THE PT. 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 SIGNED OUT AMA AND ABOUT TO LEAVE THE FACILITY SOON. RECOMMENDED TO F/U WITH PMD AND OUT PT. PROGRAMS. PROVIDER: CAMILA MAE MD
[2018-09-15] MEDS: INSULIN SLIDING SCALE (NOVOLOG) 1 VIAL SQ SCH (06:34)
[2018-09-15] MEDS ORDERED: INSULIN (NOVOLOG) ASPART 100 UNITS/ML 10ML VIAL ONE (06:34)
[2018-09-15 06:42] VITALS: PULSE 105; TEMP 98.8
== END 2018-09-15 06:35 | disposition left against medical advice (07) | DRG 770 ==
LOC: YASAS 13:27 → Y3W 16:40
PROVIDERS: ADMIT Neuromusculoskeletal Medicine & OMM; ATTEND Neuromusculoskeletal Medicine & OMM
PROC: HZ42ZZZ Group Counseling for Substance Abuse Treatment, Cognitive-Behavioral (ICD-10-PCS; principal; 2018-09-11)
DX: F10.20 Alcohol dependence, uncomplicated (principal); F13.20 Sedative, hypnotic or anxiolytic dependence, uncomplicated; F14.20 Cocaine dependence, uncomplicated; F11.20 Opioid dependence, uncomplicated
CPT/HCPCS: 36415; 80053; 81003; 82962; 85027; 86593; J0735

== ENCOUNTER 2018-10-21 09:14 | Inpatient (IN) | payer OTHER ==
[2018-10-21 11:56] VITALS: BMI 39.0
[2018-10-21] MEDS ORDERED: ALBUTEROL SO4 8 GM HFA INHALER IH PRN (13:02)
--- NOTE | 2018-10-21 13:07 | HP ---
CIWA Score Nausea/Vomitin-No Nausea/No Vomiting Muscle Tremors: None Anxiety: 2 Agitation: 0-Normal Activity Paroxysmal Sweats: 2 Orientation: 0-Oriented Tacttile Disturbances: 2-Mild Itch/Numbness/Burn Auditory Disturbances: 0-None Visual Disturbances: 0-None Headache: 3-Moderate CIWA-Ar Total Score: 9 - Admission Criteria OASAS Guidelines: Admission for Medically Managed Detox: Requires at least one of the followin. CIWA greater than 12 2. Seizures within the past 24 hours 3. Delirium tremens within the past 24 hours 4. Hallucinations within the past 24 hours 5. Acute intervention needed for co occurring medical disorder 6. Acute intervention needed for co occurring psychiatric disorder 7. Severe withdrawal that cannot be handled at a lower level of care (continued vomiting, continued diarrhea, abnormal vital signs) requiring intravenous medication and/or fluids 8. Patient presents the following: Acute intervention needed for co-occurring med or psych disorder Admission Criteria Met: Admission criteria met Admission ROS [facility] - [facility] Chief Complaint: alcohol and xanax withdrawal sx Allergies/Adverse Reactions: Allergies Allergy/AdvReac Type Severity Reaction Status Date / Time No Known Drug Allergies Allergy Verified 10/21/18 11:45 History of Present Illness: Patient is a 58 yo presents for alcohol and xanax withdrawal sx, this is one of multiple admissions, with last admission [facility] rehab 09/11/18 - 09/15/18, detox -09/02/18 PMHX: Diabetes type 2 (on insulin), HTN, HDL, Asthma, +PPD with Neg chest x- ray (02/2018) Psych: Insomnia Denies SI/HI Denies hx of seizures, reports remote hx of ETOH syncope Exam Limitations: No Limitations - Ebola screening Have you traveled outside of the country in the last 21 days: No (N) Have you had contact with anyone from an Ebola affected area: No Do you have a fever: No - Review of Systems Constitutional: Loss of Appetite, Changes in sleep EENT: reports: No Symptoms Reported Respiratory: reports: No Symptoms reported Cardiac: reports: No Symptoms Reported GI: reports: Poor Appetite, Poor Fluid Intake, Indigestion : reports: No Symptoms Reported Musculoskeletal: reports: No Symptoms Reported Integumentary: reports: No Symptoms Reported Neuro: reports: Headache, Dizziness Endocrine: reports: Increased Thirst Hematology: reports: No Symptoms Reported Psychiatric: reports: Orientated x3, Anxious Other Systems: Reviewed and Negative Patient History - Patient Medical History Hx Anemia: No Hx Asthma: Yes (on meds) Hx Chronic Obstructive Pulmonary Disease (COPD): No Hx Cancer: No Hx Cardiac Disorders: No Hx Congestive Heart Failure: No Hx Hypertension: Yes (on meds) Hx Hypercholesterolemia: No Hx Pacemaker: No HX Cerebrovascular Accident: No Hx Seizures: No Hx Dementia: No Hx Diabetes: Yes (on insulin) Hx Gastrointestinal Disorders: Yes (GERD) Hx Liver Disease: No Hx Genitourinary Disorders: No Hx Sexually Transmitted Disorders: No Hx Renal Disease (ESRD): No Hx Thyroid Disease: No Hx Human Immunodeficiency Virus (HIV): No (Neg) Hx Hepatitis C: No Hx Depression: No Hx Suicide Attempt: No (denies) Hx Bipolar Disorder: No Hx Schizophrenia: No - Patient Surgical History Past Surgical History: No Hx Neurologic Surgery: No Hx Cataract Extraction: No Hx Cardiac Surgery: No Hx Lung Surgery: No Hx Breast Surgery: No Hx Breast Biopsy: No Hx Abdominal Surgery: No Hx Appendectomy: No Hx Cholecystectomy: No Hx Genitourinary Surgery: No Hx Section: No Hx Orthopedic Surgery: No Anesthesia Reaction: No - PPD History Previous Implant?: No (Neg ) Documented Results: Negative w/o proof Date: 10/30/17 Results: 15 mm PPD to be Administered?: No - Smoking Cessation Smoking history: Never smoked Have you smoked in the past 12 months: No Aproximately how many cigarettes per day: 6 If you are a former smoker, when did you quit?: july 2014 Cigars Per Day: 0 Hx Chewing Tobacco Use: No - Substance & Tx. History Hx Alcohol Use: Yes Hx Substance Use: Yes Substance Use Type: Alcohol, Cocaine, Tranquilizers Hx Substance Use Treatment: Yes ([facility] rehab 09/11/18 - 09/15/18, detox 08/29/18 -) - Substances abused Alcohol Substance route: Oral Frequency: Daily Amount used: 3 Pints vodka, 6 pck beer-16oz Age of first use: 22 Date of last use: 10/21/18 Alprazolam (Xanax) Substance route: Oral Frequency: 3-6 times per week Amount used: two 4mg sticks Age of first use: 47 Date of last use: 10/21/18 Cocaine Substance route: Inhalation Frequency: 3-6 times per week Amount used: $20 Age of first use: 48 Date of last use: 10/07/18 Family Disease History - Family Disease History Family Disease History: Diabetes: Father (ALCOHOLIC), Mother (HTN), Brother ( three ), Sister (four ), Heart Disease: Mother, Sister, Other: Father, Brother, Sister, Son (one age 21) Admission Physical Exam S - Vital Signs Vital Signs: Vital Signs - 24 hr 10/21/18 11:41 Temperature 97.4 F L Pulse Rate 73 Respiratory 17 Rate Blood Pressure 149/90 - Physical General Appearance: Yes: Appropriately Dressed, Obese, Sweating, Anxious HEENTM: Yes: EOMI, Hearing grossly Normal, Normal ENT Inspection, Normocephalic , Normal Voice, MIKE, Pharynx Normal, Tm's normal Respiratory: Yes: Chest Non-Tender, Lungs Clear, Normal Breath Sounds, No Respiratory Distress, No Accessory Muscle Use Neck: Yes: Within Normal Limits Breast: Yes: Breast Exam Deferred Cardiology: Yes: Regular Rhythm, Regular Rate Abdominal: Yes: Normal Bowel Sounds, Non Tender, Soft, Protuberent Genitourinary: Yes: Within Normal Limits Back: Yes: Normal Inspection Musculoskeletal: Yes: full range of Motion, Gait Steady, Pelvis Stable Extremities: Yes: Normal Capillary Refill, Normal Inspection, Normal Range of Motion, Non-Tender, Swelling (left ankle +1 non-pitting) 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: 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 NML intact, Fully Oriented, Alert, Motor Strength 5/5, Depressed Affect Integumentary: Yes: Normal Color, Warm, Diaphoresis Lymphatic: Yes: Within Normal Limits - Diagnostic (1) Alcohol dependence with uncomplicated withdrawal Current Visit: Yes Status: Acute (2) Nicotine dependence Current Visit: Yes Status: Acute Qualifiers: Nicotine product type: cigarettes Substance use status: in withdrawal Qualified Code(s): F17.213 - Nicotine dependence, cigarettes, with withdrawal (3) Sedative, hypnotic or anxiolytic dependence with withdrawal, uncomplicated Current Visit: No Status: Acute (4) Asthma Current Visit: No Status: Chronic Qualifiers: Asthma severity: moderate (5) Cocaine dependence, uncomplicated Current Visit: No Status: Chronic (6) HLD (hyperlipidemia) Current Visit: No Status: Chronic Qualifiers: Hyperlipidemia type: unspecified Qualified Code(s): E78.5 - Hyperlipidemia , unspecified (7) Obesity Current Visit: No Status: Chronic Qualifiers: Obesity type: unspecified obesity type Serious obesity comorbidity presence : unspecified whether serious comorbidity present Body mass index: unspecified BMI (8) Type 2 diabetes mellitus with hyperglycemia Current Visit: No Status: Chronic Qualifiers: Diabetes mellitus prison insulin 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
[2018-10-21] MEDS ORDERED: BISMUTH SUBSALICYLATE 524 MG/30 ML UD PO PRN (13:09)
[2018-10-21] MEDS ORDERED: NICOTINE POLACRILEX 4 MG GUM BUC PRN (13:09)
[2018-10-21] MEDS ORDERED: ACETAMINOPHEN 325 MG TABLET (FP) PO PRN ×2 (13:09)
[2018-10-21] MEDS ORDERED: MAGNESIUM HYDROX 2400MG/30ML ORAL SUSPENSION 30 ML CUP PO PRN (13:09)
[2018-10-21] MEDS ORDERED: MAGNESIUM CITRATE 300 ML BOTTLE PO PRN (13:09)
[2018-10-21] MEDS ORDERED: MENTHOL/PHENOL 1 EACH UD MM PRN (13:09)
[2018-10-21] MEDS ORDERED: MAG HYDROX/AL HYDROX/SIMETH 30 ML UNIT-DOSE CUP PO PRN (13:09)
[2018-10-21] MEDS ORDERED: INSULIN ASPART 6 UNIT SQ SCH (14:00)
[2018-10-21 14:25] LABS: HEMATOCRIT 38.7 % (35.4-49); HEMOGLOBIN 12.9 GM/dL (11.7-16.9); MCH 25.3 pg (25.7-33.7); MCHC 33.4 g/dl (32.0-35.9); MEAN CELL VOLUME 75.8 fl (80-96); MEAN PLT VOLUME 10.4 fl (7.5-11.1); RBC 5.11 M/mm3 (4.00-5.60); RDW 15.8 % (11.9-15.9); WHITE BLOOD COUNT 7.6 K/mm3 (4.0-10.0)
[2018-10-21 14:39] LABS: PLATELET COUNT 166 K/MM3 (134-434)
[2018-10-21 14:41] LABS: ALBUMIN 3.4 g/dl (3.4-5.0); BILIRUBIN,TOTAL 0.7 mg/dL (0.2-1); BLOOD UREA NITROGEN 23.1 mg/dL (7-18); CALCIUM 8.4 mg/dL (8.5-10.1); POTASSIUM 4.1 mmol/L (3.5-5.1)
[2018-10-21] MEDS: GABAPENTIN 300 MG CAPSULE (FP) PO SCH ×2 (15:16→23:08)
[2018-10-21] MEDS: chlordiazePOXIDE HCL 25 MG CAPSULE PO SCH ×2 (15:16→20:44)
[2018-10-21] MEDS ORDERED: INSULIN SLIDING SCALE (NOVOLOG) 1 VIAL SQ ONE (17:00)
[2018-10-21] MEDS: INSULIN (NOVOLOG) ASPART 100 UNITS/ML 10ML VIAL SQ SCH (17:03)
[2018-10-21] MEDS: METHOCARBAMOL 500 MG TABLET PO PRN (20:44)
[2018-10-21] MEDS: NAPROXEN 500 MG TABLET (FP) PO PRN (20:44)
[2018-10-21] MEDS: ATORVASTATIN CA 10 MG TABLET (FP) PO SCH (22:55)
[2018-10-21] MEDS: MONTELUKAST NA 10 MG TABLET PO SCH (22:55)
[2018-10-21] MEDS: INSULIN (LEVEMIR) 100 UNITS/ML UNITS SQ SCH (22:56)
[2018-10-21] MEDS: TRIAMCINOLONE ACET 0.025% OINTMENT 15 GM TUBE TP SCH (22:58)
[2018-10-21] MEDS: BUDESONIDE/FORMETEROL FUMARATE 160/4.5 mcg INHALER IH SCH (22:58)
[2018-10-21] MEDS: MELATONIN 5 MG TABLETS PO PRN (22:58)
[2018-10-21] MEDS: THIAMINE HCL 100 MG TABLET (FP) PO SCH (23:08)
[2018-10-22] MEDS: GABAPENTIN 300 MG CAPSULE (FP) PO SCH ×3 (06:04→22:40)
[2018-10-22] MEDS: chlordiazePOXIDE HCL 25 MG CAPSULE PO SCH ×3 (06:04→22:41)
[2018-10-22] MEDS ORDERED: INSULIN SLIDING SCALE (NOVOLOG) 1 VIAL SQ ONE ×3 (06:09→22:05)
[2018-10-22 06:21] LABS: URINE APPEARANCE CLEAR; URINE BILIRUBIN NEGATIVE (NEGATIVE); URINE COLOR YELLOW; URINE GLUCOSE (UA) 3+ (NEGATIVE); URINE KETONE TRACE (NEGATIVE); URINE LEUK ESTERASE NEGATIVE (NEGATIVE); URINE NITRITE NEGATIVE (NEGATIVE); URINE PROTEIN NEGATIVE (NEGATIVE); URINE UROBILINOGEN 0.2 mg/dL (0.2-1.0)
[2018-10-22] MEDS: INSULIN (NOVOLOG) ASPART 100 UNITS/ML 10ML VIAL SQ SCH ×4 (06:30→22:42)
[2018-10-22] MEDS: TRIAMCINOLONE ACET 0.025% OINTMENT 15 GM TUBE TP SCH ×2 (10:28→22:40)
[2018-10-22] MEDS: PRENATAL VITAMINS W/ FOLIC ACID TABLET (FP) PO SCH (10:29)
[2018-10-22] MEDS: ASPIRIN 81 MG CHEWABLE TABLETS PO SCH (10:29)
[2018-10-22] MEDS: BUDESONIDE/FORMETEROL FUMARATE 160/4.5 mcg INHALER IH SCH ×2 (10:30→22:42)
[2018-10-22] MEDS: NIFEdipine E.R. 30 MG TABLET (FP) PO SCH (10:30)
[2018-10-22] MEDS: INSULIN (LEVEMIR) 100 UNITS/ML UNITS SQ SCH ×2 (10:30→22:41)
[2018-10-22] MEDS: NICOTINE 14 MG/24 HOURS TOPICAL PATCH TD SCH (10:31)
[2018-10-22] MEDS: METHOCARBAMOL 500 MG TABLET PO PRN (10:31)
[2018-10-22] MEDS: chlordiazePOXIDE HCL 10 MG CAPSULE PO PRN ×2 (10:35→19:13)
--- NOTE | 2018-10-22 10:42 | PN ---
S CIWA - CIWA Score Nausea/Vomitin Muscle Tremors: 2 Anxiety: 2 Agitation: 2 Paroxysmal Sweats: No Perspiration Orientation: 0-Oriented Tacttile Disturbances: 1-Very Mild Itch/Numbness Auditory Disturbances: 1-Very Mild Visual Disturbances: 0-None Headache: 2-Mild CIWA-Ar Total Score: 12 S Progress Note (SOAP) Subjective: alert,irritable,anxious,interrupted sleep,tremor Objective: 10/22/18 10:37 Vital Signs Temperature 97.5 F L 10/22/18 09:34 Pulse Rate 75 10/22/18 09:34 Respiratory Rate 18 10/22/18 09:34 Blood Pressure 138/80 10/22/18 09:34 O2 Sat by Pulse Oximetry (%) Laboratory Last Values WBC 7.6 K/mm3 (4.0-10.0) 10/21/18 13:10 RBC 5.11 M/mm3 (4.00-5.60) 10/21/18 13:10 Hgb 12.9 GM/dL (11.7-16.9) 10/21/18 13:10 Hct 38.7 % (35.4-49) 10/21/18 13:10 MCV 75.8 fl (80-96) L 10/21/18 13:10 MCH 25.3 pg (25.7-33.7) L 10/21/18 13:10 MCHC 33.4 g/dl (32.0-35.9) 10/21/18 13:10 RDW 15.8 % (11.9-15.9) 10/21/18 13:10 Plt Count 166 K/MM3 (134-434) 10/21/18 13:10 MPV 10.4 fl (7.5-11.1) 10/21/18 13:10 Sodium 138 mmol/L (136-145) 10/21/18 13:10 Potassium 4.1 mmol/L (3.5-5.1) 10/21/18 13:10 Chloride 104 mmol/L (98-107) 10/21/18 13:10 Carbon Dioxide 25 mmol/L (21-32) 10/21/18 13:10 Anion Gap 9 MMOL/L (8-16) 10/21/18 13:10 BUN 23.1 mg/dL (7-18) H 10/21/18 13:10 Creatinine 2.0 mg/dL (0.55-1.3) H 10/21/18 13:10 Est GFR (CKD-EPI)AfAm 41.70 10/21/18 13:10 Est GFR (CKD-EPI)NonAf 35.98 10/21/18 13:10 POC Glucometer 393 UNITS (80-120) 10/22/18 06:06 Random Glucose 349 mg/dL (74-106) H* 10/21/18 13:10 Calcium 8.4 mg/dL (8.5-10.1) L 10/21/18 13:10 Total Bilirubin 0.7 mg/dL (0.2-1) 10/21/18 13:10 AST 8 U/L (15-37) L 10/21/18 13:10 ALT 16 U/L (13-61) 10/21/18 13:10 Alkaline Phosphatase 66 U/L (45-117) 10/21/18 13:10 Total Protein 7.0 g/dl (6.4-8.2) 10/21/18 13:10 Albumin 3.4 g/dl (3.4-5.0) 10/21/18 13:10 Urine Color Yellow 10/21/18 15:58 Urine Appearance Clear 10/21/18 15:58 Urine pH 5.0 (5.0-8.0) D 10/21/18 15:58 Ur Specific [place] 1.023 (1.010-1.035) 10/21/18 15:58 Urine Protein Negative (NEGATIVE) 10/21/18 15:58 Urine Glucose (UA) 3+ (NEGATIVE) H 10/21/18 15:58 Urine Ketones Trace (NEGATIVE) H 10/21/18 15:58 Urine Blood Negative (NEGATIVE) 10/21/18 15:58 Urine Nitrite Negative (NEGATIVE) 10/21/18 15:58 Urine Bilirubin Negative (NEGATIVE) 10/21/18 15:58 Urine Urobilinogen 0.2 mg/dL (0.2-1.0) 10/21/18 15:58 Ur Leukocyte Esterase Negative (NEGATIVE) 10/21/18 15:58 Assessment: 10/22/18 10:39 withdrawal symptom Plan: continue detox librium regimen,bun 23.1,creatinine 2.0,glucose 349,renal insufficiency,encourage oral fluid,repeat cmp in am, bgm monitoring with insulin coverage
[2018-10-22] MEDS ORDERED: Insulin (LOG) Aspart 100 UNITS/ML VIAL SQ ONE (11:48)
--- NOTE | 2018-10-22 11:53 | PN ---
S Progress Note Note: bgm 422,will give novolog 12 unit sq now ,bgm achs and insulin coverage sliding scale
[2018-10-22] MEDS: NAPROXEN 500 MG TABLET (FP) PO PRN (16:47)
[2018-10-22] MEDS: ATORVASTATIN CA 10 MG TABLET (FP) PO SCH (22:40)
[2018-10-22] MEDS: THIAMINE HCL 100 MG TABLET (FP) PO SCH (22:40)
[2018-10-22] MEDS: MONTELUKAST NA 10 MG TABLET PO SCH (22:40)
[2018-10-22] MEDS: cloNIDine HCL 0.1 MG TABLET PO SCH (22:41)
[2018-10-22] MEDS: MELATONIN 5 MG TABLETS PO PRN (22:44)
[2018-10-23] MEDS: chlordiazePOXIDE 5 MG CAPSULE PO SCH ×3 (05:42→22:09)
[2018-10-23] MEDS: GABAPENTIN 300 MG CAPSULE (FP) PO SCH ×3 (05:42→22:09)
[2018-10-23] MEDS ORDERED: INSULIN SLIDING SCALE (NOVOLOG) 1 VIAL SQ ONE ×4 (06:52→22:17)
[2018-10-23] MEDS: INSULIN (NOVOLOG) ASPART 100 UNITS/ML 10ML VIAL SQ SCH ×4 (07:10→22:14)
[2018-10-23] MEDS: TRIAMCINOLONE ACET 0.025% OINTMENT 15 GM TUBE TP SCH ×2 (09:36→22:13)
[2018-10-23] MEDS: PRENATAL VITAMINS W/ FOLIC ACID TABLET (FP) PO SCH (09:36)
[2018-10-23] MEDS: BUDESONIDE/FORMETEROL FUMARATE 160/4.5 mcg INHALER IH SCH ×2 (09:36→22:14)
[2018-10-23] MEDS: ASPIRIN 81 MG CHEWABLE TABLETS PO SCH (09:36)
[2018-10-23] MEDS: NIFEdipine E.R. 30 MG TABLET (FP) PO SCH (09:36)
[2018-10-23] MEDS: cloNIDine HCL 0.1 MG TABLET PO SCH ×2 (09:37→22:10)
[2018-10-23] MEDS: NICOTINE 14 MG/24 HOURS TOPICAL PATCH TD SCH (09:37)
[2018-10-23] MEDS: ARTIFICIAL TEARS (POLYVINYL ALCOHOL) OPTH DROPS OU PRN ×2 (09:38→22:13)
[2018-10-23] MEDS: INSULIN (LEVEMIR) 100 UNITS/ML UNITS SQ SCH ×2 (09:38→22:13)
[2018-10-23] MEDS: METHOCARBAMOL 500 MG TABLET PO PRN (09:40)
[2018-10-23] MEDS: chlordiazePOXIDE HCL 10 MG CAPSULE PO PRN ×2 (09:46→18:16)
--- NOTE | 2018-10-23 10:24 | PN ---
S CIWA - CIWA Score Nausea/Vomitin Muscle Tremors: 2 Anxiety: 2 Agitation: 2 Paroxysmal Sweats: No Perspiration Orientation: 0-Oriented Tacttile Disturbances: 1-Very Mild Itch/Numbness Auditory Disturbances: 1-Very Mild Visual Disturbances: 0-None Headache: 2-Mild CIWA-Ar Total Score: 12 BHS Progress Note (SOAP) Subjective: alert,irritable,anxious,interrupted sleep,pain in the body Objective: 10/23/18 10:22 Vital Signs Temperature 98.6 F 10/23/18 09:35 Pulse Rate 94 H 10/23/18 09:35 Respiratory Rate 18 10/23/18 09:35 Blood Pressure 165/95 10/23/18 09:35 O2 Sat by Pulse Oximetry (%) 10/23/18 10:23 bgm 318 Assessment: 10/23/18 10:23 withdrawal symptom Plan: continue detox,bgm monitoring,bgm monitoring with insulin coverage
[2018-10-23 10:51] LABS: ALBUMIN 3.2 g/dl (3.4-5.0); BILIRUBIN,TOTAL 0.5 mg/dL (0.2-1); BLOOD UREA NITROGEN 14.7 mg/dL (7-18); CREATININE 1.5 mg/dL (0.55-1.3); POTASSIUM 3.8 mmol/L (3.5-5.1)
[2018-10-23] MEDS ORDERED: cloNIDine HCL 0.1 MG TABLET PO ONE (19:01)
[2018-10-23] MEDS: THIAMINE HCL 100 MG TABLET (FP) PO SCH (22:09)
[2018-10-23] MEDS: MONTELUKAST NA 10 MG TABLET PO SCH (22:09)
[2018-10-23] MEDS: ATORVASTATIN CA 10 MG TABLET (FP) PO SCH (22:09)
[2018-10-24] MEDS ORDERED: chlordiazePOXIDE HCL 10 MG CAPSULE PO PRN
[2018-10-24] MEDS: chlordiazePOXIDE HCL 10 MG CAPSULE PO SCH ×3 (05:58→23:26)
[2018-10-24] MEDS: GABAPENTIN 300 MG CAPSULE (FP) PO SCH ×3 (05:58→23:26)
[2018-10-24] MEDS: INSULIN (NOVOLOG) ASPART 100 UNITS/ML 10ML VIAL SQ SCH ×4 (07:13→23:29)
[2018-10-24] MEDS ORDERED: INSULIN SLIDING SCALE (NOVOLOG) 1 VIAL SQ ONE ×3 (07:15→17:18)
--- NOTE | 2018-10-24 10:24 | PN ---
S CIWA - CIWA Score Nausea/Vomitin-No Nausea/No Vomiting Muscle Tremors: 1-None Visible, but [place] Anxiety: 2 Agitation: 1-Slight > Activity Paroxysmal Sweats: 2 Orientation: 0-Oriented Tacttile Disturbances: 0-None Auditory Disturbances: 0-None Visual Disturbances: 0-None Headache: 0-None Present CIWA-Ar Total Score: 6 BHS Progress Note (SOAP) Subjective: c/o sweats and anxiety. Objective: 10/24/18 10:22 Vital Signs 10/24/18 10/24/18 10/24/18 03:30 06:00 09:13 Temperature 97.7 F 97.9 F Pulse Rate 76 83 Respiratory 18 18 18 Rate Blood Pressure 150/84 154/103 H Assessment: 10/24/18 10:22 AOX3, in no acute respiratory distress. Full ROM, ambulating in the unit. mild withdrawal symptoms. Plan: continue detox.
[2018-10-24] MEDS: TRIAMCINOLONE ACET 0.025% OINTMENT 15 GM TUBE TP SCH (10:36)
[2018-10-24] MEDS: ASPIRIN 81 MG CHEWABLE TABLETS PO SCH (10:37)
[2018-10-24] MEDS: PRENATAL VITAMINS W/ FOLIC ACID TABLET (FP) PO SCH (10:37)
[2018-10-24] MEDS: cloNIDine HCL 0.1 MG TABLET PO SCH ×2 (10:37→23:27)
[2018-10-24] MEDS: NICOTINE 14 MG/24 HOURS TOPICAL PATCH TD SCH (10:37)
[2018-10-24] MEDS: NIFEdipine E.R. 30 MG TABLET (FP) PO SCH (10:37)
[2018-10-24] MEDS: METHOCARBAMOL 500 MG TABLET PO PRN (10:39)
[2018-10-24] MEDS: INSULIN (LEVEMIR) 100 UNITS/ML UNITS SQ SCH ×2 (10:39→21:30)
[2018-10-24] MEDS: BUDESONIDE/FORMETEROL FUMARATE 160/4.5 mcg INHALER IH SCH ×2 (10:39→22:30)
[2018-10-24] MEDS ORDERED: cloNIDine HCL 0.1 MG TABLET PO ONE (13:07)
[2018-10-24] MEDS: chlordiazePOXIDE HCL 10 MG CAPSULE PO PRN (13:17)
--- NOTE | 2018-10-24 14:40 | PN ---
S Progress Note Note: Pt does not need refills for home medications as per pharmacist at [facility], pt picked up his refills on 10/16/18 and supply is for 3months.
[2018-10-24] MEDS: THIAMINE HCL 100 MG TABLET (FP) PO SCH (22:30)
[2018-10-24] MEDS: ATORVASTATIN CA 10 MG TABLET (FP) PO SCH (23:26)
[2018-10-24] MEDS: MONTELUKAST NA 10 MG TABLET PO SCH (23:27)
[2018-10-25] MEDS: TRIAMCINOLONE ACET 0.025% OINTMENT 15 GM TUBE TP SCH (01:04)
[2018-10-25] MEDS ORDERED: chlordiazePOXIDE HCL 10 MG CAPSULE PO ONE (05:00)
[2018-10-25] MEDS: INSULIN (NOVOLOG) ASPART 100 UNITS/ML 10ML VIAL SQ SCH (06:08)
[2018-10-25] MEDS: GABAPENTIN 300 MG CAPSULE (FP) PO SCH (06:08)
[2018-10-25 06:35] VITALS: BP 150/95; PULSE 71; TEMP 97.5
[2018-10-25] MEDS: ASPIRIN 81 MG CHEWABLE TABLETS PO SCH (09:22)
[2018-10-25] MEDS: BUDESONIDE/FORMETEROL FUMARATE 160/4.5 mcg INHALER IH SCH (09:22)
[2018-10-25] MEDS: cloNIDine HCL 0.1 MG TABLET PO SCH (09:22)
[2018-10-25] MEDS: NIFEdipine E.R. 30 MG TABLET (FP) PO SCH (09:22)
[2018-10-25] MEDS: PRENATAL VITAMINS W/ FOLIC ACID TABLET (FP) PO SCH (09:23)
--- NOTE | 2018-10-25 18:03 | DS ---
[facility] Detox Discharge Summary Admission Date: 10/21/18 Discharge Date: 10/25/18 - History Present History: Alcohol Dependence, Sedative Dependence Additional Comments: Patient completed detox successfully. Patient discharge in stable condition. Instructed to follow up with PCP within 1 week for management of all medical problems. Pertinent Past History: DMT2 Alcohol dependence Benzo dependence HTN HLD Asthma PPD positive hx (chest xray negative in 2018) GERD Seizure disorder - Physical Exam Results Vital Signs: Vital Signs Temperature 97.5 F L 10/25/18 06:00 Pulse Rate 71 10/25/18 06:00 Respiratory Rate 20 10/25/18 06:00 Blood Pressure 150/95 10/25/18 06:00 O2 Sat by Pulse Oximetry (%) Pertinent Admission Physical Exam Findings: Withdrawal symptoms Laboratory Tests 10/21/18 10/21/18 10/21/18 13:10 13:10 15:58 WBC 7.6 RBC 5.11 Hgb 12.9 Hct 38.7 MCV 75.8 L MCH 25.3 L MCHC 33.4 RDW 15.8 Plt Count 166 MPV 10.4 Sodium 138 Potassium 4.1 Chloride 104 Carbon Dioxide 25 Anion Gap 9 BUN 23.1 H Creatinine 2.0 H Est GFR (CKD-EPI)AfAm 41.70 Est GFR (CKD-EPI)NonAf 35.98 POC Glucometer Random Glucose 349 H* Calcium 8.4 L Total Bilirubin 0.7 AST 8 L ALT 16 Alkaline Phosphatase 66 Total Protein 7.0 Albumin 3.4 Urine Color Yellow Urine Appearance Clear Urine pH 5.0 D Ur Specific [place] 1.023 Urine Protein Negative Urine Glucose (UA) 3+ H Urine Ketones Trace H Urine Blood Negative Urine Nitrite Negative Urine Bilirubin Negative Urine Urobilinogen 0.2 Ur Leukocyte Esterase Negative 10/21/18 10/21/18 10/22/18 16:31 20:43 06:06 WBC RBC Hgb Hct MCV MCH MCHC RDW Plt Count MPV Sodium Potassium Chloride Carbon Dioxide Anion Gap BUN Creatinine Est GFR (CKD-EPI)AfAm Est GFR (CKD-EPI)NonAf POC Glucometer 322 203 393 Random Glucose Calcium Total Bilirubin AST ALT Alkaline Phosphatase Total Protein Albumin Urine Color Urine Appearance Urine pH Ur Specific [place] Urine Protein Urine Glucose (UA) Urine Ketones Urine Blood Urine Nitrite Urine Bilirubin Urine Urobilinogen Ur Leukocyte Esterase 10/22/18 10/22/18 10/22/18 11:45 16:25 21:55 WBC RBC Hgb Hct MCV MCH MCHC RDW Plt Count MPV Sodium Potassium Chloride Carbon Dioxide Anion Gap BUN Creatinine Est GFR (CKD-EPI)AfAm Est GFR (CKD-EPI)NonAf POC Glucometer 422 329 383 Random Glucose Calcium Total Bilirubin AST ALT Alkaline Phosphatase Total Protein Albumin Urine Color Urine Appearance Urine pH Ur Specific [place] Urine Protein Urine Glucose (UA) Urine Ketones Urine Blood Urine Nitrite Urine Bilirubin Urine Urobilinogen Ur Leukocyte Esterase 10/23/18 10/23/18 05:41 07:00 WBC RBC Hgb Hct MCV MCH MCHC RDW Plt Count MPV Sodium 142 Potassium 3.8 Chloride 108 H Carbon Dioxide 28 Anion Gap 6 L BUN 14.7 Creatinine 1.5 H Est GFR (CKD-EPI)AfAm 59.05 Est GFR (CKD-EPI)NonAf 50.95 POC Glucometer 318 Random Glucose 288 H Calcium 9.0 Total Bilirubin 0.5 AST 6 L ALT 15 Alkaline Phosphatase 58 Total Protein 6.0 L Albumin 3.2 L Urine Color Urine Appearance Urine pH Ur Specific [place] Urine Protein Urine Glucose (UA) Urine Ketones Urine Blood Urine Nitrite Urine Bilirubin Urine Urobilinogen Ur Leukocyte Esterase Labs reviewed: serum creatinine 1.5, hyperglycemia (follow up with PCP for management), azotemia: encouraged PO water hydration. - Treatment Hospital Course: Detox Protocol Followed, Detoxed Safely, Responded well, Discharged Condition Good - Medication Discharge Medications: Ambulatory Orders Aspirin [ASA -] 81 mg PO DAILY #30 tab.chew 10/10/14 Montelukast Na [Singulair -] 10 mg PO HS #30 tablet 10/10/14 cloNIDine HCL [Catapres -] 0.2 mg PO BID 11/11/14 Albuterol Sulfate [Proair Hfa] 2 puff IH Q4H PRN 10/29/17 Naproxen 500 mg PO BID PRN 06/25/18 Atorvastatin Ca [Lipitor] 10 mg PO HS 08/29/18 Esomeprazole Mag Trihydrate [Nexium] 20 mg PO DAILY 08/29/18 Insulin Aspart [Novolog] 6 unit SQ TID 08/29/18 Gabapentin 300 mg PO TID 09/11/18 Mirtazapine 30 mg PO HS 09/11/18 Nifedipine ER [Procardia XL -] 30 mg PO DAILY 09/11/18 hydrALAZINE HCL [Apresoline -] 50 mg PO DAILY 09/11/18 Budesonide/Formeterol Fumarate [SYMBICORT 160/4.5mcg -] 2 inh PO BID 10/21/18 Insulin (Levemir) [Levemir Vial] 10 units SQ BID 10/21/18 Insulin Glargine,Hum.rec.anlog [Basaglar Kwikpen U-100] 10 unit SQ BID 10/21/18 Triamcinolone 0.025% Ointment [Aristocort 0.025% Ointment -] 1 applic TP BID 01/30 - Diagnosis (1) DAHLIA (acute kidney injury) Status: Acute (2) Alcohol dependence with uncomplicated withdrawal Status: Acute (3) Anxiolytic withdrawal without complication Status: Acute (4) Azotemia Status: Acute (5) Asthma Status: Chronic (6) Essential hypertension Status: Chronic (7) Gastroesophageal reflux disease Status: Chronic (8) HLD (hyperlipidemia) Status: Chronic Qualifiers: Hyperlipidemia type: unspecified Qualified Code(s): E78.5 - Hyperlipidemia , unspecified (9) Seizure Status: Chronic (10) Type 2 diabetes mellitus with hyperglycemia Status: Chronic Qualifiers: Diabetes mellitus retirement insulin use: 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
== END 2018-10-25 09:42 | disposition home or self-care (01) | DRG 774 ==
LOC: YASAS 09:14 → Y6N 14:35
PROVIDERS: ADMIT Surgery; ATTEND Surgery
PROC: HZ2ZZZZ Detoxification Services for Substance Abuse Treatment (ICD-10-PCS; principal; 2018-10-21)
DX: F10.230 Alcohol dependence with withdrawal, uncomplicated (principal); F13.230 Sedative, hypnotic or anxiolytic dependence with withdrawal, uncomplicated; F14.10 Cocaine abuse, uncomplicated; I10 Essential (primary) hypertension; E11.65 Type 2 diabetes mellitus with hyperglycemia; E78.5 Hyperlipidemia, unspecified; J45.909 Unspecified asthma, uncomplicated; K21.9 Gastro-esophageal reflux disease without esophagitis; E66.9 Obesity, unspecified; Z68.39 Body mass index [BMI] 39.0-39.9, adult; R76.11 Nonspecific reaction to tuberculin skin test without active tuberculosis; R79.89 Other specified abnormal findings of blood chemistry; Z86.69 Personal history of other diseases of the nervous system and sense organs; Z79.4 Long term (current) use of insulin; N17.9 Acute kidney failure, unspecified
CPT/HCPCS: 36415; 80053; 81003; 82962; 85027; J0735

== ENCOUNTER 2018-11-30 16:02 | Inpatient (IN) | payer OTHER ==
[2018-11-30 21:34] VITALS: BMI 38.7
--- NOTE | 2018-11-30 22:17 | HP ---
CIWA Score Nausea/Vomitin-No Nausea/No Vomiting Muscle Tremors: 1-None Visible, but [place] Anxiety: 1-Mildly Anxious Agitation: 1-Slight > Activity Paroxysmal Sweats: 3 Orientation: 0-Oriented Tacttile Disturbances: 0-None Auditory Disturbances: 0-None Visual Disturbances: 1-Very Mild Sensitivity Headache: 3-Moderate CIWA-Ar Total Score: 10 - Admission Criteria OAS Guidelines: Admission for Medically Managed Detox: Requires at least one of the followin. CIWA greater than 12 2. Seizures within the past 24 hours 3. Delirium tremens within the past 24 hours 4. Hallucinations within the past 24 hours 5. Acute intervention needed for co occurring medical disorder 6. Acute intervention needed for co occurring psychiatric disorder 7. Severe withdrawal that cannot be handled at a lower level of care (continued vomiting, continued diarrhea, abnormal vital signs) requiring intravenous medication and/or fluids 8. Patient presents the following: Acute intervention needed for co-occurring med or psych disorder Admission Criteria Met: Admission criteria met Admission ROS [facility] - [facility] Chief Complaint: C/O WORSENING WITHDRAWAL SX'S Allergies/Adverse Reactions: Allergies Allergy/AdvReac Type Severity Reaction Status Date / Time No Known Drug Allergies Allergy Verified 11/30/18 21:25 History of Present Illness: 58 Y.O. MALE WITH EXTENSIVE HX/O ALCOHOLISM HERE FOR DETOX. CLIENT IS SELF REFERRED. HERE 1 MONTH AGO FOR DETOX. REPORTS RELAPSING SOON AFTER. 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 LAST USE EARLIER TODAY. NOW PRESENTS WITH C/O WITHDRAWAL SX'S. DENIES SIGNIFICANT PERIOD OF CLEAN TIME.DENIES SEIZURES, BLACKOUTS,. 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, DENIES LEGALS Exam Limitations: No Limitations - Ebola screening Have you traveled outside of the country in the last 21 days: No (N) Have you had contact with anyone from an Ebola affected area: No Do you have a fever: No - Review of Systems Constitutional: Chills, Night Sweats, Changes in sleep EENT: reports: Dental Problems (DENTURES) Respiratory: reports: No Symptoms reported Cardiac: reports: No Symptoms Reported GI: reports: Poor Appetite : reports: No Symptoms Reported Musculoskeletal: reports: No Symptoms Reported Integumentary: reports: No Symptoms Reported Neuro: reports: No Symptoms reported Endocrine: reports: Other (HX/O DM) Hematology: reports: No Symptoms Reported Psychiatric: reports: Orientated x3, Anxious, Depressed Other Systems: Reviewed and Negative Patient History - Patient Medical History Hx Anemia: No Hx Asthma: Yes Hx Chronic Obstructive Pulmonary Disease (COPD): No Hx Cancer: No Hx Cardiac Disorders: No Hx Congestive Heart Failure: No Hx Hypertension: No Hx Hypercholesterolemia: No Hx Pacemaker: No HX Cerebrovascular Accident: No Hx Seizures: No Hx Dementia: No Hx Diabetes: Yes Hx Gastrointestinal Disorders: No Hx Liver Disease: No Hx Genitourinary Disorders: No Hx Sexually Transmitted Disorders: No Hx Renal Disease (ESRD): No Hx Thyroid Disease: No Hx Human Immunodeficiency Virus (HIV): No Hx Hepatitis C: No Hx Depression: No Hx Suicide Attempt: No Hx Bipolar Disorder: No Hx Schizophrenia: No Other Medical History: ANXIETY - Patient Surgical History Past Surgical History: No Hx Neurologic Surgery: No Hx Cataract Extraction: No Hx Cardiac Surgery: No Hx Lung Surgery: No Hx Breast Surgery: No Hx Breast Biopsy: No Hx Abdominal Surgery: No Hx Appendectomy: No Hx Cholecystectomy: No Hx Genitourinary Surgery: No Hx Section: No Hx Orthopedic Surgery: No Anesthesia Reaction: No - PPD History Previous Implant?: Yes Documented Results: Positive w/o proof Implanted On Prior [facility] Admission?: Yes Date: 10/30/17 (NEG CXR 02/2018) Results: 15 mm PPD to be Administered?: No - Smoking Cessation Smoking history: Never smoked Have you smoked in the past 12 months: No Cigars Per Day: 0 Hx Chewing Tobacco Use: No Initiated information on smoking cessation: No - Substance & Tx. History Hx Alcohol Use: Yes Hx Substance Use: Yes Substance Use Type: Alcohol, Tranquilizers (XANAX) Hx Substance Use Treatment: Yes ([facility]) - Substances abused Alcohol Substance route: Oral Frequency: Daily Amount used: 3 Pints vodka, 6 pck beer-16oz Age of first use: 22 Date of last use: 11/30/18 Alprazolam (Xanax) Substance route: Oral Frequency: 3-6 times per week Amount used: two 4mg sticks Age of first use: 47 Date of last use: 11/29/18 Cocaine Substance route: Inhalation Frequency: 3-6 times per week Amount used: $20 Age of first use: 48 Date of last use: 11/29/18 Family Disease History - Family Disease History Family Disease History: Diabetes: Father (ALCOHOLIC), Mother (HTN), Brother ( three ), Sister (four ), Heart Disease: Mother, Sister, Other: Father, Brother, Sister, Son (one age 21) Admission Physical Exam S - Vital Signs Vital Signs: Vital Signs - 24 hr 11/30/18 21:31 Temperature 97.0 F L Pulse Rate 62 Respiratory 16 Rate Blood Pressure 127/79 - Physical General Appearance: Yes: Tremorous (FELT) HEENTM: Yes: EOMI, Normocephalic, Normal Voice, MIKE, Pharynx Normal, Other ( MISSING TEETH) Respiratory: Yes: Chest Non-Tender, Lungs Clear, Normal Breath Sounds, No Respiratory Distress, No Accessory Muscle Use Neck: Yes: No masses,lesions,Nodules, Supple, Trachea in good position Breast: Yes: Breast Exam Deferred Cardiology: Yes: Regular Rhythm, Regular Rate, S1, S2 Abdominal: Yes: Non Tender, Soft, Protuberent Genitourinary: Yes: Within Normal Limits Back: Yes: Normal Inspection Musculoskeletal: Yes: full range of Motion, Gait Steady Extremities: Yes: Normal Range of Motion, Non-Tender, Tremors (FELT) 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: Yes: Fully Oriented, Alert, Motor Strength 5/5, Depressed Affect Integumentary: Yes: Dry, Warm, Other (BLE EDEMA DRY CALLUSES FLAKY SKIN TO BLE) Lymphatic: Yes: Within Normal Limits - Diagnostic (1) Alcohol dependence with uncomplicated withdrawal Current Visit: Yes Status: Acute (2) Anxiolytic withdrawal without complication Current Visit: Yes Status: Acute (3) Asthma Current Visit: Yes Status: Chronic (4) Benzodiazepine dependence Current Visit: Yes Status: Acute (5) Cocaine dependence, uncomplicated Current Visit: Yes Status: Acute (6) DM Diabetes mellitus type 2 Current Visit: Yes Status: Chronic Comment: On insulin (7) Essential hypertension Current Visit: Yes Status: Chronic (8) Gastroesophageal reflux disease Current Visit: Yes Status: Chronic (9) HLD (hyperlipidemia) Current Visit: Yes Status: Chronic Qualifiers: Hyperlipidemia type: unspecified Qualified Code(s): E78.5 - Hyperlipidemia , unspecified (10) Insomnia Current Visit: Yes Status: Chronic Qualifiers: Insomnia type: drug-induced Qualified Code(s): F19.982 - Other psychoactive substance use, unspecified with psychoactive substance-induced sleep disorder (11) LBP (low back pain) Current Visit: Yes Status: Chronic Qualifiers: Chronicity: chronic Back pain laterality: midline Sciatica presence: without sciatica Qualified Code(s): M54.5 - Low back pain; G89.29 - Other chronic pain (12) Obesity Current Visit: Yes Status: Chronic Qualifiers: Obesity type: unspecified obesity type Serious obesity comorbidity presence : unspecified whether serious comorbidity present Body mass index: unspecified BMI (13) PPD positive Current Visit: Yes Status: Chronic (14) Substance induced mood disorder Current Visit: Yes Status: Suspected Cleared for Admission S - Detox or Rehab [facility] Level of Care: Medically Managed Detox Regimen/Protocol: Librium Claeared for Rehab Admission: No Breathalyzer - Breathalyzer Breathalyzer: 0 Urine Drug Screen - Test Device Lot number: [id number] Expiration date: 09/11/20 - Control Is test valid?: Yes - Results Drug screen NEGATIVE: No Urine drug screen results: KIMMIE-Cocaine, BZO-Benzodiazepines Inpatient Rehab Admission - Rehab Decision to Admit Inpatient rehab admission?: No
[2018-11-30] MEDS ORDERED: ALBUTEROL SO4 8 GM HFA INHALER IH PRN (22:21)
[2018-11-30] MEDS ORDERED: ONDANSETRON *ODT* 4 MG TABLET SL PRN (22:24)
[2018-11-30] MEDS ORDERED: MAG HYDROX/AL HYDROX/SIMETH 30 ML UNIT-DOSE CUP PO PRN (22:24)
[2018-11-30] MEDS ORDERED: chlordiazePOXIDE HCL 25 MG CAPSULE PO PRN (22:24)
[2018-11-30] MEDS ORDERED: BISMUTH SUBSALICYLATE 524 MG/30 ML UD PO PRN (22:24)
[2018-11-30] MEDS ORDERED: guaiFENesin 200 MG/10 ML 10 ML UNIT-DOSE CUPS PO PRN (22:24)
[2018-11-30] MEDS ORDERED: MAGNESIUM CITRATE 300 ML BOTTLE PO PRN (22:24)
[2018-11-30] MEDS ORDERED: P-EPHED 60MG/TRIPROLIDI 2.5MG TABLET PO PRN (22:24)
[2018-11-30] MEDS ORDERED: ACETAMINOPHEN 325 MG TABLET (FP) PO PRN (22:24)
[2018-11-30] MEDS ORDERED: hydrOXYzine PAMOATE 25 MG CAPSULE (FP) PO PRN (22:24)
[2018-11-30] MEDS ORDERED: MENTHOL/PHENOL 1 EACH UD MM PRN (22:24)
[2018-11-30] MEDS ORDERED: MAGNESIUM HYDROX 2400MG/30ML ORAL SUSPENSION 30 ML CUP PO PRN (22:24)
[2018-11-30] MEDS ORDERED: DICYCLOMINE HCL 10 MG CAPSULE PO PRN (22:24)
[2018-11-30] MEDS: chlordiazePOXIDE HCL 25 MG CAPSULE PO SCH (23:59)
[2018-12-01] MEDS: ACETAMINOPHEN 325 MG TABLET (FP) PO PRN ×2 (00:02→17:47)
[2018-12-01] MEDS: MELATONIN 5 MG TABLETS PO PRN ×2 (00:02→21:21)
[2018-12-01] MEDS: chlordiazePOXIDE HCL 25 MG CAPSULE PO SCH ×4 (05:00→22:09)
[2018-12-01] MEDS: GABAPENTIN 300 MG CAPSULE (FP) PO SCH ×3 (05:01→21:20)
[2018-12-01] MEDS: INSULIN (LEVEMIR) 100 UNITS/ML UNITS SQ SCH ×2 (07:35→21:20)
[2018-12-01] MEDS: NIFEdipine E.R. 30 MG TABLET (FP) PO SCH (10:31)
[2018-12-01] MEDS: ASPIRIN 81 MG CHEWABLE TABLETS PO SCH (10:31)
[2018-12-01] MEDS: PANTOPRAZOLE 40 MG TABLET (FP) PO SCH (10:32)
[2018-12-01] MEDS: PRENATAL VITAMINS W/ FOLIC ACID TABLET (FP) PO SCH (10:33)
[2018-12-01] MEDS: BUDESONIDE/FORMETEROL FUMARATE 160/4.5 mcg INHALER IH SCH ×2 (10:33→21:20)
[2018-12-01] MEDS: cloNIDine HCL 0.1 MG TABLET PO SCH ×2 (10:34→21:18)
[2018-12-01] MEDS: METHOCARBAMOL 500 MG TABLET PO PRN (10:35)
[2018-12-01] MEDS: hydrALAZINE HCL 50 MG TABLET (FP) PO SCH (10:40)
[2018-12-01 11:02] LABS: BILIRUBIN,TOTAL 0.8 mg/dL (0.2-1); BLOOD UREA NITROGEN 29.8 mg/dL (7-18); CALCIUM 8.4 mg/dL (8.5-10.1); CREATININE 1.6 mg/dL (0.55-1.3)
[2018-12-01 11:04] LABS: HEMATOCRIT 39.1 % (35.4-49); HEMOGLOBIN 12.8 GM/dL (11.7-16.9); MCH 25.4 pg (25.7-33.7); MCHC 32.8 g/dl (32.0-35.9); MEAN CELL VOLUME 77.3 fl (80-96); MEAN PLT VOLUME 10.5 fl (7.5-11.1); PLATELET COUNT 167 K/MM3 (134-434); RBC 5.07 M/mm3 (4.00-5.60); WHITE BLOOD COUNT 6.8 K/mm3 (4.0-10.0)
[2018-12-01] MEDS ORDERED: INSULIN (NOVOLOG) ASPART 100 UNITS/ML 10ML VIAL SQ ONE (14:45)
--- NOTE | 2018-12-01 14:45 | PN ---
[facility] CIWA - CIWA Score Nausea/Vomitin-Mild Nausea/No Vomiting Muscle Tremors: 2 Anxiety: 3 Agitation: 2 Paroxysmal Sweats: 2 Orientation: 0-Oriented Tacttile Disturbances: 0-None Auditory Disturbances: 0-None Visual Disturbances: 0-None Headache: 0-None Present CIWA-Ar Total Score: 10 S Progress Note (SOAP) Subjective: 58 years old male admitted on 11/30/18 for acute alcohol withdrawal sx management tolerate librium detox regimen well long history of diabetes II x 5 years treated with metformin 500mg po bid and lantus 10 mg po bid before breakfast and before bed time patient reporting that he is no longer taking metformin average bgm at home around 100-200 with insulin coverage average 2-4 units hypertension treated with lisinopril 40 mg and nefedipin 30 mg current bp well controlled by nifedipin 30mg po daily Objective: 12/01/18 14:54 Vital Signs Temperature 97 F L 12/01/18 13:11 Pulse Rate 82 12/01/18 13:11 Respiratory Rate 145 H 12/01/18 13:11 Blood Pressure 117/71 12/01/18 13:11 O2 Sat by Pulse Oximetry (%) Laboratory Last Values WBC 6.8 K/mm3 (4.0-10.0) 12/01/18 07:50 RBC 5.07 M/mm3 (4.00-5.60) 12/01/18 07:50 Hgb 12.8 GM/dL (11.7-16.9) 12/01/18 07:50 Hct 39.1 % (35.4-49) 12/01/18 07:50 MCV 77.3 fl (80-96) L 12/01/18 07:50 MCH 25.4 pg (25.7-33.7) L 12/01/18 07:50 MCHC 32.8 g/dl (32.0-35.9) 12/01/18 07:50 RDW 16.0 % (11.9-15.9) H 12/01/18 07:50 Plt Count 167 K/MM3 (134-434) 12/01/18 07:50 MPV 10.5 fl (7.5-11.1) 12/01/18 07:50 Sodium 140 mmol/L (136-145) 12/01/18 07:50 Potassium 4.0 mmol/L (3.5-5.1) 12/01/18 07:50 Chloride 105 mmol/L (98-107) 12/01/18 07:50 Carbon Dioxide 28 mmol/L (21-32) 12/01/18 07:50 Anion Gap 6 MMOL/L (8-16) L 12/01/18 07:50 BUN 29.8 mg/dL (7-18) H 12/01/18 07:50 Creatinine 1.6 mg/dL (0.55-1.3) H 12/01/18 07:50 Est GFR (CKD-EPI)AfAm 54.61 12/01/18 07:50 Est GFR (CKD-EPI)NonAf 47.12 12/01/18 07:50 POC Glucometer 393 UNITS (80-120) 12/01/18 12:38 Random Glucose 274 mg/dL (74-106) H 12/01/18 07:50 Calcium 8.4 mg/dL (8.5-10.1) L 12/01/18 07:50 Total Bilirubin 0.8 mg/dL (0.2-1) 12/01/18 07:50 AST 10 U/L (15-37) L 12/01/18 07:50 ALT 17 U/L (13-61) 12/01/18 07:50 Alkaline Phosphatase 49 U/L (45-117) 12/01/18 07:50 Total Protein 6.0 g/dl (6.4-8.2) L 12/01/18 07:50 Albumin 3.0 g/dl (3.4-5.0) L 12/01/18 07:50 repeat bun lab noted encourage oral fluid 12/01/18 14:58 Assessment: 12/01/18 15:00 alcohol withdrawal sx alert oriented x 3 steady gait speech clearly coherently no vomiting no nausea Plan: continue libriun detox regimen repeat bun on 12/04/18
--- NOTE | 2018-12-01 14:49 | PN ---
S Progress Note Note: glucose is 393,will give novolog 10 unit sq now,bgm monitoring with insulin coverage achs,close monitoring
[2018-12-01] MEDS ORDERED: INSULIN SLIDING SCALE (NOVOLOG) 1 VIAL SQ ONE ×2 (14:54→21:17)
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
[2018-12-01] MEDS: INSULIN (NOVOLOG) ASPART 100 UNITS/ML 10ML VIAL SQ SCH ×2 (16:57→21:19)
[2018-12-01] MEDS: MONTELUKAST NA 10 MG TABLET PO SCH (21:18)
[2018-12-01] MEDS: NAPROXEN 500 MG TABLET (FP) PO PRN (21:18)
[2018-12-01] MEDS: MIRTAZAPINE 15 MG TABLET (FP) PO SCH (21:20)
[2018-12-01] MEDS: ATORVASTATIN CA 10 MG TABLET (FP) PO SCH (21:20)
[2018-12-01] MEDS: THIAMINE HCL 100 MG TABLET (FP) PO SCH (21:20)
[2018-12-01] MEDS ORDERED: INSULIN SLIDING SCALE (NOVOLOG) 1 VIAL SQ SCH (22:00)
[2018-12-01 23:23] LABS: URINE APPEARANCE CLEAR; URINE BILIRUBIN NEGATIVE (NEGATIVE); URINE COLOR YELLOW; URINE GLUCOSE (UA) 3+ (NEGATIVE); URINE KETONE NEGATIVE (NEGATIVE); URINE LEUK ESTERASE NEGATIVE (NEGATIVE); URINE NITRITE NEGATIVE (NEGATIVE); URINE PROTEIN NEGATIVE (NEGATIVE); URINE UROBILINOGEN 0.2 mg/dL (0.2-1.0)
[2018-12-02] MEDS: chlordiazePOXIDE HCL 25 MG CAPSULE PO SCH ×4 (05:59→22:20)
[2018-12-02] MEDS: GABAPENTIN 300 MG CAPSULE (FP) PO SCH ×3 (05:59→21:37)
[2018-12-02] MEDS: METHOCARBAMOL 500 MG TABLET PO PRN (06:00)
[2018-12-02] MEDS: INSULIN (NOVOLOG) ASPART 100 UNITS/ML 10ML VIAL SQ SCH ×4 (06:04→21:35)
[2018-12-02] MEDS ORDERED: INSULIN SLIDING SCALE (NOVOLOG) 1 VIAL SQ ONE ×3 (06:06→21:42)
[2018-12-02] MEDS: INSULIN (LEVEMIR) 100 UNITS/ML UNITS SQ SCH ×2 (06:08→21:36)
[2018-12-02] MEDS: NIFEdipine E.R. 30 MG TABLET (FP) PO SCH (10:42)
[2018-12-02] MEDS: cloNIDine HCL 0.1 MG TABLET PO SCH ×2 (10:42→21:37)
[2018-12-02] MEDS: BUDESONIDE/FORMETEROL FUMARATE 160/4.5 mcg INHALER IH SCH ×2 (10:42→21:40)
[2018-12-02] MEDS: PANTOPRAZOLE 40 MG TABLET (FP) PO SCH (10:42)
[2018-12-02] MEDS: PRENATAL VITAMINS W/ FOLIC ACID TABLET (FP) PO SCH (10:43)
[2018-12-02] MEDS: ASPIRIN 81 MG CHEWABLE TABLETS PO SCH (10:43)
[2018-12-02] MEDS: hydrALAZINE HCL 50 MG TABLET (FP) PO SCH (12:08)
--- NOTE | 2018-12-02 17:03 | PN ---
S CIWA - CIWA Score Nausea/Vomitin-No Nausea/No Vomiting Muscle Tremors: None Anxiety: 3 Agitation: 2 Paroxysmal Sweats: 3 Orientation: 0-Oriented Tacttile Disturbances: 1-Very Mild Itch/Numbness Auditory Disturbances: 0-None Visual Disturbances: 1-Very Mild Sensitivity Headache: 3-Moderate CIWA-Ar Total Score: 13 BHS Progress Note (SOAP) Subjective: Anxious, Sweating, H/A, Body Aches. Objective: PATIENT A & O X 3. IN NO ACUTE DISTRESS. 12/02/18 17:00 Vital Signs Temperature 96.9 F L 12/02/18 13:12 Pulse Rate 85 12/02/18 13:12 Respiratory Rate 16 12/02/18 13:12 Blood Pressure 163/94 12/02/18 13:12 O2 Sat by Pulse Oximetry (%) Laboratory Tests 12/01/18 12/01/18 12/01/18 05:00 07:50 07:50 WBC 6.8 RBC 5.07 Hgb 12.8 Hct 39.1 MCV 77.3 L MCH 25.4 L MCHC 32.8 RDW 16.0 H Plt Count 167 MPV 10.5 Sodium 140 Potassium 4.0 Chloride 105 Carbon Dioxide 28 Anion Gap 6 L BUN 29.8 H Creatinine 1.6 H Est GFR (CKD-EPI)AfAm 54.61 Est GFR (CKD-EPI)NonAf 47.12 POC Glucometer 338 Random Glucose 274 H Calcium 8.4 L Total Bilirubin 0.8 AST 10 L ALT 17 Alkaline Phosphatase 49 Total Protein 6.0 L Albumin 3.0 L Urine Color Urine Appearance Urine pH Ur Specific [place] Urine Protein Urine Glucose (UA) Urine Ketones Urine Blood Urine Nitrite Urine Bilirubin Urine Urobilinogen Ur Leukocyte Esterase 12/01/18 12/01/18 12/01/18 12:38 16:25 16:28 WBC RBC Hgb Hct MCV MCH MCHC RDW Plt Count MPV Sodium Potassium Chloride Carbon Dioxide Anion Gap BUN Creatinine Est GFR (CKD-EPI)AfAm Est GFR (CKD-EPI)NonAf POC Glucometer 393 354 Random Glucose Calcium Total Bilirubin AST ALT Alkaline Phosphatase Total Protein Albumin Urine Color Yellow Urine Appearance Clear Urine pH 5.0 Ur Specific [place] 1.028 Urine Protein Negative Urine Glucose (UA) 3+ H Urine Ketones Negative Urine Blood Negative Urine Nitrite Negative Urine Bilirubin Negative Urine Urobilinogen 0.2 Ur Leukocyte Esterase Negative 12/01/18 12/02/18 12/02/18 20:45 06:02 12:05 WBC RBC Hgb Hct MCV MCH MCHC RDW Plt Count MPV Sodium Potassium Chloride Carbon Dioxide Anion Gap BUN Creatinine Est GFR (CKD-EPI)AfAm Est GFR (CKD-EPI)NonAf POC Glucometer [phone] Random Glucose Calcium Total Bilirubin AST ALT Alkaline Phosphatase Total Protein Albumin Urine Color Urine Appearance Urine pH Ur Specific [place] Urine Protein Urine Glucose (UA) Urine Ketones Urine Blood Urine Nitrite Urine Bilirubin Urine Urobilinogen Ur Leukocyte Esterase 12/02/18 16:22 WBC RBC Hgb Hct MCV MCH MCHC RDW Plt Count MPV Sodium Potassium Chloride Carbon Dioxide Anion Gap BUN Creatinine Est GFR (CKD-EPI)AfAm Est GFR (CKD-EPI)NonAf POC Glucometer 352 Random Glucose Calcium Total Bilirubin AST ALT Alkaline Phosphatase Total Protein Albumin Urine Color Urine Appearance Urine pH Ur Specific [place] Urine Protein Urine Glucose (UA) Urine Ketones Urine Blood Urine Nitrite Urine Bilirubin Urine Urobilinogen Ur Leukocyte Esterase LABS NOTED. Assessment: 12/02/18 17:00 WITHDRAWAL SYMPTOMS. HYPERGLYCEMIA. GLUCOSURIA. AZOTEMIA. HYPERTENSION. 12/02/18 17:03 Plan: CONTINUE DETOX. INCREASE DAILY PO WATER INTAKE. BMP TOMORROW AM FOR ABNORMAL ADMISSION RENAL LAB VALUES. D/C MAGNESIUM-CONTAINING MEDS. FOR ABNORMAL ADMISSION RENAL LAB VALUES. INCREASE DAILY DOSE OF NIFEDIPINE ER TO 60 MG PO DAILY FOR ELEVATED BP DESPITE PREVIOUS TREATMENT. CONTINUE TO MONITOR BLOOD PRESSURE.
[2018-12-02] MEDS ORDERED: NIFEdipine E.R. 30 MG TABLET (FP) PO ONE (17:45)
[2018-12-02] MEDS: NAPROXEN 500 MG TABLET (FP) PO PRN (21:37)
[2018-12-02] MEDS: MONTELUKAST NA 10 MG TABLET PO SCH (21:37)
[2018-12-02] MEDS: ATORVASTATIN CA 10 MG TABLET (FP) PO SCH (21:37)
[2018-12-02] MEDS: MIRTAZAPINE 15 MG TABLET (FP) PO SCH (21:37)
[2018-12-02] MEDS: THIAMINE HCL 100 MG TABLET (FP) PO SCH (21:37)
[2018-12-02] MEDS: METHYL SALICYLATE/MENTHOL OINT 30 GM TUBE TP SCH (21:38)
[2018-12-02] MEDS: MELATONIN 5 MG TABLETS PO PRN (21:38)
[2018-12-03] MEDS ORDERED: chlordiazePOXIDE HCL 10 MG CAPSULE PO PRN
[2018-12-03] MEDS: GABAPENTIN 300 MG CAPSULE (FP) PO SCH ×3 (05:42→22:06)
[2018-12-03] MEDS: chlordiazePOXIDE HCL 10 MG CAPSULE PO SCH ×4 (05:42→22:06)
[2018-12-03] MEDS: METHOCARBAMOL 500 MG TABLET PO PRN (05:44)
[2018-12-03] MEDS: INSULIN (LEVEMIR) 100 UNITS/ML UNITS SQ SCH ×2 (06:27→21:31)
[2018-12-03] MEDS: INSULIN (NOVOLOG) ASPART 100 UNITS/ML 10ML VIAL SQ SCH ×4 (06:27→21:32)
[2018-12-03] MEDS ORDERED: INSULIN SLIDING SCALE (NOVOLOG) 1 VIAL SQ ONE ×4 (06:42→21:26)
[2018-12-03] MEDS ORDERED: NIFEdipine E.R 60 MG TABLET (UD) PO SCH (10:00)
[2018-12-03] MEDS: PANTOPRAZOLE 40 MG TABLET (FP) PO SCH (10:05)
[2018-12-03] MEDS: NIFEdipine E.R 60 MG TABLET (UD) PO SCH (10:05)
[2018-12-03] MEDS: ASPIRIN 81 MG CHEWABLE TABLETS PO SCH (10:05)
[2018-12-03] MEDS: hydrALAZINE HCL 50 MG TABLET (FP) PO SCH (10:05)
[2018-12-03] MEDS: PRENATAL VITAMINS W/ FOLIC ACID TABLET (FP) PO SCH (10:05)
[2018-12-03] MEDS: BUDESONIDE/FORMETEROL FUMARATE 160/4.5 mcg INHALER IH SCH ×2 (10:05→22:06)
[2018-12-03] MEDS: cloNIDine HCL 0.1 MG TABLET PO SCH ×2 (10:06→22:06)
[2018-12-03] MEDS: METHYL SALICYLATE/MENTHOL OINT 30 GM TUBE TP SCH ×2 (10:06→22:05)
[2018-12-03 12:30] LABS: BLOOD UREA NITROGEN 17.3 mg/dL (7-18); CALCIUM 9.4 mg/dL (8.5-10.1); CREATININE 1.1 mg/dL (0.55-1.3); POTASSIUM 3.7 mmol/L (3.5-5.1)
--- NOTE | 2018-12-03 15:01 | PN ---
S CIWA - CIWA Score Nausea/Vomitin-No Nausea/No Vomiting Muscle Tremors: None Anxiety: 3 Agitation: 2 Paroxysmal Sweats: 2 Orientation: 0-Oriented Tacttile Disturbances: 2-Mild Itch/Numbness/Burn Auditory Disturbances: 0-None Visual Disturbances: 2-Mild Sensitivity Headache: 0-None Present CIWA-Ar Total Score: 11 S Progress Note (SOAP) Subjective: Anxious, Sweating, Body Aches. Objective: PATIENT A & O X 3, OBSERVED AMBULATING ON UNIT UNASSISTED. IN NO ACUTE DISTRESS. 12/03/18 14:58 Vital Signs Temperature 98.3 F 12/03/18 13:47 Pulse Rate 90 12/03/18 13:47 Respiratory Rate 18 12/03/18 13:47 Blood Pressure 149/89 12/03/18 13:47 O2 Sat by Pulse Oximetry (%) Laboratory Tests 12/01/18 12/01/18 12/01/18 05:00 07:50 07:50 WBC 6.8 RBC 5.07 Hgb 12.8 Hct 39.1 MCV 77.3 L MCH 25.4 L MCHC 32.8 RDW 16.0 H Plt Count 167 MPV 10.5 Sodium 140 Potassium 4.0 Chloride 105 Carbon Dioxide 28 Anion Gap 6 L BUN 29.8 H Creatinine 1.6 H Est GFR (CKD-EPI)AfAm 54.61 Est GFR (CKD-EPI)NonAf 47.12 POC Glucometer 338 Random Glucose 274 H Calcium 8.4 L Total Bilirubin 0.8 AST 10 L ALT 17 Alkaline Phosphatase 49 Total Protein 6.0 L Albumin 3.0 L Urine Color Urine Appearance Urine pH Ur Specific [place] Urine Protein Urine Glucose (UA) Urine Ketones Urine Blood Urine Nitrite Urine Bilirubin Urine Urobilinogen Ur Leukocyte Esterase 12/01/18 12/01/18 12/01/18 12:38 16:25 16:28 WBC RBC Hgb Hct MCV MCH MCHC RDW Plt Count MPV Sodium Potassium Chloride Carbon Dioxide Anion Gap BUN Creatinine Est GFR (CKD-EPI)AfAm Est GFR (CKD-EPI)NonAf POC Glucometer 393 354 Random Glucose Calcium Total Bilirubin AST ALT Alkaline Phosphatase Total Protein Albumin Urine Color Yellow Urine Appearance Clear Urine pH 5.0 Ur Specific [place] 1.028 Urine Protein Negative Urine Glucose (UA) 3+ H Urine Ketones Negative Urine Blood Negative Urine Nitrite Negative Urine Bilirubin Negative Urine Urobilinogen 0.2 Ur Leukocyte Esterase Negative 12/01/18 12/02/18 12/02/18 20:45 06:02 12:05 WBC RBC Hgb Hct MCV MCH MCHC RDW Plt Count MPV Sodium Potassium Chloride Carbon Dioxide Anion Gap BUN Creatinine Est GFR (CKD-EPI)AfAm Est GFR (CKD-EPI)NonAf POC Glucometer [phone] Random Glucose Calcium Total Bilirubin AST ALT Alkaline Phosphatase Total Protein Albumin Urine Color Urine Appearance Urine pH Ur Specific [place] Urine Protein Urine Glucose (UA) Urine Ketones Urine Blood Urine Nitrite Urine Bilirubin Urine Urobilinogen Ur Leukocyte Esterase 12/02/18 12/02/18 12/03/18 16:22 21:20 05:41 WBC RBC Hgb Hct MCV MCH MCHC RDW Plt Count MPV Sodium Potassium Chloride Carbon Dioxide Anion Gap BUN Creatinine Est GFR (CKD-EPI)AfAm Est GFR (CKD-EPI)NonAf POC Glucometer 352 355 269 Random Glucose Calcium Total Bilirubin AST ALT Alkaline Phosphatase Total Protein Albumin Urine Color Urine Appearance Urine pH Ur Specific [place] Urine Protein Urine Glucose (UA) Urine Ketones Urine Blood Urine Nitrite Urine Bilirubin Urine Urobilinogen Ur Leukocyte Esterase 12/03/18 12/03/18 08:35 11:32 WBC RBC Hgb Hct MCV MCH MCHC RDW Plt Count MPV Sodium 143 Potassium 3.7 Chloride 104 Carbon Dioxide 29 Anion Gap 10 BUN 17.3 Creatinine 1.1 Est GFR (CKD-EPI)AfAm 85.91 Est GFR (CKD-EPI)NonAf 74.12 POC Glucometer 368 Random Glucose 252 H Calcium 9.4 Total Bilirubin AST ALT Alkaline Phosphatase Total Protein Albumin Urine Color Urine Appearance Urine pH Ur Specific [place] Urine Protein Urine Glucose (UA) Urine Ketones Urine Blood Urine Nitrite Urine Bilirubin Urine Urobilinogen Ur Leukocyte Esterase LABS NOTED. PATIENT DENIES KNOWN HISTORY OF RENAL DISEASE. Assessment: 12/03/18 14:56 WITHDRAWAL SYMPTOMS. HYPERGLYCEMIA. GLUCOSURIA. AZOTEMIA. HYPERTENSION. Plan: CONTINUE DETOX. BMP ORDERED FOR TOMORROW AM FOR ABNORMAL RENAL LAB VALUES NOTE DON DETOX ADMISSION LABORATORY ASSESSMENT.
[2018-12-03] MEDS: THIAMINE HCL 100 MG TABLET (FP) PO SCH (22:06)
[2018-12-03] MEDS: ATORVASTATIN CA 10 MG TABLET (FP) PO SCH (22:06)
[2018-12-03] MEDS: MIRTAZAPINE 15 MG TABLET (FP) PO SCH (22:06)
[2018-12-03] MEDS: MONTELUKAST NA 10 MG TABLET PO SCH (22:06)
[2018-12-03] MEDS: NAPROXEN 500 MG TABLET (FP) PO PRN (22:07)
[2018-12-03] MEDS: MELATONIN 5 MG TABLETS PO PRN (22:08)
[2018-12-04] MEDS: GABAPENTIN 300 MG CAPSULE (FP) PO SCH ×3 (05:24→22:35)
[2018-12-04] MEDS: chlordiazePOXIDE HCL 10 MG CAPSULE PO SCH ×2 (05:24→16:55)
[2018-12-04] MEDS ORDERED: INSULIN SLIDING SCALE (NOVOLOG) 1 VIAL SQ ONE ×3 (05:27→17:13)
[2018-12-04] MEDS: INSULIN (LEVEMIR) 100 UNITS/ML UNITS SQ SCH ×2 (06:07→22:35)
[2018-12-04] MEDS: INSULIN (NOVOLOG) ASPART 100 UNITS/ML 10ML VIAL SQ SCH ×4 (06:08→23:39)
[2018-12-04] MEDS ORDERED: ARTIFICIAL TEARS (POLYVINYL ALCOHOL) OPTH DROPS OU PRN (09:16)
[2018-12-04] MEDS: ASPIRIN 81 MG CHEWABLE TABLETS PO SCH (10:10)
[2018-12-04] MEDS: PANTOPRAZOLE 40 MG TABLET (FP) PO SCH (10:10)
[2018-12-04] MEDS: cloNIDine HCL 0.1 MG TABLET PO SCH ×2 (10:10→22:35)
[2018-12-04] MEDS: PRENATAL VITAMINS W/ FOLIC ACID TABLET (FP) PO SCH (10:10)
[2018-12-04] MEDS: NIFEdipine E.R 60 MG TABLET (UD) PO SCH (10:10)
[2018-12-04] MEDS: METHYL SALICYLATE/MENTHOL OINT 30 GM TUBE TP SCH ×2 (10:11→22:36)
[2018-12-04] MEDS: BUDESONIDE/FORMETEROL FUMARATE 160/4.5 mcg INHALER IH SCH ×2 (10:11→22:36)
[2018-12-04] MEDS: METHOCARBAMOL 500 MG TABLET PO PRN (10:21)
[2018-12-04] MEDS: hydrALAZINE HCL 50 MG TABLET (FP) PO SCH (10:30)
[2018-12-04 10:52] LABS: BLOOD UREA NITROGEN 17.7 mg/dL (7-18); CALCIUM 8.9 mg/dL (8.5-10.1); CREATININE 1.3 mg/dL (0.55-1.3); POTASSIUM 3.8 mmol/L (3.5-5.1)
--- NOTE | 2018-12-04 14:25 | PN ---
S CIWA - CIWA Score Nausea/Vomitin-No Nausea/No Vomiting Muscle Tremors: None Anxiety: 1-Mildly Anxious Agitation: 2 Paroxysmal Sweats: No Perspiration Orientation: 0-Oriented Tacttile Disturbances: 0-None Auditory Disturbances: 0-None Visual Disturbances: 0-None Headache: 0-None Present CIWA-Ar Total Score: 3 BHS Progress Note (SOAP) Subjective: Patient Reports that current Withdrawal / Detox symptoms are minimal in degree and that he feels well overall at this time. Objective: PATIENT A & O X 3, OBSERVED AMBULATING ON UNIT UNASSISTED. IN NO ACUTE DISTRESS. 12/04/18 14:24 Vital Signs Temperature 96.3 F L 12/04/18 14:07 Pulse Rate 85 12/04/18 14:07 Respiratory Rate 16 12/04/18 14:07 Blood Pressure 112/70 12/04/18 14:07 O2 Sat by Pulse Oximetry (%) Laboratory Tests 12/01/18 12/01/18 12/01/18 05:00 07:50 07:50 WBC 6.8 RBC 5.07 Hgb 12.8 Hct 39.1 MCV 77.3 L MCH 25.4 L MCHC 32.8 RDW 16.0 H Plt Count 167 MPV 10.5 Sodium 140 Potassium 4.0 Chloride 105 Carbon Dioxide 28 Anion Gap 6 L BUN 29.8 H Creatinine 1.6 H Est GFR (CKD-EPI)AfAm 54.61 Est GFR (CKD-EPI)NonAf 47.12 POC Glucometer 338 Random Glucose 274 H Calcium 8.4 L Total Bilirubin 0.8 AST 10 L ALT 17 Alkaline Phosphatase 49 Total Protein 6.0 L Albumin 3.0 L Urine Color Urine Appearance Urine pH Ur Specific [place] Urine Protein Urine Glucose (UA) Urine Ketones Urine Blood Urine Nitrite Urine Bilirubin Urine Urobilinogen Ur Leukocyte Esterase 12/01/18 12/01/18 12/01/18 12:38 16:25 16:28 WBC RBC Hgb Hct MCV MCH MCHC RDW Plt Count MPV Sodium Potassium Chloride Carbon Dioxide Anion Gap BUN Creatinine Est GFR (CKD-EPI)AfAm Est GFR (CKD-EPI)NonAf POC Glucometer 393 354 Random Glucose Calcium Total Bilirubin AST ALT Alkaline Phosphatase Total Protein Albumin Urine Color Yellow Urine Appearance Clear Urine pH 5.0 Ur Specific [place] 1.028 Urine Protein Negative Urine Glucose (UA) 3+ H Urine Ketones Negative Urine Blood Negative Urine Nitrite Negative Urine Bilirubin Negative Urine Urobilinogen 0.2 Ur Leukocyte Esterase Negative 12/01/18 12/02/18 12/02/18 20:45 06:02 12:05 WBC RBC Hgb Hct MCV MCH MCHC RDW Plt Count MPV Sodium Potassium Chloride Carbon Dioxide Anion Gap BUN Creatinine Est GFR (CKD-EPI)AfAm Est GFR (CKD-EPI)NonAf POC Glucometer 374 444 384 Random Glucose Calcium Total Bilirubin AST ALT Alkaline Phosphatase Total Protein Albumin Urine Color Urine Appearance Urine pH Ur Specific [place] Urine Protein Urine Glucose (UA) Urine Ketones Urine Blood Urine Nitrite Urine Bilirubin Urine Urobilinogen Ur Leukocyte Esterase 12/02/18 12/02/18 12/03/18 16:22 21:20 05:41 WBC RBC Hgb Hct MCV MCH MCHC RDW Plt Count MPV Sodium Potassium Chloride Carbon Dioxide Anion Gap BUN Creatinine Est GFR (CKD-EPI)AfAm Est GFR (CKD-EPI)NonAf POC Glucometer 352 355 269 Random Glucose Calcium Total Bilirubin AST ALT Alkaline Phosphatase Total Protein Albumin Urine Color Urine Appearance Urine pH Ur Specific [place] Urine Protein Urine Glucose (UA) Urine Ketones Urine Blood Urine Nitrite Urine Bilirubin Urine Urobilinogen Ur Leukocyte Esterase 12/03/18 12/03/18 12/03/18 08:35 11:32 16:20 WBC RBC Hgb Hct MCV MCH MCHC RDW Plt Count MPV Sodium 143 Potassium 3.7 Chloride 104 Carbon Dioxide 29 Anion Gap 10 BUN 17.3 Creatinine 1.1 Est GFR (CKD-EPI)AfAm 85.91 Est GFR (CKD-EPI)NonAf 74.12 POC Glucometer 368 352 Random Glucose 252 H Calcium 9.4 Total Bilirubin AST ALT Alkaline Phosphatase Total Protein Albumin Urine Color Urine Appearance Urine pH Ur Specific [place] Urine Protein Urine Glucose (UA) Urine Ketones Urine Blood Urine Nitrite Urine Bilirubin Urine Urobilinogen Ur Leukocyte Esterase 12/03/18 12/04/18 12/04/18 21:17 05:25 07:00 WBC RBC Hgb Hct MCV MCH MCHC RDW Plt Count MPV Sodium 143 Potassium 3.8 Chloride 105 Carbon Dioxide 31 Anion Gap 7 L BUN 17.7 Creatinine 1.3 Est GFR (CKD-EPI)AfAm 70.20 Est GFR (CKD-EPI)NonAf 60.57 POC Glucometer 493 320 Random Glucose 258 H Calcium 8.9 Total Bilirubin AST ALT Alkaline Phosphatase Total Protein Albumin Urine Color Urine Appearance Urine pH Ur Specific [place] Urine Protein Urine Glucose (UA) Urine Ketones Urine Blood Urine Nitrite Urine Bilirubin Urine Urobilinogen Ur Leukocyte Esterase 12/04/18 10:15 WBC RBC Hgb Hct MCV MCH MCHC RDW Plt Count MPV Sodium Potassium Chloride Carbon Dioxide Anion Gap BUN Creatinine Est GFR (CKD-EPI)AfAm Est GFR (CKD-EPI)NonAf POC Glucometer 434 Random Glucose Calcium Total Bilirubin AST ALT Alkaline Phosphatase Total Protein Albumin Urine Color Urine Appearance Urine pH Ur Specific [place] Urine Protein Urine Glucose (UA) Urine Ketones Urine Blood Urine Nitrite Urine Bilirubin Urine Urobilinogen Ur Leukocyte Esterase LABS NOTED. RESULTS OF BASIC METABOLIC PANEL NOTED. RENAL LAB VALUES (BUN, CREATININE, GFR) NOW NOTED TO BE WITHIN NORMAL RANGE. 12/04/18 14:26 Assessment: 12/04/18 14:27 WITHDRAWAL SYMPTOMS. Plan: CONTINUE DETOX. INCREASE DAILY PO WATER INTAKE. PATIENT SCHEDULED FOR D/C FROM DETOX UNIT TOMORROW.
[2018-12-04] MEDS: ATORVASTATIN CA 10 MG TABLET (FP) PO SCH (22:35)
[2018-12-04] MEDS: THIAMINE HCL 100 MG TABLET (FP) PO SCH (22:35)
[2018-12-04] MEDS: MIRTAZAPINE 15 MG TABLET (FP) PO SCH (22:35)
[2018-12-04] MEDS: MONTELUKAST NA 10 MG TABLET PO SCH (22:35)
[2018-12-05] MEDS ORDERED: chlordiazePOXIDE HCL 10 MG CAPSULE PO ONE (05:00)
[2018-12-05] MEDS: GABAPENTIN 300 MG CAPSULE (FP) PO SCH (06:08)
[2018-12-05] MEDS ORDERED: INSULIN (LEVEMIR) 100 UNITS/ML UNITS SQ ONE (07:12)
[2018-12-05] MEDS ORDERED: INSULIN SLIDING SCALE (NOVOLOG) 1 VIAL SQ ONE (07:13)
[2018-12-05] MEDS: INSULIN (LEVEMIR) 100 UNITS/ML UNITS SQ SCH (07:28)
[2018-12-05] MEDS: INSULIN (NOVOLOG) ASPART 100 UNITS/ML 10ML VIAL SQ SCH (07:28)
[2018-12-05] MEDS: NIFEdipine E.R 60 MG TABLET (UD) PO SCH (09:08)
[2018-12-05] MEDS: ASPIRIN 81 MG CHEWABLE TABLETS PO SCH (09:08)
[2018-12-05] MEDS: PANTOPRAZOLE 40 MG TABLET (FP) PO SCH (09:08)
[2018-12-05] MEDS: cloNIDine HCL 0.1 MG TABLET PO SCH (09:08)
[2018-12-05] MEDS: BUDESONIDE/FORMETEROL FUMARATE 160/4.5 mcg INHALER IH SCH (09:09)
[2018-12-05] MEDS: PRENATAL VITAMINS W/ FOLIC ACID TABLET (FP) PO SCH (09:09)
[2018-12-05] MEDS: METHYL SALICYLATE/MENTHOL OINT 30 GM TUBE TP SCH (09:09)
[2018-12-05] MEDS: hydrALAZINE HCL 50 MG TABLET (FP) PO SCH (09:11)
[2018-12-05 09:21] VITALS: BP 141/89; PULSE 97; TEMP 96.8
--- NOTE | 2018-12-05 21:00 | DS ---
[facility] Detox Discharge Summary Admission Date: 11/30/18 Discharge Date: 12/05/18 - History Present History: Alcohol Dependence, Cocaine Dependence, Sedative Dependence Additional Comments: NO BEDS AVAILABLE AT [facility] ([place], [place]) AT THIS TIME. THUS, PATIENT RETURNING HOME AND TO WORK. PATIENT ADVISED TO CONSIDER LOCAL 12- STEP / NA / AA OUTPATIENT SUPPORT GROUP PROGRAMS FOR AFTERCARE. PATIENT VERBALIZED UNDERSTANDING OF RECOMMENDATION. PATIENT DECLINED OFFER OF MEDICATION PRESCRIPTION FOR HOME MEDICATION AT TIME OF DISCHARGE FROM DETOX, NOTING THAT HE CURRENTLY HAS [employer] SUPPLIES OF ALL PRESCRIBED HOME MEDICATIONS AT HOME. PATIENT WAS DISCHARGED FROM DETOX UNIT IN STABLE MEDICAL CONDITION. Pertinent Past History: HTN, Asthma, Type II DM, Depression, Hyperlipidemia, G.E.R.D., Insomnia, History Of Lower Back Pain, History Of Positive PPD. - Physical Exam Results Vital Signs: Vital Signs Temperature 96.8 F L 12/05/18 09:21 Pulse Rate 97 H 12/05/18 09:21 Respiratory Rate 18 12/05/18 09:21 Blood Pressure 141/89 12/05/18 09:21 O2 Sat by Pulse Oximetry (%) Pertinent Admission Physical Exam Findings: WITHDRAWAL SYMPTOMS. Laboratory Tests 12/01/18 12/01/18 12/01/18 05:00 07:50 07:50 WBC 6.8 RBC 5.07 Hgb 12.8 Hct 39.1 MCV 77.3 L MCH 25.4 L MCHC 32.8 RDW 16.0 H Plt Count 167 MPV 10.5 Sodium 140 Potassium 4.0 Chloride 105 Carbon Dioxide 28 Anion Gap 6 L BUN 29.8 H Creatinine 1.6 H Est GFR (CKD-EPI)AfAm 54.61 Est GFR (CKD-EPI)NonAf 47.12 POC Glucometer 338 Random Glucose 274 H Calcium 8.4 L Total Bilirubin 0.8 AST 10 L ALT 17 Alkaline Phosphatase 49 Total Protein 6.0 L Albumin 3.0 L Urine Color Urine Appearance Urine pH Ur Specific [place] Urine Protein Urine Glucose (UA) Urine Ketones Urine Blood Urine Nitrite Urine Bilirubin Urine Urobilinogen Ur Leukocyte Esterase 12/01/18 12/01/18 12/01/18 12:38 16:25 16:28 WBC RBC Hgb Hct MCV MCH MCHC RDW Plt Count MPV Sodium Potassium Chloride Carbon Dioxide Anion Gap BUN Creatinine Est GFR (CKD-EPI)AfAm Est GFR (CKD-EPI)NonAf POC Glucometer 393 354 Random Glucose Calcium Total Bilirubin AST ALT Alkaline Phosphatase Total Protein Albumin Urine Color Yellow Urine Appearance Clear Urine pH 5.0 Ur Specific [place] 1.028 Urine Protein Negative Urine Glucose (UA) 3+ H Urine Ketones Negative Urine Blood Negative Urine Nitrite Negative Urine Bilirubin Negative Urine Urobilinogen 0.2 Ur Leukocyte Esterase Negative 12/01/18 12/02/18 12/02/18 20:45 06:02 12:05 WBC RBC Hgb Hct MCV MCH MCHC RDW Plt Count MPV Sodium Potassium Chloride Carbon Dioxide Anion Gap BUN Creatinine Est GFR (CKD-EPI)AfAm Est GFR (CKD-EPI)NonAf POC Glucometer [phone] Random Glucose Calcium Total Bilirubin AST ALT Alkaline Phosphatase Total Protein Albumin Urine Color Urine Appearance Urine pH Ur Specific [place] Urine Protein Urine Glucose (UA) Urine Ketones Urine Blood Urine Nitrite Urine Bilirubin Urine Urobilinogen Ur Leukocyte Esterase 12/02/18 12/02/18 12/03/18 16:22 21:20 05:41 WBC RBC Hgb Hct MCV MCH MCHC RDW Plt Count MPV Sodium Potassium Chloride Carbon Dioxide Anion Gap BUN Creatinine Est GFR (CKD-EPI)AfAm Est GFR (CKD-EPI)NonAf POC Glucometer 352 355 269 Random Glucose Calcium Total Bilirubin AST ALT Alkaline Phosphatase Total Protein Albumin Urine Color Urine Appearance Urine pH Ur Specific [place] Urine Protein Urine Glucose (UA) Urine Ketones Urine Blood Urine Nitrite Urine Bilirubin Urine Urobilinogen Ur Leukocyte Esterase 12/03/18 12/03/18 12/03/18 08:35 11:32 16:20 WBC RBC Hgb Hct MCV MCH MCHC RDW Plt Count MPV Sodium 143 Potassium 3.7 Chloride 104 Carbon Dioxide 29 Anion Gap 10 BUN 17.3 Creatinine 1.1 Est GFR (CKD-EPI)AfAm 85.91 Est GFR (CKD-EPI)NonAf 74.12 POC Glucometer 368 352 Random Glucose 252 H Calcium 9.4 Total Bilirubin AST ALT Alkaline Phosphatase Total Protein Albumin Urine Color Urine Appearance Urine pH Ur Specific [place] Urine Protein Urine Glucose (UA) Urine Ketones Urine Blood Urine Nitrite Urine Bilirubin Urine Urobilinogen Ur Leukocyte Esterase 12/03/18 12/04/18 12/04/18 21:17 05:25 07:00 WBC RBC Hgb Hct MCV MCH MCHC RDW Plt Count MPV Sodium 143 Potassium 3.8 Chloride 105 Carbon Dioxide 31 Anion Gap 7 L BUN 17.7 Creatinine 1.3 Est GFR (CKD-EPI)AfAm 70.20 Est GFR (CKD-EPI)NonAf 60.57 POC Glucometer 493 320 Random Glucose 258 H Calcium 8.9 Total Bilirubin AST ALT Alkaline Phosphatase Total Protein Albumin Urine Color Urine Appearance Urine pH Ur Specific [place] Urine Protein Urine Glucose (UA) Urine Ketones Urine Blood Urine Nitrite Urine Bilirubin Urine Urobilinogen Ur Leukocyte Esterase 12/04/18 12/04/18 12/05/18 10:15 16:27 05:54 WBC RBC Hgb Hct MCV MCH MCHC RDW Plt Count MPV Sodium Potassium Chloride Carbon Dioxide Anion Gap BUN Creatinine Est GFR (CKD-EPI)AfAm Est GFR (CKD-EPI)NonAf POC Glucometer [phone] Random Glucose Calcium Total Bilirubin AST ALT Alkaline Phosphatase Total Protein Albumin Urine Color Urine Appearance Urine pH Ur Specific [place] Urine Protein Urine Glucose (UA) Urine Ketones Urine Blood Urine Nitrite Urine Bilirubin Urine Urobilinogen Ur Leukocyte Esterase LABS NOTED. - Treatment Hospital Course: Detox Protocol Followed, Detoxed Safely, Responded well, Discharged Condition Good Patient has Accepted a Rehab Referral to: PATIENT ADVISED TO CONSIDER LOCAL 12- STEP / NA / AA OUTPATIENT PROGRAM. - Medication Discharge Medications: Ambulatory Orders Aspirin [ASA -] 81 mg PO DAILY #30 tab.chew 10/10/14 Montelukast Na [Singulair -] 10 mg PO HS #30 tablet 10/10/14 Albuterol Sulfate [Proair Hfa] 2 puff IH Q4H PRN 10/29/17 Atorvastatin Ca [Lipitor] 10 mg PO HS 08/29/18 Esomeprazole Mag Trihydrate [Nexium] 20 mg PO DAILY 08/29/18 Insulin Aspart [Novolog] 6 unit SQ TID 08/29/18 Gabapentin 300 mg PO TID 09/11/18 Mirtazapine 30 mg PO HS 09/11/18 Nifedipine ER [Procardia XL -] 30 mg PO DAILY 09/11/18 hydrALAZINE HCL [Apresoline -] 50 mg PO DAILY 09/11/18 Budesonide/Formeterol Fumarate [SYMBICORT 160/4.5mcg -] 2 inh PO BID 10/21/18 Insulin (Levemir) [Levemir Vial] 10 units SQ BID 10/21/18 Insulin Glargine,Hum.rec.anlog [Mi Patel U-100] 10 unit SQ BID 10/21/18 Triamcinolone 0.025% Ointment [Aristocort 0.025% Ointment -] 1 applic TP BID 01/30 Methyl Salicylate/Menth/Camph [B[place] Ultra Strength Cream] 57 gm TP BID #1 tube 12/05/18 - Diagnosis (1) Alcohol dependence with uncomplicated withdrawal Status: Acute (2) Anxiolytic withdrawal without complication Status: Acute (3) Azotemia Status: Acute (4) Asthma Status: Chronic (5) Cocaine dependence, uncomplicated Status: Chronic (6) DM Diabetes mellitus type 2 Status: Chronic (7) Gastroesophageal reflux disease Status: Chronic (8) HLD (hyperlipidemia) Status: Chronic Qualifiers: Hyperlipidemia type: unspecified Qualified Code(s): E78.5 - Hyperlipidemia , unspecified (9) Insomnia Status: Chronic Qualifiers: Insomnia type: drug-induced Qualified Code(s): F19.982 - Other psychoactive substance use, unspecified with psychoactive substance-induced sleep disorder (10) Obesity Status: Chronic Qualifiers: Obesity type: unspecified obesity type Obesity classification: adult class 2 (BMI 35 - 39.9) Serious obesity comorbidity presence: unspecified whether serious comorbidity present Body mass index: BMI 38.0-38.9 Qualified Code(s) : E66.9 - Obesity, unspecified; Z68.38 - Body mass index (BMI) 38.0-38.9, adult (11) PPD positive Status: Chronic (12) Substance induced mood disorder Status: Chronic (13) Essential hypertension Status: Chronic - AMA Did Patient Leave Against Medical Advice: No BHS CIWA - CIWA Score Nausea/Vomitin-No Nausea/No Vomiting Muscle Tremors: None Anxiety: 2 Agitation: 1-Slight > Activity Paroxysmal Sweats: No Perspiration Orientation: 0-Oriented Tacttile Disturbances: 0-None Auditory Disturbances: 0-None Visual Disturbances: 0-None Headache: 0-None Present CIWA-Ar Total Score: 3
== END 2018-12-05 09:42 | disposition home or self-care (01) | DRG 774 ==
LOC: YASAS 16:02 → Y3N 23:21
PROVIDERS: ADMIT Surgery; ATTEND Surgery
PROC: HZ2ZZZZ Detoxification Services for Substance Abuse Treatment (ICD-10-PCS; principal; 2018-11-30)
DX: F10.230 Alcohol dependence with withdrawal, uncomplicated (principal); F13.230 Sedative, hypnotic or anxiolytic dependence with withdrawal, uncomplicated; F14.20 Cocaine dependence, uncomplicated; F19.282 Other psychoactive substance dependence with psychoactive substance-induced sleep disorder; F19.24 Other psychoactive substance dependence with psychoactive substance-induced mood disorder; F32.9 Major depressive disorder, single episode, unspecified; I10 Essential (primary) hypertension; E78.5 Hyperlipidemia, unspecified; E11.65 Type 2 diabetes mellitus with hyperglycemia; Z79.4 Long term (current) use of insulin; K21.9 Gastro-esophageal reflux disease without esophagitis; J45.909 Unspecified asthma, uncomplicated; M54.5 Low back pain; G89.29 Other chronic pain; R79.89 Other specified abnormal findings of blood chemistry; R81 Glycosuria; R76.11 Nonspecific reaction to tuberculin skin test without active tuberculosis
CPT/HCPCS: 36415; 80048; 80053; 81003; 82962; 85027; J0735

== ENCOUNTER 2019-01-08 09:48 | Inpatient (IN) | payer OTHER ==
[2019-01-08 10:06] VITALS: BMI 38.9
--- NOTE | 2019-01-08 11:14 | HP ---
CIWA Score Nausea/Vomitin Muscle Tremors: 1-None Visible, but [place] Anxiety: 0-No Anxiety, at Ease Agitation: 0-Normal Activity Paroxysmal Sweats: 2 Orientation: 2-Disoriented Date<2 days Tacttile Disturbances: 0-None Auditory Disturbances: 1-Very Mild Visual Disturbances: 2-Mild Sensitivity Headache: 3-Moderate CIWA-Ar Total Score: 13 - Admission Criteria OASAS Guidelines: Admission for Medically Managed Detox: Requires at least one of the followin. CIWA greater than 12 2. Seizures within the past 24 hours 3. Delirium tremens within the past 24 hours 4. Hallucinations within the past 24 hours 5. Acute intervention needed for co occurring medical disorder 6. Acute intervention needed for co occurring psychiatric disorder 7. Severe withdrawal that cannot be handled at a lower level of care (continued vomiting, continued diarrhea, abnormal vital signs) requiring intravenous medication and/or fluids 8. Admission ROS S - HPI Allergies/Adverse Reactions: Allergies Allergy/AdvReac Type Severity Reaction Status Date / Time No Known Drug Allergies Allergy Verified 01/08/19 09:59 History of Present Illness: pt here requesting rehab for etoh and benzo use , reports 2 pints vodka / day x 6 years , xanax 2 sticks /day x 3 years , denies seizure h/o , denies blackouts, , cocaine every other day , denies other illicits . Denies driving while intoxicated . tobacco : denies pmhx : DM dx 5 years ago , asthma since ( [place]/ [place] ) , HLD , HTN , has own PCP Dr. [address] PSHX : denies PSYCH : denies , denies current SI / HI meds - see list SHX : lives w/ parents , employed in [employer] . denies legal issues Exam Limitations: Clinical Condition - Ebola screening Have you traveled outside of the country in the last 21 days: No Have you had contact with anyone from an Ebola affected area: No Do you have a fever: No - Review of Systems Constitutional: Loss of Appetite Respiratory: reports: No Symptoms reported Cardiac: reports: No Symptoms Reported GI: reports: See HPI, Diarrhea : reports: No Symptoms Reported Musculoskeletal: reports: No Symptoms Reported Integumentary: reports: No Symptoms Reported Neuro: reports: Headache Psychiatric: reports: Orientated x3 Patient History - Patient Medical History Hx Anemia: No Hx Asthma: Yes Hx Chronic Obstructive Pulmonary Disease (COPD): No Hx Cancer: No Hx Cardiac Disorders: No Hx Congestive Heart Failure: No Hx Hypertension: Yes Hx Hypercholesterolemia: No Hx Pacemaker: No HX Cerebrovascular Accident: No Hx Seizures: No Hx Dementia: No Hx Diabetes: Yes Hx Gastrointestinal Disorders: No Hx Liver Disease: No Hx Genitourinary Disorders: No Hx Sexually Transmitted Disorders: No Hx Renal Disease (ESRD): No Hx Thyroid Disease: No Hx Human Immunodeficiency Virus (HIV): No Hx Hepatitis C: No Hx Depression: Yes Hx Suicide Attempt: No Hx Bipolar Disorder: No Hx Schizophrenia: No - Patient Surgical History Past Surgical History: No Hx Neurologic Surgery: No Hx Cataract Extraction: No Hx Cardiac Surgery: No Hx Lung Surgery: No Hx Breast Surgery: No Hx Breast Biopsy: No Hx Abdominal Surgery: No Hx Appendectomy: No Hx Cholecystectomy: No Hx Genitourinary Surgery: No Hx Section: No Hx Orthopedic Surgery: No Anesthesia Reaction: No - PPD History Date: 10/30/17 Results: 15 mm - Smoking Cessation Smoking history: Never smoked Have you smoked in the past 12 months: No Aproximately how many cigarettes per day: 6 If you are a former smoker, when did you quit?: july 2014 Cigars Per Day: 0 Hx Chewing Tobacco Use: No - Substances abused Alcohol Substance route: Oral Frequency: Daily Amount used: 2 Pints vodka & 6 pck beer-16oz Age of first use: 22 Date of last use: 12/30/18 Alprazolam (Xanax) Other (specify): 2mg Substance route: Oral Frequency: 3-6 times per week Amount used: 2 sticks Age of first use: 47 Date of last use: 01/08/19 Cocaine Substance route: Inhalation Frequency: 3-6 times per week Amount used: $20 Age of first use: 48 Date of last use: 01/07/19 Admission Physical Exam BHS - Vital Signs Vital Signs: Vital Signs - 24 hr 01/08/19 10:02 Temperature 97.2 F L Pulse Rate 102 H Respiratory 18 Rate Blood Pressure 164/94 - Physical General Appearance: Yes: No Apparent Distress HEENTM: Yes: EOMI, Hearing grossly Normal, Normocephalic, Normal Voice Respiratory: Yes: Chest Non-Tender, No Respiratory Distress, No Accessory Muscle Use, Wheezing (LLL) Neck: Yes: No masses,lesions,Nodules, Trachea in good position Cardiology: Yes: Regular Rhythm, Regular Rate, S1, S2, Tachycardia Abdominal: Yes: Non Tender, Soft Back: Yes: Normal Inspection Musculoskeletal: Yes: Gait Steady Extremities: Yes: Normal Range of Motion, Non-Tender 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: Yes: Fully Oriented, Alert, Motor Strength 5/5 Integumentary: Yes: Warm - Diagnostic (1) Alcohol dependence with uncomplicated withdrawal Current Visit: Yes Status: Chronic (2) Sedative, hypnotic or anxiolytic dependence with withdrawal, uncomplicated Current Visit: Yes Status: Chronic (3) Cocaine dependence Current Visit: Yes Status: Chronic Qualifiers: Substance use status: uncomplicated Qualified Code(s): F14.20 - Cocaine dependence, uncomplicated Breathalyzer - Breathalyzer Breathalyzer: 0.020 Urine Drug Screen - Test Device Lot number: [id number] Expiration date: 09/11/20 - Control Is test valid?: Yes - Results Drug screen NEGATIVE: No Urine drug screen results: KIMMIE-Cocaine, BZO-Benzodiazepines Inpatient Rehab Admission - Rehab Decision to Admit Inpatient rehab admission?: No
[2019-01-08] MEDS ORDERED: ACETAMINOPHEN 325 MG TABLET (FP) PO PRN (11:18)
[2019-01-08] MEDS ORDERED: MAG HYDROX/AL HYDROX/SIMETH 30 ML UNIT-DOSE CUP PO PRN (11:18)
[2019-01-08] MEDS ORDERED: BISMUTH SUBSALICYLATE 524 MG/30 ML UD PO PRN (11:18)
[2019-01-08] MEDS ORDERED: MAGNESIUM HYDROX 2400MG/30ML ORAL SUSPENSION 30 ML CUP PO PRN (11:18)
[2019-01-08] MEDS ORDERED: hydrOXYzine PAMOATE 25 MG CAPSULE (FP) PO PRN (11:18)
[2019-01-08] MEDS ORDERED: IBUPROFEN 400 MG TABLET (FP) PO PRN (11:18)
[2019-01-08] MEDS ORDERED: MAGNESIUM CITRATE 300 ML BOTTLE PO PRN (11:18)
[2019-01-08] MEDS ORDERED: chlordiazePOXIDE HCL 25 MG CAPSULE PO PRN (11:20)
[2019-01-08] MEDS ORDERED: ALBUTEROL SO4 0.083% IH SOL 2.5 MG/3 ML VIAL.NEB. NEB PRN (11:21)
[2019-01-08] MEDS ORDERED: ALBUTEROL SO4 8 GM HFA INHALER IH PRN (13:44)
[2019-01-08] MEDS: NIFEdipine E.R. 30 MG TABLET (FP) PO SCH (13:51)
[2019-01-08] MEDS: chlordiazePOXIDE HCL 25 MG CAPSULE PO SCH ×3 (13:51→22:29)
[2019-01-08] MEDS: PANTOPRAZOLE 20 MG TABLET (FP) PO SCH (13:51)
[2019-01-08] MEDS: ASPIRIN 81 MG CHEWABLE TABLETS PO SCH (13:51)
[2019-01-08] MEDS: hydrALAZINE HCL 50 MG TABLET (FP) PO SCH (13:54)
[2019-01-08 14:32] LABS: ALBUMIN 3.5 g/dl (3.4-5.0); BILIRUBIN,TOTAL 0.8 mg/dL (0.2-1); BLOOD UREA NITROGEN 33.6 mg/dL (7-18); CALCIUM 8.8 mg/dL (8.5-10.1); CREATININE 1.7 mg/dL (0.55-1.3); POTASSIUM 4.4 mmol/L (3.5-5.1); TOT PROT 7.2 g/dl (6.4-8.2)
[2019-01-08 14:39] LABS: HEMATOCRIT 40.7 % (35.4-49); HEMOGLOBIN 13.6 GM/dL (11.7-16.9); MCH 25.6 pg (25.7-33.7); MCHC 33.4 g/dl (32.0-35.9); MEAN CELL VOLUME 76.5 fl (80-96); PLATELET COUNT 183 K/MM3 (134-434); RBC 5.31 M/mm3 (4.00-5.60); RDW 15.8 % (11.9-15.9); WHITE BLOOD COUNT 6.8 K/mm3 (4.0-10.0)
[2019-01-08] MEDS: INSULIN SLIDING SCALE (NOVOLOG) 1 VIAL SQ SCH ×2 (16:48→21:56)
--- NOTE | 2019-01-08 16:51 | CONSULT ---
[facility] Psychiatric Consult - Data Date of interview: 01/08/19 Admission source: [facility] Identifying data: This is one of several admissions to [facility] for this 59 y/ o [place]-born male, self-referred for detoxification (alcohol, xanax, cocaine ). Seen at [address] [place] [address]. 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 Substance Abuse History: Discussed in this interview. Details in current [facility] report as follows : Smoking history: Never smoked. Have you smoked in the past 12 months: No. Aproximately how many cigarettes per day: 6. If you are a former smoker, when did you quit?: july 2014. Cigars Per Day: 0. Hx Chewing Tobacco Use: No. - Substances abused. Alcohol. Substance route: Oral. Frequency: Daily. Amount used: 2 Pints vodka & 6 pck beer-16oz. Age of first use: 22. Date of last use: 12/30/18. Alprazolam (Xanax). Other (specify): 2mg. Substance route: Oral. Frequency: 3-6 times per week. Amount used: 2 sticks. Age of first use: 47. Date of last use: 01/08/19. Cocaine. Substance route: Inhalation. Frequency: 3-6 times per week. Amount used: $20. Age of first use: 48. Date of last use: 01/07/19 Medical History: Remarkable for bronchial asthma, diabetes mellitus, hypertension, history of positive PPD and obesity. Psychiatric History: Patient denies history of psychiatric hospitalizations. Mr Freitas sees a psychiatrist at the [facility] to address MDD and insomnia. Medicated with xanax + mirtazapine. Patient denies history of suicide attempts. Physical/Sexual Abuse/Trauma History: Patient denies history of abuse. Mental Status Exam - Mental Status Exam Alert and Oriented to: Time, Place, Person Cognitive Function: Good Patient Appearance: Well Groomed (obese) Mood: Withdrawn, Anxious, Hopeful Affect: Mood Congruent Patient Behavior: Fatigued, Cooperative Speech Pattern: Clear, Appropriate Voice Loudness: Normal Thought Process: Goal Oriented Thought Disorder: Not Present Hallucinations: Denies Suicidal Ideation: Denies Homicidal Ideation: Denies Insight/Judgement: Fair Sleep: Poorly, Difficulty falling asleep Appetite: Good Muscle strength/Tone: Normal Gait/Station: Normal Psychiatric Findings - Problem List ([place] 1, 2,3) (1) Alcohol dependence with uncomplicated withdrawal Current Visit: Yes Status: Chronic (2) Cocaine dependence Current Visit: Yes Status: Chronic Qualifiers: Substance use status: uncomplicated Qualified Code(s): F14.20 - Cocaine dependence, uncomplicated (3) Nicotine dependence Current Visit: Yes Status: Chronic Qualifiers: Nicotine product type: cigarettes Substance use status: in withdrawal Qualified Code(s): F17.213 - Nicotine dependence, cigarettes, with withdrawal (4) Benzodiazepine dependence Current Visit: Yes Status: Chronic - Initial Treatment Plan Initial Treatment Plan: Psychoeducation. Sleep hygiene. Detoxification. Remeron 15 mg po hs. Side effects/benefits discussed with the patient. Vervbal consent given to MD. Ruff.
[2019-01-08] MEDS: THIAMINE HCL 100 MG TABLET (FP) PO SCH (21:51)
[2019-01-08] MEDS: BUDESONIDE/FORMETEROL FUMARATE 160/4.5 mcg INHALER IH SCH (21:51)
[2019-01-08] MEDS: MIRTAZAPINE 15 MG TABLET (FP) PO SCH (21:51)
[2019-01-08] MEDS: MONTELUKAST NA 10 MG TABLET PO SCH (21:51)
[2019-01-08] MEDS: ATORVASTATIN CA 10 MG TABLET (FP) PO SCH (21:51)
[2019-01-08] MEDS: MELATONIN 5 MG TABLETS PO PRN (21:52)
[2019-01-08] MEDS: ACETAMINOPHEN 325 MG TABLET (FP) PO PRN (21:53)
[2019-01-08] MEDS: INSULIN (LEVEMIR) 100 UNITS/ML UNITS SQ SCH (21:56)
[2019-01-09] MEDS: chlordiazePOXIDE HCL 25 MG CAPSULE PO SCH ×4 (05:28→22:00)
[2019-01-09] MEDS ORDERED: INSULIN SLIDING SCALE (NOVOLOG) 1 VIAL SQ ONE (06:20)
[2019-01-09] MEDS: INSULIN SLIDING SCALE (NOVOLOG) 1 VIAL SQ SCH ×4 (06:22→21:03)
[2019-01-09] MEDS: PANTOPRAZOLE 20 MG TABLET (FP) PO SCH (10:18)
[2019-01-09] MEDS: BUDESONIDE/FORMETEROL FUMARATE 160/4.5 mcg INHALER IH SCH ×2 (10:18→22:00)
[2019-01-09] MEDS: PRENATAL VITAMINS W/ FOLIC ACID TABLET (FP) PO SCH (10:18)
[2019-01-09] MEDS: NIFEdipine E.R. 30 MG TABLET (FP) PO SCH (10:18)
[2019-01-09] MEDS: INSULIN (LEVEMIR) 100 UNITS/ML UNITS SQ SCH ×2 (10:19→21:03)
[2019-01-09] MEDS: hydrALAZINE HCL 50 MG TABLET (FP) PO SCH (10:19)
[2019-01-09] MEDS: ASPIRIN 81 MG CHEWABLE TABLETS PO SCH (11:35)
[2019-01-09] MEDS: ACETAMINOPHEN 325 MG TABLET (FP) PO PRN (16:00)
[2019-01-09] MEDS ORDERED: NIFEdipine E.R. 30 MG TABLET (FP) PO ONE (16:17)
--- NOTE | 2019-01-09 16:18 | PN ---
[facility] CIWA - CIWA Score Nausea/Vomitin-No Nausea/No Vomiting Muscle Tremors: None Anxiety: 4-Mod. Anxious/Guarded Agitation: 3 Paroxysmal Sweats: 3 Orientation: 2-Disoriented Date<2 days Tacttile Disturbances: 1-Very Mild Itch/Numbness Auditory Disturbances: 0-None Visual Disturbances: 2-Mild Sensitivity Headache: 0-None Present CIWA-Ar Total Score: 15 BHS Progress Note (SOAP) Subjective: Anxious, Sweating, Body Aches, Light Sensitivity. Objective: PATIENT A & O X 2 (UNCERTAIN ABOUT CURRENT DAY/ DATE). PATIENT OBSERVED AMBULATING ON DETOX UNIT UNASSISTED. IN NO ACUTE DISTRESS. 01/09/19 16:19 Vital Signs Temperature 98.1 F 01/09/19 13:36 Pulse Rate 100 H 01/09/19 13:36 Respiratory Rate 18 01/09/19 13:36 Blood Pressure 166/95 01/09/19 13:36 O2 Sat by Pulse Oximetry (%) Laboratory Tests 01/08/19 01/08/19 01/08/19 12:30 12:30 12:30 WBC 6.8 RBC 5.31 Hgb 13.6 Hct 40.7 MCV 76.5 L MCH 25.6 L MCHC 33.4 RDW 15.8 Plt Count 183 MPV 10.0 Sodium 141 Potassium 4.4 Chloride 108 H Carbon Dioxide 27 Anion Gap 6 L BUN 33.6 H Creatinine 1.7 H Est GFR (CKD-EPI)AfAm 50.40 Est GFR (CKD-EPI)NonAf 43.49 POC Glucometer Random Glucose 294 H Calcium 8.8 Total Bilirubin 0.8 AST 10 L ALT 27 Alkaline Phosphatase 57 Total Protein 7.2 Albumin 3.5 RPR Titer Nonreactive 01/08/19 01/08/19 01/08/19 12:47 16:33 21:48 WBC RBC Hgb Hct MCV MCH MCHC RDW Plt Count MPV Sodium Potassium Chloride Carbon Dioxide Anion Gap BUN Creatinine Est GFR (CKD-EPI)AfAm Est GFR (CKD-EPI)NonAf POC Glucometer [phone] Random Glucose Calcium Total Bilirubin AST ALT Alkaline Phosphatase Total Protein Albumin RPR Titer 01/09/19 01/09/19 05:30 11:31 WBC RBC Hgb Hct MCV MCH MCHC RDW Plt Count MPV Sodium Potassium Chloride Carbon Dioxide Anion Gap BUN Creatinine Est GFR (CKD-EPI)AfAm Est GFR (CKD-EPI)NonAf POC Glucometer 347 343 Random Glucose Calcium Total Bilirubin AST ALT Alkaline Phosphatase Total Protein Albumin RPR Titer LABS NOTED. Assessment: 01/09/19 16:21 WITHDRAWAL SYMPTOMS. AZOTEMIA. HYPERGLYCEMIA. HYPERTENSION. Plan: CONTINUE DETOX. INCREASE DAILY DOSE OF NIFEDIPINE ER TO 60 MG PO DAILY FOR ELEVATED BP DESPITE PREVIOUS TREATMENT. D/C MAGNESIUM-CONTAINING MEDS. FOR ABNORMAL ADMISSION RENAL LAB VALUES. LIDODERM PATCH FOR LOWER BACK PAIN.
[2019-01-09] MEDS: LIDOCAINE 5% TOPICAL PATCH TP SCH (17:33)
[2019-01-09] MEDS: ATORVASTATIN CA 10 MG TABLET (FP) PO SCH (21:05)
[2019-01-09] MEDS: MONTELUKAST NA 10 MG TABLET PO SCH (21:05)
[2019-01-09] MEDS: THIAMINE HCL 100 MG TABLET (FP) PO SCH (21:05)
[2019-01-09] MEDS: MIRTAZAPINE 15 MG TABLET (FP) PO SCH (21:05)
[2019-01-09] MEDS: LIDOCAINE PATCH REMOVAL MC SCH (21:05)
[2019-01-10] MEDS: chlordiazePOXIDE HCL 25 MG CAPSULE PO SCH ×4 (05:09→22:10)
[2019-01-10] MEDS ORDERED: INSULIN SLIDING SCALE (NOVOLOG) 1 VIAL SQ ONE (06:46)
[2019-01-10] MEDS: INSULIN SLIDING SCALE (NOVOLOG) 1 VIAL SQ SCH ×4 (08:08→21:41)
[2019-01-10] MEDS: ASPIRIN 81 MG CHEWABLE TABLETS PO SCH (10:14)
[2019-01-10] MEDS: NIFEdipine E.R 60 MG TABLET (UD) PO SCH (10:15)
[2019-01-10] MEDS: PANTOPRAZOLE 20 MG TABLET (FP) PO SCH (10:15)
[2019-01-10] MEDS: hydrALAZINE HCL 50 MG TABLET (FP) PO SCH (10:15)
[2019-01-10] MEDS: PRENATAL VITAMINS W/ FOLIC ACID TABLET (FP) PO SCH (10:15)
[2019-01-10] MEDS: BUDESONIDE/FORMETEROL FUMARATE 160/4.5 mcg INHALER IH SCH ×2 (10:15→22:09)
[2019-01-10] MEDS: INSULIN (LEVEMIR) 100 UNITS/ML UNITS SQ SCH ×2 (10:17→21:41)
[2019-01-10] MEDS: METHOCARBAMOL 500 MG TABLET PO PRN (10:17)
[2019-01-10] MEDS: LIDOCAINE 5% TOPICAL PATCH TP SCH (11:27)
--- NOTE | 2019-01-10 12:02 | PN ---
[facility] CIWA - CIWA Score Nausea/Vomitin-Mild Nausea/No Vomiting Muscle Tremors: 3 Anxiety: 4-Mod. Anxious/Guarded Agitation: 2 Paroxysmal Sweats: 2 Orientation: 0-Oriented Tacttile Disturbances: 1-Very Mild Itch/Numbness Auditory Disturbances: 0-None Visual Disturbances: 0-None Headache: 0-None Present CIWA-Ar Total Score: 13 BHS Progress Note (SOAP) Subjective: doing well with librium detox regimen denies headache no dizziness tolerate food and fluid well Objective: 01/10/19 11:59 Vital Signs Temperature 98.1 F 01/10/19 09:46 Pulse Rate 103 H 01/10/19 09:46 Respiratory Rate 20 01/10/19 09:46 Blood Pressure 172/97 H 01/10/19 09:46 O2 Sat by Pulse Oximetry (%) Laboratory Last Values WBC 6.8 K/mm3 (4.0-10.0) 01/08/19 12:30 RBC 5.31 M/mm3 (4.00-5.60) 01/08/19 12:30 Hgb 13.6 GM/dL (11.7-16.9) 01/08/19 12:30 Hct 40.7 % (35.4-49) 01/08/19 12:30 MCV 76.5 fl (80-96) L 01/08/19 12:30 MCH 25.6 pg (25.7-33.7) L 01/08/19 12:30 MCHC 33.4 g/dl (32.0-35.9) 01/08/19 12:30 RDW 15.8 % (11.9-15.9) 01/08/19 12:30 Plt Count 183 K/MM3 (134-434) 01/08/19 12:30 MPV 10.0 fl (7.5-11.1) 01/08/19 12:30 Sodium 141 mmol/L (136-145) 01/08/19 12:30 Potassium 4.4 mmol/L (3.5-5.1) 01/08/19 12:30 Chloride 108 mmol/L (98-107) H 01/08/19 12:30 Carbon Dioxide 27 mmol/L (21-32) 01/08/19 12:30 Anion Gap 6 MMOL/L (8-16) L 01/08/19 12:30 BUN 33.6 mg/dL (7-18) H 01/08/19 12:30 Creatinine 1.7 mg/dL (0.55-1.3) H 01/08/19 12:30 Est GFR (CKD-EPI)AfAm 50.40 01/08/19 12:30 Est GFR (CKD-EPI)NonAf 43.49 01/08/19 12:30 POC Glucometer 405 UNITS (80-120) 01/10/19 11:57 Random Glucose 294 mg/dL (74-106) H 01/08/19 12:30 Calcium 8.8 mg/dL (8.5-10.1) 01/08/19 12:30 Total Bilirubin 0.8 mg/dL (0.2-1) 01/08/19 12:30 AST 10 U/L (15-37) L 01/08/19 12:30 ALT 27 U/L (13-61) 01/08/19 12:30 Alkaline Phosphatase 57 U/L (45-117) 01/08/19 12:30 Total Protein 7.2 g/dl (6.4-8.2) 01/08/19 12:30 Albumin 3.5 g/dl (3.4-5.0) 01/08/19 12:30 RPR Titer Nonreactive (NONREACTIVE) 01/08/19 12:30 lab noted bun elevation encourage oral fluid repeat bun bp elevation discuss with the patient regarding home medication that his is taking clonidine 0.2 mg po bid and well controlled at home add clonidine 0.2 mg po bid 01/10/19 12:01 Assessment: 01/10/19 12:02 alcohol and benzo withdrawal sx Plan: continue librium detox regmen
[2019-01-10] MEDS: cloNIDine HCL 0.1 MG TABLET PO SCH ×2 (14:03→22:10)
[2019-01-10] MEDS: ARTIFICIAL TEARS (POLYVINYL ALCOHOL) OPTH DROPS OU PRN (16:28)
[2019-01-10] MEDS: MENTHOL/PHENOL 1 EACH UD MM PRN (16:45)
[2019-01-10] MEDS: THIAMINE HCL 100 MG TABLET (FP) PO SCH (22:10)
[2019-01-10] MEDS: ATORVASTATIN CA 10 MG TABLET (FP) PO SCH (22:10)
[2019-01-10] MEDS: MONTELUKAST NA 10 MG TABLET PO SCH (22:10)
[2019-01-10] MEDS: LIDOCAINE PATCH REMOVAL MC SCH (22:10)
[2019-01-10] MEDS: MIRTAZAPINE 15 MG TABLET (FP) PO SCH (22:10)
[2019-01-10] MEDS: ACETAMINOPHEN 325 MG TABLET (FP) PO PRN (22:11)
[2019-01-11] MEDS ORDERED: chlordiazePOXIDE HCL 10 MG CAPSULE PO PRN
[2019-01-11] MEDS: chlordiazePOXIDE HCL 10 MG CAPSULE PO SCH ×4 (05:16→22:26)
[2019-01-11] MEDS ORDERED: INSULIN SLIDING SCALE (NOVOLOG) 1 VIAL SQ ONE ×2 (06:16→21:57)
[2019-01-11] MEDS: INSULIN SLIDING SCALE (NOVOLOG) 1 VIAL SQ SCH ×4 (07:13→23:15)
[2019-01-11] MEDS: INSULIN (LEVEMIR) 100 UNITS/ML UNITS SQ SCH ×2 (09:42→22:26)
[2019-01-11] MEDS: ARTIFICIAL TEARS (POLYVINYL ALCOHOL) OPTH DROPS OU PRN (10:09)
[2019-01-11] MEDS: cloNIDine HCL 0.1 MG TABLET PO SCH ×2 (10:09→22:26)
[2019-01-11] MEDS: LIDOCAINE 5% TOPICAL PATCH TP SCH (10:09)
[2019-01-11] MEDS: BUDESONIDE/FORMETEROL FUMARATE 160/4.5 mcg INHALER IH SCH ×2 (10:09→22:29)
[2019-01-11] MEDS: NIFEdipine E.R 60 MG TABLET (UD) PO SCH (10:10)
[2019-01-11] MEDS: hydrALAZINE HCL 50 MG TABLET (FP) PO SCH (10:10)
[2019-01-11] MEDS: PRENATAL VITAMINS W/ FOLIC ACID TABLET (FP) PO SCH (10:10)
[2019-01-11] MEDS: PANTOPRAZOLE 20 MG TABLET (FP) PO SCH (10:10)
[2019-01-11] MEDS: ASPIRIN 81 MG CHEWABLE TABLETS PO SCH (10:10)
--- NOTE | 2019-01-11 11:29 | PN ---
[facility] CIWA - CIWA Score Nausea/Vomitin-No Nausea/No Vomiting Muscle Tremors: 2 Anxiety: 3 Agitation: 1-Slight > Activity Paroxysmal Sweats: 2 Orientation: 0-Oriented Tacttile Disturbances: 0-None Auditory Disturbances: 1-Very Mild Visual Disturbances: 0-None Headache: 1-Very Mild CIWA-Ar Total Score: 10 S Progress Note (SOAP) Subjective: DOING WELL WITH librium detox regimen c/o dry eye chart review artificial tear prn not administered modify to routine standing frequency Objective: 01/11/19 11:29 Vital Signs Temperature 97.4 F L 01/11/19 09:01 Pulse Rate 82 01/11/19 09:01 Respiratory Rate 18 01/11/19 09:01 Blood Pressure 139/83 01/11/19 09:01 O2 Sat by Pulse Oximetry (%) Laboratory Last Values WBC 6.8 K/mm3 (4.0-10.0) 01/08/19 12:30 RBC 5.31 M/mm3 (4.00-5.60) 01/08/19 12:30 Hgb 13.6 GM/dL (11.7-16.9) 01/08/19 12:30 Hct 40.7 % (35.4-49) 01/08/19 12:30 MCV 76.5 fl (80-96) L 01/08/19 12:30 MCH 25.6 pg (25.7-33.7) L 01/08/19 12:30 MCHC 33.4 g/dl (32.0-35.9) 01/08/19 12:30 RDW 15.8 % (11.9-15.9) 01/08/19 12:30 Plt Count 183 K/MM3 (134-434) 01/08/19 12:30 MPV 10.0 fl (7.5-11.1) 01/08/19 12:30 Sodium 141 mmol/L (136-145) 01/08/19 12:30 Potassium 4.4 mmol/L (3.5-5.1) 01/08/19 12:30 Chloride 108 mmol/L (98-107) H 01/08/19 12:30 Carbon Dioxide 27 mmol/L (21-32) 01/08/19 12:30 Anion Gap 6 MMOL/L (8-16) L 01/08/19 12:30 BUN 33.6 mg/dL (7-18) H 01/08/19 12:30 Creatinine 1.7 mg/dL (0.55-1.3) H 01/08/19 12:30 Est GFR (CKD-EPI)AfAm 50.40 01/08/19 12:30 Est GFR (CKD-EPI)NonAf 43.49 01/08/19 12:30 POC Glucometer 323 UNITS (80-120) 01/11/19 11:26 Random Glucose 294 mg/dL (74-106) H 01/08/19 12:30 Calcium 8.8 mg/dL (8.5-10.1) 01/08/19 12:30 Total Bilirubin 0.8 mg/dL (0.2-1) 01/08/19 12:30 AST 10 U/L (15-37) L 01/08/19 12:30 ALT 27 U/L (13-61) 01/08/19 12:30 Alkaline Phosphatase 57 U/L (45-117) 01/08/19 12:30 Total Protein 7.2 g/dl (6.4-8.2) 01/08/19 12:30 Albumin 3.5 g/dl (3.4-5.0) 01/08/19 12:30 RPR Titer Nonreactive (NONREACTIVE) 01/08/19 12:30 lab noted bun elevation 01/11/19 11:30 repeat bun pending Assessment: 01/11/19 11:30 alcohol and benzo withdrawal sx Plan: continue librium detox regimen
[2019-01-11] MEDS: ARTIFICIAL TEARS (POLYVINYL ALCOHOL) OPTH DROPS OU SCH ×3 (11:54→23:16)
[2019-01-11] MEDS: LIDOCAINE PATCH REMOVAL MC SCH (22:24)
[2019-01-11] MEDS: MONTELUKAST NA 10 MG TABLET PO SCH (22:26)
[2019-01-11] MEDS: MIRTAZAPINE 15 MG TABLET (FP) PO SCH (22:26)
[2019-01-11] MEDS: THIAMINE HCL 100 MG TABLET (FP) PO SCH (22:27)
[2019-01-11] MEDS: ATORVASTATIN CA 10 MG TABLET (FP) PO SCH (22:27)
[2019-01-11] MEDS: MENTHOL/PHENOL 1 EACH UD MM PRN (22:32)
[2019-01-12] MEDS: chlordiazePOXIDE HCL 10 MG CAPSULE PO SCH ×2 (05:32→16:52)
[2019-01-12] MEDS: ARTIFICIAL TEARS (POLYVINYL ALCOHOL) OPTH DROPS OU SCH ×3 (07:00→17:00)
[2019-01-12] MEDS: INSULIN SLIDING SCALE (NOVOLOG) 1 VIAL SQ SCH ×4 (07:01→21:47)
[2019-01-12] MEDS: LIDOCAINE 5% TOPICAL PATCH TP SCH (09:34)
[2019-01-12] MEDS: hydrALAZINE HCL 50 MG TABLET (FP) PO SCH (09:36)
[2019-01-12] MEDS: NIFEdipine E.R 60 MG TABLET (UD) PO SCH (09:36)
[2019-01-12] MEDS: cloNIDine HCL 0.1 MG TABLET PO SCH ×2 (09:36→21:46)
[2019-01-12] MEDS: ASPIRIN 81 MG CHEWABLE TABLETS PO SCH (09:36)
[2019-01-12] MEDS: BUDESONIDE/FORMETEROL FUMARATE 160/4.5 mcg INHALER IH SCH ×2 (09:36→21:46)
[2019-01-12] MEDS: PRENATAL VITAMINS W/ FOLIC ACID TABLET (FP) PO SCH (09:36)
[2019-01-12] MEDS: PANTOPRAZOLE 20 MG TABLET (FP) PO SCH (09:37)
[2019-01-12] MEDS: INSULIN (LEVEMIR) 100 UNITS/ML UNITS SQ SCH ×2 (09:37→21:48)
--- NOTE | 2019-01-12 15:17 | PN ---
[facility] CIWA - CIWA Score Nausea/Vomitin-No Nausea/No Vomiting Muscle Tremors: None Anxiety: 5 Agitation: 3 Paroxysmal Sweats: 2 Orientation: 0-Oriented Tacttile Disturbances: 0-None Auditory Disturbances: 0-None Visual Disturbances: 0-None Headache: 0-None Present CIWA-Ar Total Score: 10 S Progress Note (SOAP) Subjective: Anxious, Restless, Sweating. Objective: PATIENT A & O X 3, OBSERVED AMBULATING ON DETOX UNIT UNASSISTED. IN NO ACUTE DISTRESS. 01/12/19 15:13 Vital Signs Temperature 98.8 F 01/12/19 09:31 Pulse Rate 109 H 01/12/19 09:31 Respiratory Rate 18 01/12/19 09:31 Blood Pressure 143/90 01/12/19 09:31 O2 Sat by Pulse Oximetry (%) Laboratory Tests 01/08/19 01/08/19 01/08/19 12:30 12:30 12:30 WBC 6.8 RBC 5.31 Hgb 13.6 Hct 40.7 MCV 76.5 L MCH 25.6 L MCHC 33.4 RDW 15.8 Plt Count 183 MPV 10.0 Sodium 141 Potassium 4.4 Chloride 108 H Carbon Dioxide 27 Anion Gap 6 L BUN 33.6 H Creatinine 1.7 H Est GFR (CKD-EPI)AfAm 50.40 Est GFR (CKD-EPI)NonAf 43.49 POC Glucometer Random Glucose 294 H Calcium 8.8 Total Bilirubin 0.8 AST 10 L ALT 27 Alkaline Phosphatase 57 Total Protein 7.2 Albumin 3.5 RPR Titer Nonreactive 01/08/19 01/08/19 01/08/19 12:47 16:33 21:48 WBC RBC Hgb Hct MCV MCH MCHC RDW Plt Count MPV Sodium Potassium Chloride Carbon Dioxide Anion Gap BUN Creatinine Est GFR (CKD-EPI)AfAm Est GFR (CKD-EPI)NonAf POC Glucometer 329 457 242 Random Glucose Calcium Total Bilirubin AST ALT Alkaline Phosphatase Total Protein Albumin RPR Titer 01/09/19 01/09/19 01/09/19 05:30 11:31 16:22 WBC RBC Hgb Hct MCV MCH MCHC RDW Plt Count MPV Sodium Potassium Chloride Carbon Dioxide Anion Gap BUN Creatinine Est GFR (CKD-EPI)AfAm Est GFR (CKD-EPI)NonAf POC Glucometer 347 343 292 Random Glucose Calcium Total Bilirubin AST ALT Alkaline Phosphatase Total Protein Albumin RPR Titer 01/09/19 01/10/19 01/10/19 20:47 05:08 11:57 WBC RBC Hgb Hct MCV MCH MCHC RDW Plt Count MPV Sodium Potassium Chloride Carbon Dioxide Anion Gap BUN Creatinine Est GFR (CKD-EPI)AfAm Est GFR (CKD-EPI)NonAf POC Glucometer 302 247 405 Random Glucose Calcium Total Bilirubin AST ALT Alkaline Phosphatase Total Protein Albumin RPR Titer 01/10/19 01/10/19 01/11/19 16:30 20:17 05:18 WBC RBC Hgb Hct MCV MCH MCHC RDW Plt Count MPV Sodium Potassium Chloride Carbon Dioxide Anion Gap BUN Creatinine Est GFR (CKD-EPI)AfAm Est GFR (CKD-EPI)NonAf POC Glucometer 289 451 303 Random Glucose Calcium Total Bilirubin AST ALT Alkaline Phosphatase Total Protein Albumin RPR Titer 01/11/19 01/11/19 01/11/19 11:26 16:56 21:43 WBC RBC Hgb Hct MCV MCH MCHC RDW Plt Count MPV Sodium Potassium Chloride Carbon Dioxide Anion Gap BUN Creatinine Est GFR (CKD-EPI)AfAm Est GFR (CKD-EPI)NonAf POC Glucometer 323 383 426 Random Glucose Calcium Total Bilirubin AST ALT Alkaline Phosphatase Total Protein Albumin RPR Titer 01/12/19 01/12/19 01/12/19 05:30 09:10 11:31 WBC RBC Hgb Hct MCV MCH MCHC RDW Plt Count MPV Sodium Potassium Chloride Carbon Dioxide Anion Gap BUN 21.5 H Creatinine Est GFR (CKD-EPI)AfAm Est GFR (CKD-EPI)NonAf POC Glucometer 329 397 Random Glucose Calcium Total Bilirubin AST ALT Alkaline Phosphatase Total Protein Albumin RPR Titer LABS NOTED. RESULT OF REPEAT BUN (21.5) NOTED. SIGNIFICANT REDUCTION NOTED IN COMPARISON TO DETOX ADMISSION BUN LEVEL. PATIENT REPORTS HISTORY OF RENAL DISORDER; HOWEVER, PATIENT UNCERTAIN ABOUT SPECIFIC TYPE OF RENAL DISORDER. 01/12/19 15:14 Assessment: 01/12/19 15:14 WITHDRAWAL SYMPTOMS. AZOTEMIA. HYPERGLYCEMIA. 01/12/19 15:16 Plan: CONTINUE DETOX. INCREASE DAILY PO WATER INTAKE. PATIENT SCHEDULED FOR D/C FROM DETOX UNIT TOMORROW.
[2019-01-12] MEDS: THIAMINE HCL 100 MG TABLET (FP) PO SCH (21:45)
[2019-01-12] MEDS: MONTELUKAST NA 10 MG TABLET PO SCH (21:46)
[2019-01-12] MEDS: MIRTAZAPINE 15 MG TABLET (FP) PO SCH (21:46)
[2019-01-12] MEDS: ATORVASTATIN CA 10 MG TABLET (FP) PO SCH (21:46)
[2019-01-12] MEDS: LIDOCAINE PATCH REMOVAL MC SCH (21:47)
[2019-01-12] MEDS: MELATONIN 5 MG TABLETS PO PRN (21:49)
[2019-01-12] MEDS: METHOCARBAMOL 500 MG TABLET PO PRN (21:50)
[2019-01-13] MEDS: ARTIFICIAL TEARS (POLYVINYL ALCOHOL) OPTH DROPS OU SCH ×2 (00:44→06:12)
[2019-01-13] MEDS ORDERED: chlordiazePOXIDE HCL 10 MG CAPSULE PO ONE (05:00)
[2019-01-13] MEDS: INSULIN SLIDING SCALE (NOVOLOG) 1 VIAL SQ SCH (06:21)
[2019-01-13] MEDS ORDERED: INSULIN SLIDING SCALE (NOVOLOG) 1 VIAL SQ ONE (06:22)
[2019-01-13 06:40] VITALS: BP 132/86; PULSE 73; TEMP 97.5
--- NOTE | 2019-01-13 21:26 | DS ---
[facility] Detox Discharge Summary Admission Date: 01/08/19 Discharge Date: 01/13/19 - History Present History: Alcohol Dependence, Cocaine Dependence, Sedative Dependence Additional Comments: PATIENT RETURNING HOME AND TO WORK. PATIENT ADVISED TO CONSIDER LOCAL 12-STEP / AA OUTPATIENT SUPPORT GROUP PROGRAM FOR AFTERCARE. PATIENT VERBALIZED UNDERSTANDING OF RECOMMENDATION. PATIENT WILL ALSO CONSIDER POSSIBLE REHAB ADMISSION FOR FUTURE. PATIENT ALSO ADVISED TO FOLLOW-UP WITH [employer] OPERATOR (DR. CARRANZA, [place], [place]) AFTER DISCHARGE FROM DETOX FOR GENERAL MEDICAL ASSESSMENT AND FOR ABNORMAL RENAL LAB VALUES NOTED ON DETOX ADMISSION AND REPEAT LABORATORY ASSESSMENTS. PATIENT VERBALIZED UNDERSTANDING OF RECOMMENDATION. COPIES OF RESULTS OF ALL LABS DRAWN WHILE ADMITTED FOR DETOX GIVEN TO PATIENT AT TIME OF DISCHARGE FROM DETOX UNIT. PATIENT DECLINED OFFER OF MEDICATION PRESCRIPTION FOR HOME MEDICATION AT TIME OF DISCHARGE FROM DETOX, NOTING THAT HE CURRENTLY HAS ADEQUATE SUPPLIES OF ALL PRESCRIBED HOME MEDICATIONS AT HOME. PATIENT WAS DISCHARGED FROM DETOX UNIT IN STABLE MEDICAL CONDITION. Pertinent Past History: Asthma, HTN, Hyperlipidemia, Type II DM, Depression, Azotemia. - Physical Exam Results Vital Signs: Vital Signs Temperature 97.5 F L 01/13/19 06:40 Pulse Rate 73 01/13/19 06:40 Respiratory Rate 18 01/13/19 06:40 Blood Pressure 132/86 01/13/19 06:40 O2 Sat by Pulse Oximetry (%) Pertinent Admission Physical Exam Findings: WITHDRAWAL SYMPTOMS. Laboratory Tests 01/08/19 01/08/19 01/08/19 12:30 12:30 12:30 WBC 6.8 RBC 5.31 Hgb 13.6 Hct 40.7 MCV 76.5 L MCH 25.6 L MCHC 33.4 RDW 15.8 Plt Count 183 MPV 10.0 Sodium 141 Potassium 4.4 Chloride 108 H Carbon Dioxide 27 Anion Gap 6 L BUN 33.6 H Creatinine 1.7 H Est GFR (CKD-EPI)AfAm 50.40 Est GFR (CKD-EPI)NonAf 43.49 POC Glucometer Random Glucose 294 H Calcium 8.8 Total Bilirubin 0.8 AST 10 L ALT 27 Alkaline Phosphatase 57 Total Protein 7.2 Albumin 3.5 RPR Titer Nonreactive 01/08/19 01/08/19 01/08/19 12:47 16:33 21:48 WBC RBC Hgb Hct MCV MCH MCHC RDW Plt Count MPV Sodium Potassium Chloride Carbon Dioxide Anion Gap BUN Creatinine Est GFR (CKD-EPI)AfAm Est GFR (CKD-EPI)NonAf POC Glucometer [phone] Random Glucose Calcium Total Bilirubin AST ALT Alkaline Phosphatase Total Protein Albumin RPR Titer 01/09/19 01/09/19 01/09/19 05:30 11:31 16:22 WBC RBC Hgb Hct MCV MCH MCHC RDW Plt Count MPV Sodium Potassium Chloride Carbon Dioxide Anion Gap BUN Creatinine Est GFR (CKD-EPI)AfAm Est GFR (CKD-EPI)NonAf POC Glucometer [phone] Random Glucose Calcium Total Bilirubin AST ALT Alkaline Phosphatase Total Protein Albumin RPR Titer 01/09/19 01/10/19 01/10/19 20:47 05:08 11:57 WBC RBC Hgb Hct MCV MCH MCHC RDW Plt Count MPV Sodium Potassium Chloride Carbon Dioxide Anion Gap BUN Creatinine Est GFR (CKD-EPI)AfAm Est GFR (CKD-EPI)NonAf POC Glucometer [phone] Random Glucose Calcium Total Bilirubin AST ALT Alkaline Phosphatase Total Protein Albumin RPR Titer 01/10/19 01/10/19 01/11/19 16:30 20:17 05:18 WBC RBC Hgb Hct MCV MCH MCHC RDW Plt Count MPV Sodium Potassium Chloride Carbon Dioxide Anion Gap BUN Creatinine Est GFR (CKD-EPI)AfAm Est GFR (CKD-EPI)NonAf POC Glucometer [phone] Random Glucose Calcium Total Bilirubin AST ALT Alkaline Phosphatase Total Protein Albumin RPR Titer 01/11/19 01/11/19 01/11/19 11:26 16:56 21:43 WBC RBC Hgb Hct MCV MCH MCHC RDW Plt Count MPV Sodium Potassium Chloride Carbon Dioxide Anion Gap BUN Creatinine Est GFR (CKD-EPI)AfAm Est GFR (CKD-EPI)NonAf POC Glucometer [phone] Random Glucose Calcium Total Bilirubin AST ALT Alkaline Phosphatase Total Protein Albumin RPR Titer 01/12/19 01/12/19 01/12/19 05:30 09:10 11:31 WBC RBC Hgb Hct MCV MCH MCHC RDW Plt Count MPV Sodium Potassium Chloride Carbon Dioxide Anion Gap BUN 21.5 H Creatinine Est GFR (CKD-EPI)AfAm Est GFR (CKD-EPI)NonAf POC Glucometer 329 397 Random Glucose Calcium Total Bilirubin AST ALT Alkaline Phosphatase Total Protein Albumin RPR Titer 01/12/19 01/12/19 01/13/19 16:14 21:36 05:17 WBC RBC Hgb Hct MCV MCH MCHC RDW Plt Count MPV Sodium Potassium Chloride Carbon Dioxide Anion Gap BUN Creatinine Est GFR (CKD-EPI)AfAm Est GFR (CKD-EPI)NonAf POC Glucometer [phone] Random Glucose Calcium Total Bilirubin AST ALT Alkaline Phosphatase Total Protein Albumin RPR Titer LABS NOTED. - Treatment Hospital Course: Detox Protocol Followed, Detoxed Safely, Responded well, Discharged Condition Good Patient has Accepted a Rehab Referral to: PATIENT WILL CONSIDER FOR FUTURE DATE. - Medication Discharge Medications: Ambulatory Orders Aspirin [ASA -] 81 mg PO DAILY #30 tab.chew 10/10/14 Montelukast Na [Singulair -] 10 mg PO HS #30 tablet 10/10/14 Albuterol Sulfate [Proair Hfa] 2 puff IH Q4H PRN 10/29/17 Atorvastatin Ca [Lipitor] 10 mg PO HS 08/29/18 Esomeprazole Mag Trihydrate [Nexium] 20 mg PO DAILY 08/29/18 Insulin Aspart [Novolog] 0 unit SQ TID 08/29/18 Gabapentin 300 mg PO TID 09/11/18 Mirtazapine 30 mg PO HS 09/11/18 Nifedipine ER [Procardia XL -] 30 mg PO DAILY 09/11/18 hydrALAZINE HCL [Apresoline -] 50 mg PO DAILY 09/11/18 Budesonide/Formeterol Fumarate [SYMBICORT 160/4.5mcg -] 2 inh PO BID 10/21/18 Insulin Glargine,Hum.rec.anlog [Basaglar Kwikpen U-100] 10 unit SQ BID 10/21/18 Triamcinolone 0.025% Ointment [Aristocort 0.025% Ointment -] 1 applic TP BID 01/30 Methyl Salicylate/Menth/Camph [Bengay Ultra Strength Cream] 57 gm TP BID #1 tube 12/05/18 - Diagnosis (1) Azotemia Status: Acute (2) Cocaine dependence, uncomplicated Status: Chronic (3) Alcohol dependence with uncomplicated withdrawal Status: Chronic (4) Sedative, hypnotic or anxiolytic dependence with withdrawal, uncomplicated Status: Chronic - AMA Did Patient Leave Against Medical Advice: No BHS CIWA - CIWA Score Nausea/Vomitin-No Nausea/No Vomiting Muscle Tremors: None Anxiety: 3 Agitation: 1-Slight > Activity Paroxysmal Sweats: No Perspiration Orientation: 0-Oriented Tacttile Disturbances: 0-None Auditory Disturbances: 0-None Visual Disturbances: 0-None Headache: 0-None Present CIWA-Ar Total Score: 4
== END 2019-01-13 09:02 | disposition home or self-care (01) | DRG 774 ==
LOC: YASAS 09:48 → Y3N 12:16
PROVIDERS: ADMIT Surgery; ATTEND Surgery
PROC: HZ2ZZZZ Detoxification Services for Substance Abuse Treatment (ICD-10-PCS; principal; 2019-01-08)
DX: F10.230 Alcohol dependence with withdrawal, uncomplicated (principal); F13.230 Sedative, hypnotic or anxiolytic dependence with withdrawal, uncomplicated; F14.20 Cocaine dependence, uncomplicated; F17.213 Nicotine dependence, cigarettes, with withdrawal; I10 Essential (primary) hypertension; R79.89 Other specified abnormal findings of blood chemistry; R00.0 Tachycardia, unspecified; R76.11 Nonspecific reaction to tuberculin skin test without active tuberculosis; E11.65 Type 2 diabetes mellitus with hyperglycemia; J45.909 Unspecified asthma, uncomplicated; E66.9 Obesity, unspecified; Z68.38 Body mass index [BMI] 38.0-38.9, adult; Z79.4 Long term (current) use of insulin
CPT/HCPCS: 36415; 80053; 82962; 84520; 85027; 86593; 94640; J0735

== ENCOUNTER 2019-03-04 09:27 | Inpatient (IN) | payer OTHER ==
[2019-03-04 10:01] VITALS: BMI 38.2
--- NOTE | 2019-03-04 10:35 | HP ---
"CIWA Score Nausea/Vomitin-Mild Nausea/No Vomiting Muscle Tremors: None Anxiety: 1-Mildly Anxious Agitation: 0-Normal Activity Paroxysmal Sweats: 2 Orientation: 1-Uncertain about Date Tacttile Disturbances: 0-None Auditory Disturbances: 0-None Visual Disturbances: 2-Mild Sensitivity Headache: 4-Moderately Severe CIWA-Ar Total Score: 11 - Admission Criteria OASAS Guidelines: Admission for Medically Managed Detox: Requires at least one of the followin. CIWA greater than 12 2. Seizures within the past 24 hours 3. Delirium tremens within the past 24 hours 4. Hallucinations within the past 24 hours 5. Acute intervention needed for co occurring medical disorder 6. Acute intervention needed for co occurring psychiatric disorder 7. Severe withdrawal that cannot be handled at a lower level of care (continued vomiting, continued diarrhea, abnormal vital signs) requiring intravenous medication and/or fluids 8. Admitting History and Physical - Smoking History Smoking history: Never smoked Have you smoked in the past 12 months: No Aproximately how many cigarettes per day: 6 If you are a former smoker, when did you quit?: july 2014 - Alcohol/Substance Use Hx Alcohol Use: Yes Admission ROS [facility] Allergies/Adverse Reactions: Allergies Allergy/AdvReac Type Severity Reaction Status Date / Time No Known Drug Allergies Allergy Verified 03/04/19 09:39 History of Present Illness: This report was requested by: Noemi Goldman | Reference #: [id number] Others' Prescriptions Patient Name: Jaren Freitas Date: 1960 Address: [address] [place] [address] Sex: Male Rx Written Rx Dispensed Drug Quantity Days Supply Prescriber Name 02/03/2019 03/01/2019 zolpidem tartrate 10 mg tablet 30 30 Waldo Jo MD Patient Name: Jaren Freitas Date: 1960 Address: [address] [place] [address] Sex: Male Rx Written Rx Dispensed Drug Quantity Days Supply Prescriber Name 12/11/2018 12/11/2018 zolpidem tartrate 10 mg tablet 30 30 Eulalio Posadas Patient Name: Jaren Freitas Date: 1960 Address: [address] [place] [address] Sex: Male Rx Written Rx Dispensed Drug Quantity Days Supply Prescriber Name 11/02/2018 11/02/2018 zolpidem tartrate 10 mg tablet 30 30 Eulalio Posadas Trae 09/25/2018 09/25/2018 zolpidem tartrate 10 mg tablet 30 30 Waldo Jo MD pt here requesting detox from etoh , xanax use , reports 2 pints vodka/day and 1 x 6-pk /beer x 3 months ,latest use today 1 hr ago . xanax 2 sticks /day x 3 years , denies seizure h/o , denies blackouts, , cocaine every other day , denies other illicits . tobacco : denies pmhx : DM dx 5 years ago , asthma since ( NH/ [place] ) , HLD , HTN .reports non- compliance w/ meds PSHX : denies PSYCH : denies , denies current SI / HI Exam Limitations: Clinical Condition - Ebola screening Have you traveled outside of the country in the last 21 days: No Have you had contact with anyone from an Ebola affected area: No Do you have a fever: No - Review of Systems Constitutional: Loss of Appetite EENT: reports: No Symptoms Reported Respiratory: reports: See HPI, Cough (pt states saw PCP 1 week ago , given antibiotics, completed course) Cardiac: reports: No Symptoms Reported GI: reports: Diarrhea, Nausea : reports: No Symptoms Reported Musculoskeletal: reports: No Symptoms Reported Neuro: reports: See HPI, Headache Endocrine: reports: See HPI Psychiatric: reports: Orientated x3 Patient History - Patient Medical History Hx Anemia: No Hx Asthma: Yes Hx Chronic Obstructive Pulmonary Disease (COPD): No Hx Cancer: No Hx Cardiac Disorders: No Hx Congestive Heart Failure: No Hx Hypertension: Yes Hx Hypercholesterolemia: No Hx Pacemaker: No HX Cerebrovascular Accident: No Hx Seizures: No Hx Dementia: No Hx Diabetes: Yes Hx Gastrointestinal Disorders: No Hx Liver Disease: No Hx Genitourinary Disorders: No Hx Sexually Transmitted Disorders: No Hx Renal Disease (ESRD): No Hx Thyroid Disease: No Hx Human Immunodeficiency Virus (HIV): No Hx Hepatitis C: No Hx Depression: Yes Hx Suicide Attempt: No Hx Bipolar Disorder: No Hx Schizophrenia: No - Patient Surgical History Past Surgical History: No Hx Neurologic Surgery: No Hx Cataract Extraction: No Hx Cardiac Surgery: No Hx Lung Surgery: No Hx Breast Surgery: No Hx Breast Biopsy: No Hx Abdominal Surgery: No Hx Appendectomy: No Hx Cholecystectomy: No Hx Genitourinary Surgery: No Hx Section: No Hx Orthopedic Surgery: No Anesthesia Reaction: No - PPD History Date: 10/30/17 Results: 15 mm - Smoking Cessation Smoking history: Never smoked Have you smoked in the past 12 months: No Aproximately how many cigarettes per day: 6 If you are a former smoker, when did you quit?: july 2014 Cigars Per Day: 0 Hx Chewing Tobacco Use: No - Substances abused Alcohol Substance route: Oral Frequency: Daily Amount used: 2 Pints vodka & 6 pck beer-16oz Age of first use: 22 Date of last use: 03/04/19 Alprazolam (Xanax) Other (specify): 2mg Substance route: Oral Frequency: 3-6 times per week Amount used: 2 sticks Age of first use: 47 Date of last use: 03/04/19 Cocaine Substance route: Inhalation Frequency: 1-2 times per week Amount used: $20 Age of first use: 48 Date of last use: 03/03/19 Admission Physical Exam BHS - Vital Signs Vital Signs: Vital Signs - 24 hr 03/04/19 09:30 Temperature 97 F L Pulse Rate 67 Respiratory 16 Rate Blood Pressure 179/109 H - Physical General Appearance: Yes: Mild Distress, Intoxicated HEENTM: Yes: EOMI, Hearing grossly Normal, Normocephalic, Normal Voice Respiratory: Yes: Chest Non-Tender, Lungs Clear, Normal Breath Sounds, No Respiratory Distress, No Accessory Muscle Use Neck: Yes: No masses,lesions,Nodules, Trachea in good position Cardiology: Yes: Regular Rhythm, Regular Rate, S1, S2 Abdominal: Yes: Non Tender, Soft, Protuberent Back: Yes: Normal Inspection Musculoskeletal: Yes: Gait Steady Extremities: Yes: Non-Tender 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: Yes: Alert, Motor Strength 5/5 Integumentary: Yes: Warm - Diagnostic (1) Alcohol dependence, continuous Current Visit: Yes Status: Chronic (2) Cocaine dependence Current Visit: Yes Status: Chronic Qualifiers: Substance use status: uncomplicated Qualified Code(s): F14.20 - Cocaine dependence, uncomplicated (3) Sedative, hypnotic or anxiolytic dependence with withdrawal, uncomplicated Current Visit: Yes Status: Chronic Breathalyzer - Breathalyzer Breathalyzer: 0.045 Urine Drug Screen - Test Device Lot number: [id number] Expiration date: 11/11/20 - Control Is test valid?: Yes - Results Drug screen NEGATIVE: No Urine drug screen results: KIMMIE-Cocaine, BZO-Benzodiazepines Inpatient Rehab Admission - Rehab Decision to Admit Inpatient rehab admission?: No"
[2019-03-04] MEDS ORDERED: ALBUTEROL SO4 8 GM HFA INHALER IH PRN (11:01)
[2019-03-04] MEDS ORDERED: IBUPROFEN 400 MG TABLET (FP) PO PRN (11:08)
[2019-03-04] MEDS ORDERED: P-EPHED 60MG/TRIPROLIDI 2.5MG TABLET PO PRN (11:08)
[2019-03-04] MEDS ORDERED: ACETAMINOPHEN 325 MG TABLET (FP) PO PRN (11:08)
[2019-03-04] MEDS ORDERED: MELATONIN 5 MG TABLETS PO PRN (11:08)
[2019-03-04] MEDS ORDERED: hydrOXYzine PAMOATE 25 MG CAPSULE (FP) PO PRN (11:08)
[2019-03-04] MEDS ORDERED: MAG HYDROX/AL HYDROX/SIMETH 30 ML UNIT-DOSE CUP PO PRN (11:08)
[2019-03-04] MEDS ORDERED: MAGNESIUM CITRATE 300 ML BOTTLE PO PRN (11:08)
[2019-03-04] MEDS ORDERED: MENTHOL/PHENOL 1 EACH UD MM PRN (11:08)
[2019-03-04] MEDS ORDERED: BISMUTH SUBSALICYLATE 262 MG/15 ML BTL PO PRN (11:08)
[2019-03-04] MEDS ORDERED: guaiFENesin 200 MG/10 ML 10 ML UNIT-DOSE CUPS PO PRN (11:08)
[2019-03-04] MEDS ORDERED: MAGNESIUM HYDROX 2400MG/30ML ORAL SUSPENSION 30 ML CUP PO PRN (11:08)
[2019-03-04] MEDS: ASPIRIN 81 MG CHEWABLE TABLETS PO SCH (12:28)
[2019-03-04] MEDS: diazePAM 5 MG TABLET PO PRN ×2 (12:28→17:02)
[2019-03-04] MEDS: NIFEdipine E.R. 30 MG TABLET (FP) PO SCH (12:29)
[2019-03-04] MEDS: cloNIDine HCL 0.1 MG TABLET PO SCH ×2 (12:29→21:26)
[2019-03-04] MEDS: BUDESONIDE/FORMETEROL FUMARATE 160/4.5 mcg INHALER IH SCH ×2 (12:30→21:27)
[2019-03-04] MEDS: PANTOPRAZOLE 20 MG TABLET (FP) PO SCH (12:34)
[2019-03-04] MEDS: INSULIN (LEVEMIR) 100 UNITS/ML UNITS SQ SCH ×2 (12:36→21:35)
[2019-03-04] MEDS: diazePAM 5 MG TABLET PO SCH ×2 (13:41→21:26)
[2019-03-04 15:13] LABS: HEMATOCRIT 40.4 % (35.4-49); HEMOGLOBIN 13.4 GM/dL (11.7-16.9); MCH 25.2 pg (25.7-33.7); MCHC 33.1 g/dl (32.0-35.9); MEAN CELL VOLUME 76.2 fl (80-96); MEAN PLT VOLUME 10.2 fl (7.5-11.1); PLATELET COUNT 177 K/MM3 (134-434); RDW 15.8 % (11.9-15.9); WHITE BLOOD COUNT 7.1 K/mm3 (4.0-10.0)
[2019-03-04 15:27] LABS: ALBUMIN 3.7 g/dl (3.4-5.0); BILIRUBIN,TOTAL 0.7 mg/dL (0.2-1); BLOOD UREA NITROGEN 19.9 mg/dL (7-18); CALCIUM 8.4 mg/dL (8.5-10.1); CREATININE 1.3 mg/dL (0.55-1.3); POTASSIUM 3.9 mmol/L (3.5-5.1)
[2019-03-04] MEDS: INSULIN SLIDING SCALE (NOVOLOG) 1 VIAL SQ SCH ×2 (17:00→21:35)
[2019-03-04] MEDS: ATORVASTATIN CA 10 MG TABLET (FP) PO SCH (21:26)
[2019-03-04] MEDS: TRIAMCINOLONE ACET 0.025% OINTMENT 15 GM TUBE TP SCH (21:27)
[2019-03-04] MEDS: MONTELUKAST NA 10 MG TABLET PO SCH (21:27)
[2019-03-04] MEDS: THIAMINE HCL 100 MG TABLET (FP) PO SCH (21:27)
[2019-03-04] MEDS ORDERED: METHYL SALICYLATE/MENTHOL OINT 30 GM TUBE TP ONE (21:39)
--- NOTE | 2019-03-04 21:42 | PN ---
S Progress Note Note: Vital Signs Temperature 97.9 F 03/04/19 20:55 Pulse Rate 85 03/04/19 20:55 Respiratory Rate 18 03/04/19 20:55 Blood Pressure 114/68 03/04/19 20:55 O2 Sat by Pulse Oximetry (%) patient requested andre for AO one time dose of bengay
[2019-03-05] MEDS: diazePAM 5 MG TABLET PO SCH ×3 (05:35→22:24)
[2019-03-05] MEDS: INSULIN SLIDING SCALE (NOVOLOG) 1 VIAL SQ SCH ×4 (06:17→22:53)
[2019-03-05] MEDS: INSULIN (LEVEMIR) 100 UNITS/ML UNITS SQ SCH ×2 (09:35→22:52)
[2019-03-05] MEDS: NIFEdipine E.R. 30 MG TABLET (FP) PO SCH (09:35)
[2019-03-05] MEDS: PRENATAL VITAMINS W/ FOLIC ACID TABLET (FP) PO SCH (09:35)
[2019-03-05] MEDS: cloNIDine HCL 0.1 MG TABLET PO SCH ×2 (09:35→22:24)
[2019-03-05] MEDS: PANTOPRAZOLE 20 MG TABLET (FP) PO SCH (09:35)
[2019-03-05] MEDS: TRIAMCINOLONE ACET 0.025% OINTMENT 15 GM TUBE TP SCH ×2 (09:35→22:51)
[2019-03-05] MEDS: ASPIRIN 81 MG CHEWABLE TABLETS PO SCH (09:35)
[2019-03-05] MEDS: BUDESONIDE/FORMETEROL FUMARATE 160/4.5 mcg INHALER IH SCH ×2 (09:36→22:54)
[2019-03-05] MEDS: ACETAMINOPHEN 325 MG TABLET (FP) PO PRN (09:38)
[2019-03-05] MEDS: diazePAM 5 MG TABLET PO PRN ×2 (11:28→16:49)
[2019-03-05] MEDS: METHYL SALICYLATE/MENTHOL OINT 30 GM TUBE TP SCH ×2 (11:31→22:26)
--- NOTE | 2019-03-05 13:41 | PN ---
S CIWA - CIWA Score Nausea/Vomitin-Mild Nausea/No Vomiting Muscle Tremors: 1-None Visible, but [place] Anxiety: 2 Agitation: 2 Paroxysmal Sweats: No Perspiration Orientation: 0-Oriented Tacttile Disturbances: 1-Very Mild Itch/Numbness Auditory Disturbances: 0-None Visual Disturbances: 0-None Headache: 2-Mild CIWA-Ar Total Score: 9 BHS Progress Note (SOAP) Subjective: alert,irritable,anxious,pain on both knees,dry eyes Objective: 03/05/19 13:40 Vital Signs Temperature 98.8 F 03/05/19 13:31 Pulse Rate 84 03/05/19 13:31 Respiratory Rate 18 03/05/19 13:31 Blood Pressure 159/95 03/05/19 13:31 O2 Sat by Pulse Oximetry (%) 03/05/19 13:40 Laboratory Last Values WBC 7.1 K/mm3 (4.0-10.0) 03/04/19 11:30 RBC 5.30 M/mm3 (4.00-5.60) 03/04/19 11:30 Hgb 13.4 GM/dL (11.7-16.9) 03/04/19 11:30 Hct 40.4 % (35.4-49) 03/04/19 11:30 MCV 76.2 fl (80-96) L 03/04/19 11:30 MCH 25.2 pg (25.7-33.7) L 03/04/19 11:30 MCHC 33.1 g/dl (32.0-35.9) 03/04/19 11:30 RDW 15.8 % (11.9-15.9) 03/04/19 11:30 Plt Count 177 K/MM3 (134-434) 03/04/19 11:30 MPV 10.2 fl (7.5-11.1) 03/04/19 11:30 Sodium 137 mmol/L (136-145) 03/04/19 11:30 Potassium 3.9 mmol/L (3.5-5.1) 03/04/19 11:30 Chloride 105 mmol/L (98-107) 03/04/19 11:30 Carbon Dioxide 25 mmol/L (21-32) 03/04/19 11:30 Anion Gap 8 MMOL/L (8-16) 03/04/19 11:30 BUN 19.9 mg/dL (7-18) H 03/04/19 11:30 Creatinine 1.3 mg/dL (0.55-1.3) 03/04/19 11:30 Est GFR (CKD-EPI)AfAm 69.71 03/04/19 11:30 Est GFR (CKD-EPI)NonAf 60.14 03/04/19 11:30 POC Glucometer 426 UNITS (80-120) 03/05/19 11:27 Random Glucose 168 mg/dL (74-106) H 03/04/19 11:30 Calcium 8.4 mg/dL (8.5-10.1) L 03/04/19 11:30 Total Bilirubin 0.7 mg/dL (0.2-1) 03/04/19 11:30 AST 12 U/L (15-37) L 03/04/19 11:30 ALT 19 U/L (13-61) 03/04/19 11:30 Alkaline Phosphatase 46 U/L (45-117) 03/04/19 11:30 Total Protein 7.0 g/dl (6.4-8.2) 03/04/19 11:30 Albumin 3.7 g/dl (3.4-5.0) 03/04/19 11:30 RPR Titer Nonreactive (NONREACTIVE) 03/04/19 11:30 Assessment: 03/05/19 13:41 withdrawal symptom Plan: continue detox valium regimen,bgm monitoring with insulin coverage
[2019-03-05] MEDS: ARTIFICIAL TEARS (POLYVINYL ALCOHOL) OPTH DROPS OU SCH ×2 (15:38→22:51)
--- NOTE | 2019-03-05 17:06 | CONSULT ---
[facility] Psychiatric Consult - Data Date of interview: 03/05/19 Admission source: [facility] Identifying data: Readmission to [facility] for this 59 y/o [place]born male, self-referred for detoxification (alcohol, xanax, cocaine). Interviewed at [address] [place] [address]. 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 Substance Abuse History: Discussed with patient. Details are concordant with current [facility] database collected on admission. As follows : Smoking history: Never smoked. Have you smoked in the past 12 months: No. Aproximately how many cigarettes per day: 6. If you are a former smoker, when did you quit?: july 2014. Cigars Per Day: 0. Hx Chewing Tobacco Use: No. - Substances abused. Alcohol. Substance route: Oral. Frequency: Daily. Amount used: 2 Pints vodka & 6 pck beer-16oz. Age of first use: 22. Date of last use: . Alprazolam (Xanax). Other (specify): 2mg. Substance route: Oral. Frequency: 3-6 times per week. Amount used: 2 sticks. Age of first use: 47. Date of last use: 03/04/19. Cocaine. Substance route: Inhalation. Frequency: 1-2 times per week. Amount used: $20. Age of first use: 48. Date of last use: 03/03/19 Medical History: Medical profile is remarkable for bronchial asthma, diabetes mellitus, hypertension, history of positive PPD and obesity. Psychiatric History: Patient denies history of psychiatric hospitalizations. Mr Freitas continues to see a psychiatrist at the [facility] to address MDD and insomnia. Still prescribed xanax + mirtazapine. Patient denies history of suicide attempts. Physical/Sexual Abuse/Trauma History: Patient denies. Additional Comment: Urine drug screen results: KIMMIE-Cocaine, BZO- Benzodiazepines. Noted. Mental Status Exam - Mental Status Exam Alert and Oriented to: Time, Place, Person Cognitive Function: Good Patient Appearance: Well Groomed Mood: Nervous, Anxious, Hopeful Affect: Mood Congruent Patient Behavior: Fatigued, Appropriate, Cooperative Speech Pattern: Clear Voice Loudness: Normal Thought Process: Intact, Goal Oriented Thought Disorder: Not Present Hallucinations: Denies Suicidal Ideation: Denies Homicidal Ideation: Denies Insight/Judgement: Poor Sleep: Poorly, Difficulty falling asleep Appetite: Good Muscle strength/Tone: Normal Gait/Station: Normal Psychiatric Findings - Problem List ([place] 1, 2,3) (1) Alcohol dependence with uncomplicated withdrawal Current Visit: Yes Status: Acute (2) Cocaine dependence Current Visit: Yes Status: Chronic Qualifiers: Substance use status: uncomplicated Qualified Code(s): F14.20 - Cocaine dependence, uncomplicated (3) Benzodiazepine dependence Current Visit: Yes Status: Chronic (4) Nicotine dependence Current Visit: Yes Status: Chronic Qualifiers: Nicotine product type: cigarettes Substance use status: in withdrawal Qualified Code(s): F17.213 - Nicotine dependence, cigarettes, with withdrawal (5) Substance induced mood disorder Current Visit: Yes Status: Chronic (6) Insomnia Current Visit: Yes Status: Chronic Qualifiers: Insomnia type: drug-induced Qualified Code(s): F19.982 - Other psychoactive substance use, unspecified with psychoactive substance-induced sleep disorder - Initial Treatment Plan Initial Treatment Plan: Psychoeducation. Sleep hygiene. Detoxification. AA meetings. Insomnia is addressed with remeron 15 mg po hs. Side effects/benefits are discussed with the patient. Mr Freitas is agreeable with this plan of care. Observation.
[2019-03-05] MEDS: THIAMINE HCL 100 MG TABLET (FP) PO SCH (22:23)
[2019-03-05] MEDS: MONTELUKAST NA 10 MG TABLET PO SCH (22:24)
[2019-03-05] MEDS: ATORVASTATIN CA 10 MG TABLET (FP) PO SCH (22:25)
[2019-03-05] MEDS: MIRTAZAPINE 15 MG TABLET (FP) PO SCH (22:54)
[2019-03-06] MEDS: diazePAM 5 MG TABLET PO SCH ×2 (06:00→17:08)
[2019-03-06] MEDS: ARTIFICIAL TEARS (POLYVINYL ALCOHOL) OPTH DROPS OU SCH ×3 (06:00→21:41)
[2019-03-06] MEDS: INSULIN SLIDING SCALE (NOVOLOG) 1 VIAL SQ SCH ×4 (06:06→21:39)
[2019-03-06] MEDS: PRENATAL VITAMINS W/ FOLIC ACID TABLET (FP) PO SCH (10:37)
[2019-03-06] MEDS: cloNIDine HCL 0.1 MG TABLET PO SCH ×2 (10:38→21:41)
[2019-03-06] MEDS: NIFEdipine E.R. 30 MG TABLET (FP) PO SCH (10:38)
[2019-03-06] MEDS: ASPIRIN 81 MG CHEWABLE TABLETS PO SCH (10:38)
[2019-03-06] MEDS: BUDESONIDE/FORMETEROL FUMARATE 160/4.5 mcg INHALER IH SCH ×2 (10:38→21:43)
[2019-03-06] MEDS: PANTOPRAZOLE 20 MG TABLET (FP) PO SCH (10:38)
[2019-03-06] MEDS: TRIAMCINOLONE ACET 0.025% OINTMENT 15 GM TUBE TP SCH ×2 (10:39→21:42)
[2019-03-06] MEDS: INSULIN (LEVEMIR) 100 UNITS/ML UNITS SQ SCH ×2 (10:40→21:38)
[2019-03-06] MEDS: ACETAMINOPHEN 325 MG TABLET (FP) PO PRN (10:42)
[2019-03-06] MEDS: diazePAM 5 MG TABLET PO PRN (10:44)
--- NOTE | 2019-03-06 11:19 | PN ---
S CIWA - CIWA Score Nausea/Vomitin-No Nausea/No Vomiting Muscle Tremors: None Anxiety: 3 Agitation: 0-Normal Activity Paroxysmal Sweats: 2 Orientation: 0-Oriented Tacttile Disturbances: 0-None Auditory Disturbances: 0-None Visual Disturbances: 0-None Headache: 2-Mild CIWA-Ar Total Score: 7 BHS Progress Note (SOAP) Subjective: c/o sweats, anxiety, and headache.
[2019-03-06] MEDS: METHYL SALICYLATE/MENTHOL OINT 30 GM TUBE TP SCH ×2 (12:08→21:42)
[2019-03-06] MEDS: ATORVASTATIN CA 10 MG TABLET (FP) PO SCH (21:41)
[2019-03-06] MEDS: MIRTAZAPINE 15 MG TABLET (FP) PO SCH (21:41)
[2019-03-06] MEDS: MONTELUKAST NA 10 MG TABLET PO SCH (21:41)
[2019-03-06] MEDS: THIAMINE HCL 100 MG TABLET (FP) PO SCH (21:41)
[2019-03-07] MEDS: ARTIFICIAL TEARS (POLYVINYL ALCOHOL) OPTH DROPS OU SCH ×2 (05:33→13:30)
[2019-03-07] MEDS ORDERED: diazePAM 5 MG TABLET PO ONE (06:00)
[2019-03-07] MEDS: INSULIN SLIDING SCALE (NOVOLOG) 1 VIAL SQ SCH ×2 (06:26→12:04)
[2019-03-07 09:28] VITALS: BP 181/103; PULSE 82; TEMP 99
[2019-03-07] MEDS: ASPIRIN 81 MG CHEWABLE TABLETS PO SCH (10:14)
[2019-03-07] MEDS: PANTOPRAZOLE 20 MG TABLET (FP) PO SCH (10:14)
[2019-03-07] MEDS: NIFEdipine E.R. 30 MG TABLET (FP) PO SCH (10:14)
[2019-03-07] MEDS: BUDESONIDE/FORMETEROL FUMARATE 160/4.5 mcg INHALER IH SCH (10:14)
[2019-03-07] MEDS: cloNIDine HCL 0.1 MG TABLET PO SCH (10:14)
[2019-03-07] MEDS: METHYL SALICYLATE/MENTHOL OINT 30 GM TUBE TP SCH (10:15)
[2019-03-07] MEDS: INSULIN (LEVEMIR) 100 UNITS/ML UNITS SQ SCH (10:15)
[2019-03-07] MEDS: TRIAMCINOLONE ACET 0.025% OINTMENT 15 GM TUBE TP SCH (10:15)
[2019-03-07] MEDS: PRENATAL VITAMINS W/ FOLIC ACID TABLET (FP) PO SCH (10:15)
--- NOTE | 2019-03-07 10:53 | DS ---
[facility] Detox Discharge Summary Admission Date: 03/04/19 Discharge Date: 03/07/19 - History Present History: Alcohol Dependence, Sedative Dependence Additional Comments: 59 YEARS OLD MALE ADMITTED ON 03/04/19 FOR ALCOHOL AND BENZO WITHDRAWAL SX MANAGEMENT TREATED WITH VALIUM DETOX REGIMEN PATIENT IS ALERT ORIENTED X 3 CARDIAC S1S2 REGULAR RATE RHYTHM RESPIRATORY CLEAR LUNG BILATERALLY ON AUSCULTATION ABDOMEN SOFT ROUND OBESE NO REBOUND TENDERNESS - Physical Exam Results Vital Signs: Vital Signs Temperature 99 F 03/07/19 09:27 Pulse Rate 82 03/07/19 09:27 Respiratory Rate 20 03/07/19 09:27 Blood Pressure 181/103 H 03/07/19 09:27 O2 Sat by Pulse Oximetry (%) Pertinent Admission Physical Exam Findings: ALCOHOL AND BENZO Laboratory Last Values WBC 7.1 K/mm3 (4.0-10.0) 03/04/19 11:30 RBC 5.30 M/mm3 (4.00-5.60) 03/04/19 11:30 Hgb 13.4 GM/dL (11.7-16.9) 03/04/19 11:30 Hct 40.4 % (35.4-49) 03/04/19 11:30 MCV 76.2 fl (80-96) L 03/04/19 11:30 MCH 25.2 pg (25.7-33.7) L 03/04/19 11:30 MCHC 33.1 g/dl (32.0-35.9) 03/04/19 11:30 RDW 15.8 % (11.9-15.9) 03/04/19 11:30 Plt Count 177 K/MM3 (134-434) 03/04/19 11:30 MPV 10.2 fl (7.5-11.1) 03/04/19 11:30 Sodium 137 mmol/L (136-145) 03/04/19 11:30 Potassium 3.9 mmol/L (3.5-5.1) 03/04/19 11:30 Chloride 105 mmol/L (98-107) 03/04/19 11:30 Carbon Dioxide 25 mmol/L (21-32) 03/04/19 11:30 Anion Gap 8 MMOL/L (8-16) 03/04/19 11:30 BUN 19.9 mg/dL (7-18) H 03/04/19 11:30 Creatinine 1.3 mg/dL (0.55-1.3) 03/04/19 11:30 Est GFR (CKD-EPI)AfAm 69.71 03/04/19 11:30 Est GFR (CKD-EPI)NonAf 60.14 03/04/19 11:30 POC Glucometer 309 UNITS (80-120) 03/07/19 05:34 Random Glucose 168 mg/dL (74-106) H 03/04/19 11:30 Calcium 8.4 mg/dL (8.5-10.1) L 03/04/19 11:30 Total Bilirubin 0.7 mg/dL (0.2-1) 03/04/19 11:30 AST 12 U/L (15-37) L 03/04/19 11:30 ALT 19 U/L (13-61) 03/04/19 11:30 Alkaline Phosphatase 46 U/L (45-117) 03/04/19 11:30 Total Protein 7.0 g/dl (6.4-8.2) 03/04/19 11:30 Albumin 3.7 g/dl (3.4-5.0) 03/04/19 11:30 RPR Titer Nonreactive (NONREACTIVE) 03/04/19 11:30 LAB NOTED - Treatment Hospital Course: Detox Protocol Followed, Detoxed Safely, Responded well, Discharged Condition Good, Rehab Referral Accepted Patient has Accepted a Rehab Referral to: [facility] - Medication Discharge Medications: Ambulatory Orders Albuterol Sulfate [Proair Hfa] 2 puff IH Q4H PRN 10/29/17 Atorvastatin Ca [Lipitor] 10 mg PO HS 08/29/18 Esomeprazole Mag Trihydrate [Nexium] 20 mg PO DAILY 08/29/18 Insulin Aspart [Novolog] 0 unit SQ TID 08/29/18 Gabapentin 300 mg PO TID 09/11/18 Mirtazapine 30 mg PO HS 09/11/18 Nifedipine ER [Procardia XL -] 30 mg PO DAILY 09/11/18 hydrALAZINE HCL [Apresoline -] 50 mg PO DAILY 09/11/18 Budesonide/Formeterol Fumarate [SYMBICORT 160/4.5mcg -] 2 inh PO BID 10/21/18 Insulin Glargine,Hum.rec.anlog [Basaglar Kwikpen U-100] 10 unit SQ BID 10/21/18 Triamcinolone 0.025% Ointment [Aristocort 0.025% Ointment -] 1 applic TP BID 01/30 Aspirin [ASA -] 81 mg PO DAILY 03/04/19 Clonidine HCl 0.2 mg PO TID 03/04/19 Methyl Salicylate/Menth/Camph [Bengay Ultra Strength Cream] 57 gm TP BID Montelukast Na [Singulair -] 10 mg PO HS 03/04/19 - Diagnosis (1) Alcohol dependence with uncomplicated withdrawal Current Visit: Yes Status: Acute (2) Benzodiazepine dependence Current Visit: Yes Status: Acute (3) Nicotine dependence Current Visit: Yes Status: Acute Qualifiers: Nicotine product type: cigarettes Substance use status: in withdrawal Qualified Code(s): F17.213 - Nicotine dependence, cigarettes, with withdrawal (4) Substance induced mood disorder Current Visit: Yes Status: Suspected (5) Hypertension Current Visit: Yes Status: Chronic Qualifiers: Hypertension type: essential hypertension Qualified Code(s): I10 - Essential (primary) hypertension (6) Asthma Current Visit: Yes Status: Chronic (7) DM Diabetes mellitus type 2 Current Visit: Yes Status: Chronic (8) Essential hypertension Current Visit: Yes Status: Chronic (9) PPD positive Current Visit: Yes Status: Resolved - AMA Did Patient Leave Against Medical Advice: No CIWA Score - CIWA Score Nausea/Vomitin-No Nausea/No Vomiting Muscle Tremors: None Anxiety: 1-Mildly Anxious Agitation: 0-Normal Activity Paroxysmal Sweats: 1-Minimal Palms Moist Orientation: 0-Oriented Tacttile Disturbances: 0-None Auditory Disturbances: 0-None Visual Disturbances: 0-None Headache: 2-Mild CIWA-Ar Total Score: 4
== END 2019-03-07 13:00 | disposition other institution (70) | DRG 774 ==
LOC: YASAS 09:27 → Y3N 11:48
PROVIDERS: ADMIT Allergy & Immunology; ATTEND Allergy & Immunology
PROC: HZ2ZZZZ Detoxification Services for Substance Abuse Treatment (ICD-10-PCS; principal; 2019-03-04)
DX: F10.230 Alcohol dependence with withdrawal, uncomplicated (principal); F13.230 Sedative, hypnotic or anxiolytic dependence with withdrawal, uncomplicated; F14.20 Cocaine dependence, uncomplicated; F17.210 Nicotine dependence, cigarettes, uncomplicated; F19.282 Other psychoactive substance dependence with psychoactive substance-induced sleep disorder; F19.24 Other psychoactive substance dependence with psychoactive substance-induced mood disorder; I10 Essential (primary) hypertension; E11.9 Type 2 diabetes mellitus without complications; Z79.4 Long term (current) use of insulin; J45.909 Unspecified asthma, uncomplicated; R76.11 Nonspecific reaction to tuberculin skin test without active tuberculosis; Z79.82 Long term (current) use of aspirin
CPT/HCPCS: 36415; 80053; 82962; 85027; 86593; J0735

== ENCOUNTER 2019-03-07 13:02 | Inpatient (IN) | payer OTHER ==
--- NOTE | 2019-03-07 12:34 | HP ---
[facility] Rehab Assess/Revision - Admission History Admitted to Rehab from: [facility] Date of Admission to Rehab: 03/07/19 - Findings Detox History & Physical reviewed: Yes Concur with findings: Yes Comments/Additional Findings: transferred from detox to rehab admission as per protocol Inpatient Rehab Admission - Rehab Decision to Admit Inpatient rehab admission?: Yes - Initial Determination Are CD services needed?: Yes Free of communicable disease: Yes Not in need of hospitalization: Yes - Rehab Admission Criteria Previous failed treatment: Yes Poor recovery environment: Yes Comorbidities: Yes Lacks judgement: Yes Patient is meeting Inpatient Rehab admission criteria:: Yes
[~2019-03-07 13:02] MED LIST: ALBUTEROL SO4 8 GM HFA INHALER IH PRN; LOPERAMIDE HCL 2 MG CAPSULE PO PRN; MAG HYDROX/AL HYDROX/SIMETH 30 ML UNIT-DOSE CUP PO PRN; MAGNESIUM CITRATE 300 ML BOTTLE PO PRN; MAGNESIUM HYDROX 2400MG/30ML ORAL SUSPENSION 30 ML CUP PO PRN; MENTHOL/PHENOL 1 EACH UD MM PRN
[2019-03-07] MEDS: INSULIN (LEVEMIR) 100 UNITS/ML UNITS SQ SCH (16:51)
[2019-03-07] MEDS: INSULIN SLIDING SCALE (NOVOLOG) 1 VIAL SQ SCH ×2 (16:51→21:28)
[2019-03-07] MEDS: ARTIFICIAL TEARS (POLYVINYL ALCOHOL) OPTH DROPS OU SCH ×2 (18:36→21:35)
[2019-03-07] MEDS: guaiFENesin 200 MG/10 ML 10 ML UNIT-DOSE CUPS PO PRN (19:33)
[2019-03-07] MEDS: BUDESONIDE/FORMETEROL FUMARATE 160/4.5 mcg INHALER IH SCH (21:23)
[2019-03-07] MEDS: THIAMINE HCL 100 MG TABLET (FP) PO SCH (21:23)
[2019-03-07] MEDS: MIRTAZAPINE 15 MG TABLET (FP) PO SCH (21:24)
[2019-03-07] MEDS: FAMOTIDINE 20 MG TABLET PO SCH (21:24)
[2019-03-07] MEDS: MONTELUKAST NA 10 MG TABLET PO SCH (21:24)
[2019-03-07] MEDS: ATORVASTATIN CA 10 MG TABLET (FP) PO SCH (21:24)
[2019-03-07] MEDS: MELATONIN 5 MG TABLETS PO PRN (21:25)
[2019-03-07] MEDS: TRIAMCINOLONE ACET 0.025% OINTMENT 15 GM TUBE TP SCH (21:35)
[2019-03-07] MEDS: METHYL SALICYLATE/MENTHOL OINT 30 GM TUBE TP SCH (21:37)
[2019-03-07] MEDS: hydrOXYzine PAMOATE 50 MG CAPSULE (FP) PO PRN (22:21)
[2019-03-08] MEDS: INSULIN SLIDING SCALE (NOVOLOG) 1 VIAL SQ SCH ×4 (06:22→21:04)
[2019-03-08] MEDS: hydrOXYzine PAMOATE 50 MG CAPSULE (FP) PO PRN (06:22)
[2019-03-08] MEDS: INSULIN (LEVEMIR) 100 UNITS/ML UNITS SQ SCH ×2 (06:23→16:45)
[2019-03-08] MEDS ORDERED: INSULIN (NOVOLOG) ASPART 100 UNITS/ML 10ML VIAL ONE ×2 (07:23→12:28)
[2019-03-08] MEDS: PRENATAL VITAMINS W/ FOLIC ACID TABLET (FP) PO SCH (09:48)
[2019-03-08] MEDS: ASPIRIN 81 MG CHEWABLE TABLETS PO SCH (09:48)
[2019-03-08] MEDS: FAMOTIDINE 20 MG TABLET PO SCH ×2 (09:48→21:04)
[2019-03-08] MEDS: ARTIFICIAL TEARS (POLYVINYL ALCOHOL) OPTH DROPS OU SCH ×2 (09:50→14:53)
[2019-03-08] MEDS: TRIAMCINOLONE ACET 0.025% OINTMENT 15 GM TUBE TP SCH ×2 (09:52→21:05)
[2019-03-08] MEDS ORDERED: NIFEdipine E.R. 30 MG TABLET (FP) PO SCH (10:00)
[2019-03-08] MEDS: METHYL SALICYLATE/MENTHOL OINT 30 GM TUBE TP SCH ×2 (10:22→21:05)
[2019-03-08] MEDS: cloNIDine HCL 0.1 MG TABLET PO SCH (10:24)
[2019-03-08] MEDS: BUDESONIDE/FORMETEROL FUMARATE 160/4.5 mcg INHALER IH SCH ×2 (10:25→21:06)
--- NOTE | 2019-03-08 12:11 | PN ---
[facility] Progress Note Note: Patient seen for elevated blood pressure. Has hx of HTN-reports treatment with antiHTN meds including clonidine 0.2mg bid, verified in outpatient medication list. Patient denies chest pain, sob and dizziness. Patient also c/o mild lbp, 5 /10, non-radiating. Vital Signs Temperature 98.3 F 03/08/19 07:54 Pulse Rate 103 H 03/08/19 09:30 Respiratory Rate 18 03/08/19 09:30 Blood Pressure 166/100 03/08/19 09:30 O2 Sat by Pulse Oximetry (%) Laboratory Tests 03/07/19 03/07/19 03/08/19 16:50 21:27 06:18 POC Glucometer 202 382 285 PE: alert and oriented x 3 skin warm and dry +perrla, eoms intact, mild redness OU, no discharge car s1s2 resp cta bl gi nt, nd ext full rom, amb ad bob A/P: HTN with BP elevation LBP red eyes Add clonidine 0.2mg daily and monitor for now, if elevation continues increase to BID ARNOLDO diet add flexeril prn for pain visine for eye redness monitor clinically
--- NOTE | 2019-03-08 12:37 | CONSULT ---
[facility] Psychiatric Consult - Data Date of interview: 03/08/19 Admission source: [facility] Identifying data: Admission to [address] for this 59 y/o [place]- born male, who completed detoxification (BUFFY issues : alcohol, xanax, cocaine) at [address] [place] [address]. 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 Substance Abuse History: Discussed with patient. See current extract from [facility] report for details. As follows : Smoking history: Never smoked. Have you smoked in the past 12 months: No. Aproximately how many cigarettes per day: 6. If you are a former smoker, when did you quit?: july 2014. Cigars Per Day: 0. Hx Chewing Tobacco Use: No. - Substances abused. Alcohol. Substance route: Oral. Frequency: Daily. Amount used: 2 Pints vodka & 6 pck beer-16oz. Age of first use: 22. Date of last use: 03/04/19. Alprazolam (Xanax). Other (specify): 2mg. Substance route: Oral. Frequency: 3-6 times per week. Amount used: 2 sticks. Age of first use: 47. Date of last use: 03/04/19. Cocaine. Substance route: Inhalation. Frequency: 1-2 times per week. Amount used: $20. Age of first use: 48. Date of last use: 03/03/19 Medical History: Medical profile is remarkable for bronchial asthma, diabetes mellitus, hypertension, history of positive PPD and obesity. Psychiatric History: Patient denies history of psychiatric hospitalizations. Mr Freitas continues to see a psychiatrist at the [facility] to address MDD and insomnia. Still prescribed xanax + mirtazapine. Patient denies history of suicide attempts. Physical/Sexual Abuse/Trauma History: Patient denies. Additional Comment: Urine drug screen results: KIMMIE-Cocaine, BZO- Benzodiazepines. Noted. Mental Status Exam - Mental Status Exam Alert and Oriented to: Time, Place, Person Cognitive Function: Good Patient Appearance: Well Groomed Mood: Hopeful, Euthymic Affect: Appropriate, Normal Range Patient Behavior: Appropriate, Cooperative Speech Pattern: Clear Voice Loudness: Normal Thought Process: Intact, Goal Oriented Thought Disorder: Not Present Hallucinations: Denies Suicidal Ideation: Denies Homicidal Ideation: Denies Insight/Judgement: Fair Sleep: Fair Appetite: Good Muscle strength/Tone: Normal Gait/Station: Normal Psychiatric Findings - Problem List ([place] 1, 2,3) (1) Alcohol dependence Current Visit: Yes Status: Chronic Qualifiers: Substance use status: in remission Qualified Code(s): F10.21 - Alcohol dependence, in remission (2) Benzodiazepine dependence Current Visit: Yes Status: Chronic (3) Nicotine dependence Current Visit: Yes Status: Chronic Qualifiers: Nicotine product type: cigarettes Substance use status: in withdrawal Qualified Code(s): F17.213 - Nicotine dependence, cigarettes, with withdrawal (4) Insomnia Current Visit: Yes Status: Chronic Qualifiers: Insomnia type: drug-induced Qualified Code(s): F19.982 - Other psychoactive substance use, unspecified with psychoactive substance-induced sleep disorder - Initial Treatment Plan Initial Treatment Plan: Psychoeducation. Sleep hygiene. Support. MAT services ( naltrexone, acamprozate) : discussed with the patient. AA meetings. Remeron 15 mg po hs. Side effetcs/benefits discussed with the patient. Mr Quintero is in agreement with this plan of care. Gave verbal consent to MD. Motivational counseling. Observation.
[2019-03-08] MEDS: MONTELUKAST NA 10 MG TABLET PO SCH (21:04)
[2019-03-08] MEDS: THIAMINE HCL 100 MG TABLET (FP) PO SCH (21:04)
[2019-03-08] MEDS: ATORVASTATIN CA 10 MG TABLET (FP) PO SCH (21:05)
[2019-03-08] MEDS: MIRTAZAPINE 15 MG TABLET (FP) PO SCH (21:05)
[2019-03-08] MEDS: MELATONIN 5 MG TABLETS PO PRN (21:05)
[2019-03-08] MEDS: TETRAHYDROZOLINE HCL EYE DROPS OD SCH (21:05)
[2019-03-09] MEDS: INSULIN SLIDING SCALE (NOVOLOG) 1 VIAL SQ SCH ×4 (07:26→21:11)
[2019-03-09] MEDS: INSULIN (LEVEMIR) 100 UNITS/ML UNITS SQ SCH ×2 (07:27→16:50)
[2019-03-09] MEDS: BUDESONIDE/FORMETEROL FUMARATE 160/4.5 mcg INHALER IH SCH ×2 (10:01→22:02)
[2019-03-09] MEDS: METHYL SALICYLATE/MENTHOL OINT 30 GM TUBE TP SCH ×2 (10:01→22:03)
[2019-03-09] MEDS: PRENATAL VITAMINS W/ FOLIC ACID TABLET (FP) PO SCH (10:01)
[2019-03-09] MEDS: cloNIDine HCL 0.1 MG TABLET PO SCH (10:01)
[2019-03-09] MEDS: ASPIRIN 81 MG CHEWABLE TABLETS PO SCH (10:01)
[2019-03-09] MEDS: FAMOTIDINE 20 MG TABLET PO SCH ×2 (10:01→21:11)
[2019-03-09] MEDS: ARTIFICIAL TEARS (POLYVINYL ALCOHOL) OPTH DROPS OU SCH ×2 (10:02→14:54)
[2019-03-09] MEDS: TRIAMCINOLONE ACET 0.025% OINTMENT 15 GM TUBE TP SCH ×2 (10:02→22:02)
[2019-03-09] MEDS: NIFEdipine E.R 60 MG TABLET (UD) PO SCH (10:03)
[2019-03-09] MEDS: CYCLOBENZAPRINE HCL 5 MG TABLET PO PRN ×2 (10:05→21:12)
[2019-03-09] MEDS: TETRAHYDROZOLINE HCL EYE DROPS OD SCH ×2 (10:56→22:02)
[2019-03-09] MEDS ORDERED: INSULIN (NOVOLOG) ASPART 100 UNITS/ML 10ML VIAL ONE (11:50)
--- NOTE | 2019-03-09 16:01 | PN ---
[facility] Progress Note (SOAP) Subjective: patient with elevated BP today. Review of his home medications and filled prescriptions indicates that patient was on nefidipine. Objective: P/E: General: no apparent distress HEENTM: PERRLA, normocephalic Lungs: clear Heart: s1 s2 Neuro: CN 2-12 intact. 03/09/19 15:58 Vital Signs Period Temp Pulse Resp BP Sys/Palafox Pulse Ox Last 24 Hr 98.1 F 96-98 18-20 162-165/98-103 Assessment: Hypertension 03/09/19 15:59 Plan: Patient started on nefipine. Will continue to monitor.
[2019-03-09] MEDS: ACETAMINOPHEN 325 MG TABLET (FP) PO PRN (16:51)
[2019-03-09] MEDS: ATORVASTATIN CA 10 MG TABLET (FP) PO SCH (21:11)
[2019-03-09] MEDS: MIRTAZAPINE 15 MG TABLET (FP) PO SCH (21:11)
[2019-03-09] MEDS: MONTELUKAST NA 10 MG TABLET PO SCH (21:11)
[2019-03-09] MEDS: MELATONIN 5 MG TABLETS PO PRN (21:11)
[2019-03-09] MEDS: THIAMINE HCL 100 MG TABLET (FP) PO SCH (21:11)
[2019-03-10] MEDS: ARTIFICIAL TEARS (POLYVINYL ALCOHOL) OPTH DROPS OU SCH ×5 (01:25→21:35)
[2019-03-10] MEDS: INSULIN (LEVEMIR) 100 UNITS/ML UNITS SQ SCH ×2 (06:36→16:27)
[2019-03-10] MEDS: INSULIN SLIDING SCALE (NOVOLOG) 1 VIAL SQ SCH ×4 (06:37→21:39)
[2019-03-10] MEDS: PRENATAL VITAMINS W/ FOLIC ACID TABLET (FP) PO SCH (10:23)
[2019-03-10] MEDS: FAMOTIDINE 20 MG TABLET PO SCH ×2 (10:23→21:35)
[2019-03-10] MEDS: NIFEdipine E.R 60 MG TABLET (UD) PO SCH (10:23)
[2019-03-10] MEDS: cloNIDine HCL 0.1 MG TABLET PO SCH (10:23)
[2019-03-10] MEDS: BUDESONIDE/FORMETEROL FUMARATE 160/4.5 mcg INHALER IH SCH ×2 (10:23→21:36)
[2019-03-10] MEDS: ASPIRIN 81 MG CHEWABLE TABLETS PO SCH (10:23)
[2019-03-10] MEDS: METHYL SALICYLATE/MENTHOL OINT 30 GM TUBE TP SCH ×2 (10:24→21:35)
[2019-03-10] MEDS: TRIAMCINOLONE ACET 0.025% OINTMENT 15 GM TUBE TP SCH ×2 (10:25→21:35)
[2019-03-10] MEDS: TETRAHYDROZOLINE HCL EYE DROPS OD SCH ×2 (10:27→21:36)
[2019-03-10] MEDS: guaiFENesin 200 MG/10 ML 10 ML UNIT-DOSE CUPS PO PRN (11:06)
[2019-03-10] MEDS ORDERED: INSULIN (NOVOLOG) ASPART 100 UNITS/ML 10ML VIAL ONE (16:25)
[2019-03-10] MEDS ORDERED: PT OWN MED DRAWER 7, Y5N ONE (19:22)
[2019-03-10] MEDS: MIRTAZAPINE 15 MG TABLET (FP) PO SCH (21:35)
[2019-03-10] MEDS: MONTELUKAST NA 10 MG TABLET PO SCH (21:35)
[2019-03-10] MEDS: MELATONIN 5 MG TABLETS PO PRN (21:35)
[2019-03-10] MEDS: ATORVASTATIN CA 10 MG TABLET (FP) PO SCH (21:35)
[2019-03-10] MEDS: THIAMINE HCL 100 MG TABLET (FP) PO SCH (21:35)
[2019-03-10] MEDS: CYCLOBENZAPRINE HCL 5 MG TABLET PO PRN (21:40)
[2019-03-11] MEDS: INSULIN (LEVEMIR) 100 UNITS/ML UNITS SQ SCH ×2 (07:21→16:35)
[2019-03-11] MEDS: INSULIN SLIDING SCALE (NOVOLOG) 1 VIAL SQ SCH ×4 (07:21→21:12)
[2019-03-11] MEDS ORDERED: INSULIN (NOVOLOG) ASPART 100 UNITS/ML 10ML VIAL ONE (07:21)
[2019-03-11] MEDS: ASPIRIN 81 MG CHEWABLE TABLETS PO SCH (10:22)
[2019-03-11] MEDS: cloNIDine HCL 0.1 MG TABLET PO SCH (10:23)
[2019-03-11] MEDS: PRENATAL VITAMINS W/ FOLIC ACID TABLET (FP) PO SCH (10:23)
[2019-03-11] MEDS: FAMOTIDINE 20 MG TABLET PO SCH ×2 (10:23→21:09)
[2019-03-11] MEDS: NIFEdipine E.R 60 MG TABLET (UD) PO SCH (10:23)
[2019-03-11] MEDS: BUDESONIDE/FORMETEROL FUMARATE 160/4.5 mcg INHALER IH SCH ×2 (10:25→21:49)
[2019-03-11] MEDS: METHYL SALICYLATE/MENTHOL OINT 30 GM TUBE TP SCH ×2 (10:25→21:08)
[2019-03-11] MEDS ORDERED: PT OWN MED DRAWER 7, Y5N ONE ×3 (10:26→21:12)
[2019-03-11] MEDS: CYCLOBENZAPRINE HCL 5 MG TABLET PO PRN (10:26)
[2019-03-11] MEDS: hydrOXYzine PAMOATE 50 MG CAPSULE (FP) PO PRN (10:37)
[2019-03-11] MEDS: TETRAHYDROZOLINE HCL EYE DROPS OD SCH ×2 (10:37→21:09)
[2019-03-11] MEDS: ARTIFICIAL TEARS (POLYVINYL ALCOHOL) OPTH DROPS OU SCH ×4 (10:37→21:49)
[2019-03-11] MEDS: TRIAMCINOLONE ACET 0.025% OINTMENT 15 GM TUBE TP SCH ×2 (10:38→21:08)
[2019-03-11] MEDS ORDERED: INSULIN (LEVEMIR) 100 UNITS/ML UNITS SQ ONE (16:33)
[2019-03-11] MEDS: ATORVASTATIN CA 10 MG TABLET (FP) PO SCH (21:09)
[2019-03-11] MEDS: THIAMINE HCL 100 MG TABLET (FP) PO SCH (21:09)
[2019-03-11] MEDS: MIRTAZAPINE 15 MG TABLET (FP) PO SCH (21:09)
[2019-03-11] MEDS: MONTELUKAST NA 10 MG TABLET PO SCH (21:09)
[2019-03-11] MEDS: MELATONIN 5 MG TABLETS PO PRN (21:13)
[2019-03-11] MEDS: ACETAMINOPHEN 325 MG TABLET (FP) PO PRN (21:13)
[2019-03-12] MEDS ORDERED: INSULIN (NOVOLOG) ASPART 100 UNITS/ML 10ML VIAL ONE ×4 (06:37→22:31)
[2019-03-12] MEDS: INSULIN (LEVEMIR) 100 UNITS/ML UNITS SQ SCH ×2 (07:47→17:12)
[2019-03-12] MEDS: INSULIN SLIDING SCALE (NOVOLOG) 1 VIAL SQ SCH ×4 (07:47→22:33)
[2019-03-12] MEDS: PRENATAL VITAMINS W/ FOLIC ACID TABLET (FP) PO SCH (09:38)
[2019-03-12] MEDS: BUDESONIDE/FORMETEROL FUMARATE 160/4.5 mcg INHALER IH SCH ×2 (09:38→22:26)
[2019-03-12] MEDS: NIFEdipine E.R 60 MG TABLET (UD) PO SCH (09:38)
[2019-03-12] MEDS: cloNIDine HCL 0.1 MG TABLET PO SCH (09:38)
[2019-03-12] MEDS: ASPIRIN 81 MG CHEWABLE TABLETS PO SCH (09:38)
[2019-03-12] MEDS: TRIAMCINOLONE ACET 0.025% OINTMENT 15 GM TUBE TP SCH ×2 (09:40→22:22)
[2019-03-12] MEDS: ARTIFICIAL TEARS (POLYVINYL ALCOHOL) OPTH DROPS OU SCH ×2 (09:40→13:42)
[2019-03-12] MEDS: METHYL SALICYLATE/MENTHOL OINT 30 GM TUBE TP SCH ×2 (09:40→22:22)
[2019-03-12] MEDS: hydrOXYzine PAMOATE 50 MG CAPSULE (FP) PO PRN ×2 (09:42→17:53)
[2019-03-12] MEDS: ACETAMINOPHEN 325 MG TABLET (FP) PO PRN (09:43)
[2019-03-12] MEDS ORDERED: LISINOPRIL 20 MG TABLET (FP) PO SCH (10:00)
[2019-03-12] MEDS: LISINOPRIL 20 MG TABLET (FP) PO SCH ×2 (10:27→22:26)
[2019-03-12] MEDS: FAMOTIDINE 20 MG TABLET PO SCH ×2 (10:27→22:22)
[2019-03-12] MEDS: TETRAHYDROZOLINE HCL EYE DROPS OD SCH ×2 (10:27→22:25)
--- NOTE | 2019-03-12 12:21 | PN ---
[facility] Progress Note Note: Patient complains of feeling drowsy upon awakening after taking Remeron 7.5 mg at bedtime. Requests to be ordered a different medication that does not have that side-effect. Hypnotic properties of Melatonin discussed with patient and he agreed to try it
[2019-03-12] MEDS ORDERED: ARTIFICIAL TEARS (POLYVINYL ALCOHOL) OPTH DROPS OU PRN (14:28)
[2019-03-12] MEDS ORDERED: PT OWN MED DRAWER 7, Y5N ONE ×2 (17:16→22:22)
[2019-03-12] MEDS: CYCLOBENZAPRINE HCL 5 MG TABLET PO PRN (22:21)
[2019-03-12] MEDS: MONTELUKAST NA 10 MG TABLET PO SCH (22:21)
[2019-03-12] MEDS: THIAMINE HCL 100 MG TABLET (FP) PO SCH (22:22)
[2019-03-12] MEDS: MELATONIN 5 MG TABLETS PO PRN (22:33)
[2019-03-13] MEDS: ATORVASTATIN CA 10 MG TABLET (FP) PO SCH ×2 (00:35→21:16)
[2019-03-13] MEDS: INSULIN (LEVEMIR) 100 UNITS/ML UNITS SQ SCH ×2 (06:15→16:44)
[2019-03-13] MEDS: INSULIN SLIDING SCALE (NOVOLOG) 1 VIAL SQ SCH ×4 (06:18→21:19)
[2019-03-13] MEDS ORDERED: PT OWN MED DRAWER 7, Y5N ONE (08:44)
[2019-03-13] MEDS: PRENATAL VITAMINS W/ FOLIC ACID TABLET (FP) PO SCH (09:10)
[2019-03-13] MEDS: LISINOPRIL 20 MG TABLET (FP) PO SCH ×2 (09:10→21:16)
[2019-03-13] MEDS: cloNIDine HCL 0.1 MG TABLET PO SCH (09:10)
[2019-03-13] MEDS: FAMOTIDINE 20 MG TABLET PO SCH ×2 (09:10→21:16)
[2019-03-13] MEDS: NIFEdipine E.R 60 MG TABLET (UD) PO SCH (09:10)
[2019-03-13] MEDS: TRIAMCINOLONE ACET 0.025% OINTMENT 15 GM TUBE TP SCH ×2 (09:11→21:15)
[2019-03-13] MEDS: METHYL SALICYLATE/MENTHOL OINT 30 GM TUBE TP SCH ×2 (09:11→21:16)
[2019-03-13] MEDS: ASPIRIN 81 MG CHEWABLE TABLETS PO SCH (09:11)
[2019-03-13] MEDS: BUDESONIDE/FORMETEROL FUMARATE 160/4.5 mcg INHALER IH SCH ×2 (09:11→21:16)
[2019-03-13] MEDS: TETRAHYDROZOLINE HCL EYE DROPS OD SCH ×2 (09:12→21:17)
[2019-03-13] MEDS: CYCLOBENZAPRINE HCL 5 MG TABLET PO PRN (09:13)
[2019-03-13] MEDS: hydrOXYzine PAMOATE 50 MG CAPSULE (FP) PO PRN (11:19)
[2019-03-13] MEDS ORDERED: INSULIN (NOVOLOG) ASPART 100 UNITS/ML 10ML VIAL ONE (11:31)
[2019-03-13] MEDS ORDERED: INSULIN (LEVEMIR) 100 UNITS/ML UNITS SQ ONE (16:41)
[2019-03-13] MEDS: ACETAMINOPHEN 325 MG TABLET (FP) PO PRN (16:41)
[2019-03-13] MEDS: MONTELUKAST NA 10 MG TABLET PO SCH (21:16)
[2019-03-13] MEDS: THIAMINE HCL 100 MG TABLET (FP) PO SCH (21:16)
[2019-03-13] MEDS: MELATONIN 5 MG TABLETS PO PRN (21:16)
[2019-03-14] MEDS: INSULIN (LEVEMIR) 100 UNITS/ML UNITS SQ SCH ×2 (06:15→16:26)
[2019-03-14] MEDS: INSULIN SLIDING SCALE (NOVOLOG) 1 VIAL SQ SCH ×4 (06:16→21:33)
[2019-03-14] MEDS: ASPIRIN 81 MG CHEWABLE TABLETS PO SCH (09:16)
[2019-03-14] MEDS: PRENATAL VITAMINS W/ FOLIC ACID TABLET (FP) PO SCH (09:16)
[2019-03-14] MEDS: cloNIDine HCL 0.1 MG TABLET PO SCH (09:16)
[2019-03-14] MEDS: LISINOPRIL 20 MG TABLET (FP) PO SCH ×2 (09:16→21:30)
[2019-03-14] MEDS: BUDESONIDE/FORMETEROL FUMARATE 160/4.5 mcg INHALER IH SCH ×2 (09:16→21:30)
[2019-03-14] MEDS: NIFEdipine E.R 60 MG TABLET (UD) PO SCH (09:16)
[2019-03-14] MEDS: FAMOTIDINE 20 MG TABLET PO SCH ×2 (09:16→21:30)
[2019-03-14] MEDS: CYCLOBENZAPRINE HCL 5 MG TABLET PO PRN ×2 (09:17→21:30)
[2019-03-14] MEDS: METHYL SALICYLATE/MENTHOL OINT 30 GM TUBE TP SCH ×2 (09:17→21:30)
[2019-03-14] MEDS: TRIAMCINOLONE ACET 0.025% OINTMENT 15 GM TUBE TP SCH ×2 (09:17→21:29)
[2019-03-14] MEDS: TETRAHYDROZOLINE HCL EYE DROPS OD SCH ×2 (09:17→21:31)
[2019-03-14] MEDS ORDERED: INSULIN (NOVOLOG) ASPART 100 UNITS/ML 10ML VIAL ONE (11:18)
[2019-03-14] MEDS: hydrOXYzine PAMOATE 50 MG CAPSULE (FP) PO PRN ×2 (11:19→21:34)
[2019-03-14] MEDS: guaiFENesin 200 MG/10 ML 10 ML UNIT-DOSE CUPS PO PRN (16:32)
[2019-03-14] MEDS: MELATONIN 5 MG TABLETS PO PRN (21:30)
[2019-03-14] MEDS: MONTELUKAST NA 10 MG TABLET PO SCH (21:30)
[2019-03-14] MEDS: THIAMINE HCL 100 MG TABLET (FP) PO SCH (21:30)
[2019-03-14] MEDS: ATORVASTATIN CA 10 MG TABLET (FP) PO SCH (21:30)
[2019-03-15] MEDS: INSULIN (LEVEMIR) 100 UNITS/ML UNITS SQ SCH ×2 (06:23→16:25)
[2019-03-15] MEDS: INSULIN SLIDING SCALE (NOVOLOG) 1 VIAL SQ SCH ×4 (06:23→21:18)
[2019-03-15] MEDS ORDERED: INSULIN (NOVOLOG) ASPART 100 UNITS/ML 10ML VIAL ONE ×2 (06:26→12:11)
[2019-03-15] MEDS ORDERED: PT OWN MED DRAWER 7, Y5N ONE ×2 (08:59→10:00)
--- NOTE | 2019-03-15 09:36 | PN ---
S Progress Note Note: PATIENT C/O DRY EYES, ARTIFICIAL EYE DROPS INEFFECTIVE. DENIES DISCHARGE, ITCHING AND REDNESS TO OU. Laboratory Tests 03/07/19 03/07/19 03/08/19 16:50 21:27 06:18 POC Glucometer 202 382 285 03/08/19 03/08/19 03/08/19 12:25 16:42 21:03 POC Glucometer 354 478 343 03/09/19 03/09/19 03/09/19 06:03 11:47 16:47 POC Glucometer 304 375 398 03/09/19 03/10/19 03/10/19 21:09 06:35 11:44 POC Glucometer 441 259 482 03/10/19 03/10/19 03/11/19 16:23 21:37 06:00 POC Glucometer 490 485 291 03/11/19 03/11/19 03/11/19 11:50 16:33 21:10 POC Glucometer 343 399 484 03/12/19 03/12/19 03/12/19 06:17 11:59 17:46 POC Glucometer 249 376 387 03/12/19 03/13/19 03/13/19 22:28 06:00 11:14 POC Glucometer 363 205 345 03/13/19 03/13/19 03/14/19 16:37 21:17 06:15 POC Glucometer 259 407 193 03/14/19 03/14/19 03/14/19 11:16 16:24 21:32 POC Glucometer 488 392 409 03/15/19 06:19 POC Glucometer 254 Laboratory Tests 03/07/19 03/07/19 03/08/19 16:50 21:27 06:18 POC Glucometer 202 382 285 03/08/19 03/08/19 03/08/19 12:25 16:42 21:03 POC Glucometer 354 478 343 03/09/19 03/09/19 03/09/19 06:03 11:47 16:47 POC Glucometer 304 375 398 03/09/19 03/10/19 03/10/19 21:09 06:35 11:44 POC Glucometer 441 259 482 03/10/19 03/10/19 03/11/19 16:23 21:37 06:00 POC Glucometer 490 485 291 03/11/19 03/11/19 03/11/19 11:50 16:33 21:10 POC Glucometer 343 399 484 03/12/19 03/12/19 03/12/19 06:17 11:59 17:46 POC Glucometer 249 376 387 03/12/19 03/13/19 03/13/19 22:28 06:00 11:14 POC Glucometer 363 205 345 03/13/19 03/13/19 03/14/19 16:37 21:17 06:15 POC Glucometer 259 407 193 03/14/19 03/14/19 03/14/19 11:16 16:24 21:32 POC Glucometer 488 392 409 03/15/19 06:19 POC Glucometer 254 Vital Signs Temperature 98.2 F 03/15/19 07:15 Pulse Rate 89 03/15/19 07:15 Respiratory Rate 18 03/15/19 07:15 Blood Pressure 154/90 03/15/19 07:15 O2 Sat by Pulse Oximetry (%) PE: ALERT AND ORIENTED X 3 SKIN WARM AND DRY +PERRLA, EOMS INTACT BL NO EXUDATE, REDNESS NOTED A/P: DRY EYES CHANGE ARTIFICIAL TEARS GTTS TO OINTMENT OU HS MONITOR CLINICALLY
[2019-03-15] MEDS: NIFEdipine E.R 60 MG TABLET (UD) PO SCH (10:24)
[2019-03-15] MEDS: CYCLOBENZAPRINE HCL 5 MG TABLET PO PRN ×2 (10:24→21:15)
[2019-03-15] MEDS: PRENATAL VITAMINS W/ FOLIC ACID TABLET (FP) PO SCH (10:25)
[2019-03-15] MEDS: ASPIRIN 81 MG CHEWABLE TABLETS PO SCH (10:25)
[2019-03-15] MEDS: FAMOTIDINE 20 MG TABLET PO SCH ×2 (10:25→21:15)
[2019-03-15] MEDS: cloNIDine HCL 0.1 MG TABLET PO SCH (10:25)
[2019-03-15] MEDS: LISINOPRIL 20 MG TABLET (FP) PO SCH ×2 (10:25→21:15)
[2019-03-15] MEDS: BUDESONIDE/FORMETEROL FUMARATE 160/4.5 mcg INHALER IH SCH ×2 (10:26→21:19)
[2019-03-15] MEDS: TRIAMCINOLONE ACET 0.025% OINTMENT 15 GM TUBE TP SCH ×2 (10:27→21:18)
[2019-03-15] MEDS: METHYL SALICYLATE/MENTHOL OINT 30 GM TUBE TP SCH ×2 (10:28→21:18)
[2019-03-15] MEDS: ACETAMINOPHEN 325 MG TABLET (FP) PO PRN (16:33)
[2019-03-15] MEDS: ATORVASTATIN CA 10 MG TABLET (FP) PO SCH (21:15)
[2019-03-15] MEDS: MONTELUKAST NA 10 MG TABLET PO SCH (21:15)
[2019-03-15] MEDS: THIAMINE HCL 100 MG TABLET (FP) PO SCH (21:16)
[2019-03-15] MEDS: MINERAL OIL/PETROLATUM,WHITE 3.5 GM TUBE OU SCH (21:17)
[2019-03-15] MEDS: hydrOXYzine PAMOATE 50 MG CAPSULE (FP) PO PRN (21:17)
[2019-03-16] MEDS ORDERED: INSULIN (NOVOLOG) ASPART 100 UNITS/ML 10ML VIAL ONE ×3 (06:47→21:32)
[2019-03-16] MEDS: INSULIN (LEVEMIR) 100 UNITS/ML UNITS SQ SCH ×2 (07:40→16:56)
[2019-03-16] MEDS: INSULIN SLIDING SCALE (NOVOLOG) 1 VIAL SQ SCH ×4 (07:41→21:32)
[2019-03-16] MEDS: FAMOTIDINE 20 MG TABLET PO SCH ×2 (10:04→21:25)
[2019-03-16] MEDS: PRENATAL VITAMINS W/ FOLIC ACID TABLET (FP) PO SCH (10:04)
[2019-03-16] MEDS: cloNIDine HCL 0.1 MG TABLET PO SCH (10:04)
[2019-03-16] MEDS: ASPIRIN 81 MG CHEWABLE TABLETS PO SCH (10:04)
[2019-03-16] MEDS: LISINOPRIL 20 MG TABLET (FP) PO SCH ×2 (10:05→21:28)
[2019-03-16] MEDS: NIFEdipine E.R 60 MG TABLET (UD) PO SCH (10:05)
[2019-03-16] MEDS: METHYL SALICYLATE/MENTHOL OINT 30 GM TUBE TP SCH ×2 (10:05→21:27)
[2019-03-16] MEDS: hydrOXYzine PAMOATE 50 MG CAPSULE (FP) PO PRN (10:07)
[2019-03-16] MEDS: TRIAMCINOLONE ACET 0.025% OINTMENT 15 GM TUBE TP SCH ×2 (10:08→21:27)
[2019-03-16] MEDS ORDERED: PT OWN MED DRAWER 7, Y5N ONE (10:08)
[2019-03-16] MEDS: BUDESONIDE/FORMETEROL FUMARATE 160/4.5 mcg INHALER IH SCH ×2 (10:09→21:27)
[2019-03-16] MEDS: ACETAMINOPHEN 325 MG TABLET (FP) PO PRN (10:17)
[2019-03-16] MEDS: CYCLOBENZAPRINE HCL 5 MG TABLET PO PRN (10:17)
[2019-03-16] MEDS: MELATONIN 5 MG TABLETS PO PRN (21:26)
[2019-03-16] MEDS: THIAMINE HCL 100 MG TABLET (FP) PO SCH (21:26)
[2019-03-16] MEDS: MINERAL OIL/PETROLATUM,WHITE 3.5 GM TUBE OU SCH (21:27)
[2019-03-16] MEDS: ATORVASTATIN CA 10 MG TABLET (FP) PO SCH (21:28)
[2019-03-16] MEDS: MONTELUKAST NA 10 MG TABLET PO SCH (21:28)
[2019-03-17] MEDS: INSULIN SLIDING SCALE (NOVOLOG) 1 VIAL SQ SCH ×4 (07:18→21:38)
[2019-03-17] MEDS: INSULIN (LEVEMIR) 100 UNITS/ML UNITS SQ SCH ×2 (07:44→16:38)
[2019-03-17] MEDS: NIFEdipine E.R 60 MG TABLET (UD) PO SCH (09:52)
[2019-03-17] MEDS: LISINOPRIL 20 MG TABLET (FP) PO SCH ×2 (09:52→21:35)
[2019-03-17] MEDS: PRENATAL VITAMINS W/ FOLIC ACID TABLET (FP) PO SCH (09:52)
[2019-03-17] MEDS: ASPIRIN 81 MG CHEWABLE TABLETS PO SCH (09:52)
[2019-03-17] MEDS: cloNIDine HCL 0.1 MG TABLET PO SCH (09:52)
[2019-03-17] MEDS: FAMOTIDINE 20 MG TABLET PO SCH ×2 (09:52→21:35)
[2019-03-17] MEDS: BUDESONIDE/FORMETEROL FUMARATE 160/4.5 mcg INHALER IH SCH ×2 (09:52→21:36)
[2019-03-17] MEDS: TRIAMCINOLONE ACET 0.025% OINTMENT 15 GM TUBE TP SCH ×2 (09:55→21:35)
[2019-03-17] MEDS: METHYL SALICYLATE/MENTHOL OINT 30 GM TUBE TP SCH ×2 (09:55→21:36)
[2019-03-17] MEDS ORDERED: PT OWN MED DRAWER 7, Y5N ONE ×3 (09:56→18:40)
[2019-03-17] MEDS ORDERED: INSULIN (NOVOLOG) ASPART 100 UNITS/ML 10ML VIAL ONE ×2 (12:03→16:36)
[2019-03-17] MEDS ORDERED: INSULIN (LEVEMIR) 100 UNITS/ML UNITS SQ ONE (16:37)
[2019-03-17] MEDS: hydrOXYzine PAMOATE 50 MG CAPSULE (FP) PO PRN (21:35)
[2019-03-17] MEDS: CYCLOBENZAPRINE HCL 5 MG TABLET PO PRN (21:35)
[2019-03-17] MEDS: MONTELUKAST NA 10 MG TABLET PO SCH (21:35)
[2019-03-17] MEDS: ATORVASTATIN CA 10 MG TABLET (FP) PO SCH (21:35)
[2019-03-17] MEDS: MINERAL OIL/PETROLATUM,WHITE 3.5 GM TUBE OU SCH (21:35)
[2019-03-17] MEDS: THIAMINE HCL 100 MG TABLET (FP) PO SCH (21:36)
[2019-03-17] MEDS: MELATONIN 5 MG TABLETS PO PRN (21:39)
[2019-03-17] MEDS: ACETAMINOPHEN 325 MG TABLET (FP) PO PRN (21:40)
[2019-03-18] MEDS: INSULIN (LEVEMIR) 100 UNITS/ML UNITS SQ SCH ×2 (06:24→16:44)
[2019-03-18] MEDS: INSULIN SLIDING SCALE (NOVOLOG) 1 VIAL SQ SCH ×4 (06:24→21:28)
[2019-03-18] MEDS: cloNIDine HCL 0.1 MG TABLET PO SCH (09:54)
[2019-03-18] MEDS: PRENATAL VITAMINS W/ FOLIC ACID TABLET (FP) PO SCH (09:54)
[2019-03-18] MEDS: LISINOPRIL 20 MG TABLET (FP) PO SCH ×2 (09:55→21:24)
[2019-03-18] MEDS: FAMOTIDINE 20 MG TABLET PO SCH ×2 (09:55→21:24)
[2019-03-18] MEDS: ASPIRIN 81 MG CHEWABLE TABLETS PO SCH (09:55)
[2019-03-18] MEDS: NIFEdipine E.R 60 MG TABLET (UD) PO SCH (09:55)
[2019-03-18] MEDS: ACETAMINOPHEN 325 MG TABLET (FP) PO PRN (09:56)
[2019-03-18] MEDS: TRIAMCINOLONE ACET 0.025% OINTMENT 15 GM TUBE TP SCH ×2 (09:56→21:24)
[2019-03-18] MEDS: METHYL SALICYLATE/MENTHOL OINT 30 GM TUBE TP SCH ×2 (09:56→21:24)
[2019-03-18] MEDS: BUDESONIDE/FORMETEROL FUMARATE 160/4.5 mcg INHALER IH SCH ×2 (09:57→21:28)
[2019-03-18] MEDS ORDERED: INSULIN (NOVOLOG) ASPART 100 UNITS/ML 10ML VIAL ONE ×2 (12:02→16:41)
[2019-03-18] MEDS ORDERED: INSULIN (LEVEMIR) 100 UNITS/ML UNITS SQ ONE (16:41)
[2019-03-18] MEDS: MINERAL OIL/PETROLATUM,WHITE 3.5 GM TUBE OU SCH (21:24)
[2019-03-18] MEDS: hydrOXYzine PAMOATE 50 MG CAPSULE (FP) PO PRN (21:24)
[2019-03-18] MEDS: MELATONIN 5 MG TABLETS PO PRN (21:25)
[2019-03-18] MEDS: MONTELUKAST NA 10 MG TABLET PO SCH (21:25)
[2019-03-18] MEDS: CYCLOBENZAPRINE HCL 5 MG TABLET PO PRN (21:25)
[2019-03-18] MEDS: THIAMINE HCL 100 MG TABLET (FP) PO SCH (21:25)
[2019-03-18] MEDS: ATORVASTATIN CA 10 MG TABLET (FP) PO SCH (21:25)
[2019-03-19] MEDS ORDERED: INSULIN (NOVOLOG) ASPART 100 UNITS/ML 10ML VIAL ONE ×4 (06:18→21:21)
[2019-03-19] MEDS: INSULIN (LEVEMIR) 100 UNITS/ML UNITS SQ SCH ×2 (07:51→16:56)
[2019-03-19] MEDS: INSULIN SLIDING SCALE (NOVOLOG) 1 VIAL SQ SCH ×4 (07:51→21:21)
[2019-03-19] MEDS: cloNIDine HCL 0.1 MG TABLET PO SCH (09:40)
[2019-03-19] MEDS: PRENATAL VITAMINS W/ FOLIC ACID TABLET (FP) PO SCH (09:40)
[2019-03-19] MEDS: FAMOTIDINE 20 MG TABLET PO SCH ×2 (09:40→21:17)
[2019-03-19] MEDS: ASPIRIN 81 MG CHEWABLE TABLETS PO SCH (09:40)
[2019-03-19] MEDS: METHYL SALICYLATE/MENTHOL OINT 30 GM TUBE TP SCH ×2 (09:40→21:17)
[2019-03-19] MEDS: LISINOPRIL 20 MG TABLET (FP) PO SCH ×2 (09:40→21:17)
[2019-03-19] MEDS: TRIAMCINOLONE ACET 0.025% OINTMENT 15 GM TUBE TP SCH ×2 (09:40→21:17)
[2019-03-19] MEDS: NIFEdipine E.R 60 MG TABLET (UD) PO SCH (09:40)
[2019-03-19] MEDS: ACETAMINOPHEN 325 MG TABLET (FP) PO PRN ×2 (09:41→21:18)
[2019-03-19] MEDS ORDERED: PT OWN MED DRAWER 7, Y5N ONE ×3 (09:43→21:15)
[2019-03-19] MEDS: BUDESONIDE/FORMETEROL FUMARATE 160/4.5 mcg INHALER IH SCH ×2 (09:43→21:56)
[2019-03-19] MEDS: CYCLOBENZAPRINE HCL 5 MG TABLET PO PRN ×2 (10:20→21:18)
[2019-03-19] MEDS: ATORVASTATIN CA 10 MG TABLET (FP) PO SCH (21:17)
[2019-03-19] MEDS: MINERAL OIL/PETROLATUM,WHITE 3.5 GM TUBE OU SCH (21:17)
[2019-03-19] MEDS: MONTELUKAST NA 10 MG TABLET PO SCH (21:17)
[2019-03-19] MEDS: THIAMINE HCL 100 MG TABLET (FP) PO SCH (21:17)
[2019-03-20] MEDS ORDERED: INSULIN (NOVOLOG) ASPART 100 UNITS/ML 10ML VIAL ONE ×3 (06:58→16:51)
[2019-03-20] MEDS: INSULIN SLIDING SCALE (NOVOLOG) 1 VIAL SQ SCH ×4 (08:06→21:22)
[2019-03-20] MEDS: INSULIN (LEVEMIR) 100 UNITS/ML UNITS SQ SCH ×2 (08:06→16:55)
[2019-03-20] MEDS: cloNIDine HCL 0.1 MG TABLET PO SCH (09:57)
[2019-03-20] MEDS: PRENATAL VITAMINS W/ FOLIC ACID TABLET (FP) PO SCH (09:57)
[2019-03-20] MEDS: BUDESONIDE/FORMETEROL FUMARATE 160/4.5 mcg INHALER IH SCH ×2 (09:57→21:17)
[2019-03-20] MEDS: NIFEdipine E.R 60 MG TABLET (UD) PO SCH (09:57)
[2019-03-20] MEDS: TRIAMCINOLONE ACET 0.025% OINTMENT 15 GM TUBE TP SCH ×2 (09:57→21:14)
[2019-03-20] MEDS: ASPIRIN 81 MG CHEWABLE TABLETS PO SCH (09:57)
[2019-03-20] MEDS: FAMOTIDINE 20 MG TABLET PO SCH ×2 (09:58→21:13)
[2019-03-20] MEDS: METHYL SALICYLATE/MENTHOL OINT 30 GM TUBE TP SCH ×2 (09:58→21:16)
[2019-03-20] MEDS: hydrOXYzine PAMOATE 50 MG CAPSULE (FP) PO PRN ×2 (09:58→21:19)
[2019-03-20] MEDS: LISINOPRIL 20 MG TABLET (FP) PO SCH ×2 (09:58→21:13)
[2019-03-20] MEDS: CYCLOBENZAPRINE HCL 5 MG TABLET PO PRN (09:58)
[2019-03-20] MEDS: ACETAMINOPHEN 325 MG TABLET (FP) PO PRN ×2 (09:59→21:19)
[2019-03-20] MEDS: ATORVASTATIN CA 10 MG TABLET (FP) PO SCH (21:14)
[2019-03-20] MEDS: MONTELUKAST NA 10 MG TABLET PO SCH (21:14)
[2019-03-20] MEDS: MINERAL OIL/PETROLATUM,WHITE 3.5 GM TUBE OU SCH (21:16)
[2019-03-20] MEDS: THIAMINE HCL 100 MG TABLET (FP) PO SCH (21:17)
[2019-03-20] MEDS ORDERED: PT OWN MED DRAWER 7, Y5N ONE (21:18)
[2019-03-21] MEDS: INSULIN SLIDING SCALE (NOVOLOG) 1 VIAL SQ SCH ×4 (07:25→21:24)
[2019-03-21] MEDS: INSULIN (LEVEMIR) 100 UNITS/ML UNITS SQ SCH ×2 (07:25→16:23)
[2019-03-21] MEDS: METHYL SALICYLATE/MENTHOL OINT 30 GM TUBE TP SCH ×2 (10:01→21:19)
[2019-03-21] MEDS: cloNIDine HCL 0.1 MG TABLET PO SCH (10:01)
[2019-03-21] MEDS: PRENATAL VITAMINS W/ FOLIC ACID TABLET (FP) PO SCH (10:01)
[2019-03-21] MEDS: ASPIRIN 81 MG CHEWABLE TABLETS PO SCH (10:01)
[2019-03-21] MEDS: CYCLOBENZAPRINE HCL 5 MG TABLET PO PRN ×2 (10:01→21:27)
[2019-03-21] MEDS: TRIAMCINOLONE ACET 0.025% OINTMENT 15 GM TUBE TP SCH ×2 (10:01→21:19)
[2019-03-21] MEDS: NIFEdipine E.R 60 MG TABLET (UD) PO SCH (10:01)
[2019-03-21] MEDS: BUDESONIDE/FORMETEROL FUMARATE 160/4.5 mcg INHALER IH SCH ×2 (10:01→21:25)
[2019-03-21] MEDS: FAMOTIDINE 20 MG TABLET PO SCH ×2 (10:01→21:25)
[2019-03-21] MEDS: LISINOPRIL 20 MG TABLET (FP) PO SCH ×2 (10:01→21:26)
[2019-03-21] MEDS: hydrOXYzine PAMOATE 50 MG CAPSULE (FP) PO PRN (10:02)
[2019-03-21] MEDS: ACETAMINOPHEN 325 MG TABLET (FP) PO PRN ×2 (10:04→21:27)
[2019-03-21] MEDS ORDERED: INSULIN (NOVOLOG) ASPART 100 UNITS/ML 10ML VIAL ONE ×2 (11:35→16:22)
[2019-03-21] MEDS ORDERED: INSULIN (LEVEMIR) 100 UNITS/ML UNITS SQ ONE (16:22)
[2019-03-21] MEDS: guaiFENesin 200 MG/10 ML 10 ML UNIT-DOSE CUPS PO PRN (16:51)
[2019-03-21] MEDS: THIAMINE HCL 100 MG TABLET (FP) PO SCH (21:25)
[2019-03-21] MEDS: MONTELUKAST NA 10 MG TABLET PO SCH (21:25)
[2019-03-21] MEDS: ATORVASTATIN CA 10 MG TABLET (FP) PO SCH (21:25)
[2019-03-21] MEDS: MINERAL OIL/PETROLATUM,WHITE 3.5 GM TUBE OU SCH (21:28)
[2019-03-22] MEDS: INSULIN (LEVEMIR) 100 UNITS/ML UNITS SQ SCH ×2 (06:08→16:27)
[2019-03-22] MEDS: INSULIN SLIDING SCALE (NOVOLOG) 1 VIAL SQ SCH ×4 (06:08→21:34)
[2019-03-22] MEDS ORDERED: INSULIN (NOVOLOG) ASPART 100 UNITS/ML 10ML VIAL ONE ×3 (06:37→16:24)
[2019-03-22] MEDS: CYCLOBENZAPRINE HCL 5 MG TABLET PO PRN ×2 (09:40→21:35)
[2019-03-22] MEDS: BUDESONIDE/FORMETEROL FUMARATE 160/4.5 mcg INHALER IH SCH ×2 (09:40→21:38)
[2019-03-22] MEDS: ASPIRIN 81 MG CHEWABLE TABLETS PO SCH (09:40)
[2019-03-22] MEDS: cloNIDine HCL 0.1 MG TABLET PO SCH (09:40)
[2019-03-22] MEDS: NIFEdipine E.R 60 MG TABLET (UD) PO SCH (09:40)
[2019-03-22] MEDS: LISINOPRIL 20 MG TABLET (FP) PO SCH ×2 (09:40→21:36)
[2019-03-22] MEDS: FAMOTIDINE 20 MG TABLET PO SCH ×2 (09:41→21:35)
[2019-03-22] MEDS: METHYL SALICYLATE/MENTHOL OINT 30 GM TUBE TP SCH ×2 (09:41→21:35)
[2019-03-22] MEDS: TRIAMCINOLONE ACET 0.025% OINTMENT 15 GM TUBE TP SCH ×2 (09:42→21:35)
[2019-03-22] MEDS: hydrOXYzine PAMOATE 50 MG CAPSULE (FP) PO PRN ×2 (09:42→21:37)
[2019-03-22] MEDS: PRENATAL VITAMINS W/ FOLIC ACID TABLET (FP) PO SCH (09:42)
[2019-03-22] MEDS: ACETAMINOPHEN 325 MG TABLET (FP) PO PRN ×2 (09:42→21:36)
[2019-03-22] MEDS ORDERED: PT OWN MED DRAWER 7, Y5N ONE (21:35)
[2019-03-22] MEDS: MINERAL OIL/PETROLATUM,WHITE 3.5 GM TUBE OU SCH (21:35)
[2019-03-22] MEDS: ATORVASTATIN CA 10 MG TABLET (FP) PO SCH (21:36)
[2019-03-22] MEDS: MONTELUKAST NA 10 MG TABLET PO SCH (21:36)
[2019-03-22] MEDS: THIAMINE HCL 100 MG TABLET (FP) PO SCH (21:38)
[2019-03-22] MEDS ORDERED: INSULIN (LEVEMIR) 100 UNITS/ML UNITS SQ ONE (21:45)
[2019-03-23] MEDS ORDERED: INSULIN (NOVOLOG) ASPART 100 UNITS/ML 10ML VIAL ONE ×3 (07:09→16:38)
[2019-03-23] MEDS: INSULIN SLIDING SCALE (NOVOLOG) 1 VIAL SQ SCH ×4 (07:32→21:56)
[2019-03-23] MEDS: INSULIN (LEVEMIR) 100 UNITS/ML UNITS SQ SCH ×2 (07:32→16:43)
[2019-03-23] MEDS: cloNIDine HCL 0.1 MG TABLET PO SCH (09:41)
[2019-03-23] MEDS: FAMOTIDINE 20 MG TABLET PO SCH ×2 (09:41→21:55)
[2019-03-23] MEDS: ACETAMINOPHEN 325 MG TABLET (FP) PO PRN ×2 (09:41→16:44)
[2019-03-23] MEDS: PRENATAL VITAMINS W/ FOLIC ACID TABLET (FP) PO SCH (09:41)
[2019-03-23] MEDS: ASPIRIN 81 MG CHEWABLE TABLETS PO SCH (09:41)
[2019-03-23] MEDS: LISINOPRIL 20 MG TABLET (FP) PO SCH ×2 (09:41→21:55)
[2019-03-23] MEDS: CYCLOBENZAPRINE HCL 5 MG TABLET PO PRN ×2 (09:41→21:55)
[2019-03-23] MEDS: BUDESONIDE/FORMETEROL FUMARATE 160/4.5 mcg INHALER IH SCH ×2 (09:43→22:13)
[2019-03-23] MEDS: METHYL SALICYLATE/MENTHOL OINT 30 GM TUBE TP SCH ×2 (10:20→21:54)
[2019-03-23] MEDS: TRIAMCINOLONE ACET 0.025% OINTMENT 15 GM TUBE TP SCH ×2 (10:20→21:53)
[2019-03-23] MEDS: NIFEdipine E.R 60 MG TABLET (UD) PO SCH (10:20)
--- NOTE | 2019-03-23 15:06 | PN ---
[facility] Progress Note Note: elevated glucose; covered with 10 units of regular insulin. Asymptomatic. Continue to monitor. Laboratory Last Values POC Glucometer 408 UNITS (80-120) 03/23/19 11:44
[2019-03-23] MEDS ORDERED: INSULIN (LEVEMIR) 100 UNITS/ML UNITS SQ ONE (16:38)
[2019-03-23] MEDS ORDERED: PT OWN MED DRAWER 7, Y5N ONE (21:54)
[2019-03-23] MEDS: MINERAL OIL/PETROLATUM,WHITE 3.5 GM TUBE OU SCH (21:54)
[2019-03-23] MEDS: THIAMINE HCL 100 MG TABLET (FP) PO SCH (21:55)
[2019-03-23] MEDS: ATORVASTATIN CA 10 MG TABLET (FP) PO SCH (21:55)
[2019-03-23] MEDS: MONTELUKAST NA 10 MG TABLET PO SCH (21:55)
[2019-03-24] MEDS: INSULIN (LEVEMIR) 100 UNITS/ML UNITS SQ SCH ×2 (06:17→16:35)
[2019-03-24] MEDS: INSULIN SLIDING SCALE (NOVOLOG) 1 VIAL SQ SCH ×4 (06:17→21:17)
[2019-03-24] MEDS ORDERED: INSULIN (NOVOLOG) ASPART 100 UNITS/ML 10ML VIAL ONE ×3 (06:53→16:33)
[2019-03-24] MEDS: CYCLOBENZAPRINE HCL 5 MG TABLET PO PRN ×2 (09:55→21:51)
[2019-03-24] MEDS: PRENATAL VITAMINS W/ FOLIC ACID TABLET (FP) PO SCH (09:55)
[2019-03-24] MEDS: cloNIDine HCL 0.1 MG TABLET PO SCH (09:55)
[2019-03-24] MEDS: FAMOTIDINE 20 MG TABLET PO SCH ×2 (09:55→21:51)
[2019-03-24] MEDS: LISINOPRIL 20 MG TABLET (FP) PO SCH ×2 (09:55→21:50)
[2019-03-24] MEDS: ASPIRIN 81 MG CHEWABLE TABLETS PO SCH (09:55)
[2019-03-24] MEDS: NIFEdipine E.R 60 MG TABLET (UD) PO SCH (09:55)
[2019-03-24] MEDS: METHYL SALICYLATE/MENTHOL OINT 30 GM TUBE TP SCH ×2 (09:56→21:59)
[2019-03-24] MEDS: TRIAMCINOLONE ACET 0.025% OINTMENT 15 GM TUBE TP SCH ×2 (09:56→21:50)
[2019-03-24] MEDS: BUDESONIDE/FORMETEROL FUMARATE 160/4.5 mcg INHALER IH SCH ×2 (09:58→21:51)
[2019-03-24] MEDS ORDERED: PT OWN MED DRAWER 7, Y5N ONE (09:58)
[2019-03-24] MEDS: ACETAMINOPHEN 325 MG TABLET (FP) PO PRN ×2 (09:58→21:52)
[2019-03-24] MEDS: P-EPHED 60MG/TRIPROLIDI 2.5MG TABLET PO PRN (14:34)
[2019-03-24] MEDS: guaiFENesin 200 MG/10 ML 10 ML UNIT-DOSE CUPS PO PRN (14:34)
[2019-03-24] MEDS ORDERED: INSULIN (LEVEMIR) 100 UNITS/ML UNITS SQ ONE (16:33)
[2019-03-24] MEDS: ATORVASTATIN CA 10 MG TABLET (FP) PO SCH (21:50)
[2019-03-24] MEDS: MINERAL OIL/PETROLATUM,WHITE 3.5 GM TUBE OU SCH (21:50)
[2019-03-24] MEDS: MONTELUKAST NA 10 MG TABLET PO SCH (21:50)
[2019-03-24] MEDS: THIAMINE HCL 100 MG TABLET (FP) PO SCH (21:51)
[2019-03-24] MEDS: hydrOXYzine PAMOATE 50 MG CAPSULE (FP) PO PRN (21:51)
[2019-03-25] MEDS ORDERED: INSULIN (NOVOLOG) ASPART 100 UNITS/ML 10ML VIAL ONE ×3 (07:05→16:38)
[2019-03-25] MEDS: INSULIN (LEVEMIR) 100 UNITS/ML UNITS SQ SCH ×2 (07:30→16:38)
[2019-03-25] MEDS: INSULIN SLIDING SCALE (NOVOLOG) 1 VIAL SQ SCH ×4 (07:30→22:18)
--- NOTE | 2019-03-25 08:53 | PN ---
S Progress Note (SOAP) Subjective: patient with elevated BP, requesting change in schedule of BP medications Objective: 03/25/19 08:50 Vital Signs (72 hours) 03/22/19 03/23/19 03/23/19 09:30 03:30 06:56 Temperature 97.9 F Pulse Rate 86 84 Respiratory 18 20 18 Rate Blood Pressure 164/92 154/90 03/23/19 03/24/19 03/24/19 09:30 00:30 03:30 Temperature Pulse Rate 90 Respiratory 18 18 18 Rate Blood Pressure 155/87 03/24/19 03/24/19 03/24/19 07:06 11:18 20:57 Temperature 97.5 F L 97.5 F L Pulse Rate 103 H 96 H 76 Respiratory 20 18 18 Rate Blood Pressure 150/94 151/91 147/87 03/25/19 03/25/19 03/25/19 00:30 03:30 06:54 Temperature 97.9 F Pulse Rate 78 Respiratory 20 20 18 Rate Blood Pressure 150/92 P/E: General: No apparent distress HEENTM: normocephalic, PERRLA Lungs: clear Heart: s1 s2 Neuro: CN 2-12 intact. Assessment: Hypertension 03/25/19 08:52 Plan: Procardia changed to 6am Lisinopril changed to 6am & 6pm
[2019-03-25] MEDS: FAMOTIDINE 20 MG TABLET PO SCH ×2 (10:21→23:02)
[2019-03-25] MEDS: PRENATAL VITAMINS W/ FOLIC ACID TABLET (FP) PO SCH (10:21)
[2019-03-25] MEDS: ASPIRIN 81 MG CHEWABLE TABLETS PO SCH (10:21)
[2019-03-25] MEDS: CYCLOBENZAPRINE HCL 5 MG TABLET PO PRN ×2 (10:21→22:13)
[2019-03-25] MEDS: cloNIDine HCL 0.1 MG TABLET PO SCH (10:22)
[2019-03-25] MEDS: METHYL SALICYLATE/MENTHOL OINT 30 GM TUBE TP SCH ×2 (10:22→22:09)
[2019-03-25] MEDS: TRIAMCINOLONE ACET 0.025% OINTMENT 15 GM TUBE TP SCH ×2 (10:22→22:10)
[2019-03-25] MEDS: ACETAMINOPHEN 325 MG TABLET (FP) PO PRN ×2 (10:23→22:12)
[2019-03-25] MEDS: P-EPHED 60MG/TRIPROLIDI 2.5MG TABLET PO PRN (10:25)
[2019-03-25] MEDS: guaiFENesin 200 MG/10 ML 10 ML UNIT-DOSE CUPS PO PRN (10:26)
[2019-03-25] MEDS: BUDESONIDE/FORMETEROL FUMARATE 160/4.5 mcg INHALER IH SCH ×2 (10:27→23:03)
--- NOTE | 2019-03-25 15:50 | DS ---
[facility] Rehab Discharge Summary - [facility] Rehab Discharge Summary Admission Date: 03/07/19 Discharge Date: 03/26/19 - History Present History: Alcohol dependence, Sedative dependence Pertinent Past History: pt here requesting detox from [facility] , xanax use , reports 2 pints vodka/day and 1 x 6-pk /beer x 3 months xanax 2 sticks /day x 3 years , denies seizure h/o , denies blackouts, , cocaine every other day , denies other illicits . tobacco : denies pmhx : DM dx 5 years ago , asthma since ( [place]/ [place] ) , HLD , HTN .reports non- compliance w/ meds PSHX : denies PSYCH : denies , denies current SI / HI - Discharge Physical Exam Vital Signs: Vital Signs Temperature 97.9 F 03/25/19 06:54 Pulse Rate 81 03/25/19 09:30 Respiratory Rate 18 03/25/19 09:30 Blood Pressure 145/92 03/25/19 09:30 O2 Sat by Pulse Oximetry (%) Pertinent Admission Physical Exam Findings: Physical General Appearance: no apparent distress HEENTM: Normocephalic, Respiratory: Lungs Clear, Neck: supple, Trachea in good position Cardiology: S1, S2 Abdominal: +bs Non Tender, Soft, Protuberent Musculoskeletal: Gait Steady 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: cn2-12, Motor Strength 5/5 - Treatment Discharge Condition: Outpatient referral accepted (Referred to [facility] medically stable for discharge,) Hospital Course: patient attended groups, had 1:1 meeting with his counselor and was adherent to his medication regimen and treatment plan. He had no urgent medical issues while in rehab. - Medication Discharge Medications: Ambulatory Orders Albuterol Sulfate [Proair Hfa] 2 puff IH Q4H PRN 10/29/17 Esomeprazole Mag Trihydrate [Nexium] 20 mg PO DAILY 08/29/18 Mirtazapine 30 mg PO HS 09/11/18 Aspirin [ASA -] 81 mg PO DAILY tab.chew 03/25/19 Aspirin [ASA -] 81 mg PO DAILY #30 tab.chew 03/25/19 Atorvastatin Ca [Lipitor] 10 mg PO HS #30 tablet 03/25/19 Budesonide/Formeterol Fumarate [SYMBICORT 160/4.5mcg -] 2 inh PO BID #1 inhaler 03/25/19 Clonidine HCl 0.2 mg PO TID #90 tablet 03/25/19 Gabapentin 300 mg PO TID #120 capsule 03/25/19 Insulin Aspart [Novolog] 0 unit SQ TID #10 cartridge 03/25/19 Insulin Glargine,Hum.rec.anlog [Basaglar Kwikpen U-100] 10 unit SQ BID #10 insuln.pen 03/25/19 Methyl Salicylate/Menth/Camph [Bengay Ultra Strength Cream] 57 gm TP BID #1 cream..g. 03/25/19 Montelukast Na [Singulair -] 10 mg PO HS #30 tablet 03/25/19 Nifedipine ER [Procardia XL -] 30 mg PO DAILY #30 tab.er.24 03/25/19 Triamcinolone 0.025% Ointment [Aristocort 0.025% Ointment -] 1 applic TP BID #1 tube 03/25/19 hydrALAZINE HCL [Apresoline -] 50 mg PO DAILY #30 tablet 03/25/19 - Medication-Assisted Treatment (MAT) Medication-Assisted Treatment (MAT): No - Discharge Instructions Diet, activity, other medical instructions: Diet:as tolerated Activity: as tolerated Other medical instructions: please follow up with aftercare referral. - Diagnosis (1) Alcohol dependence Status: Chronic Qualifiers: Substance use status: in remission Qualified Code(s): F10.21 - Alcohol dependence, in remission (2) Benzodiazepine dependence Status: Chronic (3) Opioid dependence Status: Chronic (4) Alcohol dependence Status: Chronic - Follow-up Referral Minutes to complete discharge: 20 - AMA Did Patient Leave Against Medical Advice: No
[2019-03-25] MEDS ORDERED: PT OWN MED DRAWER 7, Y5N ONE ×2 (16:42→22:29)
[2019-03-25] MEDS ORDERED: LISINOPRIL 20 MG TABLET (FP) PO ONE (22:00)
[2019-03-25] MEDS: THIAMINE HCL 100 MG TABLET (FP) PO SCH (22:08)
[2019-03-25] MEDS: ATORVASTATIN CA 10 MG TABLET (FP) PO SCH (22:09)
[2019-03-25] MEDS: MINERAL OIL/PETROLATUM,WHITE 3.5 GM TUBE OU SCH (22:10)
[2019-03-25] MEDS: hydrOXYzine PAMOATE 50 MG CAPSULE (FP) PO PRN (22:11)
[2019-03-25] MEDS: MONTELUKAST NA 10 MG TABLET PO SCH (23:02)
[2019-03-26] MEDS ORDERED: LISINOPRIL 20 MG TABLET (FP) PO SCH (06:00)
[2019-03-26] MEDS ORDERED: NIFEdipine E.R 60 MG TABLET (UD) PO SCH (06:00)
[2019-03-26] MEDS: INSULIN SLIDING SCALE (NOVOLOG) 1 VIAL SQ SCH (06:18)
[2019-03-26 07:03] VITALS: BP 148/81; PULSE 89; TEMP 97.4
[2019-03-26] MEDS: INSULIN (LEVEMIR) 100 UNITS/ML UNITS SQ SCH (07:39)
[2019-03-26] MEDS: ASPIRIN 81 MG CHEWABLE TABLETS PO SCH (09:14)
[2019-03-26] MEDS: PRENATAL VITAMINS W/ FOLIC ACID TABLET (FP) PO SCH (09:14)
[2019-03-26] MEDS: FAMOTIDINE 20 MG TABLET PO SCH (09:14)
[2019-03-26] MEDS: cloNIDine HCL 0.1 MG TABLET PO SCH (09:14)
[2019-03-26] MEDS: ACETAMINOPHEN 325 MG TABLET (FP) PO PRN (09:15)
[2019-03-26] MEDS: BUDESONIDE/FORMETEROL FUMARATE 160/4.5 mcg INHALER IH SCH (09:18)
== END 2019-03-26 09:40 | disposition home or self-care (01) | DRG 772 ==
LOC: YASAS 13:02 → Y3W 13:03
PROVIDERS: ADMIT Neuromusculoskeletal Medicine & OMM; ATTEND Neuromusculoskeletal Medicine & OMM
PROC: HZ42ZZZ Group Counseling for Substance Abuse Treatment, Cognitive-Behavioral (ICD-10-PCS; principal; 2019-03-07)
DX: F10.20 Alcohol dependence, uncomplicated (principal); F13.20 Sedative, hypnotic or anxiolytic dependence, uncomplicated; F19.282 Other psychoactive substance dependence with psychoactive substance-induced sleep disorder; I10 Essential (primary) hypertension; H04.129 Dry eye syndrome of unspecified lacrimal gland; E11.9 Type 2 diabetes mellitus without complications; J45.909 Unspecified asthma, uncomplicated; M54.5 Low back pain; E66.9 Obesity, unspecified; Z68.38 Body mass index [BMI] 38.0-38.9, adult; Z79.4 Long term (current) use of insulin
CPT/HCPCS: 82962; J0735